=== PATIENT | male | born 1940 | race Caucasian/White ===

== ENCOUNTER → 2017-08-09 09:54 | Outpatient (CLI) | payer MEDICARE, SELFPAY ==
[2017-08-09 10:51] LABS: Anion Gap 5 (5-15); BUN 16 mg/dL (7-18); BUN/Creat Ratio 15.7 RATIO (10-20); Chloride 109 mmol/L (98-107); Creatinine, Serum 1.02 mg/dL (0.70-1.30); EST Glomerular Filtration Rate 75 mL/min (>60); Est Glom Filt Rate - Afr Amer 91 mL/min (>60); Glucose 95 mg/dL (74-106); Potassium 4.5 mmol/L (3.5-5.1); Sodium Level 139 mmol/L (136-145)
[2017-08-09 10:59] LABS: Hemoglobin A1c 6.7 % (4.2-6.3)
== END ==
PROVIDERS: Family Provider Physician Assistant; PCP Physician Assistant; Visit Provider Physician Assistant
DX: E11.42 Type 2 diabetes mellitus with diabetic polyneuropathy (principal); I10 Essential (primary) hypertension; Z12.11 Encounter for screening for malignant neoplasm of colon
CPT/HCPCS: 36415; 80048; 83036

== ENCOUNTER → 2017-08-21 10:53 | Outpatient (CLI) | payer MEDICARE, SELFPAY | PROVIDERS: Family Provider Physician Assistant; PCP Physician Assistant; Visit Provider Physician Assistant | DX: R42 Dizziness and giddiness (principal) | CPT/HCPCS: 93225; 93226 ==

== ENCOUNTER → 2017-09-17 12:37 | Outpatient (CLI) | payer MEDICARE, SELFPAY ==
--- NOTE | 2017-09-17 12:40 | ECHOD_ITS ---
Reason For Study: CABG Procedure This was a 2D Doppler, Color Flow transthoracic echocardiogram. Exam performed in department. Left Ventricle Normal LV size. Left ventricular systolic function is normal. The estimated ejection fraction is 55 %. Transmitral diastolic flow velocities suggest mild (stage 1) diastolic dysfunction (reversed pattern). No regional wall motion abnormalities noted. Right Ventricle Normal RV size. Normal systolic function. Atria Normal left atrium. Normal right atrium. Mitral Valve Normal mitral valve. Mild (1+) eccentric mitral valve insufficiency. Tricuspid Valve Normal tricuspid valve. Mild (1+) tricuspid valve insufficiency. Pulmonary artery systolic pressure is 32 mmHg. Aortic Valve Trisinus/trileaflet aortic valve. Mild focal aortic valve calcification. Pulmonic Valve Normal pulmonic valve. Great Vessels Normal aortic root. The pulmonary artery is normal size. Normal inferior vena cava. Pericardium/Pleural No pericardial effusion. MMode/2D Measurements & Calculations LVIDd: 3.6 cm IVSd: 0.98 cm Ao root diam: 3.9 cm LVIDs: 2.7 cm LVPWd: 0.93 cm LA dimension: 4.9 cm RVDd: 3.6 cm FS: 26.5 % LAV(MOD-bp): 52.0 ml EDV(MOD-sp4): 104.7 ml EDV(MOD-sp2): 80.3 ml LAV(MOD-bp) Indexed: 24.6 ml/m2 ESV(MOD-sp4): 34.8 ml EF(MOD-sp2): 58.4 % LAV(MOD-sp2): 55.1 ml EF(MOD-sp4): 66.8 % LAV(MOD-sp4): 48.8 ml SV(MOD-sp4): 69.9 ml SV(MOD-sp2): 46.9 ml LA A4 area: 18.0 cm2 RA A4 area: 16.8 cm2 Doppler Measurements & Calculations MV E max reji: 54.6 cm/sec Lat Peak E' Reji: 5.9 cm/sec Med Peak E' Reji: 4.9 cm/sec MV A max reji: 88.0 cm/sec E/E' lat: 9.2 E/E' med: 11.1 MV E/A: 0.62 Ao V2 max: 118.7 cm/sec LV V1 max: 101.4 cm/sec PA V2 max: 86.7 cm/sec Ao max P.6 mmHg LV V1 max P.1 mmHg TR max reji: 267.5 cm/sec TR max P.7 mmHg Interpretation Summary Normal LV size. Left ventricular systolic function is normal. The estimated ejection fraction is 55 %. Transmitral diastolic flow velocities suggest mild (stage 1) diastolic dysfunction (reversed pattern). GLS approx 19 Ordering Physician: Pietro Noble Referring Physician: Collins Ojeda Performed By: Laila Jiménez RDCS
== END ==
PROVIDERS: Family Provider Physician Assistant; PCP Physician Assistant; Visit Provider Internal Medicine Cardiovascular Disease
DX: I36.1 Nonrheumatic tricuspid (valve) insufficiency (principal)
CPT/HCPCS: 93306

== ENCOUNTER → 2018-05-04 15:43 | Outpatient (CLI) | payer MEDICARE, SELFPAY ==
[2017-09-10 15:45] VITALS: BMI 28.3
[2018-05-04 16:32] LABS: Absolute Lymphocyte Count 1.71 X10^3/ul (0.83-4.51); Absolute Neutrophil Count 2.4 X10^3/uL (2.0-7.7); Basophil# 0.02 X10^3/uL; Basophil% 0.4 % (0-1); Eosinophils% 4.1 % (0-5); Hematocrit 40.1 % (40-54); Lymphocyte # 1.71 X10^3/ul (4.0); Mean Corp Hgb Conc 32.4 g/gl (32-36); Mean Corpuscular Hgb 27.4 pg (27.0-32.0); Mean Corpuscular Volume 84.6 fL (80-94); Mean Platelet Vol. 8.6 fl (6.2-12.0); Monocyte# 0.52 X10^3/uL; Monocyte% 10.7 % (0-10); Neutrophil # 2.42 X10^3/uL (2.7-7.7); Neutrophil % 49.6 % (47-70); Platelet Count 306 K/mm3 (150-450); RBC Distribution Width SD 46.6 fl (35.1-43.9); Red Blood Count 4.74 M/mm3 (4.6-6.2); White Blood Count 4.9 K/mm3 (4.4-11.0)
[2018-05-04 16:33] LABS: POSITIVE COUNT NO; POSITIVE DIFFERENTIAL NO; POSITIVE MORPHOLOGY NO
[2018-05-04 16:45] LABS: ALB/GLOB Ratio 0.9 RATIO (0.9-2.4); AST(SGOT) 23 U/L (15-37); Alanine Aminotransfer ALT/SGPT 25 U/L (16-61); Albumin, Serum 3.3 g/dL (3.2-5.0); Alkaline Phosphatase 108 U/L (45-117); Anion Gap 9 (5-15); BUN 18 mg/dL (7-18); BUN/Creat Ratio 15.3 RATIO (10-20); Calcium,Total 8.4 mg/dL (8.5-10.1); Chloride 106 mmol/L (98-107); Creatinine, Serum 1.18 mg/dL (0.70-1.30); EST Glomerular Filtration Rate 63 mL/min (>60); Est Glom Filt Rate - Afr Amer 77 mL/min (>60); Globulin 3.8 g/dL (2.2-4.2); Glucose 114 mg/dL (74-106); Iron 43 ug/dL (65-175); Iron Binding Capacity,Total 296 ug/dL (250-450); PERCENT IRON SATURATION 14.5 % (15.0-55.0); Potassium 4.4 mmol/L (3.5-5.1); Protein, Total 7.1 g/dL (6.4-8.2); Sodium Level 139 mmol/L (136-145)
[2018-05-04 16:53] LABS: Hemoglobin A1c 7.2 % (4.2-6.3)
[2018-05-04 19:24] LABS: Amphetamine Urine VISTA NEGATIVE (<1000 ng/mL); Barbiturate Urine VISTA NEGATIVE (< 200 ng/mL); Benzodiazepine Urine VISTA NEGATIVE (< 200 ng/mL); Cocaine Urine VISTA NEGATIVE (< 300 ng/mL); Ecstacy Urine VISTA NEGATIVE (< 500 ng/mL); Methadone Urine VISTA NEGATIVE (< 300 ng/mL); PCP Urine VISTA NEGATIVE (< 25 ng/mL); THC Urine VISTA NEGATIVE (< 50 ng/mL); Vista UDS pH Range 6
== END ==
PROVIDERS: Family Provider Physician Assistant; PCP Physician Assistant; Referring Provider Physician Assistant; Visit Provider Physician Assistant
DX: D50.9 Iron deficiency anemia, unspecified (principal); E11.42 Type 2 diabetes mellitus with diabetic polyneuropathy; I10 Essential (primary) hypertension; Z79.899 Other long term (current) drug therapy
CPT/HCPCS: 80053; 80307; 83036; 83540; 83550; 85025

== ENCOUNTER → 2018-06-25 15:37 | Outpatient (CLI) | payer MEDICARE, SELFPAY ==
[2018-06-25 16:05] LABS: Cytology, Body Fluid / CSF SEE PATHOLOGY REPORT
== END ==
PROVIDERS: Family Provider Physician Assistant; PCP Physician Assistant
DX: R31.0 Gross hematuria (principal)
CPT/HCPCS: 87077; 87086; 87088; 88108; 88313

== ENCOUNTER 2018-07-22 11:24 | Day surgery (SDC) | payer MEDICARE, SELFPAY ==
--- NOTE | 2018-07-22 | GASB_PTH ---
PATIENT: CHEYENNE MENDIETA LOC: EN U#:[id number] AGE/SX: 78/M ROOM: RE07/22/[address]: Dr. Monty Sebastian MD : 1940 BED: DIS: 07/22/2018 SPEC #: [id number] RECD: 07/22/18 14:57 STATUS: SANDRA REGerber #: [id number] KAYLA: 07/22/18 00:[address]: Monty Sebastian DEPT: SURGICAL PATHOLOGY RECD BY: Duglas Huerta ENTERED: 07/23/18 08:22 SP TYPE: Gastric Bx OT DR: HERB Cintron Tissues: A - Gastric mucous membrane B - Gastric mucous membrane Procedures: Special Stain Group II Surgery Specimen Level IV Alcian Blue/PAS (control) HEADER OPERATION[place] [place] DIAGNOSIS: Iron deficiency anemia TISSUE SUBMITTED: A - Antral biopsy for histo and H. pylori, B - GE junction biopsy MICROSCOPIC DIAGNOSIS A. Gastric antrum, biopsy: Mild chronic gastritis. See comment. B. Gastroesophageal junction, biopsy: Chronic inflammation. No evidence of dysplasia. See comment. AM:lisa 07/24/18 COMMENT A. The results of immunohistochemistry for Helicobacter pylori will be reported separately ([id number]). B. Alcian blue/PAS stain with matched control supports the above diagnosis. MICROSCOPIC DESCRIPTION Slides are reviewed. GROSS DESCRIPTION A - Received in fixative is one container labeled with the patient's name and designated antral biopsy. The specimen consists of one irregular fragment of light lee soft tissue that measures 0.3 x 0.3 x 0.1 cm. The specimen is totally submitted in one cassette. B - Received in fixative is one container labeled with the patient's name and designated GE junction biopsy. The specimen consists of one irregular fragment of light lee soft tissue that measures 0.3 x 0.3 x 0.1 cm. The specimen is totally submitted in one cassette. / SJ:lisa 07/23/18 TC:3 CPT: 32438 x2, 44329
[2018-07-22 11:46] VITALS: BP 190/83; PULSE 81; RESP 16; TEMP 36.4; O2SAT 100; BMI 28.2
[2018-07-22 12:16] LABS: Bedside Glucose 147 mg/dL (70-110)
--- NOTE | 2018-07-22 13:00 | IMM_PTH ---
PATIENT: CHEYENNE MENDIETA LOC: EN U#:[id number] AGE/SX: 78/M ROOM: RE07/22/[address]: Dr. Monty Sebastian MD : 1940 BED: DIS: 07/22/2018 SPEC #: [id number] RECD: 07/23/18 08:39 STATUS: SANDRA REQ #: [id number] KAYLA: 07/22/18 13:[address]: Monty Sebastian DEPT: IMMUNOHISTOCHEMISTRY RECD BY: Roxie Bowen ENTERED: 07/23/18 08:40 SP TYPE: IMMUNO OTHR DR: HERB Cintron Tissues: A - Stomach, NOS Procedures: H Pylori (initial) PHYSICIAN & INSTITUTION [place] [id number] SPECIMEN INFORMATION: Tissue Source: A - Antral biopsy Clinical Info: Iron deficiency anemia Specimen Number: [id number] CPT code: 85835 METHODOLOGY: Deparaffinized sections of prefer/formalin-fixed tissue or PAP/DQ stained slides are incubated with monoclonal/polyclonal antibodies/oligonucleotide probes. Localization is made via biotin free immunoperoxidase method. Appropriate controls are performed and reacted as expected. Results on target cell population are indicated in the following table: RESULTS: ANTIBODY / CLONE RESULT Block A H Pylori (polyclonal) negative These tests were developed and their performance characteristics determined by [facility]. They may not have been cleared or approved by the U.S. Food and Drug Administration. The FDA has determined that such clearance or approval is not necessary. INTERPRETATION: A. Antral biopsy: Negative for Helicobacter pylori organisms. AM:lisa 07/24/18
--- NOTE | 2018-07-22 13:51 | HP.PCM_ITS ---
History and Physical Date of Admission: 07/22/18 REASON FOR VISIT Farrukh Kim is a 78 year old male who is scheduled at the request of HERB Chavez, for anemia. My final recommendations will be communicated back to the requesting provider?by the way of the shared medical record. ? Blood work reviewed from [facility] dated 05/04/18: H&H: 15.0/46.6 Iron: 43 TIBC: 296 Iron sat: 14.5 ? HgbA1C: 7.2 Lytes: normal BUN/CR: 19/06.18 ? ? The patient was instructed to start ferrous sulfate 325 mg daily, on 05/07/18. ? The patient sees Dr Gu. ?His next visit is in July. ?He had bypass 18 years ago. ? Cardiac Echo 09/17/17: Interpretation Summary: Normal LV size. Left ventricular systolic function is normal. The estimated ejection fraction is 55 %. Transmitral diastolic flow velocities suggest mild (stage 1) diastolic dysfunction (reversed pattern). GLS approx 19 ? ? ? HISTORY OF PRESENT ILLNESS Farrukh Kim ?is a 78 year old male who presents today for an evaluation of anemia. ?He tells me that his appetite is adequate. He doesn't really get hungry. ?His reports that he seems to be eating less than usual. ?he tells me that he feels full quickly. ? The patient denies change in bowel habits, rectal bleeding or abdominal pain. Having a bowel movement once a day. ?He notes occasional urgency. ? PAST?MEDICAL?HISTORY PAST MEDICAL HISTORY Diagnosis Date ? CABG 2001 ? Renal calculi ? ? Type II or unspecified type diabetes mellitus without mention of complication, not stated as uncontrolled ? ? Unspecified essential hypertension ? ? PAST?SURGICAL?HISTORY PAST SURGICAL HISTORY Procedure Laterality Date ? APPENDECTOMY ? ? ? CABG (4) VEIN GRAFTS & ARTERIAL GRAFT(S) ? ? ? COLONOSCOPY ? 10/16/2006 ? Dr. Stone. Diverticulosis. ?Poor prep - repeat 2 yrs. ? HERNIA REPAIR W/MESH ? ? ? twice ? CURRENT?MEDICATIONS ? Current Outpatient Prescriptions: iv contrast (will be provided with radiology test) CT Urogram WO/W Inject, intravenously, once for 1 dose.No IV access, insert saline lock prior to the beginning of sedation, infusion, injection of imaging exam. Discontinue saline lock post exam. If Pt. has a central line or IVAD, may access for administration according to line specific nursing protocol. Once exam is complete flush line and de-access according to line specific nursing protocol in the CT contrast administration guidelines link. Disp: 1 Each Rfl: 0 ferrous sulfate 325 mg (65 mg iron) tablet Take 1 tablet by mouth daily with breakfast. Disp: 30 tablet Rfl: 2 acetaminophen/diphenhydramine (TYLENOL PM ORAL) Take 2 tablets by mouth at bedtime as needed. Disp: Rfl: lisinopril (ZESTRIL, PRINIVIL) 20 mg tablet Take 1 tablet by mouth once daily. Disp: 90 tablet Rfl: 1 tamsulosin ER (FLOMAX) 0.4 mg cap Take 1 capsule by mouth daily at bedtime. Disp: 90 capsule Rfl: 1 traZODone (DESYREL) 50 mg tablet Take 1 tablet by mouth daily at bedtime. Disp: 90 tablet Rfl: 1 metFORMIN ER (GLUCOPHAGE XR) 500 mg 24 hr tablet Take 2 tablets by mouth daily with breakfast. Disp: 180 tablet Rfl: 1 gabapentin (NEURONTIN) 300 mg capsule TAKE ONE CAPSULE BY MOUTH IN THE MORNING, THEN ONE CAPSULE AT NOON AND TWO CAPSULES AT BEDTIME Disp: 360 capsule Rfl: 1 traMADol (ULTRAM) 50 mg tablet Take 1 tablet by mouth twice daily as needed for Pain for up to 180 days. Disp: 180 tablet Rfl: 1 atenolol (TENORMIN) 25 mg tablet Take 1 tablet by mouth once daily. Disp: 90 tablet Rfl: 1 flash glucose scanning reader (FREESTYLE CONNER READER) [facility] [place] Check blood sugar 3 times daily. Disp: 1 Device Rfl: 0 flash glucose sensor (FREESTYLE CONNER SENSOR) kit Check blood sugar 3 times daily. Disp: 3 Each Rfl: 5 aspirin, enteric coated (ASPIRIN, ENTERIC COATED) 81 mg EC tablet Take 81 mg by mouth once daily. Disp: Rfl: atorvastatin (LIPITOR) 10 mg tablet Take 10 mg by mouth once daily. Disp: Rfl: fluticasone (FLONASE) 50 mcg/actuation nasal spray Use 2 Sprays in each nostril once daily. FOR ALLERGIC NASAL SX. Disp: 1 Bottle Rfl: 11 Ibuprofen-diphenhydrAMINE HCl (IBUPROFEN PM) 200-25 mg cap Take 1 tablet by mouth once daily. Disp: Rfl: Cholecalciferol, Vitamin D3, (VITAMIN D-3) 2,000 unit cap Take 2 capsules by mouth once daily. Disp: Rfl: ascorbic acid(VITAMIN C 1,000 MG TAB) Take three (3) tablets every day Disp: Rfl: 0 omega-3 fatty acids(FISH OIL 500 MG CAP) Take four (4) tablets every day Disp: Rfl: 0 ? No current facility-administered medications for this visit. ? ? ALLERGIES ALLERGIES Allergen Reactions ? Glimepiride ? Intolerance ? Mirtazapine ? Intolerance ? ? Extreme drowsiness ? Seasonal Allergies ? Other: See Comments ? ? nasal congestion ? SOCIAL?HISTORY Social History ??Marital status: ?Spouse name: ?Years of education: ?Number of children: 5 ? Social History Main Topics ??Smoking status: Former Smoker ?Packs/day: 0.00 ?Years: 0.00 ?Quit date: 06/02/1983 ??Smokeless tobacco: Never Used ?Alcohol use: No ?Drug use: No ?Sexual activity: Yes ?Partners with: Female ? Social History Narrative ??He and his have a basement apartment in his son's house. 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 ? FAMILY?HISTORY FAMILY HISTORY Problem Relation Age of Onset ? Breast Cancer Mother ? ? Heart Father ? ? Diabetes Son ? ? GI SPECIFIC REVIEW OF SYMPTOMS Difficulty swallowing / foods sticking in throat: no Heartburn: ?no Hoarseness: no Chronic cough: no Regurgitation: yes Chest pain: no Filling up quickly at meals:yes Loss of appetite: yes Nausea: no Vomiting: no Abdominal pain: no Recent change in bowel movements: no - having a bowel movement once a day. Bloody or black, bowel movements: no Constipation: no Diarrhea: no Loss of ?control of bowel movements: no Fever: no Chills: no Fluid in abdomen (ascites): no Vomiting blood: no Recent change in weight: No ? ? REVIEW OF SYSTEMS Eyes: No change in vision. Ears, Mouth, nose, throat: Uses flonase nasal spray on one side. Cardiovascular: Sees Dr. Gu. ?Denies chest pain. ? Respiratory: No new or worsening cough, wheezing and shortness of breath. Gastrointestinal : As noted above Genitourinary: Notes change in stream. Saw Asael Earl. Musuloskeletal: Chronic back pain. Takes Ultram. Integumentary: no rashes, lesions, or jaundice. Neurological: Peripheral neuropathy and intention tremor. Endocrine: Diabetes, on oral agent. ?Negative for cold or heat intolerance, polyuria, polydipsia and goiter. Psychiatric: Cooperative and agreeable. Allergic/ Immunologic: Seasonal allergies. All others negative ? ? PAST?MEDICAL?HISTORY PAST MEDICAL HISTORY Diagnosis Date ? CABG 2001 ? Renal calculi ? ? Type II or unspecified type diabetes mellitus without mention of complication, not stated as uncontrolled ? ? Unspecified essential hypertension ? PHYSICAL EXAMINATION Blood pressure 126/56, pulse 68, height 180.3 cm (5' 11), weight 93 kg (205 lb). General Appearance: Well appearing, alert, in no acute distress, well-hydrated, well nourished. Eyes: PERRLA, conjunctiva and sclera normal Oropharynx: Lips, tongue, and oral mucosa normal. Lungs:breath sounds clear to auscultation bilaterally, no crackles, rhonchi, or wheezes Heart: regular rate and rhythm, no murmurs or gallops. Abdomen: not distended, normal bowel sounds, soft and depressible, no guarding or rebound, no palpable mass, no organomegaly Rectal exam: Deferred. Extremities: no cyanosis or edema Skin: no jaundice, no spider angiomas, no palmar erythema Neuro:alert, oriented x 3, pleasant and in no acute distress ? ? ? Assessment ? IMPRESSION Mr. Kim is a 78 year old year old male who presents with iron deficiency anemia, early satiety and decreased appetite. Also in need of colorectal cancer screening ? ? PLAN The patient will be scheduled for an upper endoscopy and colonoscopy. ?This would be at 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). ??Preparation for the procedures, using GoLytely as the laxative, have been explained in detail. ?The risks, benefits, anticipated outcomes and possible complications were mentioned. I explained the procedure in understandable terms and the patient was given printed material concerning the planned procedure. The patient had the opportunity to ask questions concerning the planned procedure. The patient freely consents to the planned procedure. ? ? The patient is encouraged to call with any questions or concerns, or should there be any change ?in health status between now and the scheduled procedure. ? I have personally interviewed and examined this patient. ?I have read the information that the MA documented in this encounter. I spent 30 minutes in the visit, with more than 50% of the total [id number] time of the visit in counseling / coordination of care. ? Dixie ?Isidro Ko RN BOW MAKER MACHINE TENDER.ORDER CALLER
[2018-07-22 14:48] VITALS: BP 135/83; BP 190/83; PULSE 88; RESP 18; TEMP 36.6; O2SAT 97
--- NOTE | 2018-07-22 14:48 | OP.ENDO_ITS ---
07/22/2018 Jerrod Ojeda Re : Upper GI endoscopy procedure for Farrukh Kim Dear Rusty This procedure was performed on Sunday, July 22, 2018. My impressions and recommendations are as follows: Impressions : - Normal examined jejunum. - Normal. - Gastritis. Biopsied. - Small hiatal hernia. - Normal lower third of esophagus. Biopsied. Recommendations : - Return to nurse practitioner in 1 week. - Continue present medications. My findings are described in the full procedure note, which is enclosed. If I can be of further assistance, please feel free to contact me at Doctor phone number(s): , Work: . Sincerely, Monty Sebastian MD 07/22/2018 2:47:31 PM This report has been signed electronically.
--- NOTE | 2018-07-22 14:49 | OP.ENDO_ITS ---
07/22/2018 Jerrod Ojeda Re : Colonoscopy procedure for Farrukh Kim Dear Rusty This procedure was performed on Sunday, July 22, 2018. My impressions and recommendations are as follows: Impressions : - Diverticulosis in the sigmoid colon. - The entire examined colon is normal on direct and retroflexion views. - No specimens collected. Recommendations : - Discharge patient to home. - Resume previous diet. - Continue present medications. - Repeat colonoscopy in 10 years for screening purposes. My findings are described in the full procedure note, which is enclosed. If I can be of further assistance, please feel free to contact me at Doctor phone number(s): , Work: . Sincerely, Monty Sebastian MD 07/22/2018 2:49:05 PM This report has been signed electronically.
[2018-07-22 14:52] VITALS: BP 128/86; BP 190/83; PULSE 87; RESP 18; O2SAT 98
[2018-07-22 14:55] VITALS: BP 153/92; BP 190/83; PULSE 80; RESP 18; O2SAT 100
[2018-07-22 14:59] VITALS: BP 140/92; BP 190/83; PULSE 81; RESP 18; TEMP 36.9; O2SAT 99
== END 2018-07-22 15:25 | disposition home or self-care (01) ==
LOC: EN 11:25 → AC 11:27
PROVIDERS: Family Provider Physician Assistant; PCP Physician Assistant; Referring Provider Surgery; Visit Provider Surgery
PROC: 0DJD8ZZ Inspection of Lower Intestinal Tract, Via Natural or Artificial Opening Endoscopic (ICD-10-PCS; CPT 45378; principal; 2018-07-22 12:55)
DX: K57.30 Diverticulosis of large intestine without perforation or abscess without bleeding (principal); D50.9 Iron deficiency anemia, unspecified; K29.70 Gastritis, unspecified, without bleeding; K44.9 Diaphragmatic hernia without obstruction or gangrene; E11.9 Type 2 diabetes mellitus without complications; I10 Essential (primary) hypertension; E78.00 Pure hypercholesterolemia, unspecified; Z79.84 Long term (current) use of oral hypoglycemic drugs; Z79.82 Long term (current) use of aspirin; Z79.899 Other long term (current) drug therapy; Z87.891 Personal history of nicotine dependence; Z95.1 Presence of aortocoronary bypass graft
CPT/HCPCS: 43239; 45378; 82962; 88305; 88313; 88342; J7120

== ENCOUNTER → 2018-11-02 16:34 | Outpatient (CLI) | payer MEDICARE, SELFPAY ==
[2018-11-02 16:54] LABS: Cholesterol 143 mg/dL (200); High Density Lipoprotein 39 mg/dL; Triglycerides 73 mg/dL; Very Low Density Lipoprotein 15 mg/dL (5-40)
[2018-11-02 18:44] LABS: Hemoglobin A1c 7.4 % (4.2-6.3)
== END ==
PROVIDERS: Family Provider Physician Assistant; PCP Physician Assistant; Referring Provider Physician Assistant; Visit Provider Physician Assistant
DX: I25.10 Atherosclerotic heart disease of native coronary artery without angina pectoris (principal); E11.40 Type 2 diabetes mellitus with diabetic neuropathy, unspecified
CPT/HCPCS: 80061; 83036

== ENCOUNTER → 2019-03-25 15:48 | Outpatient (CLI) | payer MEDICARE, SELFPAY ==
[2019-03-25 16:31] LABS: ALB/GLOB Ratio 0.9 RATIO (0.9-2.4); AST(SGOT) 23 U/L (15-37); Alanine Aminotransfer ALT/SGPT 28 U/L (16-61); Albumin, Serum 3.4 g/dL (3.2-5.0); Alkaline Phosphatase 86 U/L (45-117); Anion Gap 7 (5-15); BUN 28 mg/dL (7-18); BUN/Creat Ratio 24.6 RATIO (10-20); Calcium,Total 8.8 mg/dL (8.5-10.1); Chloride 103 mmol/L (98-107); Creatinine, Serum 1.14 mg/dL (0.70-1.30); EST Glomerular Filtration Rate 66 mL/min (>60); Est Glom Filt Rate - Afr Amer 80 mL/min (>60); Globulin 3.7 g/dL (2.2-4.2); Glucose 107 mg/dL (74-106); Potassium 4.3 mmol/L (3.5-5.1); Protein, Total 7.1 g/dL (6.4-8.2); Sodium Level 139 mmol/L (136-145)
[2019-03-25 16:44] LABS: Hemoglobin A1c 6.6 % (4.2-6.3)
== END ==
PROVIDERS: Family Provider Physician Assistant; PCP Physician Assistant; Referring Provider Physician Assistant; Visit Provider Physician Assistant
DX: E11.42 Type 2 diabetes mellitus with diabetic polyneuropathy (principal); I10 Essential (primary) hypertension
CPT/HCPCS: 80053; 83036

== ENCOUNTER → 2019-10-30 | Outpatient (CLI) | payer MEDICARE, SELFPAY ==
[2019-10-30 11:49] LABS: Hematocrit 43.3 % (40-54); Hemoglobin 14.2 g/dL (13.0-16.5); Mean Corp Hgb Conc 32.8 g/dL (32-36); Mean Corpuscular Hgb 30.9 pg (27.0-32.0); Mean Corpuscular Volume 94.1 fL (80-94); Mean Platelet Vol. 8.6 fl (6.2-12.0); Platelet Count 297 K/mm3 (150-450); RBC Distribution Width CV 14.1 % (11.6-14.6); RBC Distribution Width SD 48.6 fl (35.1-43.9); White Blood Count 5.5 K/mm3 (4.4-11.0)
[2019-10-30 12:05] LABS: ALB/GLOB Ratio 0.7 RATIO (0.9-2.4); AST(SGOT) 41 U/L (15-37); Alanine Aminotransfer ALT/SGPT 49 U/L (16-61); Albumin, Serum 2.8 g/dL (3.2-5.0); Alkaline Phosphatase 113 U/L (45-117); Anion Gap 5 (5-15); BUN 16 mg/dL (7-18); BUN/Creat Ratio 15.8 RATIO (10-20); Calcium,Total 8.5 mg/dL (8.5-10.1); Chloride 105 mmol/L (98-107); Cholesterol 145 mg/dL (200); Creatinine, Serum 1.01 mg/dL (0.70-1.30); EST Glomerular Filtration Rate 75 mL/min (>60); Est Glom Filt Rate - Afr Amer 91 mL/min (>60); Globulin 3.9 g/dL (2.2-4.2); Glucose 98 mg/dL (74-106); High Density Lipoprotein 32 mg/dL; Potassium 4.9 mmol/L (3.5-5.1); Protein, Total 6.7 g/dL (6.4-8.2); Sodium Level 138 mmol/L (136-145); Triglycerides 77 mg/dL; Very Low Density Lipoprotein 15 mg/dL (5-40)
[2019-10-30 12:09] LABS: Hemoglobin A1c 6.2 % (3.8-5.6)
[2019-10-30 12:43] LABS: BNP,B-Type NATRIURETIC PEPTIDE 208.1 pg/mL (0-100)
== END | disposition home or self-care (01) ==
LOC: LABSPEC 11:25
PROVIDERS: PCP Physician Assistant; Visit Provider Physician Assistant
DX: R35.0 Frequency of micturition (principal); R39.15 Urgency of urination; I10 Essential (primary) hypertension; E11.40 Type 2 diabetes mellitus with diabetic neuropathy, unspecified; R22.43 Localized swelling, mass and lump, lower limb, bilateral
CPT/HCPCS: 80053; 80061; 83036; 83880; 85027; 87086; 87088

== ENCOUNTER → 2020-03-24 | Outpatient (CLI) | payer MEDICARE, SELFPAY ==
[2020-03-24 12:37] LABS: Absolute Lymphocyte Count 1.79 X10^3/uL (0.83-4.51); Absolute Neutrophil Count 3.2 X10^3/uL (2.0-7.7); Basophil# 0.02 X10^3/uL; Basophil% 0.3 % (0-1); Eosinophil# 0.11 X10^3/uL; Eosinophils% 1.9 % (0-5); Hematocrit 43.2 % (40-54); Hemoglobin 14.2 g/dL (13.0-16.5); Lymphocyte # 1.79 X10^3/ul (4.0); Lymphocyte % 31.2 % (19-41); Mean Corp Hgb Conc 32.9 g/dL (32-36); Mean Corpuscular Hgb 31.3 pg (27.0-32.0); Mean Corpuscular Volume 95.2 fL (80-94); Mean Platelet Vol. 8.8 fl (6.2-12.0); Monocyte# 0.59 X10^3/uL; Monocyte% 10.3 % (0-10); NRBC Flagged by Analyzer 0 % (0-5); Platelet Count 310 K/mm3 (150-450); RBC Distribution Width CV 13.9 % (11.6-14.6); RBC Distribution Width SD 48.9 fl (35.1-43.9); Red Blood Count 4.54 M/mm3 (4.6-6.2); White Blood Count 5.7 K/mm3 (4.4-11.0)
[2020-03-24 13:08] LABS: ALB/GLOB Ratio 0.8 RATIO (0.9-2.4); AST(SGOT) 37 U/L (15-37); Alanine Aminotransfer ALT/SGPT 35 U/L (16-61); Alkaline Phosphatase 125 U/L (45-117); Anion Gap 5 (5-15); BUN 19 mg/dL (7-18); Calcium,Total 8.9 mg/dL (8.5-10.1); Chloride 104 mmol/L (98-107); Cholesterol 145 mg/dL (200); Creatinine, Serum 1.19 mg/dL (0.70-1.30); EST Glomerular Filtration Rate 62 mL/min (>60); Est Glom Filt Rate - Afr Amer 75 mL/min (>60); Glucose 91 mg/dL (74-106); High Density Lipoprotein 37 mg/dL; Potassium 4.4 mmol/L (3.5-5.1); Sodium Level 137 mmol/L (136-145); Triglycerides 89 mg/dL; Very Low Density Lipoprotein 18 mg/dL (5-40)
[2020-03-24 13:09] LABS: Hemoglobin A1c 5.9 % (3.8-5.6)
== END | disposition home or self-care (01) ==
LOC: LABSPEC 12:27
PROVIDERS: PCP Physician Assistant; Referring Provider Physician Assistant; Visit Provider Physician Assistant
DX: E11.40 Type 2 diabetes mellitus with diabetic neuropathy, unspecified (principal)
CPT/HCPCS: 80053; 80061; 83036; 85025

== ENCOUNTER → 2020-08-10 15:18 | Outpatient (CLI) | payer MEDICARE, SELFPAY ==
[2020-08-10 18:00] LABS: Amphetamine Urine VISTA NEGATIVE (<1000 ng/mL); Barbiturate Urine VISTA NEGATIVE (< 200 ng/mL); Benzodiazepine Urine VISTA NEGATIVE (< 200 ng/mL); Cocaine Urine VISTA NEGATIVE (< 300 ng/mL); Ecstacy Urine VISTA NEGATIVE (< 500 ng/mL); Methadone Urine VISTA NEGATIVE (< 300 ng/mL); PCP Urine VISTA NEGATIVE (< 25 ng/mL); THC Urine VISTA NEGATIVE (< 50 ng/mL); Vista UDS pH Range 5
== END ==
PROVIDERS: PCP Physician Assistant; Visit Provider Family Medicine
DX: E11.42 Type 2 diabetes mellitus with diabetic polyneuropathy (principal); M54.5 Low back pain
CPT/HCPCS: 80307

== ENCOUNTER 2021-01-19 07:41 | Day surgery (SDC) | payer MEDICARE, SELFPAY ==
--- NOTE | 2021-01-18 12:18 | EKG12_ITS ---
Test Reason : PREOP Blood Pressure : / mmHG Vent. Rate : 068 BPM Atrial Rate : 068 BPM P-R Int : 176 ms QRS Dur : 080 ms QT Int : 414 ms P-R-T Axes : -23 -07 062 degrees QTc Int : 440 ms Normal sinus rhythm Normal ECG Confirmed by ELLY SILVA, WHITNEY ([id number]), video effects editor MESERET BEST ([id number]) on 01/22/2021 8:18:26 AM Referred By: Dmitry Chua Confirmed By:WHITNEY SANABRIA MD
[2021-01-18 14:39] LABS: Anion Gap 4 (5-15); BUN 20 mg/dL (7-18); BUN/Creat Ratio 14.9 RATIO (10-20); Calcium,Total 9.1 mg/dL (8.5-10.1); Chloride 104 mmol/L (98-107); Creatinine, Serum 1.34 mg/dL (0.70-1.30); EST Glomerular Filtration Rate 54 mL/min (>60); Est Glom Filt Rate - Afr Amer 66 mL/min (>60); Glucose 140 mg/dL (74-106); Potassium 4.2 mmol/L (3.5-5.1); Sodium Level 138 mmol/L (136-145)
[2021-01-19] VITALS (7 sets, daily range): BP systolic 129–149; BP diastolic 62–75; PULSE 59–77; RESP 16–18; TEMP 36.1–36.6; O2SAT 95–100; BMI 27.7
--- NOTE | 2021-01-19 | ETH_PTH ---
PATIENT: CHEYENNE MENDIETA LOC: [facility] [place] U#:[id number] AGE/SX: 80/M ROOM: RE01/19/[address]: Dr. Dmitry Chua MD : 1940 BED: DIS: 01/19/2021 SPEC #: [id number] RECD: 01/19/21 08:07 STATUS: SANDRA JOSEPH #: [id number] KAYLA: 01/19/21 00:[address]: Dmitry Chua DEPT: SURGICAL PATHOLOGY RECD BY: Duglas Huerta ENTERED: 01/22/21 08:08 SP TYPE: ETH TISS OTHR DR: HERB Cintron Tissues: Ethmoid sinus, NOS Procedures: Surgery Specimen Level IV HEADER OPERATION: Endoscopic nasal sinus with maxillary antrostomy tissue removal PRE-OP DIAGNOSIS: Chronic maxillary sinusitis, chronic ethmoidal sinusitis, chronic frontal sinusitis TISSUE SUBMITTED: Left sinus contents MICROSCOPIC DIAGNOSIS Left sinus contents: Fragments of respiratory mucosa with moderate to marked acute and chronic inflammation and bone. MIRTHA:lisa 01/23/2021 MICROSCOPIC DESCRIPTION Slides are reviewed. GROSS DESCRIPTION Received in fixative is one container labeled with the patient's name and designated left sinus contents. The specimen consists of multiple irregular fragments of brownish soft tissue that in aggregate measure 7 x 7 x 2 cm. Transportation Worker tissue is submitted in three cassettes. / MIRTHA:lisa 01/22/21 TC:2 CPT: 87850
--- NOTE | 2021-01-19 08:05 | CT_ITS ---
STUDY: CT MAXILLOFACIAL SINUSES REASON FOR EXAM: Male, 80 years old. SINUSITIS ETHMOID RADIATION DOSAGE (If Supplied By Facility): CTDIvol = ( 33.06 ) mGy, DLP = ( 780.13 ) mGycm TECHNIQUE: The patient was scanned in a multi detector CT scanner. High resolution axial imaging was performed without the administration of intravenous contrast material. Sagittal and coronal images were reconstructed. Individualized dose optimization techniques were used for this CT. COMPARISON: None. FINDINGS: FRONTAL SINUSES: Normal aeration, without mucosal inflammatory disease. ETHMOIDAL SINUSES: Normal aeration, without mucosal inflammatory disease. MAXILLARY SINUSES: There is opacification of the left maxillary sinus. There is expansion of the medial wall of the left maxillary sinus with extension of the soft tissue into the left nasal fossa. There is opacification of the left ethmoid sinus with a bony septation thinning. This also evidence of a left frontal sinusitis. SPHENOIDAL SINUSES: Normal aeration, without mucosal inflammatory disease. There is occlusion of the maxillary infundibulum on the left side due to the soft tissue hypertrophy. The visualized osseous structures are normal. The visualized bilateral orbital contents are normal. CT/Sinus/Facial Bone IMPRESSION: Left frontal, left ethmoid and left maxillary sinusitis with soft tissue prominence in the left nasal fossa suggestive of polyposis. There is thinning and expansion of the medial wall of the left maxillary sinus with the thinning of the bony septations of the left ethmoid sinus. Electronically Signed: Vito Loco MD at 8:32 EDT , Service support ,
[2021-01-19] MEDS: Lactated Ringers 1,000 ML 100 ML IV ×2 (08:50→11:55)
[2021-01-19] MEDS: Lidocaine 1% /Epi 1:100 (20ml) 20 ML Vial (11:05)
[2021-01-19] MEDS: Lidocaine 4% 50 ML Bottle (11:05)
[2021-01-19] MEDS: Oxymetazoline 0.05% 1 SPRAY SPRAY.BTL 15 SPRAY (11:05)
--- NOTE | 2021-01-19 11:31 | PCM.OPRPT ---
Problems Associated Problem List Diagnoses (1) Chronic left maxillary sinusitis: (2) Chronic ethmoiditis: (3) Chronic frontal sinusitis: Report of Operation Date of Procedure: 01/19/21 Pre-Operative Diagnosis: Left chronic maxillary, ethmoid, frontal sinusitis Post-Operative Diagnosis: Same Surgery/Procedure Performed:: Left maxillary antrostomy, total ethmoidectomy, frontal sinus exploration Description of Surgical Findings:: Farrukh is an 80-year-old male who presents for evaluation of incidental complete opacification of the left maxillary ethmoid and frontal sinuses. Examination showed obstruction of the ostiomeatal complex and purulent discharge on that side and he does recount a history of many years of postnasal drip and nasal obstruction. Given the extensiveness of his disease surgical treatment was advised and he is agreeable to proceed. The risks, alternatives, potential complications, and benefits were discussed at length and any questions answered to the patient and/or caregiver's satisfaction. Witnessed informed consent was obtained in the office, and the patient and/or caregiver was agreeable to proceed. Procedure went as follows: The patient was identified in the preoperative holding and brought to the operating room, was placed under general anesthesia and intubated. When appropriate anesthesia was obtained, the navigational head gear was placed and confirmed to be operational in accordance with the vp director of creative strategy's directions. Pledgets soaked in a 50-50 mixture of oxymetazoline and 4% topical lidocaine were placed to decongest the nasal mucosa. These were then removed and beginning on the left side using a 0? endoscope the nasal cavity examined. There is thick brawny edematous swelling of the middle turbinate and uncinate process with obstruction of the ostiomeatal recess and purulent discharge. The insertion of the middle turbinate and uncinate process was then injected with 1% lidocaine with 100,000 epinephrine for a total of 2 mL. Upon returning to the left side, the middle turbinate was medialized with a Abdoul elevator. This allowed examination of the maxillary sinus ostia which was then probed with a double ball seeker. Copious purulent material was encountered and this was suctioned clear. The uncinate process was then outfractured with a J curette and transected with a backbiting forceps. This was then removed with the microdebrider creating a wide maxillary antrostomy. The ethmoid bulla was then entered and a total ethmoidectomy was then carried out working posteriorly to anterior. Any polyps, scar, and mucous secretions were removed. The frontal sinus ostia was then explored and any obstructing bone, polyps, or debris removed. Pledgets soaked in oxymetazoline were then placed for hemostasis. Floseal hemostatic agent was then applied. An NG tube was then placed to decompress the stomach and the patient returned to anesthesia, revived and extubated having tolerated the procedure well. Surgeon: Dmitry Chua Type of Anesthesia: General Anesthesiologist: Fernando Wilks Specimen's removed: left sinus contents Drains: none Estimated Blood Loss (mL): 50 mL Fluids Replaced: 1000 mL Grafts/Implants Used: none Complications none Admit VTE Documentation VTE Present on Admission: No VTE Mechan Device Prophylaxis: SCD's VTE Pharm Prophylaxis ordered?: No
--- NOTE | 2021-01-19 11:42 | PCM.DC ---
Discharge Instructions Diet Discharge Diet: No restrictions Activity Discharge Activity: Return to Normal Activity Dressing / Incision Call your doctor if your incision/area has: Sudden Increased Bleeding and Increased Pain/ Swelling Call your doctor if you observe: Fever of 101 or Higher and Uncontrolled pain Follow Up Care Please Follow Up With: Dmitry Chua MD When: 2 weeks Test Results: Test results from this visit will be discussed in further detail at your follow-up appointment, if applicable. Discharge Plan Admission Primary Reason for Your Visit: Chronic sinusitis Attending Provider: Dmitry Chua Primary Care Provider: Jerrod Ojeda Discharge Orders/Prescriptions Prescriptions: Continued lisinopril 10 mg tablet 20 mg PO QDAY RF: 0 tamsulosin 0.4 mg capsule,extended release 24hr 0.4 mg PO QDAY RF: 0 fluticasone propionate 50 mcg/actuation spray,suspension 2 spray INTRANASAL QDAY RF: 0 gabapentin 300 mg capsule 600 mg PO BID RF: 0 cholecalciferol (vitamin D3) 2,000 unit capsule 5,000 unit PO QDAY RF: 0 ascorbic acid (vitamin C) 1,000 mg tablet 1 g PO QDAY RF: 0 atenolol 25 mg tablet 25 mg PO DAILY RF: 0 tramadol 50 mg tablet 50 mg PO BID RF: 0 zinc 50 mg Tablet 50 mg PO DAILY RF: 0 metformin 500 mg Tablet,Er Liat.Retention 24 Hr 1,000 mg PO BID RF: 0 Ibuprofen PM 200-25 mg Capsule 2 cap PO QHS PRN (Reason: Sleep) RF: 0 Referrals / Follow Up: Jerrod Ojeda PA [Primary Care Provider] - Disposition Disposition (needs filled in before D/C Order can be placed): Home, Self Care
[2021-01-19 11:51] LABS: Bedside Glucose 95 mg/dL (70-110)
--- NOTE | 2021-01-19 13:08 | SUR.PHASEII ---
PT. WAS DRESSING, HIS NOSE BEGAN TO BLEED. IT IS SMALL AMT. BRIGHT RED. RN REVIEWED INSTRUCTIONS ABOUT BLEEDING WITH PT. AND FAMILY.
== END 2021-01-19 13:09 | disposition home or self-care (01) ==
LOC: SDC 07:42 → AC 07:42
PROVIDERS: PCP Physician Assistant; Referring Provider Otolaryngology; Visit Provider Otolaryngology
PROC: (CPT 31253; principal; 2021-01-19 09:50)
DX: J32.0 Chronic maxillary sinusitis (principal); J32.1 Chronic frontal sinusitis; J32.2 Chronic ethmoidal sinusitis; Z20.822 Contact with and (suspected) exposure to COVID-19; I25.10 Atherosclerotic heart disease of native coronary artery without angina pectoris; I36.1 Nonrheumatic tricuspid (valve) insufficiency; E11.40 Type 2 diabetes mellitus with diabetic neuropathy, unspecified; I10 Essential (primary) hypertension; N40.0 Benign prostatic hyperplasia without lower urinary tract symptoms; G47.33 Obstructive sleep apnea (adult) (pediatric); Z79.84 Long term (current) use of oral hypoglycemic drugs; Z79.899 Other long term (current) drug therapy; I25.2 Old myocardial infarction
CPT/HCPCS: 00160; 31253; 31267; 36415; 70486; 80048; 82962; 87426; 88305; 93005; C9803; J7120; J2405

== ENCOUNTER 2022-05-10 11:29 | Observation (INO) | payer MEDICARE, SELFPAY ==
--- NOTE | 2022-05-07 12:14 | EKG12_ITS ---
Test Reason : PREOP Blood Pressure : / mmHG Vent. Rate : 069 BPM Atrial Rate : 069 BPM P-R Int : 154 ms QRS Dur : 072 ms QT Int : 420 ms P-R-T Axes : 000 -03 063 degrees QTc Int : 450 ms Normal sinus rhythm Normal ECG Confirmed by CAROL SILVA, KIRAN ([id number]), telegraph editor MESERET BEST ([id number]) on 05/08/2022 8:54:34 AM Referred By: ASHLEE Confirmed By:KIRAN MEDINA MD
[2022-05-07 13:11] LABS: Hemoglobin 14.2 g/dL (13.0-16.5); Mean Corpuscular Hgb 31.6 pg (27.0-32.0); Mean Corpuscular Volume 95.6 fL (80-94); Platelet Count 289 K/mm3 (150-450); RBC Distribution Width CV 14.4 % (11.6-14.6); RBC Distribution Width SD 50.7 fl (35.1-43.9); White Blood Count 7.2 K/mm3 (4.4-11.0)
[2022-05-07 13:29] LABS: Hemoglobin A1c 6.2 % (3.8-5.6)
[2022-05-07 14:05] LABS: Anion Gap 8 (5-15); BUN 22 mg/dL (7-18); BUN/Creat Ratio 16.4 RATIO (10-20); Calcium,Total 8.8 mg/dL (8.5-10.1); Chloride 108 mmol/L (98-107); Creatinine, Serum 1.34 mg/dL (0.70-1.30); EST Glomerular Filtration Rate 54 mL/min (>60); Est Glom Filt Rate - Afr Amer 65 mL/min (>60); Glucose 118 mg/dL (74-106); Potassium 4.5 mmol/L (3.5-5.1); Sodium Level 141 mmol/L (136-145)
[2022-05-10] VITALS (10 sets, daily range): BP systolic 101–150; BP diastolic 46–85; PULSE 65–83; RESP 16–18; TEMP 36.3–36.8; O2SAT 92–99; BMI 26.4
[2022-05-10] MEDS: Lactated Ringers 1,000 ML 15 ML IV (08:45)
[2022-05-10 09:45] LABS: Bedside Glucose 103 mg/dL (74-106)
--- NOTE | 2022-05-10 09:45 | PROS_PTH ---
PATIENT: CHEYENNE MENDIETA LOC: [facility] U#:[id number] AGE/SX: 82/M ROOM: [facility] RE05/10/[address]: Dr. Pedro Thomas MD : [id number] BED: 1 DIS: 05/11/2022 SPEC #: [id number] RECD: 05/10/22 11:52 STATUS: SANDRA RUIZ #: [id number] KAYLA: 05/10/22 09:[address]: Pedro Thomas DEPT: SURGICAL PATHOLOGY RECD BY: Helen Manzanares ENTERED: 05/10/22 12:17 SP TYPE: TURP OTHR DR: HERB Cintron Tissues: Prostate, NOS Procedures: Surgery Specimen Level I Surgery Specimen Level IV HEADER OPERATION: Cystoscopy, transurethral resection of prostate PRE-OP DIAGNOSIS: BPH with lower urinary tract symptoms, calculus in bladder TISSUE SUBMITTED: Bladder stone and prostate tissue MICROSCOPIC DIAGNOSIS Bladder stone and prostate tissue, transurethral resection: Benign prostatic hyperplasia, glandular and stromal type. Focal mild chronic inflammation. Fragments of stone, clinically bladder stone (gross only). MIRTHA:lisa 05/13/2022 MICROSCOPIC DESCRIPTION Slides are reviewed. GROSS DESCRIPTION Received in fixative is one container labeled with the patient's name and designated bladder stone and prostate tissue. The specimen consists of multiple irregular fragments of lee, indurated tissue mixed with multiple brown stones that in aggregate weigh 17.4 gm and measure in aggregate 6 x 6 x 2 cm. The stones measure in aggregate 5 x 5 x 1.5 cm. The entire indurated tissue is submitted in six cassettes. The stones are for gross identification only. / MIRTHA:lisa 05/10/2022 TC:5 CPT: 77755, 12992
[2022-05-10] MEDS: Cefazolin 2 GM in 0.9% Normal Saline 100 ML IV (09:56)
--- NOTE | 2022-05-10 11:31 | DCINST_ITS ---
Discharge Instructions Diet Discharge Diet: No restrictions, Light diet - advance as tolerated and Soft diet Activity Discharge Activity: Return to Normal Activity Follow Up Care Please Follow Up With: Pedro Thomas MD Test Results: Test results from this visit will be discussed in further detail at your follow- up appointment, if applicable. Discharge Plan Admission Primary Reason for Your Visit: turp Attending Provider: Pedro Thomas Primary Care Provider: Jerrod Ojeda Discharge Orders/Prescriptions Prescriptions: New ciprofloxacin HCl [Cipro] 500 mg tablet 500 mg PO BID Qty: 10 0RF Continued lisinopril 10 mg tablet 20 mg PO QDAY gabapentin 300 mg capsule 600 mg PO BID cholecalciferol (vitamin D3) 2,000 unit capsule 5,000 unit PO QDAY ascorbic acid (vitamin C) 1,000 mg tablet 1 g PO QDAY atenolol 25 mg tablet 25 mg PO DAILY Label Comments: TAKE 1 TABLET BY MOUTH ONCE DAILY tramadol 50 mg tablet 50 mg PO BID zinc 50 mg Tablet 50 mg PO DAILY metformin 500 mg Tablet,Er Liat.Retention 24 Hr 1,000 mg PO BID Ibuprofen PM 200-25 mg Capsule 2 cap PO QHS PRN (Reason: Sleep) Discontinued tamsulosin 0.4 mg capsule,extended release 24hr 0.4 mg PO QDAY Other Ambulatory Orders: 12 Lead EKG (Routine) Timeframe: [id number] Location: None Selected Ordered By: Dr. Mario Lopez Referrals / Follow Up: Pedro Thomas MD [Med Staff - Active Staff] - Jerrod Ojeda PA [Primary Care Provider] - Disposition Disposition (needs filled in before D/C Order can be placed): Home, Self Care
--- NOTE | 2022-05-10 11:32 | PCM.OPRPT ---
Report of Operation Date of Procedure: 05/10/22 Pre-Operative Diagnosis: Large bladder stones about 5 cm in size, BPH with obstruction Post-Operative Diagnosis: Same Surgery/Procedure Performed:: Cystolitholapaxy and laser of large bladder stones, transurethral section of the prostate Description of Surgical Findings:: In the preoperative setting I discussed with the patient how the surgery would be done with expect afterwards. We discussed how a prostate resection is done and we discussed the risk of the surgery including, bleeding, infection, retrograde ejaculation, changes with ejaculation or intercourse,. We discussed the possibility that the resection of the prostate may not alleviate his urinary symptoms. We discussed the small risk of developing scar tissue along the urethral channel and strictures. We also discussed the chance of the prostate could grow back and he may need further surgery or treatment in the future for prostate problems. Patient was taken back to the operating room, timeout procedure was performed, he was identified and marked and placed on the operating room table. He underwent general anesthesia. The urethra and genitals were prepped and draped in usual sterile fashion. Went into the bladder using a 24 [place]orran cystoscope. We used the laser bridge through the scope for continuous irrigation. Then using the laser bridge we introduced a laser fiber into the bladder and the stone in the bladder was trapped against the back wall. The stone was very large. The stone was then lasered using laser lithotripsy the small little pieces all the pieces were evacuated on the bladder. After all the stones were removed then the scope was removed there was minimal bleeding. Then went into the bladder using the visual obturator with a resectoscope. Once inside the bladder identified the right and left ureteral orifice. I then identified the prostate and the anatomy of the prostate. I marked out the area of the sphincter and the verumontanum was identified. I then proceeded with the prostate resection first resected the median lobe. And then resected the right lobe of the prostate. Then to resect the left lobe of the prostate. I then resected the apical tissue of the prostate. This was a complete resection of all obstructive tissue to improve voiding and relieve obstruction. I then made sure that there was no injury to the sphincter or the verumontanum was still intact. At the end of the resection all the chips were Ellik out of the bladder. I then identified the left and right ureteral orifice and these were confirmed to be in good position and effluxing and not injured. The resectoscope was removed, a 22 [place]orran catheter was placed into the bladder on continuous irrigation. And the urine was fairly light pink color and draining normally. He was taken back to the PACU in good condition. Surgeon: Pedro Thomas Type of Anesthesia: General Drains: 3 way rahman Admit VTE Documentation VTE Present on Admission: No VTE Mechan Device Prophylaxis: SCD's
[2022-05-10] MEDS: Ketorolac 15 MG/ML Vial IV (12:08)
[2022-05-10 12:16] LABS: Bedside Glucose 109 mg/dL (74-106)
[2022-05-10] MEDS: HYDROcodone Bitartrate/Apap 5/325 Tablet PO (16:51)
[2022-05-10] MEDS: metFORMIN (XR) 500 MG Tablet 1000 MG PO (16:52)
[2022-05-10] MEDS: 0.9% Normal Saline 1,000 ML 75 ML IV (16:54)
[2022-05-10] MEDS: Ciprofloxacin 400 MG/200 ML BAG 200 MG IV (17:05)
[2022-05-10] MEDS: Docusate Sodium 100 MG Capsule 200 MG PO (21:30)
[2022-05-10] MEDS: Gabapentin 600 MG Tablet PO (21:30)
[2022-05-10] MEDS: Ibuprofen 400 MG Tablet PO (21:30)
[2022-05-10] MEDS: DiphenhydrAMINE 25 MG Capsule 50 MG PO (21:31)
[2022-05-11 01:00] VITALS: BP 137/71; PULSE 65; RESP 14; TEMP 36.5; O2SAT 98
[2022-05-11 05:00] VITALS: BP 134/74; PULSE 69; RESP 16; TEMP 36.8; O2SAT 98
[2022-05-11] MEDS: 0.9% Normal Saline 1,000 ML 75 ML IV (06:29)
[2022-05-11] MEDS: metFORMIN (XR) 500 MG Tablet 1000 MG PO (08:12)
[2022-05-11] MEDS: Ascorbic Acid 500 MG Tablet 1000 MG PO (08:12)
--- NOTE | 2022-05-11 08:52 | PCM.PN.BLA ---
Progress Note urine clear dc rahman home after voids
[2022-05-11 09:06] VITALS: BP 162/85; PULSE 64; RESP 18; TEMP 36.6; O2SAT 96
[2022-05-11] MEDS: Ciprofloxacin 400 MG/200 ML BAG 200 MG IV (09:56)
[2022-05-11] MEDS: Gabapentin 600 MG Tablet PO (09:56)
[2022-05-11] MEDS: Docusate Sodium 100 MG Capsule 200 MG PO (09:56)
[2022-05-11] MEDS: Atenolol 25 MG Tablet PO (09:56)
[2022-05-11] MEDS: Lisinopril 10 MG Tablet 20 MG PO (09:57)
[2022-05-11] MEDS: Cholecalciferol (Vit D3) 125 MCG CAPSULE (5,000 UNITS) PO (09:57)
[2022-05-11 12:45] VITALS: BP 160/85; PULSE 76; RESP 18; TEMP 36.6; O2SAT 96
--- NOTE | 2022-05-15 15:46 | HP.PCM_ITS ---
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 Balance problem BPH (benign prostatic hyperplasia) Cardiology follow-up encounter CPAP (continuous positive airway pressure) dependence Dementia Diabetes Dizziness Former smoker History of diverticulitis History of echocardiogram History of edema History of stress test Hx of fracture of hip Hypertension Injury of head and neck Insomnia Kidney stones Leg edema Loss of hearing Neuropathy Nonrheumatic tricuspid valve regurgitation Obstructive sleep apnea Prostate disease Restless legs Shortness of breath Sleep apnea Type 2 diabetes mellitus without complications Walker as ambulation aid Wears glasses Home Medications ascorbic acid (vitamin C) 1,000 mg tablet 1 g PO QDAY 09/09/17 [History Last Taken Unknown] cholecalciferol (vitamin D3) 50 mcg (2,000 unit) capsule 5,000 unit PO QDAY 09/09/17 [History Last Taken Unknown] gabapentin 300 mg capsule 600 mg PO BID 09/09/17 [History Last Taken 01/19/21 06:00] lisinopril 10 mg tablet 20 mg PO QDAY 09/09/17 [History Last Taken 01/19/21 06:00] atenolol 25 mg tablet 25 mg PO DAILY 01/17/21 [History Last Taken 01/19/21 06:00] ibuprofen 200 mg-diphenhydramine HCl 25 mg capsule (Ibuprofen PM) 2 cap PO QHS PRN Sleep 01/17/21 [History Last Taken Unknown] metformin 500 mg 24 hr tablet,extended release 1,000 mg PO BID 01/17/21 [History Last Taken Unknown] tramadol 50 mg tablet 50 mg PO BID 01/17/21 [History Last Taken Unknown] zinc 50 mg tablet 50 mg PO DAILY 01/17/21 [History Last Taken Unknown] ciprofloxacin HCl 500 mg tablet (Cipro) 500 mg PO BID #10 tabs 05/10/22 [Rx Last Taken Unknown] Allergy/AdvReac Type Severity Reaction Status Date / Time mirtazapine AdvReac Unknown Unknown Verified 05/06/22 12:32 glimepiride AdvReac NEEDS Verified 05/06/22 12:32 FOLLOW-UP Family History Mother Breast cancer Father CAD (coronary artery disease) Son Diabetes Surgical History H/O coronary artery bypass surgery History of appendectomy History of esophagogastroduodenoscopy (EGD) History of hernia repair History of quadruple bypass Social History (Updated 09/10/17 @ 16:[address] Pietro Noble MD) Smoking Status: Former smoker quit date: 06/02/83 Vital Signs Vital Signs Vital Signs: Weight Weight: 83.461 kg Body Mass Index (BMI) 26.4 Results Lab / Micro Data Result Diagrams: 05/07/22 12:35 05/07/22 12:35
== END 2022-05-11 14:14 | disposition home or self-care (01) ==
LOC: SDC 11:52 → MS3 11:52
PROVIDERS: Anesthesiology; Admitting Provider Urology; PCP Physician Assistant; Referring Provider Physician Assistant; Visit Provider Urology
PROC: (CPT 52318; principal; 2022-05-10 09:35)
DX: N21.0 Calculus in bladder (principal); F03.90 Unspecified dementia, unspecified severity, without behavioral disturbance, psychotic disturbance, mood disturbance, and anxiety; E11.9 Type 2 diabetes mellitus without complications; Z87.891 Personal history of nicotine dependence; I25.10 Atherosclerotic heart disease of native coronary artery without angina pectoris; N40.1 Benign prostatic hyperplasia with lower urinary tract symptoms; N13.8 Other obstructive and reflux uropathy; G47.33 Obstructive sleep apnea (adult) (pediatric); M19.90 Unspecified osteoarthritis, unspecified site
CPT/HCPCS: 52318; 52601; 00910; 36415; 80048; 82962; 83036; 85027; 88300; 88305; 93005; 96361; 96365; 96366; 99218; J7030; J7120; G0378; J0744; J2405

== ENCOUNTER 2023-06-30 18:13 | Emergency (ER) | payer MEDICARE, SELFPAY ==
[2023-06-30 18:15] VITALS: BP 164/74; PULSE 87; RESP 18; TEMP 36.4; O2SAT 99; BMI 26.1
[2023-06-30 18:28] LABS: Absolute Lymphocyte Count 1.58 X10^3/uL (0.83-4.51); Absolute Neutrophil Count 2.6 X10^3/uL (2.0-7.7); Basophil# 0.02 X10^3/uL; Basophil% 0.4 % (0-1); Eosinophil# 0.11 X10^3/uL; Eosinophils% 2.2 % (0-5); Hemoglobin 12.9 g/dL (13.0-16.5); Lymphocyte # 1.58 X10^3/ul (0.83-4.51); Lymphocyte % 32.2 % (19-41); Mean Corp Hgb Conc 32.3 g/dL (32-36); Mean Corpuscular Hgb 28.6 pg (27.0-32.0); Mean Corpuscular Volume 88.7 fL (80-94); Mean Platelet Vol. 8.8 fl (6.2-12.0); Monocyte# 0.61 X10^3/uL; Monocyte% 12.4 % (0-10); NRBC Flagged by Analyzer 0 % (0-5); Neutrophil # 2.58 X10^3/uL (2.7-7.7); Neutrophil % 52.6 % (47-70); Platelet Count 283 K/mm3 (150-450); RBC Distribution Width CV 14.5 % (11.6-14.6); RBC Distribution Width SD 46.4 fl (35.1-43.9); Red Blood Count 4.51 M/mm3 (4.6-6.2); White Blood Count 4.9 K/mm3 (4.4-11.0)
[2023-06-30 18:35] LABS: Prothrombin Time (Protime)PT. 13.3 SECONDS (11.7-14.9)
[2023-06-30 18:36] LABS: Partial Thromboplast Time 28.2 Seconds (24.1-36.2)
[2023-06-30 18:44] LABS: Anion Gap 2 (5-15); BUN 21 mg/dL (7-18); BUN/Creat Ratio 18.1 RATIO (10-20); Chloride 107 mmol/L (98-107); Creatinine, Serum 1.16 mg/dL (0.70-1.30); EST Glomerular Filtration Rate 64 mL/min (>60); Est Glom Filt Rate - Afr Amer 77 mL/min (>60); Estimated Creatinine Clearance 48.95 ml/min; Glucose 162 mg/dL (74-106); Potassium 4.3 mmol/L (3.5-5.1); Sodium Level 139 mmol/L (136-145)
[2023-06-30 19:00] VITALS: BMI 26.1
--- NOTE | 2023-06-30 19:01 | RAD_ITS ---
INDICATION: Stroke EXAMINATION/TECHNIQUE: X-RAY - XR Chest 1 View COMPARISON: No previous relevant examinations available for comparison.. FINDINGS: LIFE-SUPPORT AND LINES: 1. Median sternotomy wires and vascular clips are present. 2. No pneumothorax noted. HEART AND VESSELS: The cardiac silhouette, pulmonary vasculature have normal appearance. No evidence of congestive failure. LUNGS AND PLEURAL SPACES: There is atelectasis greater on LEFT than RIGHT without consolidation, no effusions. No pulmonary mass is noted. MEDIASTINUM AND HILAR REGIONS: No masses adenopathy noted. No areas of calcification. Visualized upper airway is normal in position. BONY ELEMENTS: No acute bony changes noted. RAD/Chest 1 View (Portable) IMPRESSION: 1. Postop change of prior CABG. No evidence congestive failure. 2. Bibasilar atelectasis greater on the LEFT than RIGHT without consolidation or effusion. Electronically Signed: Monty Burrell MD at 19:40 EST ,
--- NOTE | 2023-06-30 19:57 | CT_ITS ---
INDICATION: altered mental status EXAMINATION: CT BRAIN - CT Head or Brain W/O Contrast Injection TECHNIQUE: Multiple axial images were obtained of the head without intravenous contrast. A radiation dose optimization technique was used for this scan. IV Contrast dosage and agent: None. RADIATION DOSAGE (If Supplied By Facility): CTDIvol = ( 44.99 ) mGy, DLP = ( 897.35 ) mGycm COMPARISON: No relevant prior examinations for comparison FINDINGS: HEMISPHERES: 1. The cerebral parenchyma, ventricular system, subarachnoid spaces have normal configuration and density. There is a normal gyral pattern. There is normal hurt/white differentiation. No midline shift.. 2. Diffuse involutional changes and a moderate chronic microvascular deep white matter disease. 3. No intraparenchymal mass, hemorrhage, or acute territorial infarct. CEREBELLUM - BRAINSTEM: The cerebellum, brainstem, basilar and suprasellar cisterns have normal configuration. There is a subtle LEFT paramedian lacunar infarct within the midbrain (series 2: Image 21). No Chiari malformation. PITUITARY: Infundibulum and pituitary have normal configuration. Midline structures appear normal. CSF SPACES: Appropriate for age. No hydrocephalus. Basal cisterns are patent. VESSELS: 1. Extensive carotid calcifications are present. 2. No hyperdense vascular signs noted.. ORBITS AND PARANASAL SINUSES: 1. Normal appearance of the bony orbits. Normal appearance of the globes and retrobulbar soft tissues.. 2. Mucosal thickening in the LEFT maxillary antrum and ethmoid air cells. There are findings consistent with remote the LEFT internal ethmoidectomy as well as a LEFT uncinectomy infundibulotomy and LEFT maxillary nasal antral window. BONY ELEMENTS: Bony elements of the cranial vault, facial skeleton and skull base have normal appearance. SCALP AND SOFT TISSUES: Normal appearance of the soft tissues of the scalp and the visualized face OTHER: None ASPECTS Score for Acute Strokes: 10 CT/Brain/Head without Contrast IMPRESSION: 1. Diffuse involutional change and chronic microvascular deep white matter disease. 2. 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 3. No intracranial mass, hemorrhage or acute territorial infarct. 4. Extensive postoperative changes involving the LEFT ethmoid and maxillary sinuses. Chronic mucosal thickening is noted however. Electronically Signed: Monty Burrell MD at 20:41 EST ,
--- NOTE | 2023-06-30 20:06 | EDS_ITS ---
HPI <KATIA Covington - Last Filed: 06/30/23 21:12> History of Present Illness Chief Complaint: Neuro S/Sx Narrative Narrative: Patient is a 83-year-old male with history of type 2 diabetes, CAD, history of CABG who has dementia presents to the emergency department family members for worsening confusion, lethargy. Patient is here with his , 2 children, they states that the patient has been dealing with significant dementia and has been significantly confused for the last 1.5 months. However over the last several weeks, it has gotten worse. Patient is more lethargic, sleeping multiple hours a day, close to 15 hours/day. Patient has little interest in any daily activities, and they are concerned he is getting worse. They spoke with Dr. Aldridge who is his neurologist and was told to go to the ER. Patient has no weakness, denies any fever or chills, denies any specific pain. Patient has no upper or lower extremity weakness. [facility] <KATIA Covington - Last Filed: 06/30/23 21:12> [facility] Medical History (Updated 06/30/23 @ 21:[address] Shaun Rodriguez MD) Ambulates with cane Anxiety Arthritis Atherosclerosis of coronary artery of [place] heart without angina pectoris Balance problem BPH (benign prostatic hyperplasia) Cardiology follow-up encounter CPAP (continuous positive airway pressure) dependence Dementia Diabetes Dizziness Former smoker History of diverticulitis History of echocardiogram History of edema History of stress test Hx of fracture of hip Hypertension Injury of head and neck Insomnia Kidney stones Leg edema Loss of hearing Neuropathy Nonrheumatic tricuspid valve regurgitation Obstructive sleep apnea Prostate disease Restless legs Shortness of breath Sleep apnea Type 2 diabetes mellitus without complications Walker as ambulation aid Wears glasses Home Medications ascorbic acid (vitamin C) 1,000 mg tablet 1 g PO QDAY 09/09/17 [History Last Taken Unknown] cholecalciferol (vitamin D3) 50 mcg (2,000 unit) capsule 5,000 unit PO QDAY 09/09/17 [History Last Taken Unknown] gabapentin 300 mg capsule 600 mg PO BID 09/09/17 [History Last Taken 01/19/21 06:00] lisinopril 10 mg tablet 20 mg PO QDAY 09/09/17 [History Last Taken 01/19/21 06:00] atenolol 25 mg tablet 25 mg PO DAILY 01/17/21 [History Last Taken 01/19/21 06:00] ibuprofen 200 mg-diphenhydramine HCl 25 mg capsule (Ibuprofen PM) 2 cap PO QHS PRN Sleep 01/17/21 [History Last Taken Unknown] metformin 500 mg 24 hr tablet,extended release (gastric retention) 1,000 mg PO BID 01/17/21 [History Last Taken Unknown] tramadol 50 mg tablet 50 mg PO BID 01/17/21 [History Last Taken Unknown] zinc 50 mg tablet 50 mg PO DAILY 01/17/21 [History Last Taken Unknown] ciprofloxacin HCl 500 mg tablet (Cipro) 500 mg PO BID #10 tabs 05/10/22 [Rx Last Taken Unknown] ciprofloxacin HCl 500 mg tablet (Cipro) 500 mg PO BID 10 days #20 tabs 06/30/23 [Rx Last Taken Unknown] Allergy/AdvReac Type Severity Reaction Status Date / Time mirtazapine AdvReac Unknown Unknown Verified 06/30/23 18:15 glimepiride AdvReac NEEDS Verified 06/30/23 18:15 FOLLOW-UP Family History Mother Breast cancer Father CAD (coronary artery disease) Son Diabetes Surgical History H/O coronary artery bypass surgery History of appendectomy History of esophagogastroduodenoscopy (EGD) History of hernia repair History of quadruple bypass Social History (Updated 09/10/17 @ 16:[address] Pietro Noble MD) Smoking Status: Former smoker quit date: 06/02/83 ROS <KATIA Covington - Last Filed: 06/30/23 21:12> ROS ED ROS Narrative Patient has no complaints. Constitutional: Negative for fever, chills, weight loss, weakness Eyes: Negative for vision loss, vision change, double vision ENT: Negative for any sore throat, ear pain, congestion Cardiovascular: Negative for any chest pain, tightness, palpitations Respiratory: Negative for any cough, sputum production, hemoptysis, dyspnea, dyspnea on exertion, orthopnea Gastrointestinal: Negative for any abdominal pain, nausea, vomiting, diarrhea, constipation, blood in stool, blood in vomit : Negative for any urinary frequency, dysuria, retention, blood in urine Muscle skeletal: Negative for any myalgias, arthralgias, neck pain, back pain Neurological: Negative for any headache, syncope, paresthesias, dizziness Skin: Negative for any rashes, lumps, itching, abrasions, lacerations Psychiatric: Negative for any depression, anxiety, stress, suicidal ideation, homicidal ideation Hematologic: Negative for any easy bruising, excessive bruising, easy bleeding Allergies: Negative for any eczema, hives, rash EXAM <KATIA Covington - Last Filed: 06/30/23 21:12> Physical Exam Narrative Exam Narrative: Vital signs reviewed. Patient is alert and orient x 2. Speech is clear. HEET: Head normocephalic atraumatic, TMs clear bilaterally. Posterior pharynx is clear, dry mucous membranes. Nares clear bilaterally. Neck: Supple with no lymphadenopathy or tenderness. No signs of meningismus. Cardiac: Regular rate and rhythm no murmurs gallops or rubs, equal peripheral pulses bilaterally. Respiratory: Lungs clear to auscultation bilaterally. No chest tenderness. Abdomen: Soft, nontender, nondistended. No abdominal bruit or pulsatile masses. No hepatosplenomegaly Extremities: Slight edema to bilateral lower extremities, no signs of gross trauma or deformity. Active full range of motion of all extremities. Neuro: Cranial nerves II through XII intact, no focal neurological deficits. Skin: Clean dry and intact with no rash, purpura, petechiae, vesicles or pustules. Backs/flank: No CVA tenderness, no midline spinal tenderness, no deformity. Psych: Normal mood and affect. No SI, HI or acute psychosis. Const Vital Signs: 06/30/23 18:15 06/30/23 20:28 Temperature 97.5 F L Temperature Source Temporal Pulse Rate 87 54 L Respiratory Rate 18 16 Blood Pressure 164/74 H 186/86 H Blood Pressure Mean 104 119 Pulse Ox 99 100 Oxygen Delivery Method Room Air Room Air Positive well nourished and well developed General Appearance ED: well developed <Dr. Shaun Rodriguez MD - Last Filed: 06/30/23 21:12> Physical Exam Const Vital Signs: 06/30/23 18:15 06/30/23 20:28 Temperature 97.5 F L Temperature Source Temporal Pulse Rate 87 54 L Respiratory Rate 18 16 Blood Pressure 164/74 H 186/86 H Blood Pressure Mean 104 119 Pulse Ox 99 100 Oxygen Delivery Method Room Air Room Air [facility] <Stanley ManaKATIA lomeli - Last Filed: 06/30/23 21:12> [facility] Lab Data Labs: Laboratory Results - last 24 hr 06/30/23 06/30/23 18:15 20:10 WBC 4.9 RBC 4.51 L Hgb 12.9 L Hct 40.0 MCV 88.7 MCH 28.6 MCHC 32.3 RDW Std Deviation 46.4 H RDW Coeff of Scotty 14.5 Plt Count 283 MPV 8.8 Immature Gran % (Auto) 0.200 Neut % (Auto) 52.6 Lymph % (Auto) 32.2 [place] % (Auto) 12.4 H Eos % (Auto) 2.2 Baso % (Auto) 0.4 Absolute Neuts (auto) 2.6 Absolute Lymphs (auto) 1.58 Nucleated RBC % 0 PT 13.3 INR 1.0 APTT 28.2 Sodium 139 Potassium 4.3 Chloride 107 Carbon Dioxide 30.0 Anion Gap 2 L BUN 21 H Creatinine 1.16 Estim Creat Clear Calc 48.95 Est GFR (MDRD) Af Amer 77 Est GFR (MDRD) Non-Af 64 BUN/Creatinine Ratio 18.1 Glucose 162 H Calcium 9.0 Urine Color Yellow Urine Clarity Sl. Cloudy Urine pH 5.0 Ur Specific [place] 1.025 Urine Protein 100 H Urine Glucose (UA) Normal Urine Ketones Negative Urine Occult Blood 150 H Urine Nitrite Negative Urine Bilirubin Negative Urine Urobilinogen Normal Ur Leukocyte Esterase 500 H Urine RBC 10-25 SEEN Urine WBC 10-25 SEEN Ur Squamous Epith Cells 0 SEEN Calcium Oxalate Crystal 1+ Urine Bacteria RARE Urine Mucus RARE Radiography Diagnostic Testing: Clinical Impression(s) from Imaging Studies Chest X-Ray 06/30/23 19:01 IMPRESSION: 1. Postop change of prior CABG. No evidence congestive failure. 2. Bibasilar atelectasis greater on the LEFT than RIGHT without consolidation or effusion. Electronically Signed: Monty Burrell MD at 19:40 EST , Brain CT 06/30/23 19:57 IMPRESSION: 1. Diffuse involutional change and chronic microvascular deep white matter disease. 2. 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 3. No intracranial mass, hemorrhage or acute territorial infarct. 4. Extensive postoperative changes involving the LEFT ethmoid and maxillary sinuses. Chronic mucosal thickening is noted however. Electronically Signed: Monty Burrell MD at 20:41 EST , Treatment and Re-Evaluation :: Patient appears to be in no obvious respiratory distress, vital signs are stable. Presenting to the emergency department with the family for worsening dementia, with more weakness. Differential diagnosis includes CVA, worsening dementia sequelae, UTI, electrolyte abnormality. Patient will receive 1 L of normal saline, CBC, CMP, urinalysis, chest x-ray as well as a CT scan of the brain. All radiologic examinations were read, reviewed by the emergency department attending. From these reads, a plan of care will be put in place. Patient's laboratory values showed a normal CBC, patient's chemistries show glucose of 162, BUN of 21, creatinine 1.16 within normal limits. Patient did receive 1 L normal saline. Chest x-ray showed bibasilar atelectasis greater on the left than the right without consolidation. Patient's CT scan of the brain shows diffuse involutional change and chronic microvascular deep white matter disease. 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 No intracranial mass, hemorrhage or acute territorial infarct. Extensive postoperative changes involving the left ethmoid and maxillary sinuses. Patient's urinalysis showed rare bacteria, 10-25 red blood cells, 10-25 white blood cells with 500 leukocytes. Second to this finding, patient will be treated for UTI. Urine culture will be sent. Patient be given Cipro 500 mg here, will be placed on Cipro twice a day for 10 days. I spoke with the patient's family at length, I did offer admission however they states at this time they would like to take the patient home. They understand if it becomes too hard, if they cannot take care of the patient they will return here. At this time, I do leave this is reasonable. Patient and family instructed return for any worsening symptoms. Patient stable for discharge. <Dr. Shaun Rodriguez MD - Last Filed: 06/30/23 21:12> MDM MDM Narrative Medical decision making narrative: I have personally performed a face to face assessment of the patient and have reviewed the CILF Note. I performed a substantive portion of the visit including all aspects of the following. My cesar findings include: History is 83-year-old male with dementia and lives at home is cared for by his . Basically getting worse and having urinary incontinence over the last 1 to 2 weeks. She is able to take care of him but said it is becoming more problematic. She is on a walker herself. and daughter are here with him along with the son-in-law. No vomiting, diarrhea or fever. Exam is [83-year-old male no acute distress vital signs stable afebrile. Pulse ox 9 9% on room air no hypoxia. H EENT exam unremarkable atraumatic. Moist extremities. Pupils round react to light. No facial droop. No trauma. Lungs clear to auscultation bilaterally. Heart regular rhythm rate about 60 no murmur. Abdomen soft nontender. Normal bowel sounds no peritoneal signs. Chest and ribs nontender. Back nontender. Moving all 4 extremities. Nontender. No edema no cords. Neurologically is awake. He answers questions. He is confused. This is his baseline per the family. No focal motor deficits.] Medical Decision Making [83-year-old with dementia with his taking care of him. I specifically discussed with the and daughter want to take him home at this time. Will be treated for UTI. Urine culture. Cipro 500 twice daily for 10 days. They already have outpatient follow-up scheduled with their primary care physician assistant to the president at the [facility], Oneil Ojeda. They know to return if worse or if it gets too much for them to handle at home.] Other additions or changes: [None] Lab Data Labs: Laboratory Results - last 24 hr 06/30/23 06/30/23 18:15 20:10 WBC 4.9 RBC 4.51 L Hgb 12.9 L Hct 40.0 MCV 88.7 MCH 28.6 MCHC 32.3 RDW Std Deviation 46.4 H RDW Coeff of Scotty 14.5 Plt Count 283 MPV 8.8 Immature Gran % (Auto) 0.200 Neut % (Auto) 52.6 Lymph % (Auto) 32.2 [place] % (Auto) 12.4 H Eos % (Auto) 2.2 Baso % (Auto) 0.4 Absolute Neuts (auto) 2.6 Absolute Lymphs (auto) 1.58 Nucleated RBC % 0 PT 13.3 INR 1.0 APTT 28.2 Sodium 139 Potassium 4.3 Chloride 107 Carbon Dioxide 30.0 Anion Gap 2 L BUN 21 H Creatinine 1.16 Estim Creat Clear Calc 48.95 Est GFR (MDRD) Af Amer 77 Est GFR (MDRD) Non-Af 64 BUN/Creatinine Ratio 18.1 Glucose 162 H Calcium 9.0 Urine Color Yellow Urine Clarity Sl. Cloudy Urine pH 5.0 Ur Specific [place] 1.025 Urine Protein 100 H Urine Glucose (UA) Normal Urine Ketones Negative Urine Occult Blood 150 H Urine Nitrite Negative Urine Bilirubin Negative Urine Urobilinogen Normal Ur Leukocyte Esterase 500 H Urine RBC 10-25 SEEN Urine WBC 10-25 SEEN Ur Squamous Epith Cells 0 SEEN Calcium Oxalate Crystal 1+ Urine Bacteria RARE Urine Mucus RARE Radiography Diagnostic Testing: Clinical Impression(s) from Imaging Studies Chest X-Ray 06/30/23 19:01 IMPRESSION: 1. Postop change of prior CABG. No evidence congestive failure. 2. Bibasilar atelectasis greater on the LEFT than RIGHT without consolidation or effusion. Electronically Signed: Monty Burrell MD at 19:40 EST , Brain CT 06/30/23 19:57 IMPRESSION: 1. Diffuse involutional change and chronic microvascular deep white matter disease. 2. 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 3. No intracranial mass, hemorrhage or acute territorial infarct. 4. Extensive postoperative changes involving the LEFT ethmoid and maxillary sinuses. Chronic mucosal thickening is noted however. Electronically Signed: Monty Burrell MD at 20:41 EST , Discharge Plan Triage Chief Complaint: Neuro S/Sx ED Midlevel Provider: [place] ED Provider: Shaun Rodriguez Dx/Rx/DC Orders Clinical Impression: UTI (urinary tract infection), Dementia Instructions: Urinary Tract Infections in Men, Delirium and Dementia Prescriptions: New ciprofloxacin HCl [Cipro] 500 mg tablet 500 mg PO BID 10 Days Qty: 20 0RF No Action lisinopril 10 mg tablet 20 mg PO QDAY gabapentin 300 mg capsule 600 mg PO BID cholecalciferol (vitamin D3) 2,000 unit capsule 5,000 unit PO QDAY ascorbic acid (vitamin C) 1,000 mg tablet 1 g PO QDAY atenolol 25 mg tablet 25 mg PO DAILY Patient Comments: TAKE 1 TABLET BY MOUTH ONCE DAILY tramadol 50 mg tablet 50 mg PO BID zinc 50 mg Tablet 50 mg PO DAILY metformin 500 mg Tablet,Er Liat.Retention 24 Hr 1,000 mg PO BID Ibuprofen PM 200-25 mg Capsule 2 cap PO QHS PRN (Reason: Sleep) ciprofloxacin HCl [Cipro] 500 mg tablet 500 mg PO BID Qty: 10 0RF Primary Care Provider: Jerrod Ojeda Referrals: Jerrod Ojeda PA [Primary Care Provider] - Activity Restrictions/Additional Instructions: Antibiotics twice a day for 10 days. Follow-up outpatient. Please return here for any worsening concerns. Disposition Disposition: Home, Self Care
[2023-06-30 20:16] LABS: Squamous Epithelial Cells - UA 0 SEEN /hpf (0-5)
[2023-06-30 20:18] LABS: Color, Urine Yellow (Yellow); Glucose, Dipstick Normal (Normal); Ketone-Dipstick Negative (Negative); Leukocyte Esterase-Dipstick 500 /ul (Negative); Nitrite-Dipstick Negative (Negative); Occult Blood-Urine 150 /ul (Negative); Protein-Dipstick 100 mg/dl (Negative); Specific Gravity, Urine 1.025 (1.002-1.030); Urine Bilirubin Dipstick Negative (Negative); Urine Clarity Sl. Cloudy (Clear); Urine Urobilinogen Normal (Normal)
[2023-06-30 20:25] LABS: Red Blood Cells-Urine 10-25 SEEN /hpf (0-5); White Blood Cells 10-25 SEEN /hpf (0-5)
[2023-06-30 20:26] LABS: Bacteria RARE /hpf (None Seen); Calcium Oxalate Crystals Ur 1+ /hpf (<or=2+); Mucous, Urine RARE /hpf (<or=2+)
[2023-06-30 20:28] VITALS: BP 186/86; PULSE 54; RESP 16; O2SAT 100
--- OUTSIDE RECORDS SUMMARY | 2023-06-30 21:00 | XMS RPT_ITS | CCD ---
Author Name Unknown Address [address] [place] [address] Organization [facility] Care Team Providers Care [address] Magistrate Name Role Phone MIKHAIL DURHAM Attending Unavailable [facility] Primary Care Unavailable [facility] Referring Unavailable Jerrod Ojeda PA-C Primary Care Provider [phone] Jerrod Ojeda PA-C Primary Care Provider [phone] Jerrod Ojeda PA-C Primary Care Provider [phone] Jerrod Ojeda PA-C Primary Care Provider [phone] [place] Referring Unavailable Jerrod OJEDA Primary Care Unavailable [place] Attending Unavailable Jerrod OJEDA Primary Care Unavailable Jerrod OJEDA Referring Unavailable Jerrod OJEDA Primary Care Unavailable LAZARO ALDRIDGE JR Attending Unavailable Jerrod OJEDA Primary Care Unavailable LAZARO ALDRIDGE JR Attending Unavailable Jerrod OJEDA Primary Care Unavailable LAZARO ALDRIDGE JR Referring Unavailable LAZARO ALDRIDGE JR Attending Unavailable Jerrod OJEDA Primary Care Unavailable Jerrod OJEDA Referring Unavailable Jerrod OJEDA Attending Unavailable Jerrod OJEDA Primary Care Unavailable Allergies Allergy Classification Reported Allergen(s) Allergy Type Date of Onset Reaction(s) Facility (20 sources) glimepiride; Translations: [GLIMEPIRIDE] Drug Allergy 1 Intolerance [facility] Repository (20 sources) Mirtazapine; Translations: [MIRTAZAPINE] Drug Allergy 5 Intolerance [facility] Repository (20 sources) Seasonal allergy; Translations: [SEASONAL ALLERGIES] Propensity to adverse reactions (disorder) 7 Other: See Comments [facility] Repository Medications Current Medications Medication Drug Class(es) Dates Sig (Normalized) Sig (Original) donepezil hydrochloride 5 mg oral tablet (1 source) Start: 02-07-2023 End: 08-06-2023 take 1 tablet by mouth once daily donepezil (ARICEPT) 5 mg tablet Indications: Moderate dementia with other behavioral disturbance, unspecified dementia type (HCC) Take 1 tablet by mouth once daily. 90 tablet 1 02/07/2023 08/06/2023 Active Completed/Discontinued Medications Medication Drug Class(es) Dates Sig (Normalized) Sig (Original) Acetaminophen / diphenhydrAMINE (20 sources) Histamine-1 Receptor Antagonist End: 01-06-2023 take 2 tablets by mouth at bedtime as needed acetaminophen/diph enhydramine (TYLENOL PM ORAL) Take 2 tablets by mouth at bedtime as needed. 0 01/06/2023 Discontinued (Other) Problems Active Problems Problem Classification Problem Date Documented Date Episodic/Chronic Acquired foot deformities (20 sources) Acquired hallux valgus; Translations: [Hallux valgus (acquired), unspecified foot] Onset: 11-06-2011 11-06-2011 Chronic Administrative/social admission (1 source) General problem AND/OR complaint; Translations: [Persons encountering health services in other specified circumstances] Episodic Chronic kidney disease (6 sources) Chronic kidney disease stage 3A ; Translations: [Stage 3a chronic kidney disease (HCC)] Onset: 01-06-2023 01-06-2023 Chronic Chronic kidney disease (1 source) Chronic kidney disease; Translations: [Stage 3a chronic kidney disease (HCC)] Onset: 01-06-2023 Coronary atherosclerosis and other heart disease (20 sources) Coronary arteriosclerosis; Translations: [Atherosclerotic heart disease of robinson coronary artery without angina pectoris] Onset: 06-15-2009 05-12-2021 Chronic Delirium, dementia, and amnestic and other cognitive disorders (20 sources) Mild dementia; Translations: [Unspecified dementia without behavioral disturbance] Onset: 12-14-2021 Chronic Diabetes mellitus with complications (20 sources) Polyneuropathy due to type 2 diabetes mellitus; Translations: [Type 2 diabetes mellitus with diabetic polyneuropathy] Onset: 06-15-2009 Chronic Disorders of lipid metabolism (20 sources) Mixed hyperlipidemia; Translations: [Mixed hyperlipidemia] Onset: 08-01-2020 08-01-2020 Chronic Essential hypertension (20 sources) Hypertensive disorder; Translations: [Essential (primary) hypertension] Onset: 06-15-2009 06-15-2009 Chronic Gastritis and duodenitis (3 sources) Chronic superficial gastritis; Translations: [Chronic superficial gastritis without bleeding] Onset: 11-02-2018 Chronic Hyperplasia of prostate (20 sources) Benign prostatic hyperplasia; Translations: [Benign prostatic hyperplasia without lower urinary tract symptoms] Onset: 06-15-2009 04-16-2017 Chronic Malaise and fatigue (2 sources) Asthenia; Translations: [Weakness] Episodic Mood disorders (7 sources) Recurrent depression; Translations: [Major depressive disorder, recurrent, unspecified] Onset: 01-06-2023 01-06-2023 Chronic Nutritional deficiencies (2 sources) Decreased vitamin B12 level; Translations: [Deficiency of other specified B group vitamins] Episodic Other circulatory disease (2 sources) History of cerebrovascular accident; Translations: [Personal history of transient ischemic attack (TIA), and cerebral infarction without residual deficits] Episodic Other connective tissue disease (2 sources) Bilateral calf pain; Translations: [Pain in right lower leg] Episodic Other connective tissue disease (4 sources) Recurrent falls ; Translations: [Repeated falls] Episodic Other diseases of veins and lymphatics (1 source) Peripheral venous insufficiency; Translations: [Venous insufficiency (chronic) (peripheral)] Episodic Other hereditary and degenerative nervous system conditions (20 sources) Cerebral atrophy; Translations: [Degenerative disease of nervous system, unspecified] Onset: 12-14-2021 Chronic Other hereditary and degenerative nervous system conditions (2 sources) Essential tremor; Translations: [Essential tremor] Chronic Other hereditary and degenerative nervous system conditions (1 source) Degenerative disease of nervous system, unspecified; Translations: [Brain atrophy (HCC)] Onset: 12-14-2021 Chronic Other injuries and conditions due to external causes (1 source) H/O: hip fracture; Translations: [Personal history of (healed) traumatic fracture] 02-07-2023 Episodic Other lower respiratory disease (1 source) Dyspnea; Translations: [Shortness of breath] Episodic Other nervous system disorders (1 source) Other chronic pain; Translations: [Chronic midline low back pain without sciatica] Onset: 02-28-2022 Chronic Other nervous system disorders (1 source) Ataxia; Translations: [Ataxia, unspecified] Episodic Other screening for suspected conditions (not mental disorders or infectious disease) (4 sources) Patient encounter status; Translations: [Encounter for screening for malignant neoplasm of colon] Episodic Other upper respiratory infections (20 sources) Chronic sinusitis; Translations: [Other chronic sinusitis] Onset: 01-13-2021 01-13-2021 Chronic Parkinson`s disease (3 sources) Parkinsonism; Translations: [Parkinson's disease] Chronic Residual codes; unclassified (3 sources) Bilateral lower limb edema; Translations: [Localized edema] Episodic Unclassified (1 source) 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); Translations: [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)] Onset: 12-14-2021 Unclassified (1 source) Chronic midline low back pain without sciatica; Translations: [Chronic midline low back pain without sciatica] Onset: 02-28-2022 Viral infection (1 source) COVID-19; Translations: [Acute upper respiratory infections of unspecified site] Episodic Past or Other Problems Problem Classification Problem Date Documented Da te Episodic/Chronic Abdominal hernia (20 sources) Hiatal hernia; Translations: [Diaphragmatic hernia without obstruction or gangrene] Onset: 07-22-2018 07-23-2018 Episodic Calculus of urinary tract (8 sources) Urinary bladder stone; Translations: [Calculus in bladder] Onset: 01-06-2023 Episodic Coronary atherosclerosis and other heart disease (1 source) Presence of aortocoronary bypass graft; Translations: [S/P CABG x 2] Onset: 01-06-2023 Episodic Deficiency and other anemia (20 sources) Anemia; Translations: [Anemia, unspecified] Onset: 05-19-2017 05-19-2017 Episodic Gastritis and duodenitis (20 sources) Gastritis; Translations: [Gastritis, unspecified, without bleeding] Onset: 07-03-2018 11-02-2018 Episodic Genitourinary symptoms and ill-defined conditions (20 sources) Microalbuminuria; Translations: [Proteinuria, unspecified] Onset: 11-06-2018 11-06-2018 Episodic Other acquired deformities (20 sources) Retrolisthesis; Translations: [Spondylolisthesis, site unspecified] Onset: 02-28-2022 02-28-2022 Episodic Other acquired deformities (20 sources) Lumbar spondylolisthesis; Translations: [Spondylolisthesis, lumbar region] Onset: 02-28-2022 02-28-2022 Episodic Other acquired deformities (1 source) Spondylolisthesis, site unspecified; Translations: [Retrolisthesis] Onset: 02-28-2022 Episodic Other acquired deformities (1 source) Spondylolisthesis, lumbar region; Translations: [Spondylolisthesis of lumbar region] Onset: 02-28-2022 Episodic Other and unspecified benign neoplasm (20 sources) History of polyp of colon; Translations: [Personal history of colonic polyps] Onset: 05-19-2017 05-19-2017 Episodic Other disorders of stomach and duodenum (20 sources) Nonulcer dyspepsia; Translations: [Functional dyspepsia] Onset: 05-19-2017 05-19-2017 Episodic Other non-traumatic joint disorders (20 sources) Chronic pain of right upper limb; Translations: [Pain in right shoulder] Onset: 09-16-2016 09-16-2016 Episodic Residual codes; unclassified (20 sources) Insomnia; Translations: [Insomnia, unspecified] Onset: 03-13-2011 03-13-2011 Episodic Spondylosis; intervertebral disc disorders; other back problems (20 sources) Low back pain; Translations: [Recurrent low back pain] Onset: 11-02-2018 Episodic Results Test Name Value Interpretation Reference Range Facil ity Vital Signs Date Time Vital Sign Value Performing Clinician Sofia bingham 02-07-2023 11:33-0400 Body weight 79.74 kg Lazaro Aldridge Jr., MD Work Phone: [facility] 02-07-2023 11:33-0400 Diastolic blood pressure 76 mm[Hg] Lazaro Aldridge Jr., MD Work Phone: [facility] 02-07-2023 11:33-0400 Heart rate 62 /min Lazaro Aldridge Jr., MD Work Phone: [facility] 02-07-2023 11:33-0400 Respiratory rate 16 /min Lazaro Aldridge Jr., MD Work Phone: [facility] 02-07-2023 11:33-0400 SaO2% (BldA) [Mass fraction] 97 % Lazaro Aldridge Jr., MD Work Phone: [facility] 02-07-2023 11:33-0400 Systolic blood pressure 132 mm[Hg] Lazaro Aldridge Jr., MD Work Phone: [facility] 01-06-2023 13:14-0400 Body weight 83.46 kg NA Ojeda PA-C Work Phone: [facility] 01-06-2023 13:14-0400 Diastolic blood pressure 80 mm[Hg] NA Ojeda PA-C Work Phone: [facility] 01-06-2023 13:14-0400 Heart rate 74 /min NA Ojeda PA-C Work Phone: [facility] 01-06-2023 13:14-0400 Respiratory rate 16 /min NA Ojeda PA-C Work Phone: [facility] 01-06-2023 13:14-0400 Systolic blood pressure 160 mm[Hg] NA Ojeda PA-C Work Phone: [facility] 07-31-2022 12:21-0500 Body weight 78.93 kg Lazaro Aldridge Jr., MD Work Phone: [facility] 07-31-2022 12:21-0500 Diastolic blood pressure 69 mm[Hg] Lazaro Aldridge Jr., MD Work Phone: [facility] 07-31-2022 12:21-0500 Heart rate 61 /min Lazaro Aldridge Jr., MD Work Phone: [facility] 07-31-2022 12:21-0500 SaO2% (BldA) [Mass fraction] 96 % Lazaro Aldridge Jr., MD Work Phone: [facility] 07-31-2022 12:21-0500 Systolic blood pressure 137 mm[Hg] Lazaro Aldridge Jr., MD Work Phone: [facility] 02-28-2022 15:07-0400 Body weight 85.37 kg NA Ojeda PA-C Work Phone: [facility] 02-28-2022 15:07-0400 Diastolic blood pressure 68 mm[Hg] NA Ojeda PA-C Work Phone: [facility] 02-28-2022 15:07-0400 Heart rate 68 /min NA Ojeda PA-C Work Phone: [facility] 02-28-2022 15:07-0400 Respiratory rate 20 /min NA Ojeda PA-C Work Phone: [facility] 02-28-2022 15:07-0400 SaO2% (BldA) [Mass fraction] 98 % NA Ojeda PA-C Work Phone: [facility] 02-28-2022 15:07-0400 Systolic blood pressure 120 mm[Hg] NA Ojeda PA-C Work Phone: [facility] 02-12-2022 11:51-0400 Body weight 86.18 kg NA Ojeda PA-C Work Phone: [facility] 02-12-2022 11:51-0400 Diastolic blood pressure 70 mm[Hg] NA Ojeda PA-C Work Phone: [facility] 02-12-2022 11:51-0400 Heart rate 52 /min NA Ojeda PA-C Work Phone: [facility] 02-12-2022 11:51-0400 Respiratory rate 20 /min NA Ojeda PA-C Work Phone: [facility] 02-12-2022 11:51-0400 SaO2% (BldA) [Mass fraction] 98 % NA Ojeda PA-C Work Phone: [facility] 02-12-2022 11:51-0400 Systolic blood pressure 142 mm[Hg] NA Ojeda PA-C Work Phone: [facility] 11-12-2021 13:38-0400 Body temperature 99.1 [degF] NA Ojeda PA-C Work Phone: [facility] 11-12-2021 13:38-0400 Body weight 84.37 kg NA Ojeda PA-C Work Phone: [facility] 11-12-2021 13:38-0400 Diastolic blood pressure 66 mm[Hg] NA Ojeda PA-C Work Phone: [facility] 11-12-2021 13:38-0400 Heart rate 68 /min NA Ojeda PA-C Work Phone: [facility] 11-12-2021 13:38-0400 Respiratory rate 18 /min NA Ojeda PA-C Work Phone: [facility] 11-12-2021 13:38-0400 SaO2% (BldA) [Mass fraction] 99 % NA Ojeda PA-C Work Phone: [facility] 11-12-2021 13:38-0400 Systolic blood pressure 112 mm[Hg] NA Ojeda PA-C Work Phone: [facility] Encounters Encounter Date Encounter Type Care Provider Facility Start: 06-09-2023 End: 06-09-2023 ambulatory Jerrod OJEDA Facility:[facility] Start: 02-07-2023 End: 02-07-2023 ambulatory [facility] MERIDIANCOLLINSMO OJEDA Facility:[facility] Start: 02-07-2023 End: 02-07-2023 Patient encounter procedure Lazaro Aldridge MD Work Phone: Neurology Procedures Date Procedure Procedure Detail Performing Clinician History of coronary artery bypass grafting S/P CABG x 2 M Collins Ojeda PA-C Work Phone: Plan of Treatment Date Care Activity Detail Author Start: 01-02-2031 Urine microalbumin profile DTAP,TDAP,TD (2 - Td or Tdap) [facility] Start: 02-06-2024 Hepatitis B surface antibody level LDL CHOLESTEROL [facility] Start: 01-07-2024 3 comp foot exam completed DIABETIC FOOT EXAM [facility] Start: 08-06-2023 Hemoglobin A1c/Hemoglobin.total in Blood HBA1C [facility] Start: 03-28-2023 End: 05-28-2023 Hemoglobin A1c in Blood HGB A1C Lab Routine Microalbuminuria Expected: 03/28/2023, Expires: 05/28/2023 [facility] Work Phone: Immunizations Immunization Date Immunization Notes Care Provider Jostin timmons 01-15-2022 zoster vaccine recombinant NA Ojeda PA-C Work Phone: [facility] 08-10-2021 influenza, high-dose , quadrivalent vaccine (FLUZONE HIGH DOSE QUADRIVALENT) NA Ojeda PA-C Work Phone: [facility] 01-02-2021 tetanus toxoid, redu talha diphtheria toxoid, and acellular pertussis vaccine, adsorbed NA Ojeda PA-C Work Phone: [facility] 08-01-2020 influenza, high-dose , quadrivalent vaccine (FLUZONE HIGH DOSE QUADRIVALENT) NA Ojeda PA-C Work Phone: [facility] 03-25-2019 influenza, high dose seasonal, preservative-free NA Ojeda PA-C Work Phone: [facility] 03-04-2018 influenza, high dose seasonal, preservative-free NA Ojeda PA-C Work Phone: [facility] 04-14-2017 influenza, high dose seasonal, preservative-free NA Ojeda PA-C Work Phone: [facility] Work Phone: 12-30-2016 pneumococcal conjuga te vaccine, 13 valent NA Ojeda PA-C Work Phone: [facility] Work Phone: 12-17-2016 zoster vaccine, live NA Taj on PA-C Work Phone: [facility] Work Phone: 07-01-2016 influenza, high dose seasonal, preservative-free NA Ojeda PA-C Work Phone: [facility] Work Phone: 03-15-2015 influenza, high dose seasonal, preservative-free NA Ojeda PA-C Work Phone: [facility] Work Phone: 04-08-2014 influenza, high dose seasonal, preservative-free NA Ojeda PA-C Work Phone: [facility] 06-25-2013 influenza virus vacc ine, whole virus NA Ojeda PA-C Work Phone: [facility] 04-02-2008 influenza virus vacc ine, unspecified formulation NA Ojeda PA-C Work Phone: [facility] Work Phone: 04-02-2007 influenza virus vacc ine, unspecified formulation NA Ojeda PA-C Work Phone: [facility] Work Phone: 04-02-2005 influenza virus vacc ine, unspecified formulation NA Ojeda PA-C Work Phone: [facility] Work Phone: 04-02-2005 pneumococcal polysaccharide vaccine, 23 valent NA Ojeda PA-C Work Phone: [facility] Work Phone: Payers Date Payer Category Payer Medicare [id number] 2013 Medicare [employer] [place] [id number] 2013-Present [phone] [address] [place] [address] [facility] [id number] 2013 Medicare [employer] [place] [place] [id number] 2013-Present [phone] [address] [place] [address] [facility] [place] [id number] 1940 Unknown [id number] Social History Date Type Detail Facility Start: 05-19-2017 End: 02-12-2022 Tobacco smoking status NHIS Ex-smoker [facility] End: 06-02-1983 History of tobacco use Current smoker [facility] Start: 08-10-2021 End: 02-07-2023 Alcohol intake Current non-drinker of alcohol (finding) [facility] Start: 07-26-2020 End: 06-11-2022 History SDOH Alcohol Frequency 2 [facility] Start: 07-26-2020 End: 06-11-2022 History SDOH Alcohol Std Drinks 1 [facility] Start: 07-26-2020 History SDOH Social Connections Phone 5 [facility] Start: 07-26-2020 End: 06-11-2022 History SDOH Social Connections Get Together 3 [facility] Start: 07-26-2020 End: 06-11-2022 History SDOH Physical Activity DPW 0 [facility] Start: 07-26-2020 End: 06-11-2022 History SDOH Financial 4 [facility] Start: 07-25-2020 Education 12 [facility] Start: 1940 Sex Assigned At Male [facility] Start: 11-02-2021 End: 02-12-2022 Exposure to SARS-CoV-2 (event) Not sure [facility] Start: 12-04-2021 End: 12-14-2021 Exposure to SARS-CoV-2 (event) Yes [facility] End: 06-02-1983 History of tobacco use Cigarette Smoker [facility] Work Phone: Start: 05-19-2017 End: 02-12-2022 Tobacco use and exposure Smokeless tobacco non-user [facility] Work Phone: Start: 06-11-2022 End: 11-05-2022 History of Social function [facility] Start: 06-11-2022 End: 11-05-2022 Social connection and isolation panel [facility] Do you belong to any clubs or organizations such as mandaeism groups, unions, fraternal or athletic groups, or school groups? No [facility] Are you now , , , , never or living with a partner? [facility] How often to you hav e a drink containing alcohol? 2-3 time sa week [facility] How many standard dr inks containing alcohol do you have on a typical day? 1 or 2 [facility] How often do you hav e 6 or more drinks on 1 occasion? Never [facility] How hard is it for y ou to pay for the very basics like food, housing, medical care, and heating Not very hard [facility] Adult Depression Screening Assessment 4 [facility] Do you feel stress - tense, restless, nervous, or anxious, or unable to sleep at night because your mind is troubled all the time - these days [OSQ] Rather much [facility] (I/We) worried wheblaine er (my/our) food would run out before (I/we) got money to buy more. Never true [facility] Start: 02-29-2020 Gender identity Identifies as male gender (finding) [facility] Start: 02-29-2020 Sexual orientation Heterosexual (finding) [facility] Clinical Notes 06-15-2009 to 06-09-2023 Lazaro Aldridge Jr., MD - 02/07/2023 11:47 AM EDTTelephone Encounter - Tiara Ortiz LPN - 01/21/2023 10:33 AM EDTTelephone Encounter - Jerrod Ojeda PA-C - 01/14/2023 3:05 PM EDT Note Date & Type Note Facility 06-09-2023 Note HNO ID: [id number] Author: LAZARO ALDRIDGE JR, MD Service: ? Author Type: Physician Type: Progress Notes Filed: 06/09/2023 21:25 Note Text: 06/09/2023 [facility] Physical Health Summary Physical health: Fair Everyday physical activity, ability: A little Fatigue: Severe Pain level: 2 General health: Fair Social activities/roles, ability: Poor Physical Health T-Score 34.9 (Poor) Physical Health Percentile 7 [facility] Mental Health Summary Quality of life: Fair Mental health (mood,thinking): Poor Social satisfaction: Fair Emotional problems (anxious,depressed): Often Mental Health T-Score 31.3 (Fair) Mental Health Percentile 3 PHQ-9 Score: 18(Moderately Severe Depression) PHQ-9 Self-Harm: Several days MELISSA-7 Score: 15(Severe Anxiety) NEURO-QOL Cognitive Function T-Score 24(Severe Dysfunction) Neuro-Qol Cognitive Function Percentile 0 PROMIS Physical Function T-Score 24(Severe Dysfunction) PROMIS Physical Function Percentile 0 Percentiles provide an indication of how a patient's score ranks in relation to the [place] general population. > 31st percentile is within normal limits or better *< 31st percentile is at least ? SD worse than population, which may be clinically relevant < 16th percentile is at least 1 SD worse than population and warrants attention ESTABLISHED PATIENT VISIT CHIEF COMPLAINT: Follow Up HISTORY OF PRESENT ILLNESS: Cheyenne Mendieta is a 83 year old male, with a PMH significant for and per last office visit of 02/07/23: 1. Moderate dementia with other behavioral disturbance, unspecified dementia type (HCC) - ICD9: 294.21, ICD10: F03.B18 (primary diagnosis) 2. History of stroke - ICD9: V12.54, ICD10: Z86.73 3. Low vitamin B12 level - ICD9: 266.2, ICD10: E53.8 MOCA stable as is clinical history. Still suspect multifactorial cause, but again on review of MRI brain, significant diffuse atrophy including temp lobe to suggest neurodegenerative process. D/w pt and family. We did again discuss NPH, but exam less suggestive of such dx today. D/w pt and family dementia and its subtypes. They would not want invasive therapy (I.e. surgery). Will continue Namenda 10mg BID but will start Aricept 5mg daily. SE and ADRs d/w pt and family. Advised pt not to drive (family present). D/w pt need to exercise brain. D/w family need to safe guard house. 4. Spinal stenosis of cervical region - ICD9: 723.0, ICD10: M48.02 5. Frequent falls - ICD9: V15.88, ICD10: R29.6 6. History of hip fracture - ICD9: V15.51, ICD10: Z87.81 Known moderate C spine stenosis but suspect current gait difficulties multifactorial with greatest impairment on exam today correlating with known L hip injury. No s/s of PD on exam (explained exams can vary and does not rule out later development of PD). At this time recommend pt continue with lessons from PT. If gait worsens, will again enroll in PT. Patient never started Aricpet as concerned about side effects. No longer on Tramadol. Sleeping a lot more. Some falls. Patient believes he has what Hema Deng had. Reports 2 different wives and sometimes thinks his is his mother. No longer doing exercises. Often confuses night and day. Will get up at 10 PM and think it is 10 AM. Sleeping about 18-20 hours per day. Goes to bed about 5-6PM and will sleep through until 9AM. During the day takes 2 naps. Patient is getting daylight exposure during the day. Pt states no energy. No snoring. Evaluated for sleep apnea - years ago and did and still does refuse PAP therapy. Pt taking B12 supplement. Reports mood not good. No si or hi. On Sertraline. Family states weeks where he is doing really good and other weeks when not so much. Now having bladder control issues - more so a leak or urge to go rather than an absolute loss of control. REVIEW OF SYSTEMS GENERAL:No weight loss, malaise or fevers. HEENT:Negative for frequent or significant headaches, No changes in hearing or vision, no nose bleeds or other nasal problems NECK:Negative for lumps, goiter, pain and significant neck swelling RESPIRATORY: Negative for cough, wheezing or shortness of breath. CARDIOVASCULAR: Negative for chest pain, leg swelling or palpitations. GASTROINTESTINAL: Negative for abdominal discomfort, blood in stools or black stools or change in bowel habits GENITOURINARY: See HPI. MUSCULOSKELETAL: Negative for joint pain or swelling, back pain or muscle pain. NEUROLOGIC:Negative for focal numbness or weakness, headaches and dizziness or syncope, vision changes, speech/languag changes - EXCEPT that as per HPI above. SKIN:Negative for lesions, rash, and itching. PSYCHIATRIC: See HPI. LAB/IMAGING: Those performed since patient's last visit have been reviewed. WBC (k/uL) Date Value 02/05/2023 4.31 RBC (m/uL) Date Value 02/05/2023 4.63 Hemoglobin (g/dL) Date Value 02/05/2023 13.2 Hematocrit (%) Date Value 02/05/2023 4 (more content not included)... [facility] 02-07-2023 Note HNO ID: [id number] Author: Lazaro Aldridge Jr., MD Service: ? Author Type: Physician Type: Progress Notes Filed: 02/07/2023 12:52 PM Note Text: ESTABLISHED PATIENT VISIT CHIEF COMPLAINT: Follow Up HISTORY OF PRESENT ILLNESS: Cheyenne Mendieta is a 82 year old male, BMI 24.52 kg/m2 with a PMH significant for and per last office visit note with me of 07/31/22: 1. Moderate dementia with other behavioral disturbance, unspecified dementia type (HCC) - ICD9: 294.21, ICD10: F03.B18 (primary diagnosis) 2. History of stroke - ICD9: V12.54, ICD10: Z86.73 3. Low vitamin B12 level - ICD9: 266.2, ICD10: E53.8 Patient with cognitive decline as described above - progressive and over multiple years. Etiology uncertain but suspect multifactorial including: low B12 level; possible vascular component given on MRI brain and prior subcortical infarcts noted on MRI brain as well; possible NPH; possible neurodegenerative dementia such as Alzheimer's (no family history). Ddx d/w family and pt in detail NPH is concerning due to increase in ventricle size over the years although this may be due to general cerebral atrophy over that time as well, with noted significant increase in cortical atrophy including in the temp lobes. Pt also with ataxia, dementia, and urinary incontinence, but symptoms present now for almost 5 years and thus, uncertain surgery would even be of benefit if NPH. Pt and family do not want further evaluation by neurosurgery at this time. As for other causes, will ask Nnamdi Ojeda PA-C to initiate B12 supplementation. Also I have recommended the patient take ASA daily, BP goal <140/90 and glucose goal <140. Pt no wanting full stroke workup and note strokes are chronic on MRI and likely due to other known risk factors. That said, will proceed with carotid dopplers as baseline for large vessel disesae. As for a progressive neurodegenerative process, they are not wanting additional workup (I.e. CSF) as it would not change therapy. For now will place on trial of Namenda 5mg daily and titrate up by 5mg weekly to goal of 10mg BID. SE and ADRs d/w pt. I have also recommended brain exercises with pt primarily spending his days watching tv. Pt will follow up in 3 months at our [place] offices. Pt and his family agree with plan. MRI C spine ordered by Jerrod ESTEVEZ during interim showed per rad report: Multilevel degenerative changes of the cervical spine. Spinal canal stenosis is worst at C4-5. Foraminal stenosis is worst at C3-4. C2-C3: Canal and foramina are patent. C3-C4: Mild spinal canal stenosis due to central disc protrusion. Severe bilateral foraminal stenosis due to uncovertebral and facet arthropathy. C4-C5: Moderate spinal canal stenosis due to disc osteophyte complex. Mild bilateral foraminal stenosis due to uncovertebral and facet arthropathy. C5-C6: Mild spinal canal stenosis due to disc osteophyte complex. Mild right and moderate left foraminal stenosis due to uncovertebral and facet arthropathy. C6-C7: No significant spinal canal stenosis despite disc osteophyte complex. Moderate right and mild left foraminal stenosis due to uncovertebral and facet arthropathy. C7-T1: Spinal canal right foramen are patent. Mild left foraminal stenosis due to facet arthropathy. Pt with no falls in 7 weeks. They feel due to home therapy. However now falling back into old routines like not using walker. Pt accompanied by and daughter who provide history. Had both cognitive and physical therapy. Patient is denying bladder incontinence today (no absolute loss of control) but rather an urgency. States has to go down a long hallway to get to the bathroom. On B12 oral rather than injection. No follow up lab. PCP providing B12. Still having short term memory problems - gets up to take pills and then forgets to do so. No side effects on Namenda. At one time thought he had 2 wifes because he thought when his got out of bed early and left that was one and that the one he saw later was his second. Also has times when he thinks he is going back to work or school. Rare visual hallucinations of people. Modified MOCA: Immediate recall: 5/5 Number repeat: (unable to repeat backwards) 1/2 Sentence repeat: 1/2 Serial 7s: 1/3 Similar objects: 2/2 Orientation: Friday, 2001, January, [facility] [place]: 09/05 Delayed recall: 06/06 REVIEW OF SYSTEMS GENERAL:No weight loss, malaise or fevers. HEENT:Negative for frequent or significant headaches, No changes in hearing or vision, no nose bleeds or other nasal problems NECK:Negative for lumps, goiter, pain and significant neck swelling RESPIRATORY: Negative for cough, wheezing or shortness of breath. CARDIOVASCULAR: Negative for chest pain, leg swelling or palpitations. GASTROINTESTINAL: Negative for abdominal discomfort, blood in stools or black stools or change in bowel habits GENITOURINARY: See HPI. MUSCULOSKELETAL: See HPI - h (more content not included)... [facility] 02-07-2023 History of Present illness Narrative ESTABLISHED PATIENT VISIT CHIEF COMPLAINT: Follow Up HISTORY OF PRESENT ILLNESS: Cheyenne Mendieta is a 82 year old male, BMI 24.52 kg/m2 with a PMH significant for and per last office visit note with me of 07/31/22: 1. Moderate dementia with other behavioral disturbance, unspecified dementia type (HCC) - ICD9: 294.21, ICD10: F03.B18 (primary diagnosis) 2. History of stroke - ICD9: V12.54, ICD10: Z86.73 3. Low vitamin B12 level - ICD9: 266.2, ICD10: E53.8 Patient with cognitive decline as described above - progressive and over multiple years. Etiology uncertain but suspect multifactorial including: low B12 level; possible vascular component given on MRI brain and prior subcortical infarcts noted on MRI brain as well; possible NPH; possible neurodegenerative dementia such as Alzheimer's (no family history). Ddx d/w family and pt in detail NPH is concerning due to increase in ventricle size over the years although this may be due to general cerebral atrophy over that time as well, with noted significant increase in cortical atrophy including in the temp lobes. Pt also with ataxia, dementia, and urinary incontinence, but symptoms present now for almost 5 years and thus, uncertain surgery would even be of benefit if NPH. Pt and family do not want further evaluation by neurosurgery at this time. As for other causes, will ask Nnamdi Ojeda PA-C to initiate B12 supplementation. Also I have recommended the patient take ASA daily, BP goal <140/90 and glucose goal <140. Pt no wanting full stroke workup and note strokes are chronic on MRI and likely due to other known risk factors. That said, will proceed with carotid dopplers as baseline for large vessel disesae. As for a progressive neurodegenerative process, they are not wanting additional workup (I.e. CSF) as it would not change therapy. For now will place on trial of Namenda 5mg daily and titrate up by 5mg weekly to goal of 10mg BID. SE and ADRs d/w pt. I have also recommended brain exercises with pt primarily spending his days watching tv. Pt will follow up in 3 months at our [place] offices. Pt and his family agree with plan. MRI C spine ordered by M Queener PA during interim showed per rad report: Multilevel degenerative changes of the cervical spine. Spinal canal stenosis is worst at C4-5. Foraminal stenosis is worst at C3-4. C2-C3: Canal and foramina are patent. C3-C4: Mild spinal canal stenosis due to central disc protrusion. Severe bilateral foraminal stenosis due to uncovertebral and facet arthropathy. C4-C5: Moderate spinal canal stenosis due to disc osteophyte complex. Mild bilateral foraminal stenosis due to uncovertebral and facet arthropathy. C5-C6: Mild spinal canal stenosis due to disc osteophyte complex. Mild right and moderate left foraminal stenosis due to uncovertebral and facet arthropathy. C6-C7: No significant spinal canal stenosis despite disc osteophyte complex. Moderate right and mild left foraminal stenosis due to uncovertebral and facet arthropathy. C7-T1: Spinal canal right foramen are patent. Mild left foraminal stenosis due to facet arthropathy. Pt with no falls in 7 weeks. They feel due to home therapy. However now falling back into old routines like not using walker. Pt accompanied by and daughter who provide history. Had both cognitive and physical therapy. Patient is denying bladder incontinence today (no absolute loss of control) but rather an urgency. States has to go down a long hallway to get to the bathroom. On B12 oral rather than injection. No follow up lab. PCP providing B12. Still having short term memory problems - gets up to take pills and then forgets to do so. No side effects on Namenda. At one time thought he had 2 wifes because he thought when his got out of bed early and left that was one and that the one he saw later was his second. Also has times when he thinks he is going back to work or school. Rare visual hallucinations of people. Modified MOCA: Immediate recall: 10/04 Number repeat: (unable to repeat backwards) 1/2 Sentence repeat: 06/03 Serial 7s: 1/3 Similar objects: 2/2 Orientation: 2001, January, [place], [place]: 09/05 Delayed recall: 06/06 REVIEW OF SYSTEMS GENERAL:No weight loss, malaise or fevers. HEENT:Negative for frequent or significant headaches, No changes in hearing or vision, no nose bleeds or other nasal problems NECK:Negative for lumps, goiter, pain and significant neck swelling RESPIRATORY: Negative for cough, wheezing or shortness of breath. CARDIOVASCULAR: Negative for chest pain, leg swelling or palpitations. GASTROINTESTINAL: Negative for abdominal discomfort, blood in stools or black stools or change in bowel habits GENITOURINARY: See HPI. MUSCULOSKELETAL: See HPI - history of L hip fracture. NEUROLOGIC:Negative for focal numbness or weakness, headaches and dizziness or syncope, vision changes, speech/languag changes - EXCEPT that as per HPI above. SKIN:Negative for lesions, rash, and itching. HEMATOLOGIC/LYMPHATIC/IMMUNOLOGIC :Negative for prolonged bleeding, bruising easily or swollen nodes. ENDOCRINE: Negative for cold or heat intolerance, polyuria, polydipsia and goiter. The remainder of the ROS was reviewed and is negative. LAB/IMAGING: Those performed since patient's last visit have been reviewed. WBC (k/uL) Date Value 02/05/2023 4.31 RBC (m/uL) Date Value 02/05/2023 4.63 Hemoglobin (g/dL) Date Value 02/05/2023 13.2 Hematocrit (%) Date Value 02/05/2023 40.3 MCV (fL) Date Value 02/05/2023 87.0 MCH (pg) Date Value 02/05/2023 28.5 MCHC (g/dL) Date Value 02/05/2023 32.8 RDW-CV (%) Date Value 02/05/2023 14.5 Platelet Count (k/uL) Date Value 02/05/2023 242 MPV (fL) Date Value 02/05/2023 8.5 (L) Glucose (mg/dL) Date Value 02/05/2023 101 (H) BUN (mg/dL) Date Value 02/05/2023 16 Creatinine (mg/dL) Date Value 02/05/2023 1.26 (H) Sodium (mmol/L) Date Value 02/05/2023 138 Potassium (mmol/L) Date Value 02/05/2023 4.9 Chloride (mmol/L) Date Value 02/05/2023 104 CO2 (mmol/L) Date Value 02/05/2023 24 Protein, Total (g/dL) Date Value 02/05/2023 6.8 Albumin (g/dL) Date Value 02/05/2023 4.0 Calcium, Total (mg/dL) Date Value 02/05/2023 9.4 Alkaline Phosphatase (U/L) Date Value 02/05/2023 83 Bilirubin, Total (mg/dL) Date Value 02/05/2023 0.4 AST (U/L) Date Value 02/05/2023 24 ALT (U/L) Date Value 02/05/2023 15 MEDICATIONS: memantine (NAMENDA) 10 mg tablet take 1 tablet by mouth twice a day traMADol (ULTRAM) 50 mg tablet Take 1 tablet by mouth twice daily as needed for pain for up to 90 days. metFORMIN ER (GLUCOPHAGE XR) 500 mg 24 hr tablet Take 2 tablets by mouth twice daily with meals. lisinopril (ZESTRIL) 20 mg tablet Take 1 tablet by mouth once daily. sertraline (ZOLOFT) 25 mg tablet Take 1 tablet by mouth once daily. atenolol (TENORMIN) 25 mg tablet Take 1 tablet by mouth once daily. Cyanocobalamin 1,000 mcg subl Dissolve 1 tablet under the tongue once daily. ZINC ORAL Take 1 tablet by mouth once daily. aspirin, enteric coated (ASPIRIN, ENTERIC COATED) 81 mg EC tablet Take 2 tablets by mouth once daily. Ibuprofen-diphenhydrAMINE HCl 200-25 mg cap Take 1 tablet by mouth once daily. Cholecalciferol, Vitamin D3, 50 mcg (2,000 unit) cap Take 2 capsules by mouth once daily. ascorbic acid(VITAMIN C 1,000 MG TAB) Take three (3) tablets every day omega-3 fatty acids(FISH OIL 500 MG CAP) Take four (4) tablets every day gabapentin (NEURONTIN) 600 mg tablet Take 1 tablet by mouth twice daily for 180 days. 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 Cystolitholapaxy and laser of large bladder stones, transurethral CABG 2001 Gastritis 07/2018 per EGD Hiatal hernia 07/22/2018 per EGD Renal calculi Type II or unspecified type diabetes mellitus without mention of complication, not stated as uncontrolled Unspecified essential hypertension FAMILY HISTORY Problem Relation Age of Onset Breast Cancer Mother Heart Father Diabetes Son SOCIAL HISTORY Social History Tobacco Use Smoking status: Former Types: Cigarettes Quit date: 06/02/1983 Years since quittin.7 Smokeless tobacco: Never Substance Use Topics Alcohol use: No Drug use: No PHYSICAL EXAMINATION BP 132/76 Pulse 62 Resp 16 Wt 79.7 kg (175 lb 12.8 oz) SpO2 97% BMI 24.52 kg/m GENERAL EXAM: General appearance: NAD, pleasant. HEENT: NC/AT, nasal congestion absent, no oral lesions, membranes moist. Lungs: CTA bilaterally. CV: RRR nl S1, S2 Extr: No cyanosis, clubbing or edema. Skin: Cool to touch. NEUROLOGICAL EXAM: General: Awake, alert, oriented x2 (person,place,time), speech fluent, no dysarthria CN: PERRL, EOMI and without nystagmus, VFF to confrontation, facial sensation and strength are normal and symmetric, hearing impaired to finger rub bilaterally, palate and tongue movements are intact and symmetric. SCM and trapezius strength normal. Motor: Normal tone, bulk and strength (5/5) bilaterally (throughout extremities x4). Coordination: FNF, MINI, HTS intact. No tremors. Sensation: Light touch, vibration intact throughout. No evidence of neglect. Gait: No difficulties rising from chair without upper ext assist. Stride nml except for decrease in L hip that appears due to chronic injury. Romberg normal. Assessment and Plan: ASSESSMENT/PLAN: 1. Moderate dementia with other behavioral disturbance, unspecified dementia type (HCC) - ICD9: 294.21, ICD10: F03.B18 (primary diagnosis) 2. History of stroke - ICD9: V12.54, ICD10: Z86.73 3. Low vitamin B12 level - ICD9: 266.2, ICD10: E53.8 MOCA stable as is clinical history. Still suspect multifactorial cause, but again on review of MRI brain, significant diffuse atrophy including temp lobe to suggest neurodegenerative process. D/w pt and family. We did again discuss NPH, but exam less suggestive of such dx today. D/w pt and family dementia and its subtypes. They would not want invasive therapy (I.e. surgery). Will continue Namenda 10mg BID but will start Aricept 5mg daily. SE and ADRs d/w pt and family. Advised pt not to drive (family present). D/w pt need to exercise brain. D/w family need to safe guard house. 4. Spinal stenosis of cervical region - ICD9: 723.0, ICD10: M48.02 5. Frequent falls - ICD9: V15.88, ICD10: R29.6 6. History of hip fracture - ICD9: V15.51, ICD10: Z87.81 Known moderate C spine stenosis but suspect current gait difficulties multifactorial with greatest impairment on exam today correlating with known L hip injury. No s/s of PD on exam (explained exams can vary and does not rule out later development of PD). At this time recommend pt continue with lessons from PT. If gait worsens, will again enroll in PT. Follow up 3 months. Lazaro Aldridge MD I spent a total of 45 minutes on the date of the service which included preparing to see the patient, [id number] patient care, completing clinical documentation, obtaining and/or reviewing separately obtained history, performing a medically appropriate examination, counseling and educating the patient/family/caregiver, ordering medications, tests, or procedures, independently interpreting results (not separately reported), and communicating results to the patient/family/caregiver. documented in this encounter [facility] 01-21-2023 Miscellaneous Notes JENARO 11/05/22 with MQ NOV 02/07/23 with WJN Refill 07/31/22 with qty: 180 and 1 refills Tiara Ortiz LPN JENARO Assessment/Plan ASSESSMENT/PLAN: 1. Spinal stenosis of cervical region - ICD9: 723.0, ICD10: M48.02 (primary diagnosis) 2. Weakness - ICD9: 780.79, ICD10: R53.1 3. Parkinsonism, unspecified Parkinsonism type (HCC) - ICD9: 332.0, ICD10: G20 4. Frequent falls - ICD9: V15.88, ICD10: R29.6 5. Moderate dementia with other behavioral disturbance, unspecified dementia type (HCC) - ICD9: 294.21, ICD10: F03.B18 Patient with subjective improvement in his memory issues as well as behavior. Unable to repeat MoCA today, patient grew frustrated when testing tremor and handwriting, deferred MoCA testing at this time. Patient with increased rigidity in the upper extremity, multiple falls primarily backwards, short shuffling gait. Concern for parkinsonism contributing to patient's dementia picture and falls. Discussed L-dopa and its side effects, patient and family concerned of the side effects and would not like to try therapy at this time. Patient does note that he gets stuck in certain positions, has issues with his gait, fenestration. Patient noted multiple falls even within the last week, unable to count him a fall since last appointment. One fall did have head injury, was seen by a doctor for this, not anticoagulated, no sustained symptoms from this. Concern for multiple falls, patient with hip fracture in 2019. Patient lives with his at home, needs to call their sons frequently to help him get back up as he is too weak to stand up after falling. Due to this concern, will consult social work to assess home to evaluate for any safety concerns. Patient also referred to physical therapy for overall strengthening, and patient would like this to be done at home if possible, will address with social work. Also discussed other conservative measures including slow transitions, increasing water intake (patient states that he does not drink much water and typically only drinks tea). Discussed my concerns at length with family and patient regarding falls and safety, they agree and understand. Regarding Manuel, patient with some improvement with this, improvement in both memory and behavior. No side effects, would like to maintain this therapy as prescribed. No changes made. Patient with multiple falls, multifactorial likely. Patient with increased tone in the lower extremities, hyperreflexia in the right upper extremity, concerning for cervical stenosis contributing to patient's symptoms. Patient also notes some issues with urinary incontinence. We will obtain MRI of the cervical spine to rule out any cervical stenosis contributing to patient's multiple symptoms as noted above. Patient also with low B12 at last appointment, encouraged to continue supplementation until redraw 6 months from starting. Patient agrees and understands. Patient and family agreeable to treatment plan of care at this time, all questions were answered. Patient to follow-up in 3 months sooner if any symptoms change or worsen. Santa Gordon PA-C documented in this encounter [facility] 01-14-2023 Miscellaneous Notes The following approved medication requests have been transmitted electronically. Requested Prescriptions Signed Prescriptions Disp Refills traMADol (ULTRAM) 50 mg tablet 60 tablet 2 Sig: Take 1 tablet by mouth twice daily as needed for pain for up to 90 days. Authorizing Provider: Jerrod OJEDA PA-C Patient has been identified by name and date of : Yes Patient phones for refill(s): Requested Prescriptions Pending Prescriptions Disp Refills traMADol (ULTRAM) 50 mg tablet 60 tablet 0 Sig: Take 1 tablet by mouth twice daily as needed for pain for up to 30 days. Date of last office visit in primary care: JENARO 01/06/23 NOV not scheduled Last 2 Encounter Wt Readings: Date: Wt: 01/06/2023 83.5 kg (184 lb) 07/31/2022 78.9 kg (174 lb) Please advise. Thank you. RINKU Alarcon documented in this encounter [facility] 01-06-2023 Note HNO ID: [id number] Author: Jerrod Ojeda PA-C Service: ? 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 Noble. Recommends continue medical treatment and optimized risk factors 08/26/[address] Noble: 625 VEBs, 393 SVEBs, longest 13 beat run max HR 143 with diary correlation at times. 07/23/17 nuclear stress: small fixed defect apical inferior consistent with attenuation; LVEF 55%, LV global function NL. Transient ischemic dilation of left ventricle during stress 06/10/17 referral [facility] Dr. Emory Arias 02/02/15 echocardiogram: moderate concentric LVH, LVSF: NL. EF = 60 ? 5%, LVDF: stage 1 abnormal relaxation; RV size NL. RVSF: NL. RVSP underestimated due to a weak or incomplete tricuspid regurgitation signal and is, at least, 30 mmHg consistent with normal pulmonary artery pressures. Estimated right atrial pressure is 5 mmHg. No significant change from 09/21/09 01/27/15 referral law enforcement director Kelvin Ellis [facility] 09/21/09 echocardiogram: LV size NL, LVSF: 60% ejection fraction, LVDF:stage I diastolic dysfunction. RV size NL, RVSF NL, mild left atrial enlargement, mildly dilated ascending aorta (upper limits of normal), mild left ventricular hypertrophy, mild pulm htn 37mmHg, mild without AI. 2001 ASCVD with CABG in 2001 (LEVIN, Radial a. And SVG) Current meds: ASA 81 mg 2 tabs daily Lisinopril 20mg daily Use of NTG: No Chest pain, arm, jaw pain, neck, or upper back pain suggestive of angina: states gets pain. SOB: No Dyspnea with exertion: No orthopnea: No Cough : No racing or irregular heartbeats: No palpitations: No syncopal sx: No Headache: No Unexplainable fatigue always tired Leg swelling: Yes, stasis Nausea: No diaphoresis: No Heartburn: No Claudication: No Smoking: No Following Low cholesterol, high fiber diet? Yes If on statin: muscle aches? No If on statin: GI sx or diarrhea? No Additional history none. Lab review: no new data since 08/10/2021, outstanding lab not completed. 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 Yes Medication side effects: Medical Issues / Complications: hypertension, hyperlipidemia, cardiovascular disease, cerebrovascular disease, and TIA/CVA Checking blood sugars at home? Yes. Watching diet? Yes Physical Activity: Regular, walks around house with walker. Hypoglycemic spells? No Any visual disturbance? No Chest pain? No New numbness, tingling or loss of sensation? No Any recent foot problems, sores or rashes? No Any recent or sudden weight loss? No Change in urination? Yes. If yes: incontinence as below Any recent illness? No Last eye exam: up to date. Last foot exam: due. HBA1C: uncompleted outstanding lab Hemoglobin A1C (%) Date Value 02/28/2022 6.3 08/10/2021 6.7 03/24/2020 Test sent to [facility]. 10/30/2019 Test sent to [facility]. ) CMP: Glucose 128 03/15/2022 BUN 22 03/15/2022 Creatinine 1.25 03/15/2022 NA 136 03/15/2022 K 4.5 03/15/2022 Chloride 104 03/15/2022 CO2 23 03/15/2022 Protein, Total 7.0 08/10/2021 Albumin 4.0 08/10/2021 Calcium 8.7 03/15/2022 Alk Phos Total 82 08/10/2021 Bilirubin, Total 0.5 08/10/2021 AST (SGOT) 24 08/10/2021 ALT (SGPT) 13 08/10/2021 Last 2 Encounter Wt Readings: Date: Wt: 07/31/2022 78.9 kg (174 lb) 02/28/2022 85.4 kg (188 lb 3.2 oz) Hiatal hernia Chronic superficial gastritis without bleeding Current medication: none. Current symptoms: none. Last Mg level if on PPI chronically: n/a. Heartburn is controlled: No. Dysphagia: No. Bloody or black stools: No. Bowel changes: only eats chilies or Rotel. Last EGD and/or colonoscopy: 07/22/[address] Sebastian. Benign prostatic hyperplasia, unspecified whether lower urinary tract symptoms present Large bladder stones about 5 cm in size, BPH with obstruction 05/10/2022 Cystolitholapaxy and laser of large bladder stones, transurethral Since bladder stone removed, TURP has been urinating frequently frequently. Nocturia x 2-3 Dr. Thomas stopped tamsulosin Incontinent recurrently Retrolisthesis Spo (more content not included)... [facility] 01-06-2023 Instructions Jerrod Ojeda PA-C - 01/06/2023 2:08 PM EDT Please bring in advanced directives. 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 Noble. Recommends continue medical treatment and optimized risk factors 08/26/[address] Noble: 625 VEBs, 393 SVEBs, longest 13 beat run max HR 143 with diary correlation at times. 07/23/17 nuclear stress: small fixed defect apical inferior consistent with attenuation; LVEF 55%, LV global function NL. Transient ischemic dilation of left ventricle during stress 06/10/17 referral [facility] Dr. Emory Arias 02/02/15 echocardiogram: moderate concentric LVH, LVSF: NL. EF = 60 5%, LVDF: stage 1 abnormal relaxation; RV size NL. RVSF: NL. RVSP underestimated due to a weak or incomplete tricuspid regurgitation signal and is, at least, 30 mmHg consistent with normal pulmonary artery pressures. Estimated right atrial pressure is 5 mmHg. No significant change from 09/21/09 01/27/15 referral law enforcement director Kelvin Ellis [facility] 09/21/09 echocardiogram: LV size NL, LVSF: 60% ejection fraction, LVDF:stage I diastolic dysfunction. RV size NL, RVSF NL, mild left atrial enlargement, mildly dilated ascending aorta (upper limits of normal), mild left ventricular hypertrophy, mild pulm htn 37mmHg, mild without AI. 2001 ASCVD with CABG in 2001 (LEVIN, Radial a. And SVG) Current meds: ASA 81 mg 2 tabs daily Lisinopril 20mg daily Use of NTG: No Chest pain, arm, jaw pain, neck, or upper back pain suggestive of angina: states gets pain. SOB: No Dyspnea with exertion: No orthopnea: No Cough : No racing or irregular heartbeats: No palpitations: No syncopal sx: No Headache: No Unexplainable fatigue always tired Leg swelling: Yes, stasis Nausea: No diaphoresis: No Heartburn: No Claudication: No Smoking: No Following Low cholesterol, high fiber diet? Yes If on statin: muscle aches? No If on statin: GI sx or diarrhea? No Additional history none. Lab review: no new data since 08/10/2021, outstanding lab not completed. 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 Yes Medication side effects: Medical Issues / Complications: hypertension, hyperlipidemia, cardiovascular disease, cerebrovascular disease, and TIA/CVA Checking blood sugars at home? Yes. Watching diet? Yes Physical Activity: Regular, walks around house with walker. Hypoglycemic spells? No Any visual disturbance? No Chest pain? No New numbness, tingling or loss of sensation? No Any recent foot problems, sores or rashes? No Any recent or sudden weight loss? No Change in urination? Yes. If yes: incontinence as below Any recent illness? No Last eye exam: up to date. Last foot exam: due. HBA1C: uncompleted outstanding lab Hemoglobin A1C (%) Date Value 02/28/2022 6.3 08/10/2021 6.7 03/24/2020 Test sent to [facility]. 10/30/2019 Test sent to [facility]. ) CMP: Glucose 128 03/15/2022 BUN 22 03/15/2022 Creatinine 1.25 03/15/2022 NA 136 03/15/2022 K 4.5 03/15/2022 Chloride 104 03/15/2022 CO2 23 03/15/2022 Protein, Total 7.0 08/10/2021 Albumin 4.0 08/10/2021 Calcium 8.7 03/15/2022 Alk Phos Total 82 08/10/2021 Bilirubin, Total 0.5 08/10/2021 AST (SGOT) 24 08/10/2021 ALT (SGPT) 13 08/10/2021 Last 2 Encounter Wt Readings: Date: Wt: 07/31/2022 78.9 kg (174 lb) 02/28/2022 85.4 kg (188 lb 3.2 oz) Hiatal hernia Chronic superficial gastritis without bleeding Current medication: none. Current symptoms: none. Last Mg level if on PPI chronically: n/a. Heartburn is controlled: No. Dysphagia: No. Bloody or black stools: No. Bowel changes: only eats chilies or Rotel. Last EGD and/or colonoscopy: 07/22/[address] Sebastian. Benign prostatic hyperplasia, unspecified whether lower urinary tract symptoms present Large bladder stones about 5 cm in size, BPH with obstruction 05/10/2022 Cystolitholapaxy and laser of large bladder stones, transurethral Since bladder stone removed, TURP has been urinating frequently frequently. Nocturia x 2-3 Dr. Thomas stopped tamsulosin Incontinent recurrently Retrolisthesis Spondylolisthesis of lumbar region Chronic midline low back pain without sciatica Current medications: Gabapentin 600mg twice a day Tramadol 50mg twice a day as needed Legs give out if walks too much In home PT, once a week Vitamin D deficiency 2000u daily HISTORIES FAMILY HISTORY Problem Relation Age of Onset Breast Cancer Mother Heart Father Diabetes Son PAST MEDICAL HISTORY Diagnosis Date CABG 2001 Gastritis 07/2018 per EGD Hiatal hernia 07/22/2018 per EGD Renal calculi Type II or unspecified type diabetes mellitus without mention of complication, not stated as uncontrolled Unspecified essential hypertension PAST SURGICAL HISTORY Procedure Laterality Date APPENDECTOMY CABG (4) VEIN GRAFTS & ARTERIAL GRAFT(S) COLONOSCOPY 10/16/2006 Dr. Stone. Diverticulosis. Poor prep - repeat 2 yrs. EGD 07/22/2018 Dr. Sebastian: gastritis, small hiatal hernia, bx : mild chronic gastritis HERNIA REPAIR W/MESH twice PAST SURGICAL HISTORY OF 05/10/2022 Cystolitholapaxy and laser of larger bladder stones, transurethral section of prostate Social History Tobacco Use Smoking status: Former Types: Cigarettes Quit date: 06/02/1983 Years since quittin.6 Smokeless tobacco: Never Substance Use Topics Alcohol use: No Drug use: No ACTIVE PROBLEM LIST Dm (Diabetes Mellitus) Type II Controlled, Neurological Manifestation (Hcc) Cad (Coronary Artery Disease) Benign Prostatic Hyperplasia Htn (Hypertension) Insomnia Diabetes Mellitus With Microalbuminuric Diabetic Nephropathy (Hcc) Hallux Valgus (Acquired) Chronic Right Shoulder Pain Functional Dyspepsia History of Colonic Polyps Absolute Anemia Gastritis Hiatal Hernia Chronic Midline Low Back Pain Without Sciatica Microalbuminuria Hyperlipidemia, Mixed Other Chronic Sinusitis Brain Atrophy (Hcc) Mild Dementia (Hcc) Retrolisthesis Spondylolisthesis of Lumbar Region Current Outpatient Medications Medication Sig Dispense Refill metFORMIN ER (GLUCOPHAGE XR) 500 mg 24 hr tablet Take 2 tablets by mouth twice daily with meals. 360 tablet 3 lisinopril (ZESTRIL) 20 mg tablet Take 1 tablet by mouth once daily. 90 tablet 1 sertraline (ZOLOFT) 25 mg tablet Take 1 tablet by mouth once daily. 30 tablet 5 traMADol (ULTRAM) 50 mg tablet Take 1 tablet by mouth twice daily as needed for pain for up to 30 days. 60 tablet 0 atenolol (TENORMIN) 25 mg tablet Take 1 tablet by mouth once daily. 90 tablet 1 Cyanocobalamin 1,000 mcg subl Dissolve 1 tablet under the tongue once daily. 90 tablet 3 memantine (NAMENDA) 5 mg tablet Take 1 tablet daily for 1 week, then 1 tablet twice daily for 1 week, then 1 tablet in the AM and 2 tablets in the PM for 1 week. At such time, then transition to 10mg tablets twice daily. 42 tablet 0 memantine (NAMENDA) 10 mg tablet Take 1 tablet by mouth twice daily. Start after completion of 5mg tablet titration. 180 tablet 1 gabapentin (NEURONTIN) 600 mg tablet Take 1 tablet by mouth twice daily for 180 days. 180 tablet 1 ZINC ORAL Take 1 tablet by mouth once daily. aspirin, enteric coated (ASPIRIN, ENTERIC COATED) 81 mg EC tablet Take 2 tablets by mouth once daily. acetaminophen/diphenhydramine (TYLENOL PM ORAL) Take 2 tablets by mouth at bedtime as needed. Ibuprofen-diphenhydrAMINE HCl 200-25 mg cap Take 1 tablet by mouth once daily. Cholecalciferol, Vitamin D3, 50 mcg (2,000 unit) cap Take 2 capsules by mouth once daily. ascorbic acid(VITAMIN C 1,000 MG TAB) Take three (3) tablets every day 0 omega-3 fatty acids(FISH OIL 500 MG CAP) Take four (4) tablets every day 0 No current facility-administered medications for this visit. COVID-19 VACCINE(1) Never done DILATED RETINAL EXAM due on 06/05/2019 SHINGRIX VACCINE(3 of 3) due on 03/12/2022 DIABETIC FOOT EXAM due on 05/11/2022 ADVANCE DIRECTIVE DISCUSSION Never done LDL CHOLESTEROL due on 08/10/2022 HBA1C due on 08/28/2022 EXAM: BP 160/80 Pulse 74 Resp 16 Wt 83.5 kg (184 lb) BMI 25.66 kg/m Recheck 142/78 Last 14 BP Last 14 Encounter BP Readings: Date: BP: 01/06/2023 160/80 07/31/2022 137/69 02/28/2022 120/68 02/12/2022 142/70 11/12/2021 112/66 08/10/2021 126/78 05/11/2021 114/78 01/15/2021 134/72 09/29/2020 134/82 08/01/2020 118/66 11/02/2019 132/60 03/25/2019 124/60 01/15/2019 118/70 11/02/2018 134/74 Pleasant older man in no acute distress. Alert and oriented all spheres. Normal affect and cognition. Speech normal. No deficits to learning or comprehension. Skin warm, dry, pink to lips and nailbeds. Normal turgor. Respirations regular and unlabored. HEENT: NCAT. No scleral icterus or conjunctival injection. Bilateral cerumen impactions. Removed with irrigationTM's clear. Nose and oropharynx free from injection or lesion. Oral membranes moist and pink. No cervical lymph nodes. Thyroid non-tender, no masses, or enlargement. Carotids pulses 2+/4+ without bruits. No JVD with HOB at 30 degrees. Chest is normal shape. Lungs are clear to all khan with good air exchange through out. HRRR without murmur or gallop. No lifts, heaves, or rubs. Abdomen: active bowel sounds throughout, soft, nontender, no masses or organomegaly. No CVAT. Extrem: no clubbing or cyanosis. Edema: 1-2/4+ pitting. Extremities are warm and pink with prompt capillary refill. Feet: Shoes and socks removed, No deformities, ulcers, calluses, normal distal pulses, calluses bilaterally, and thick nails. ASSESSMENT/PLAN: 1. Brain atrophy (HCC) - ICD9: 331.9, ICD10: G31.9 (primary diagnosis) 2. 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) - ICD9: 331.0, 294.11, ICD10: G30.1, F02.A18 Following with neuro No major behavioral issues but gets argumentative at times. Acknowledges this Continues on ACI- memantine started in early July. hasn't been aggressive in past, wonder if this could be affecting 3. 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 - ICD9: 414.01, ICD10: I25.10 4. S/P CABG x 2 - ICD9: V45.81, ICD10: Z95.1 No current anginal or ischemic sx. 5. Primary hypertension - ICD9: 401.9, ICD10: I10 - Controlled with unusually high reading today but got stirred up coming in - Recommend home blood pressure monitoring, to bring results to next visit - Encouraged sodium restriction, DASH or Mediterranean diet - Recommend regular aerobic exercise 6. Hyperlipidemia, mixed - ICD9: 272.2, ICD10: E78.2 - Controlled - Counseled on healthy diet and regular exercise 7. Controlled type 2 diabetes mellitus with diabetic neuropathy, without long-term current use of insulin (HCC) - ICD9: 250.60, 357.2, ICD10: E11.40 - Controlled - Continue current medications - Discussed need for and benefit of weight loss. BMI 25.66 kg/(m^2) 8. 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) - ICD9: 250.40, 583.81, ICD10: E11.21 - Controlled/ stable - Continue current medications 9. Hiatal hernia - ICD9: 553.3, ICD10: K44.9 10. Chronic superficial gastritis without bleeding - ICD9: 535.10, ICD10: K29.30 No issues on PPI: continue 11. Benign prostatic hyperplasia, unspecified whether lower urinary tract symptoms present - ICD9: 600.00, ICD10: N40.0 Frequent urge incontinence persistent since removal bladder stones Recommend review with Margoth Perez will set up appointment 12. Retrolisthesis - ICD9: 738.4, ICD10: M43.10 13. Spondylolisthesis of lumbar region - ICD9: 738.4, ICD10: M43.16 14. 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 Doing well. Has persistent pain with improvement on stable tramadol dosing. 15. Bladder stones - ICD9: 594.1, ICD10: N21.0 resolved F/u 3 months Some of this note may have been copied and pasted for the purpose of history context and comparison. Jerrod Ojeda PA-C documented in this encounter [facility] 12-26-2022 Miscellaneous Notes Needs OV for follow up- please schedule, fasting labs prior. I know he is receiving home care but it's been nearly a year. Refill on 12/26/22 CBC COMP METABOLIC PANEL LIPID PANEL BASIC HGB A1C ALBUMIN/CREAT RATIO RND UR The following approved medication requests have been transmitted electronically. Requested Prescriptions Signed Prescriptions Disp Refills metFORMIN ER (GLUCOPHAGE XR) 500 mg 24 hr tablet 360 tablet 3 Sig: Take 2 tablets by mouth twice daily with meals. Authorizing Provider: Jerrod OJEDA PA-C Patient has been identified by name and date of : Yes Requested Prescriptions Pending Prescriptions Disp Refills metFORMIN ER (GLUCOPHAGE XR) 500 mg 24 hr tablet 360 tablet 3 Sig: Take 2 tablets by mouth twice daily with meals. NOV 01/06/23 JENARO 06/11/22 RX INSTRUCTIONS: Patient aware RX will be sent to pharmacy. No need to notify patient. Mary Kate Nolasco Ma documented in this encounter [facility] 12-20-2022 Miscellaneous Notes Apurva Ojeda PA-C Home Care certification received from [facility] requesting provider review and signature. Forwarded to [facility]'s desk for signature. Once signed, please fax to [facility] at [phone]. Gale Paniagua MA documented in this encounter [facility] 12-19-2022 Miscellaneous Notes Patient has been identified by name and date of : Yes Patient phones for refill(s): Requested Prescriptions Pending Prescriptions Disp Refills lisinopril (ZESTRIL) 20 mg tablet 90 tablet 1 Sig: Take 1 tablet by mouth once daily. Date of last office visit in primary care: 06/11/2022 Please advise. Thank you. Paula Jauregui LPN documented in this encounter [facility] 12-10-2022 Note HNO ID: [id number] Author: RT Margo(Ej) Service: ? Author Type: Technologist Type: Progress Notes Filed: 12/10/2022 1:47 PM Note Text: Radiology Service Progress Note PATIENT NAME: Cheyenne Mendieta DATE OF SERVICE: December 10, 2022 TIME: 1:47 PM PATIENT IDENTITY VERIFICATION COMPLETED USING TWO (2) IDENTIFIERS: Name and Date of confirmed by patient verbally. FALL SCREENING: Has the patient had 2 falls in the last year or 1 fall with injury or currently using an Ambulatory Assistive Device (Walker, Cane, Wheelchair, Crutches, etc.)? Yes, Patient High Risk for Falls What interventions were put in place to prevent falls during this visit? Instructed Patient to Call for Help if Needed, Offered Assistance with Transfers/Clothing, Instructed Patient to Remain Seated (Not on Exam Table) Until Exam, and Increased Observations by Caregivers PATIENT GENDER DATA: Male PATIENT RELEVANT IMPLANT DATA REVIEWED: Yes RADIOLOGY DEPARTMENT: MR; Exam(s) Completed: Spine: Cervical spine PERIPHERAL IV DATA: Not applicable SIGNED BY: RT Margo(Ej) December 10, 2022 1:47 PM [facility] 12-10-2022 Miscellaneous Notes Left a message for pt to call the office and ask to speak to a nurse. Santa MORAN Needs appointment to renew as last OV > 6 months per [place] rules. The following approved medication requests have been transmitted electronically. Requested Prescriptions Signed Prescriptions Disp Refills traMADol (ULTRAM) 50 mg tablet 60 tablet 0 Sig: Take 1 tablet by mouth twice daily as needed for pain for up to 30 days. Authorizing Provider: Jerrod OJEDA PA-C Patient phones requesting refills as follows: Requested Prescriptions Pending Prescriptions Disp Refills traMADol (ULTRAM) 50 mg tablet 60 tablet 5 Sig: Take 1 tablet by mouth twice daily as needed for pain for up to 30 days. JENARO 06/11/22 (virtual) NOV no upcoming appt Please review and advise. Alexys Negron LPN documented in this encounter [facility] 12-09-2022 Miscellaneous Notes Patient has been identified by name and date of : Yes Requested Prescriptions Pending Prescriptions Disp Refills sertraline (ZOLOFT) 25 mg tablet 30 tablet 5 Sig: Take 1 tablet by mouth once daily. RX INSTRUCTIONS: Patient aware RX will be sent to pharmacy. No need to notify patient. Patient last office visit: 06/11/22 Patient next office visit: none scheduled Gale Paniagua MA documented in this encounter [facility] 12-05-2022 Miscellaneous Notes Teressa, a speech therapist with [facility] is calling to update PCP that during her visit with patient yesterday, pt's family reports that pt has had three recent falls. One on 11/29, one on 12/02 and one on 12/03. No injuries. Reports pt's legs are weak and give out. Pt will be receiving Physical Therapy. No call back needed. Thank you. documented in this encounter [facility] 11-26-2022 Miscellaneous Notes Spoke to patients and she is agreeable with going to [facility]. Orders and pt information sent to fax number [phone]. Tiara Ortiz LPN Thank you for the referral of your patient to [facility]. At this time, we are at capacity and are unable to accept your patient. In order to help your patient receive quality home care, we have included reputable agencies that service this area: [facility], Phone number [phone] or [facility], phone number [phone]. Please contact this agency and they will work with your patient to arrange timely services. Thank you, Alexsandra Busch LPN 11/22/2022 2:29 PM documented in this encounter [facility] 11-22-2022 Miscellaneous Notes Please assist with home health scheduling. Tiara Ortiz LPN Order was placed. Please see TE dated 11/08/22 for cancellation of referral. Thank you. RINKU Alarcon Patient's calls and states that she did not get patient's home health scheduled in time and order was cancelled. asking for referral to be placed again. Please call 's cell phone to schedule home health. Please review and advise, Britany Guillory RN documented in this encounter [facility] 11-13-2022 Miscellaneous Notes Sw notes that [facility] is reaching out to patient. Sw will see what home health agency options spouse notes when she calls Sw back. Will then see about making referral to home health. Home health order placed. Thank you for your help. Sw spoke with patient spouse in regards to Physical Therapy question. Discussed Home Health and PT. Discussed home bound status for home health referral. Spouse notes that patient goes to doctor appts when family is able to take him to appts. Spouse notes that patient does not leave the house for much anymore other then going to doctor appts. Sw noted it would be helpful for spouse to reach out to patient insurance regarding HH agency options that are under patient insurance. Spouse notes that she would reach out to [employer] and obtain home health agency name options. Spouse states that she will let Sw know these options. Sw notes that she would forward note to HER[facility] Pratt to see if she would be able to write home health order for PT or if patient would need new appt with [facility] Riggs. Spouse and Sw also discussed that our [facility] still has PT if for whatever reason HH does not work. documented in this encounter [facility] 11-05-2022 Note HNO ID: [id number] Author: Santa Gordon PA-C Service: ? Author Type: Physician Choker Hooker Type: Progress Notes Filed: 11/05/2022 12:51 PM Note Text: ESTABLISHED PATIENT VISIT Last visit: 07/31/[address] Aldridge ASSESSMENT/PLAN: 1. Moderate dementia with other behavioral disturbance, unspecified dementia type (HCC) - ICD9: 294.21, ICD10: F03.B18 (primary diagnosis) 2. History of stroke - ICD9: V12.54, ICD10: Z86.73 3. Low vitamin B12 level - ICD9: 266.2, ICD10: E53.8 Patient with cognitive decline as described above - progressive and over multiple years. Etiology uncertain but suspect multifactorial including: low B12 level; possible vascular component given on MRI brain and prior subcortical infarcts noted on MRI brain as well; possible NPH; possible neurodegenerative dementia such as Alzheimer's (no family history). Ddx d/w family and pt in detail NPH is concerning due to increase in ventricle size over the years although this may be due to general cerebral atrophy over that time as well, with noted significant increase in cortical atrophy including in the temp lobes. Pt also with ataxia, dementia, and urinary incontinence, but symptoms present now for almost 5 years and thus, uncertain surgery would even be of benefit if NPH. Pt and family do not want further evaluation by neurosurgery at this time. As for other causes, will ask Nnamdi Ojeda PA-C to initiate B12 supplementation. Also I have recommended the patient take ASA daily, BP goal <140/90 and glucose goal <140. Pt no wanting full stroke workup and note strokes are chronic on MRI and likely due to other known risk factors. That said, will proceed with carotid dopplers as baseline for large vessel disesae. As for a progressive neurodegenerative process, they are not wanting additional workup (I.e. CSF) as it would not change therapy. For now will place on trial of Namenda 5mg daily and titrate up by 5mg weekly to goal of 10mg BID. SE and ADRs d/w pt. I have also recommended brain exercises with pt primarily spending his days watching tv. Pt will follow up in 3 months at our [place] offices. Pt and his family agree with plan. Lazaro Aldridge MD CHIEF COMPLAINT: follow up HISTORY OF PRESENT ILLNESS: Cheyenne Mendieta is a 82 year old male, There were no vitals taken for this visit. with a PMH significant for DM type 2, insomnia, neuropathy, CAD, HTN, hyperlipidemia, moderate dementia. Patient presents for follow-up for her moderate dementia. Patient is MoCA 15/27 at last appointment, also noted to have B12 that was low at 249, has since started supplementation. Of note, there was concern for possible NPH due to enlarged ventricle size, versus natural size due to dementia, patient and family deferred further work-up at that time. Patient started on Namenda titrated up to 10 mg twice daily specimen. Patient notes improvement in both cognition and behavioral since last appointment, no side effects with the medication. Family agrees, notes that he has better good days than he did before the medication, notes improvement in his mood and agitation. However, family does note that he has had multiple falls. Notes that he has had multiple in the last week, unsure how many has had total since last visit. State patient states that he falls secondary to imbalance, primarily falls backwards. Has had 1 injury of his head, was seen by his primary care provider for this, not anticoagulated. Other than a few bruises, no other injuries. Notes that he also falls secondary weakness in his occulta getting back up. Does not use ice, walks around with cane and other assistive devices. Patient also notes some dizziness/lightheadedness with prolonged periods of standing. Patient does have some issues with urinary incontinence as well. Patient also endorses loss of taste and smell for many years. Patient and family state that he has had a tremor to the left upper extremity for many years as well. Patient has history of falling out of bed when sleeping, multiple times but not consistently night. Patient notes hearing has changed over the last few years, states that this is secondary to her tremor and is unsure if this is gotten smaller or not. No family history of Parkinson's to their knowledge. REVIEW OF SYSTEMS GENERAL:No weight loss, malaise or fevers. HEENT:Negative for frequent or significant headaches, No changes in hearing or vision, no nose bleeds or other nasal problems NECK:Negative for lumps, goiter, pain and significant neck swelling RESPIRATORY: Negative for cough, wheezing or shortness of breath. CARDIOVASCULAR: Negative for chest pain, leg swelling or palpitations. GASTROINTESTINAL: Negative for abdominal discomfort, blood in stools or black stools or change in bowel habits GENITOURINARY: No history of dysuria, frequency or incontinence MUSCULOSKELETAL: Negative for joint pain or swelling, back pain or muscle (more content not included)... [facility] 11-05-2022 Instructions Santa Gordon PA-C - 11/05/2022 12:18 PM EDT Increase water intake Social work consult for falls and physical therapy Physical therapy for strength MRI of the cervical spine Continue B12 supplementation, continue namenda 10mg bid Follow up in three months documented in this encounter [facility] 11-05-2022 History of Present illness Narrative ESTABLISHED PATIENT VISIT Last visit: 07/31/[address] Aldridge ASSESSMENT/PLAN: 1. Moderate dementia with other behavioral disturbance, unspecified dementia type (HCC) - ICD9: 294.21, ICD10: F03.B18 (primary diagnosis) 2. History of stroke - ICD9: V12.54, ICD10: Z86.73 3. Low vitamin B12 level - ICD9: 266.2, ICD10: E53.8 Patient with cognitive decline as described above - progressive and over multiple years. Etiology uncertain but suspect multifactorial including: low B12 level; possible vascular component given on MRI brain and prior subcortical infarcts noted on MRI brain as well; possible NPH; possible neurodegenerative dementia such as Alzheimer's (no family history). Ddx d/w family and pt in detail NPH is concerning due to increase in ventricle size over the years although this may be due to general cerebral atrophy over that time as well, with noted significant increase in cortical atrophy including in the temp lobes. Pt also with ataxia, dementia, and urinary incontinence, but symptoms present now for almost 5 years and thus, uncertain surgery would even be of benefit if NPH. Pt and family do not want further evaluation by neurosurgery at this time. As for other causes, will ask Nnamdi Ojeda PA-C to initiate B12 supplementation. Also I have recommended the patient take ASA daily, BP goal <140/90 and glucose goal <140. Pt no wanting full stroke workup and note strokes are chronic on MRI and likely due to other known risk factors. That said, will proceed with carotid dopplers as baseline for large vessel disesae. As for a progressive neurodegenerative process, they are not wanting additional workup (I.e. CSF) as it would not change therapy. For now will place on trial of Namenda 5mg daily and titrate up by 5mg weekly to goal of 10mg BID. SE and ADRs d/w pt. I have also recommended brain exercises with pt primarily spending his days watching tv. Pt will follow up in 3 months at our [place] offices. Pt and his family agree with plan. Lazaro Aldridge MD CHIEF COMPLAINT: follow up HISTORY OF PRESENT ILLNESS: Cheyenne Mendieta is a 82 year old male, There were no vitals taken for this visit. with a PMH significant for DM type 2, insomnia, neuropathy, CAD, HTN, hyperlipidemia, moderate dementia. Patient presents for follow-up for her moderate dementia. Patient is MoCA 15/27 at last appointment, also noted to have B12 that was low at 249, has since started supplementation. Of note, there was concern for possible NPH due to enlarged ventricle size, versus natural size due to dementia, patient and family deferred further work-up at that time. Patient started on Namenda titrated up to 10 mg twice daily specimen. Patient notes improvement in both cognition and behavioral since last appointment, no side effects with the medication. Family agrees, notes that he has better good days than he did before the medication, notes improvement in his mood and agitation. However, family does note that he has had multiple falls. Notes that he has had multiple in the last week, unsure how many has had total since last visit. State patient states that he falls secondary to imbalance, primarily falls backwards. Has had 1 injury of his head, was seen by his primary care provider for this, not anticoagulated. Other than a few bruises, no other injuries. Notes that he also falls secondary weakness in his occulta getting back up. Does not use ice, walks around with cane and other assistive devices. Patient also notes some dizziness/lightheadedness with prolonged periods of standing. Patient does have some issues with urinary incontinence as well. Patient also endorses loss of taste and smell for many years. Patient and family state that he has had a tremor to the left upper extremity for many years as well. Patient has history of falling out of bed when sleeping, multiple times but not consistently night. Patient notes hearing has changed over the last few years, states that this is secondary to her tremor and is unsure if this is gotten smaller or not. No family history of Parkinson's to their knowledge. REVIEW OF SYSTEMS GENERAL:No weight loss, malaise or fevers. HEENT:Negative for frequent or significant headaches, No changes in hearing or vision, no nose bleeds or other nasal problems NECK:Negative for lumps, goiter, pain and significant neck swelling RESPIRATORY: Negative for cough, wheezing or shortness of breath. CARDIOVASCULAR: Negative for chest pain, leg swelling or palpitations. GASTROINTESTINAL: Negative for abdominal discomfort, blood in stools or black stools or change in bowel habits GENITOURINARY: No history of dysuria, frequency or incontinence MUSCULOSKELETAL: Negative for joint pain or swelling, back pain or muscle pain. NEUROLOGIC:Negative for focal numbness or weakness, headaches and dizziness or syncope, vision changes, speech/languag changes - EXCEPT that as per HPI above. SKIN:Negative for lesions, rash, and itching. PSYCHIATRIC: Negative for sleep disturbance, mood disorder and recent psychosocial stressors. HEMATOLOGIC/LYMPHATIC/IMMUNOLOGIC :Negative for prolonged bleeding, bruising easily or swollen nodes. ENDOCRINE: Negative for cold or heat intolerance, polyuria, polydipsia and goiter. The remainder of the ROS was reviewed and is negative. LAB/IMAGING: Those performed since patient's last visit have been reviewed. None since last appointment MEDICATIONS: atenolol (TENORMIN) 25 mg tablet Take 1 tablet by mouth once daily. Cyanocobalamin 1,000 mcg subl Dissolve 1 tablet under the tongue once daily. memantine (NAMENDA) 10 mg tablet Take 1 tablet by mouth twice daily. Start after completion of 5mg tablet titration. gabapentin (NEURONTIN) 600 mg tablet Take 1 tablet by mouth twice daily for 180 days. sertraline (ZOLOFT) 25 mg tablet Take 1 tablet by mouth once daily. lisinopril (ZESTRIL, PRINIVIL) 20 mg tablet Take 1 tablet by mouth once daily. metFORMIN ER (GLUCOPHAGE XR) 500 mg 24 hr tablet Take 2 tablets by mouth twice daily with meals. ZINC ORAL Take 1 tablet by mouth once daily. aspirin, enteric coated (ASPIRIN, ENTERIC COATED) 81 mg EC tablet Take 2 tablets by mouth once daily. Ibuprofen-diphenhydrAMINE HCl 200-25 mg cap Take 1 tablet by mouth once daily. Cholecalciferol, Vitamin D3, 50 mcg (2,000 unit) cap Take 2 capsules by mouth once daily. ascorbic acid(VITAMIN C 1,000 MG TAB) Take three (3) tablets every day omega-3 fatty acids(FISH OIL 500 MG CAP) Take four (4) tablets every day memantine (NAMENDA) 5 mg tablet Take 1 tablet daily for 1 week, then 1 tablet twice daily for 1 week, then 1 tablet in the AM and 2 tablets in the PM for 1 week. At such time, then transition to 10mg tablets twice daily. traMADol (ULTRAM) 50 mg tablet Take 1 tablet by mouth twice daily as needed for pain for up to 30 days. acetaminophen/diphenhydramine (TYLENOL PM ORAL) Take 2 tablets by mouth at bedtime as needed. HISTORIES PAST MEDICAL HISTORY Diagnosis Date CABG 2001 Gastritis 07/2018 per EGD Hiatal hernia 07/22/2018 per EGD Renal calculi Type II or unspecified type diabetes mellitus without mention of complication, not stated as uncontrolled Unspecified essential hypertension FAMILY HISTORY Problem Relation Age of Onset Breast Cancer Mother Heart Father Diabetes Son SOCIAL HISTORY Social History Tobacco Use Smoking status: Former Types: Cigarettes Quit date: 06/02/1983 Years since quittin.4 Smokeless tobacco: Never Substance Use Topics Alcohol use: No Drug use: No PHYSICAL EXAMINATION Pulse (P) 64 Temp (P) 36.4 C (97.6 F) Resp (P) 18 Wt (P) 78.9 kg (174 lb) SpO2 (P) 99% BMI (P) 24.27 kg/m GENERAL EXAM: General appearance: NAD, pleasant. HEENT: NC/AT, nasal congestion absent, no oral lesions, membranes moist. NECK: No masses, supple. Lungs: Breathing comfortably Extr: Moves all extremities without difficulty Skin: Cool to touch. No rash. NEUROLOGICAL EXAM: General: Awake, alert, oriented x3 (person,place,time), speech fluent, no dysarthria; comprehension, naming, repetition intact. Poor short term memory. CN: PERRL, EOMI and without nystagmus, VFF to confrontation, facial sensation and strength are normal and symmetric, hearing is intact to finger rub bilaterally, palate and tongue movements are intact and symmetric. SCM and trapezius strength normal. Motor: Normal tone, bulk and strength except with hip flexion which was at 4+/5 bilaterally Reflexes: 3/4 right brachioradialis. 2/4 elsewhere. Negative castro bilaterally but increased tone in LE bilaterally. Mild cogwheel rigidity in LUE. Coordination: FNF intact. No tremors. Sensation: LT, PP, vibration, temperature intact throughout. No evidence of neglect. Gait: Narrow based and stable with normal stride and arm swing. Normal tandem. Romberg normal. Assessment and Plan: ASSESSMENT/PLAN: 1. Spinal stenosis of cervical region - ICD9: 723.0, ICD10: M48.02 (primary diagnosis) 2. Weakness - ICD9: 780.79, ICD10: R53.1 3. Parkinsonism, unspecified Parkinsonism type (HCC) - ICD9: 332.0, ICD10: G20 4. Frequent falls - ICD9: V15.88, ICD10: R29.6 5. Moderate dementia with other behavioral disturbance, unspecified dementia type (HCC) - ICD9: 294.21, ICD10: F03.B18 Patient with subjective improvement in his memory issues as well as behavior. Unable to repeat MoCA today, patient grew frustrated when testing tremor and handwriting, deferred MoCA testing at this time. Patient with increased rigidity in the upper extremity, multiple falls primarily backwards, short shuffling gait. Concern for parkinsonism contributing to patient's dementia picture and falls. Discussed L-dopa and its side effects, patient and family concerned of the side effects and would not like to try therapy at this time. Patient does note that he gets stuck in certain positions, has issues with his gait, fenestration. Patient noted multiple falls even within the last week, unable to count him a fall since last appointment. One fall did have head injury, was seen by a doctor for this, not anticoagulated, no sustained symptoms from this. Concern for multiple falls, patient with hip fracture in 2019. Patient lives with his at home, needs to call their sons frequently to help him get back up as he is too weak to stand up after falling. Due to this concern, will consult social work to assess home to evaluate for any safety concerns. Patient also referred to physical therapy for overall strengthening, and patient would like this to be done at home if possible, will address with social work. Also discussed other conservative measures including slow transitions, increasing water intake (patient states that he does not drink much water and typically only drinks tea). Discussed my concerns at length with family and patient regarding falls and safety, they agree and understand. Regarding Manuel, patient with some improvement with this, improvement in both memory and behavior. No side effects, would like to maintain this therapy as prescribed. No changes made. Patient with multiple falls, multifactorial likely. Patient with increased tone in the lower extremities, hyperreflexia in the right upper extremity, concerning for cervical stenosis contributing to patient's symptoms. Patient also notes some issues with urinary incontinence. We will obtain MRI of the cervical spine to rule out any cervical stenosis contributing to patient's multiple symptoms as noted above. Patient also with low B12 at last appointment, encouraged to continue supplementation until redraw 6 months from starting. Patient agrees and understands. Patient and family agreeable to treatment plan of care at this time, all questions were answered. Patient to follow-up in 3 months sooner if any symptoms change or worsen. Santa Gordon PA-C I spent a total of 45 minutes on the date of the service which included preparing to see the patient, [id number] patient care, completing clinical documentation, obtaining and/or reviewing separately obtained history, performing a medically appropriate examination, counseling and educating the patient/family/caregiver, and ordering medications, tests, or procedures. This document has been created with the use of voice recognition technology. It may contain inaccuracies: (e.g. misspellings, inaccurate syntax or word sense) that have escaped review. documented in this encounter [facility] 10-07-2022 Miscellaneous Notes Left the patient a voice message about the appointment date and time change. Sent the patient a [employer] message and mailed the reminder. The patient is scheduled for a 3-month follow-up on 11/05 with HERB Owen. The patient is scheduled for a 6-month follow-up on 02/[address] Aldridge. documented in this encounter [facility] 09-09-2022 Miscellaneous Notes Patient phones requesting refills as follows: Requested Prescriptions Pending Prescriptions Disp Refills atenolol (TENORMIN) 25 mg tablet 90 tablet 1 Sig: Take 1 tablet by mouth once daily. JENARO 06/11/22 NOV no upcoming appt Please review and advise. Alexys Negron LPN documented in this encounter [facility] 08-02-2022 Miscellaneous Notes Patient telephoend. answered. Made aware of update. Voices understanding, will picker and sorter load and unload medication tomorrow. Sissy Huerta LPN Please advise Yoselin Aldridge recommended supplementing vit B12- this is a sublingual The following approved medication requests have been transmitted electronically. Requested Prescriptions Signed Prescriptions Disp Refills Cyanocobalamin 1,000 mcg subl 90 tablet 3 Sig: Dissolve 1 tablet under the tongue once daily. Authorizing Provider: Jerrod OJEDA PA-C documented in this encounter [facility] 07-31-2022 Note HNO ID: [id number] Author: Lazaro Aldridge Jr., MD Service: ? Author Type: Physician Type: Progress Notes Filed: 07/31/2022 2:27 PM Note Text: NEW PATIENT (CONSULT) HISTORY AND PHYSICAL EXAM PRIMARY CARE PHYSICIAN: Jerrod Ojeda PA-C REASON FOR CONSULT: Dementia REFERRING PHYSICIAN: Jerrod Ojeda PA-C CHIEF COMPLAINT: Cognitive decline Consultation requested by Jerrod Ojeda PA-C for an opinion regarding chief complaint of Patient presents with: Memory Loss Dementia: New patient and my final recommendations will be communicated back to the requesting physician by way of shared medical record or letter via [place] mail. HISTORY OF PRESENT ILLNESS: Cheyenne Mendieta is a 82 year old male, BMI 24.27 kg/m2 with a PMH significant for that noted below. Symptoms of balance difficulties started about 10-12 years ago. Since that time he has had about 3-4 brain images since that time. MRI brain completed on 11/28/21 and per rad report: Heavy burden of chronic microvascular ischemic disease and progressive severe generalized brain volume loss, including disproportionate anterior-medial temporal lobe and insular region volume loss. No acute brain abnormalities. Ventricular caliber is concordant with the degree of brain parenchymal volume loss. No clear evidence for hyperdynamic CSF motion on the CSF flow study. Since that scan in October 2022 it has been a significant decline. 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 Also difficulties knowing what day it is. One thought instead of having only 1 dog (which is true per family) that they had 2 dogs. One day did not recognize the dog. On bad days sits in his chair and stares at the TV. When gets up to do something he forgets what he gets up to do. Sometimes forgets to take medications. He gets angry quickly. At night, he thinks he needs to go to bed by 6PM but yet really does not go to bed until about 10PM. Has had bladder incontinence. Pt not driving. Has had hallucinations such sa thinking someone is there in front of him but no one is there. MRIs reviewed and ventricles are enlarging since 2019 vs 202 imaging. Mode as well as subcortical infarcts. B12 also low. Vitamin B12 Date Value Ref Range Status 06/12/2022 249 232 - 1,245 pg/mL Final TSH Date Value Ref Range Status 06/12/2022 0.781 0.270 - 4.200 mIU/L Final Modified MOCA: Immediate recall: 2; 2 Number repeat: 06/03 (bkwrds: [id number]) Sentence repeat: 07/04 Serial 7s: 100-93-x 06/04 Orientation: X/X/2002, Wed, Ynaes, Biden 08/05 Delayed recall: 07/07 Similar object: 1 Cube drawin/1 Clock drawing: (numbers outside [employer] [place], writes # for 10 p 11) 06/04 Namin/ Taking Tramadol not necessarily for pain but moodiness at times. No significant ETOH use. REVIEW OF SYSTEMS GENERAL:No weight loss, malaise or fevers. HEENT:Negative for frequent or significant headaches, No changes in hearing or vision, no nose bleeds or other nasal problems NECK:Negative for lumps, goiter, pain and significant neck swelling RESPIRATORY: Negative for cough, wheezing or shortness of breath. CARDIOVASCULAR: Negative for chest pain, leg swelling or palpitations. GASTROINTESTINAL: Negative for abdominal discomfort, blood in stools or black stools or change in bowel habits GENITOURINARY: No history of dysuria, frequency or incontinence MUSCULOSKELETAL: Chronic hip pain. NEUROLOGIC:See HPI. No clinical history of stroke. SKIN:Negative for lesions, rash, and itching. HEMATOLOGIC/LYMPHATIC/IMMUNOLOGIC :Negative for prolonged bleeding, bruising easily or swollen nodes. ENDOCRINE: Negative for cold or heat intolerance, polyuria, polydipsia and goiter. The remainder of the ROS was reviewed and is negative. LAB/IMAGING: Reviewed and include: WBC (k/uL) Date Value 08/10/2021 5.03 RBC (m/uL) Date Value 08/10/2021 4.74 Hemoglobin (g/dL) Date Value 08/10/2021 14.1 Hematocrit (%) Date Value 08/10/2021 43.8 MCV (fL) Date Value 08/10/2021 92.4 MCH (pg) Date Value 08/10/2021 29.7 MCHC (g/dL) Date Value 08/10/2021 32.2 RDW-CV (%) Date Value 08/10/2021 14.6 Platelet Count (k/uL) Date Value 08/10/2021 294 MPV (fL) Date Value 08/10/2021 8.7 (L) Glucose (mg/dL) Date Value 03/15/2022 128 (H) BUN (mg/dL) Date Value 03/15/2022 22 Creatinine (mg/dL) Date Value 03/15/2022 1.25 (H) Sodium (mmol/L) Date Value 03/15/2022 136 Potassium (mmol/L) Date Value 03/15/2022 4.5 Chloride (mmol/L) Date Value 03/15/2022 104 CO2 (mmol/L) Date Value 03/15/2022 23 Protein, Total (g/dL) Date Value 08/10/2021 7.0 Albumin (g/dL) Date Value 08/10/2021 4.0 Calcium, Total (mg/dL) Date Value 03/15/2022 8.7 Alkaline Phosphatase (U/L) Date Value 08/10/2021 82 Bilirubin, Total (mg/dL) Date Value (more content not included)... [facility] 07-31-2022 History of Present illness Narrative NEW PATIENT (CONSULT) HISTORY AND PHYSICAL EXAM PRIMARY CARE PHYSICIAN: Jerrod Ojeda PA-C REASON FOR CONSULT: Dementia REFERRING PHYSICIAN: Jerrod Ojeda PA-C CHIEF COMPLAINT: Cognitive decline Consultation requested by Jerrod Ojeda PA-C for an opinion regarding chief complaint of Patient presents with: Memory Loss Dementia: New patient and my final recommendations will be communicated back to the requesting physician by way of shared medical record or letter via [place] mail. HISTORY OF PRESENT ILLNESS: Cheyenne Mendieta is a 82 year old male, BMI 24.27 kg/m2 with a PMH significant for that noted below. Symptoms of balance difficulties started about 10-12 years ago. Since that time he has had about 3-4 brain images since that time. MRI brain completed on 11/28/21 and per rad report: Heavy burden of chronic microvascular ischemic disease and progressive severe generalized brain volume loss, including disproportionate anterior-medial temporal lobe and insular region volume loss. No acute brain abnormalities. Ventricular caliber is concordant with the degree of brain parenchymal volume loss. No clear evidence for hyperdynamic CSF motion on the CSF flow study. Since that scan in October 2022 it has been a significant decline. 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 Also difficulties knowing what day it is. One thought instead of having only 1 dog (which is true per family) that they had 2 dogs. One day did not recognize the dog. On bad days sits in his chair and stares at the TV. When gets up to do something he forgets what he gets up to do. Sometimes forgets to take medications. He gets angry quickly. At night, he thinks he needs to go to bed by 6PM but yet really does not go to bed until about 10PM. Has had bladder incontinence. Pt not driving. Has had hallucinations such sa thinking someone is there in front of him but no one is there. MRIs reviewed and ventricles are enlarging since 2019 vs 2021 imaging. Mode as well as subcortical infarcts. B12 also low. Vitamin B12 Date Value Ref Range Status 06/12/2022 249 232 - 1,245 pg/mL Final TSH Date Value Ref Range Status 06/12/2022 0.781 0.270 - 4.200 mIU/L Final Modified MOCA: Immediate recall: 07/07; 07/07 Number repeat: 06/03 (bkwrds: [id number]) Sentence repeat: 07/04 Serial 7s: 100-93-x 06/04 Orientation: X/X/2002, Wed, Yanes, Biden 08/05 Delayed recall: 07/07 Similar object: 06/03 Cube drawin Clock drawing: (numbers outside [facility] [place], writes # for 10 p 11) 06/04 Namin/3 Taking Tramadol not necessarily for pain but moodiness at times. No significant ETOH use. REVIEW OF SYSTEMS GENERAL:No weight loss, malaise or fevers. HEENT:Negative for frequent or significant headaches, No changes in hearing or vision, no nose bleeds or other nasal problems NECK:Negative for lumps, goiter, pain and significant neck swelling RESPIRATORY: Negative for cough, wheezing or shortness of breath. CARDIOVASCULAR: Negative for chest pain, leg swelling or palpitations. GASTROINTESTINAL: Negative for abdominal discomfort, blood in stools or black stools or change in bowel habits GENITOURINARY: No history of dysuria, frequency or incontinence MUSCULOSKELETAL: Chronic hip pain. NEUROLOGIC:See HPI. No clinical history of stroke. SKIN:Negative for lesions, rash, and itching. HEMATOLOGIC/LYMPHATIC/IMMUNOLOGIC :Negative for prolonged bleeding, bruising easily or swollen nodes. ENDOCRINE: Negative for cold or heat intolerance, polyuria, polydipsia and goiter. The remainder of the ROS was reviewed and is negative. LAB/IMAGING: Reviewed and include: WBC (k/uL) Date Value 08/10/2021 5.03 RBC (m/uL) Date Value 08/10/2021 4.74 Hemoglobin (g/dL) Date Value 08/10/2021 14.1 Hematocrit (%) Date Value 08/10/2021 43.8 MCV (fL) Date Value 08/10/2021 92.4 MCH (pg) Date Value 08/10/2021 29.7 MCHC (g/dL) Date Value 08/10/2021 32.2 RDW-CV (%) Date Value 08/10/2021 14.6 Platelet Count (k/uL) Date Value 08/10/2021 294 MPV (fL) Date Value 08/10/2021 8.7 (L) Glucose (mg/dL) Date Value 03/15/2022 128 (H) BUN (mg/dL) Date Value 03/15/2022 22 Creatinine (mg/dL) Date Value 03/15/2022 1.25 (H) Sodium (mmol/L) Date Value 03/15/2022 136 Potassium (mmol/L) Date Value 03/15/2022 4.5 Chloride (mmol/L) Date Value 03/15/2022 104 CO2 (mmol/L) Date Value 03/15/2022 23 Protein, Total (g/dL) Date Value 08/10/2021 7.0 Albumin (g/dL) Date Value 08/10/2021 4.0 Calcium, Total (mg/dL) Date Value 03/15/2022 8.7 Alkaline Phosphatase (U/L) Date Value 08/10/2021 82 Bilirubin, Total (mg/dL) Date Value 08/10/2021 0.5 AST (U/L) Date Value 08/10/2021 24 ALT (U/L) Date Value 08/10/2021 13 Cholesterol, Total Date Value Ref Range Status 08/10/2021 153 <200 mg/dL Final Comment: <200 mg/dL, Desirable 200-239 mg/dL, Borderline high >239 mg/dL, High HDL Cholesterol Date Value Ref Range Status 08/10/2021 42 >39 mg/dL Final Comment: 40-59 mg/dL, Acceptable >59 mg/dL, High: Negative risk factor for coronary heart disease <40 mg/dL, Low: Positive risk factor for coronary heart disease LDL Cholesterol Date Value Ref Range Status 08/10/2021 96 <100 mg/dL Final Comment: <100 mg/dL, Optimal 100-129 mg/dL, Near optimal/above optimal 130-159 mg/dL, Borderline high 160-189 mg/dL, High >189 mg/dL, Very high Secondary prevention optimal LDL Cholesterol levels are recommended to be < 70 mg/dL Triglyceride Date Value Ref Range Status 08/10/2021 75 <150 mg/dL Final Comment: <150 mg/dL, Normal 150-199 mg/dL, Borderline high 200-499 mg/dL, High >499 mg/dL, Very high MEDICATIONS: gabapentin (NEURONTIN) 600 mg tablet Take 1 tablet by mouth twice daily for 180 days. sertraline (ZOLOFT) 25 mg tablet Take 1 tablet by mouth once daily. lisinopril (ZESTRIL, PRINIVIL) 20 mg tablet Take 1 tablet by mouth once daily. traMADol (ULTRAM) 50 mg tablet Take 1 tablet by mouth twice daily as needed for pain for up to 30 days. atenolol (TENORMIN) 25 mg tablet Take 1 tablet by mouth once daily. furosemide (LASIX) 40 mg tablet Take 0.5 tablets by mouth once daily. metFORMIN ER (GLUCOPHAGE XR) 500 mg 24 hr tablet Take 2 tablets by mouth twice daily with meals. fluticasone (FLONASE) 50 mcg/actuation nasal spray Use 2 Sprays in each nostril once daily. Rinse mouth after use. ZINC ORAL Take 1 tablet by mouth once daily. aspirin, enteric coated (ASPIRIN, ENTERIC COATED) 81 mg EC tablet Take 2 tablets by mouth once daily. acetaminophen/diphenhydramine (TYLENOL PM ORAL) Take 2 tablets by mouth at bedtime as needed. Ibuprofen-diphenhydrAMINE HCl 200-25 mg cap Take 1 tablet by mouth once daily. Cholecalciferol, Vitamin D3, 50 mcg (2,000 unit) cap Take 2 capsules by mouth once daily. ascorbic acid(VITAMIN C 1,000 MG TAB) Take three (3) tablets every day omega-3 fatty acids(FISH OIL 500 MG CAP) Take four (4) tablets every day HISTORIES PAST MEDICAL HISTORY Diagnosis Date CABG 2001 Gastritis 07/2018 per EGD Hiatal hernia 07/22/2018 per EGD Renal calculi Type II or unspecified type diabetes mellitus without mention of complication, not stated as uncontrolled Unspecified essential hypertension FAMILY HISTORY Problem Relation Age of Onset Breast Cancer Mother Heart Father Diabetes Son SOCIAL HISTORY Social History Tobacco Use Smoking status: Former Types: Cigarettes Quit date: 06/02/1983 Years since quittin.1 Smokeless tobacco: Never Substance Use Topics Alcohol use: No Drug use: No PHYSICAL EXAMINATION BP 137/69 Pulse 61 Wt 78.9 kg (174 lb) SpO2 96% BMI 24.27 kg/m GENERAL EXAM: General appearance: NAD, pleasant. HEENT: NC/AT, nasal congestion absent, no oral lesions, membranes moist. NECK: ROM nml. Lungs: CTA bilaterally. CV: RRR nl S1, S2. Abd: Soft, nontender, nondistended. Bowel sounds present. Extr: No cyanosis, clubbing or edema. No evidence of fasciculations. Extremity pulses palpable and normal. Skin: Cool to touch. NEUROLOGICAL EXAM: General: Awake, alert, oriented x3 (person,place,time), speech fluent, no dysarthria; comprehension, naming, repetition intact. See MOCA above.. CN: PERRL, fundi with no evidence of papilledema, EOMI and without nystagmus, VFF to confrontation, facial sensation and strength are normal and symmetric, hearing is intact to finger rub bilaterally, palate and tongue movements are intact and symmetric. SCM and trapezius strength normal. Motor: Normal tone, bulk and strength (5/5) bilaterally (throughout extremities x4). Reflexes: 2/4 and symmetric, plantar stimulation is flexor. Coordination: FNF, MINI, HTS intact. No tremors. Sensation: Light touch intact throughout. No evidence of neglect. Gait: Slow, not shuffling but almost magnetic. Romberg normal. Assessment and Plan: ASSESSMENT/PLAN: 1. Moderate dementia with other behavioral disturbance, unspecified dementia type (HCC) - ICD9: 294.21, ICD10: F03.B18 (primary diagnosis) 2. History of stroke - ICD9: V12.54, ICD10: Z86.73 3. Low vitamin B12 level - ICD9: 266.2, ICD10: E53.8 Patient with cognitive decline as described above - progressive and over multiple years. Etiology uncertain but suspect multifactorial including: low B12 level; possible vascular component given on MRI brain and prior subcortical infarcts noted on MRI brain as well; possible NPH; possible neurodegenerative dementia such as Alzheimer's (no family history). Ddx d/w family and pt in detail NPH is concerning due to increase in ventricle size over the years although this may be due to general cerebral atrophy over that time as well, with noted significant increase in cortical atrophy including in the temp lobes. Pt also with ataxia, dementia, and urinary incontinence, but symptoms present now for almost 5 years and thus, uncertain surgery would even be of benefit if NPH. Pt and family do not want further evaluation by neurosurgery at this time. As for other causes, will ask Nnamdi Ojeda PA-C to initiate B12 supplementation. Also I have recommended the patient take ASA daily, BP goal <140/90 and glucose goal <140. Pt no wanting full stroke workup and note strokes are chronic on MRI and likely due to other known risk factors. That said, will proceed with carotid dopplers as baseline for large vessel disesae. As for a progressive neurodegenerative process, they are not wanting additional workup (I.e. CSF) as it would not change therapy. For now will place on trial of Namenda 5mg daily and titrate up by 5mg weekly to goal of 10mg BID. SE and ADRs d/w pt. I have also recommended brain exercises with pt primarily spending his days watching tv. Pt will follow up in 3 months at our [place] offices. Pt and his family agree with plan. Lazaro Aldridge MD I spent a total of 60+ minutes on the date of the service which included preparing to see the patient, [id number] patient care, completing clinical documentation, obtaining and/or reviewing separately obtained history, performing a medically appropriate examination, counseling and educating the patient/family/caregiver, ordering medications, tests, or procedures, independently interpreting results (not separately reported), and communicating results to the patient/family/caregiver. documented in this encounter [facility] 07-22-2022 Miscellaneous Notes Patient phones requesting refills as follows: Requested Prescriptions Pending Prescriptions Disp Refills gabapentin (NEURONTIN) 600 mg tablet 180 tablet 1 Sig: Take 1 tablet by mouth twice daily for 180 days. JENARO 06/11/22 (virtual) 02/28/22 (in office) NOV no upcoming appt Please review and advise. Alexys Negron LPN documented in this encounter [facility] 06-14-2022 Miscellaneous Notes Patient's calls back and notified of results and provider instructions. voices understanding. Britany Guillory RN Detailed message left for pt I was out yesterday. Please advise UC growth too low to indicate urinary tract infection. Yes should follow up with Dr. Thomas. Thanks, Oneil Ojeda PA-C Patient's calls asking for Oneil to look at patient's lab results. Patient has an appointment with Dr. Thomas today and she wasn't sure if she should cancel appointment or not. Please review and advise, Britany Guillory RN documented in this encounter [facility] 06-13-2022 Miscellaneous Notes Component Latest Ref Rng & Units 06/11/2022 Color Yellow Yellow Clarity Clear Cloudy (A) Glucose, Urine Trace, Negative Negative Bilirubin, Urine Negative Negative Ketones, Urine Trace, Negative Negative Specific [place], Ur 1.005 - 1.030 1.025 Hemoglobin/Blood,Ur Negative, Trace 2+ (A) pH, Urine 5.0 - 8.0 5.5 Protein, Urine Trace, Negative 1+ (A) Urobilinogen Negative Negative Nitrites Negative Negative Leukest Negative, 25 Charity/mL 500 Charity/mL (A) WBC, Urine 0-5 /HPF >25 /HPF (A) RBC, Urine 0-3 /HPF >25 /HPF (A) Epithelial Cells /HPF Few Calcium Oxalate Crystals None Seen /HPF Many (A) Culture pending documented in this encounter [facility] 06-11-2022 Miscellaneous Notes Received fax from [email or web address]. Requesting order for test strips. Call to patient and they did not request this company nor do they want to use this company. Fax shredded. Mary Kate Nolasco Ma documented in this encounter [facility] 06-11-2022 History of Present illness Narrative Audio only was used for evaluation of this patient. Location of patient: [place] Patient was offered a virtual/telemedicine appointment in lieu of an office visit due to recommendations to reduce patient exposure to COVID-19. Patient is aware of limitations of performing the visit without a face to face visit in the office setting and agrees. 12:53 PM Signed into ZOOM but not registering on meeting open. Transferred to phone call. 82 year old male with c/o Since bladder stone removed, TURP has been urinating frequently frequently. Nocturia x 2-3 Dr. Thomas stopped tamsulosin Has lost about 5 lbs: eating frequently small amounts, snacks every few hours. One substantial Concerned about dementia. Trouble making coffee, can't always remember what news station he listens to. Some hallucinations thought he saw her leaving room, ceiling cracks crumbling on bed, bursts of anger over minor things. Progressed quickly over last 3 months. OCD is magnified. Kids are worried for her because he seems impulsive and emotionally quick to react. She says she has not been afraid personally. HISTORIES FAMILY HISTORY Problem Relation Age of Onset Breast Cancer Mother Heart Father Diabetes Son PAST MEDICAL HISTORY Diagnosis Date CABG 2002 Gastritis 07/2018 per EGD Hiatal hernia 07/22/2018 per EGD Renal calculi Type II or unspecified type diabetes mellitus without mention of complication, not stated as uncontrolled Unspecified essential hypertension PAST SURGICAL HISTORY Procedure Laterality Date APPENDECTOMY CABG (4) VEIN GRAFTS & ARTERIAL GRAFT(S) COLONOSCOPY 10/16/2006 Dr. Stone. Diverticulosis. Poor prep - repeat 2 yrs. EGD 07/22/2018 Dr. Sebastian: gastritis, small hiatal hernia, bx : mild chronic gastritis HERNIA REPAIR W/MESH twice PAST SURGICAL HISTORY OF 05/10/2022 Cystolitholapaxy and laser of larger bladder stones, transurethral section of prostate Social History Tobacco Use Smoking status: Former Types: Cigarettes Quit date: 06/02/1983 Years since quittin.0 Smokeless tobacco: Never Substance Use Topics Alcohol use: No Drug use: No ACTIVE PROBLEM LIST Dm (Diabetes Mellitus) Type II Controlled, Neurological Manifestation (Hcc) Cad (Coronary Artery Disease) Benign Prostatic Hyperplasia Htn (Hypertension) Insomnia Diabetic Neuropathy (Hcc) Hallux Valgus (Acquired) Chronic Right Shoulder Pain Functional Dyspepsia History of Colonic Polyps Absolute Anemia Gastritis Hiatal Hernia Chronic Midline Low Back Pain Without Sciatica Microalbuminuria Hyperlipidemia, Mixed Other Chronic Sinusitis Brain Atrophy (Hcc) Mild Dementia Retrolisthesis Spondylolisthesis of Lumbar Region Current Outpatient Medications Medication Sig Dispense Refill lisinopril (ZESTRIL, PRINIVIL) 20 mg tablet Take 1 tablet by mouth once daily. 90 tablet 1 traMADol (ULTRAM) 50 mg tablet Take 1 tablet by mouth twice daily as needed for pain for up to 30 days. 60 tablet 5 atenolol (TENORMIN) 25 mg tablet Take 1 tablet by mouth once daily. 90 tablet 1 furosemide (LASIX) 40 mg tablet Take 0.5 tablets by mouth once daily. 90 tablet 1 tamsulosin (FLOMAX) 0.4 mg Take 2 capsules by mouth daily at bedtime. 90 capsule 1 metFORMIN ER (GLUCOPHAGE XR) 500 mg 24 hr tablet Take 2 tablets by mouth twice daily with meals. 360 tablet 3 gabapentin (NEURONTIN) 600 mg tablet Take 1 tablet by mouth twice daily for 180 days. 180 tablet 1 fluticasone (FLONASE) 50 mcg/actuation nasal spray Use 2 Sprays in each nostril once daily. Rinse mouth after use. 1 Bottle 11 ZINC ORAL Take 1 tablet by mouth once daily. aspirin, enteric coated (ASPIRIN, ENTERIC COATED) 81 mg EC tablet Take 2 tablets by mouth once daily. acetaminophen/diphenhydramine (TYLENOL PM ORAL) Take 2 tablets by mouth at bedtime as needed. Ibuprofen-diphenhydrAMINE HCl 200-25 mg cap Take 1 tablet by mouth once daily. Cholecalciferol, Vitamin D3, 50 mcg (2,000 unit) cap Take 2 capsules by mouth once daily. ascorbic acid(VITAMIN C 1,000 MG TAB) Take three (3) tablets every day 0 omega-3 fatty acids(FISH OIL 500 MG CAP) Take four (4) tablets every day 0 No current facility-administered medications for this visit. FECAL OCCULT BLOOD due on 02/03/2016 DILATED RETINAL EXAM due on 06/05/2019 INFLUENZA(1) due on 01/31/2022 SHINGRIX VACCINE(3 of 3) due on 03/12/2022 DIABETIC FOOT EXAM due on 05/11/2022 ADVANCE DIRECTIVE DISCUSSION Never done EXAM: Spoke primarily with . ASSESSMENT/PLAN: 1. Brain atrophy (HCC) - ICD9: 331.9, ICD10: G31.9 (primary diagnosis) Complete lab - TSH BLD - VITAMIN B12 BLOOD - FOLATE SERUM - LYME AB LATE >30 DAYS SYMPTOMS - SYPHILIS TOTAL W/REFLEX - HEAVY METALS SCRN BL - URINALYSIS, WITH MICROSCOPIC - URINE CULTURE 2. Dementia with behavioral disturbance - ICD9: 294.21, ICD10: F03.918 Has outstanding consult for neuro: needs to be scheduled - TSH BLD - VITAMIN B12 BLOOD - FOLATE SERUM - LYME AB LATE >30 DAYS SYMPTOMS - SYPHILIS TOTAL W/REFLEX - HEAVY METALS SCRN BL - URINALYSIS, WITH MICROSCOPIC - URINE CULTURE 3. Sleep concern - ICD9: V69.4, ICD10: Z76.89 Prior complications with Trazedone and mirtazapine. Trial sertraline 25mg daily Educated on new medication administration, warnings and cautions, common side effects, anticipated duration or therapy, and instructions on cessation management to avoid risks if stops medication. Patient choice was discussed in shared decision making. Discussed sleep hygiene - URINALYSIS, WITH MICROSCOPIC - URINE CULTURE 4. Urinary frequency - ICD9: 788.41, ICD10: R35.0 Being followed by urology. Because of mental status changes recommend testing for infection today., Push fluids. Report if fever, worse - URINALYSIS, WITH MICROSCOPIC - URINE CULTURE Plan: 32 minute call See orders and/or patient instructions. Patient ( or Guardian) expressed understanding of instructions on review. Jerrod Ojeda PA-C documented in this encounter [facility] 06-10-2022 Miscellaneous Notes Last office visit: 02/28/22 F/u scheduled: 06/11/22 Lisa Han Ma documented in this encounter [facility] 06-07-2022 Miscellaneous Notes Will scheduled when here for visit on 06/11/22. Since bladder stone removed has been urinating frequently frequently. Concerned about dementia. Trouble making coffee, can't always remember what news station he listens to. Some hallucinations thought he saw her leaving room, ceiling cracks crumbling on bed, bursts of anger over minor things. Progressed quickly over last 3 months. OCD is magnified. Kids are worried for her because he seems impulsive and emotionally quick to react. She says she has not been afraid personally. Please schedule: Telephone on 06/07/22 CONSULT TO NEUROLOGY Thanks, Oneil Ojeda PA-C Pt's [place] calling and states pt has Video Visit scheduled with Oneil Ojeda on 06/11/22. [place] requesting Oneil to call her cell today to talk for about 5 minutes . She would like to talk to Oneil before pt's 06/11 appt about something private and needs some answers and direction . . Thank you. documented in this encounter [facility] 05-10-2022 Miscellaneous Notes Patient phones requesting refills as follows: Requested Prescriptions Pending Prescriptions Disp Refills traMADol (ULTRAM) 50 mg tablet 60 tablet 5 Sig: Take 1 tablet by mouth twice daily as needed for pain for up to 30 days. JENARO-02/28/22 Labs-03/18/22 NOV-05/14/22 med filled 10/17/21 Please review and advise. Albina Porter LPN documented in this encounter [facility] 03-20-2022 Miscellaneous Notes TC to pt, spoke /c pt [place], notified of results/provider response. [place] states d/t transportation issues they would prefer to stay in [place]. Referral faxed to Dr. Thomas's office. Alexys Negron LPN Please advise ultrasound demonstrates a large bladder stone 3.1 cm, this is likely causing obstruction and complications with urination. Recommend consult to urology, I prefer Dr. Yo Durham on if possible in [place]. If patient wants to stay in [place] he could see Dr. Thomas Telephone on 03/20/22 CONSULT TO UROLOGY Thanks, Oneil Ojeda PA-C documented in this encounter [facility] 03-18-2022 Miscellaneous Notes Telephone on 03/18/22 CBC + DIFF COMP METABOLIC PANEL Oneil Ojeda PA-C File orders documented in this encounter [facility] 03-18-2022 History of Present illness Narrative Radiology Service Progress Note PATIENT NAME: Cheyenne Mendieta DATE OF SERVICE: March 18, 2022 TIME: 2:51 PM PATIENT IDENTITY VERIFICATION COMPLETED USING TWO (2) IDENTIFIERS: Name and Date of confirmed by patient verbally. FALL SCREENING: Has the patient had 2 falls in the last year or 1 fall with injury or currently using an Ambulatory Assistive Device (Walker, Cane, Wheelchair, Crutches, etc.)? Yes, Patient High Risk for Falls What interventions were put in place to prevent falls during this visit? Instructed Patient to Call for Help if Needed, Offered Assistance with Transfers/Clothing, Instructed Patient to Remain Seated (Not on Exam Table) Until Exam, Increased Observations by Caregivers, and Escorted to/from Restroom PATIENT GENDER DATA: Male PATIENT RELEVANT IMPLANT DATA REVIEWED: Not Applicable RADIOLOGY DEPARTMENT: Ultrasound PERIPHERAL IV DATA: Not applicable SIGNED BY: Tiara Can RDMS RVT March 18, 2022 2:51 PM documented in this encounter [facility] 03-16-2022 Miscellaneous Notes Please schedule: Telephone on 03/05/22 CONSULT TO VASCULAR SURGERY Venous incompetence (primary encounter diagnosis) Bilateral leg edema ThanksOneil PA-C documented in this encounter [facility] 03-06-2022 Miscellaneous Notes Last office visit: 02/28/22 Next appointment scheduled: 05/14/22 Last labs: 02/28/22 Patient phones requesting refills as follows: Requested Prescriptions Pending Prescriptions Disp Refills atenolol (TENORMIN) 25 mg tablet 90 tablet 1 Sig: Take 1 tablet by mouth once daily. Please review and advise. Marjorie Bar LPN documented in this encounter [facility] 03-06-2022 Miscellaneous Notes Called PT LVM to call back and schedule. Lyssa BOLDEN Patient's notified, wrote down info since patient is hard of hearing. Verbalized understanding. Will forward message on to be scheduled by clerical Please advise creatinine rising. Cut lasix in half to 20mg. Recheck BMP in 2 weeks with urine micro Please schedule US kidney. Telephone on 03/06/22 US KIDNEY/BLADDER URINALYSIS, WITH MICROSCOPIC BASIC METABOLIC PNL The following approved medication requests have been transmitted electronically. Requested Prescriptions Signed Prescriptions Disp Refills furosemide (LASIX) 40 mg tablet 90 tablet 1 Sig: Take 0.5 tablets by mouth once daily. Authorizing Provider: Jerrod OJEDA PA-C Thanks, Oneil Ojeda PA-C documented in this encounter [facility] 02-28-2022 History of Present illness Narrative 81 year old male with c/o here for follow up Bilateral leg edema (primary encounter diagnosis) Sob (shortness of breath) Bilateral calf pain 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 Hypertension, essential Hyperlipidemia, mixed Cardiovascular interval hx: no new events or testing 09/10/[address] Noble. Recommends continue medical treatment and optimized risk factors 08/26/[address] Noble: 625 VEBs, 393 SVEBs, longest 13 beat run max HR 143 with diary correlation at times. 07/23/17 nuclear stress: small fixed defect apical inferior consistent with attenuation; LVEF 55%, LV global function NL. Transient ischemic dilation of left ventricle during stress 06/10/17 referral [facility] Dr. Emory Arias 02/02/15 echocardiogram: moderate concentric LVH, LVSF: NL. EF = 60 5%, LVDF: stage 1 abnormal relaxation; RV size NL. RVSF: NL. RVSP underestimated due to a weak or incomplete tricuspid regurgitation signal and is, at least, 30 mmHg consistent with normal pulmonary artery pressures. Estimated right atrial pressure is 5 mmHg. No significant change from 09/21/09 01/27/15 referral law enforcement director Kelvin Ellis [facility] 09/21/09 echocardiogram: LV size NL, LVSF: 60% ejection fraction, LVDF:stage I diastolic dysfunction. RV size NL, RVSF NL, mild left atrial enlargement, mildly dilated ascending aorta (upper limits of normal), mild left ventricular hypertrophy, mild pulm htn 37mmHg, mild without AI. 2001 ASCVD with CABG in 2001 (LEVIN, Radial a. And SVG) Current meds: Lasix 40mg daily stopped Atenolol 25 mg daily Lisinopril 20 mg daily ASA EC 81 mg 2 tablets twice a day Use of NTG: No Chest pain, arm, jaw pain, neck, or upper back pain suggestive of angina: No. SOB: No Dyspnea with exertion: No orthopnea: No racing or irregular heartbeats: No palpitations: No syncopal sx: No Unexplainable fatigue No Leg swelling: Yes, bilaterally. No significant response to furosemide. Weight no change. Nausea: No diaphoresis: No Heartburn: No Claudication: No Smoking: No Following Low cholesterol, high fiber diet? Yes- somewhat If on statin: muscle aches? No If on statin: GI sx or diarrhea? No HISTORIES FAMILY HISTORY Problem Relation Age of Onset Breast Cancer Mother Heart Father Diabetes Son PAST MEDICAL HISTORY Diagnosis Date CABG 2001 Gastritis 07/2018 per EGD Hiatal hernia 07/22/2018 per EGD Renal calculi Type II or unspecified type diabetes mellitus without mention of complication, not stated as uncontrolled Unspecified essential hypertension PAST SURGICAL HISTORY Procedure Laterality Date APPENDECTOMY CABG (4) VEIN GRAFTS & ARTERIAL GRAFT(S) COLONOSCOPY 10/16/2006 Dr. Stone. Diverticulosis. Poor prep - repeat 2 yrs. EGD 07/22/2018 Dr. Sebastian: gastritis, small hiatal hernia, bx : mild chronic gastritis HERNIA REPAIR W/MESH twice Social History Tobacco Use Smoking status: Former Types: Cigarettes Quit date: 06/02/1983 Years since quittin.7 Smokeless tobacco: Never Substance Use Topics Alcohol use: No Drug use: No ACTIVE PROBLEM LIST Dm (Diabetes Mellitus) Type II Controlled, Neurological Manifestation (Hcc) Cad (Coronary Artery Disease) Benign Prostatic Hyperplasia Htn (Hypertension) Insomnia Diabetic Neuropathy (Hcc) Hallux Valgus (Acquired) Chronic Right Shoulder Pain Functional Dyspepsia History of Colonic Polyps Absolute Anemia Gastritis Hiatal Hernia Right Low Back Pain Microalbuminuria Hyperlipidemia, Mixed Other Chronic Sinusitis Brain Atrophy (Hcc) Mild Dementia (Hcc) Current Outpatient Medications Medication Sig Dispense Refill furosemide (LASIX) 40 mg tablet Take 1 tablet by mouth once daily. 90 tablet 1 tamsulosin (FLOMAX) 0.4 mg Take 2 capsules by mouth daily at bedtime. 90 capsule 1 metFORMIN ER (GLUCOPHAGE XR) 500 mg 24 hr tablet Take 2 tablets by mouth twice daily with meals. 360 tablet 3 gabapentin (NEURONTIN) 600 mg tablet Take 1 tablet by mouth twice daily for 180 days. 180 tablet 1 traMADol (ULTRAM) 50 mg tablet Take 1 tablet by mouth twice daily as needed for pain for up to 30 days. 60 tablet 5 atenolol (TENORMIN) 25 mg tablet Take 1 tablet by mouth once daily. 90 tablet 1 lisinopril (ZESTRIL, PRINIVIL) 20 mg tablet Take 1 tablet by mouth once daily. 90 tablet 1 cyclobenzaprine (FLEXERIL) 5 mg tablet Take 1 tablet by mouth three times daily. 30 tablet 1 fluticasone (FLONASE) 50 mcg/actuation nasal spray Use 2 Sprays in each nostril once daily. Rinse mouth after use. 1 Bottle 11 ZINC ORAL Take 1 tablet by mouth once daily. aspirin, enteric coated (ASPIRIN, ENTERIC COATED) 81 mg EC tablet Take 2 tablets by mouth once daily. acetaminophen/diphenhydramine (TYLENOL PM ORAL) Take 2 tablets by mouth at bedtime as needed. Ibuprofen-diphenhydrAMINE HCl 200-25 mg cap Take 1 tablet by mouth once daily. Cholecalciferol, Vitamin D3, 50 mcg (2,000 unit) cap Take 2 capsules by mouth once daily. ascorbic acid(VITAMIN C 1,000 MG TAB) Take three (3) tablets every day 0 omega-3 fatty acids(FISH OIL 500 MG CAP) Take four (4) tablets every day 0 No current facility-administered medications for this visit. FECAL OCCULT BLOOD due on 02/03/2016 DILATED RETINAL EXAM due on 06/05/2019 ADVANCE DIRECTIVE DISCUSSION Never done HBA1C due on 02/10/2022 INFLUENZA(1) due on 01/31/2022 SHINGRIX VACCINE(3 of 3) due on 03/12/2022 EXAM: BP 120/68 Pulse 68 Resp 20 Wt 85.4 kg (188 lb 3.2 oz) SpO2 98% BMI 26.25 kg/m Pleasant adult man in usual state, in no acute distress. Alert and oriented all spheres. Normal affect and cognition. Speech normal. No deficits to learning or comprehension. Skin warm, dry, pink to lips and nailbeds. Normal turgor. Respirations regular and unlabored. Chest is normal shape. Lungs are clear to all khan with good air exchange through out. HRRR without murmur or gallop. No lifts, heaves, or rubs. Extrem: no clubbing or cyanosis. Edema: bilateral edema R.L 2/4+. Extremities are warm and pink with prompt capillary refill. ASSESSMENT/PLAN: 1. Bilateral leg edema - ICD9: 782.3, ICD10: R60.0 (primary diagnosis) Will US for venous incometence. Recommend compression stockings: will pick out what he can wear - US VENOUS INCOMPETENCY [facility] 2. SOB (shortness of breath) - ICD9: 786.05, ICD10: R06.02 resolved 3. Bilateral calf pain - ICD9: 729.5, ICD10: M79.661, M79.662 4. Screening for colon cancer - ICD9: V76.51, ICD10: Z12.11 - FECAL OCCULT BLOOD TEST 5. Controlled type 2 diabetes mellitus with diabetic neuropathy, without long-term current use of insulin (HCC) - ICD9: 250.60, 357.2, ICD10: E11.40 Controlled. - Continue current medications - HGB A1C Jerrod Ojeda PA-C documented in this encounter [facility] 02-12-2022 History of Present illness Narrative 81 year old male with c/o increased swelling in both last three days. No different activity, has been up and walking. No SOB, chest pain, orthopnea. Sits sometimes for long periods but no changed. Using compression stockings without improvement. Legs ache from swelling and are tender Had Lasix- took one tab yesterday without much change or significant urine flow. HISTORIES FAMILY HISTORY Problem Relation Age of Onset Breast Cancer Mother Heart Father Diabetes Son PAST MEDICAL HISTORY Diagnosis Date CABG 2002 Gastritis 07/2018 per EGD Hiatal hernia 07/22/2018 per EGD Renal calculi Type II or unspecified type diabetes mellitus without mention of complication, not stated as uncontrolled Unspecified essential hypertension PAST SURGICAL HISTORY Procedure Laterality Date APPENDECTOMY CABG (4) VEIN GRAFTS & ARTERIAL GRAFT(S) COLONOSCOPY 10/16/2006 Dr. Stone. Diverticulosis. Poor prep - repeat 2 yrs. EGD 07/22/2018 Dr. Sebastian: gastritis, small hiatal hernia, bx : mild chronic gastritis HERNIA REPAIR W/MESH twice Social History Tobacco Use Smoking status: Former Types: Cigarettes Quit date: 06/02/1983 Years since quittin.7 Smokeless tobacco: Never Substance Use Topics Alcohol use: No Drug use: No ACTIVE PROBLEM LIST Dm (Diabetes Mellitus) Type II Controlled, Neurological Manifestation (Hcc) Cad (Coronary Artery Disease) Benign Prostatic Hyperplasia Htn (Hypertension) Insomnia Diabetic Neuropathy (Hcc) Hallux Valgus (Acquired) Chronic Right Shoulder Pain Functional Dyspepsia History of Colonic Polyps Absolute Anemia Gastritis Hiatal Hernia Right Low Back Pain Microalbuminuria Hyperlipidemia, Mixed Other Chronic Sinusitis Brain Atrophy (Hcc) Mild Dementia (Hcc) Current Outpatient Medications Medication Sig Dispense Refill tamsulosin (FLOMAX) 0.4 mg Take 2 capsules by mouth daily at bedtime. 90 capsule 1 metFORMIN ER (GLUCOPHAGE XR) 500 mg 24 hr tablet Take 2 tablets by mouth twice daily with meals. 360 tablet 3 gabapentin (NEURONTIN) 600 mg tablet Take 1 tablet by mouth twice daily for 180 days. 180 tablet 1 traMADol (ULTRAM) 50 mg tablet Take 1 tablet by mouth twice daily as needed for pain for up to 30 days. 60 tablet 5 atenolol (TENORMIN) 25 mg tablet Take 1 tablet by mouth once daily. 90 tablet 1 lisinopril (ZESTRIL, PRINIVIL) 20 mg tablet Take 1 tablet by mouth once daily. 90 tablet 1 cyclobenzaprine (FLEXERIL) 5 mg tablet Take 1 tablet by mouth three times daily. 30 tablet 1 fluticasone (FLONASE) 50 mcg/actuation nasal spray Use 2 Sprays in each nostril once daily. Rinse mouth after use. 1 Bottle 11 ZINC ORAL Take 1 tablet by mouth once daily. aspirin, enteric coated (ASPIRIN, ENTERIC COATED) 81 mg EC tablet Take 2 tablets by mouth once daily. acetaminophen/diphenhydramine (TYLENOL PM ORAL) Take 2 tablets by mouth at bedtime as needed. Ibuprofen-diphenhydrAMINE HCl 200-25 mg cap Take 1 tablet by mouth once daily. Cholecalciferol, Vitamin D3, 50 mcg (2,000 unit) cap Take 2 capsules by mouth once daily. ascorbic acid(VITAMIN C 1,000 MG TAB) Take three (3) tablets every day 0 omega-3 fatty acids(FISH OIL 500 MG CAP) Take four (4) tablets every day 0 No current facility-administered medications for this visit. FECAL OCCULT BLOOD due on 02/03/2016 DILATED RETINAL EXAM due on 06/05/2019 ADVANCE DIRECTIVE DISCUSSION Never done HBA1C due on 02/10/2022 INFLUENZA(1) due on 01/31/2022 SHINGRIX VACCINE(3 of 3) due on 03/12/2022 EXAM: BP 142/70 Pulse (!) 52 Resp 20 Wt 86.2 kg (190 lb) SpO2 98% BMI 26.50 kg/m Pleasant older man in usual demeanor, cheerful joking, in no acute distress. Alert and oriented all spheres. Normal affect and cognition. Speech normal. No deficits to learning or comprehension. Skin warm, dry, pink to lips and nailbeds. Normal turgor. Respirations regular and unlabored. HEENT: NCAT. No scleral icterus or conjunctival injection. TM's clear. Nose and oropharynx free from injection or lesion. Oral membranes moist and pink. No cervical lymph nodes. Thyroid non-tender, no masses, or enlargement. Carotids pulses 2+/4+ without bruits. No JVD with HOB at 30 degrees. Chest is normal shape. Lungs are clear to all khan with good air exchange through out. HRRR without murmur or gallop. No lifts, heaves, or rubs. Extrem: no clubbing or cyanosis. Edema: tight edema in both lower calves. No palpable cords. Tenderness anterior and posterior calves over muscular areas.. Extremities are warm and pink with prompt capillary refill. ASSESSMENT/PLAN: 1. Bilateral leg edema - ICD9: 782.3, ICD10: R60.0 (primary diagnosis) No prolonged confinement or hx DVT Possible venous stasis but sudden change is concerning Mild 4lb weight gain - US LEG VEIN DVT [facility] - NT PRO BNP - BASIC METABOLIC PNL - US DVT LOWER BILAT 2. Bilateral calf pain - ICD9: 729.5, ICD10: M79.661, M79.662 - US LEG VEIN DVT [facility] - NT PRO BNP - BASIC METABOLIC PNL - US DVT LOWER BILAT Jerrod Ojeda PA-C documented in this encounter [facility] 01-28-2022 Miscellaneous Notes Patient has been identified by name and date of : Yes Patient phones for refill(s): Requested Prescriptions Pending Prescriptions Disp Refills tamsulosin (FLOMAX) 0.4 mg 90 capsule 1 Sig: Take 2 capsules by mouth daily at bedtime. Date of last office visit in primary care: 12/14/21 next apt 02/12/22 Last 2 Encounter Wt Readings: Date: Wt: 11/12/2021 84.4 kg (186 lb) 08/10/2021 85.3 kg (188 lb) Previous labs/tests for medication: Not applicable Thank you. Santa Connor LPN documented in this encounter [facility] 12-17-2021 Miscellaneous Notes Last office visit 12/14/2021. documented in this encounter [facility] 12-14-2021 History of Present illness Narrative Alternative video platform was used for evaluation of this patient. Location of patient: [place] Patient was offered a virtual/telemedicine appointment in lieu of an office visit due to recommendations to reduce patient exposure to COVID-19. Patient is aware of limitations of performing the visit without a face to face visit in the office setting and agrees. 11:53 AM unable to sign into ZOOM platform. Used Doximity with several calls and repeated instructions 81 year old male with c/o Telemedicine Evaluation for COVID-19 Infection Alternative video platform was used for evaluation of this patient. Location of patient: [place] FERNANDO Mendieta is a 81 year old male who presents with 3 days of symptoms that are worsening. Symptoms include: Fever (?100.4F): Yes 99.5-101F or Chills: Yes Cough: Yes, usually at night , hacking, no production. No chest pain. Shortness of breath: No or Difficulty breathing: No Fatigue: Yes Muscle aches: Yes Headache: Yes, a little New loss of smell or taste: No Sore throat: Yes, very light Nasal congestion: No or Rhinorrhea: Yes, slight, stuffy when laying down Nausea: No or Vomiting: No Diarrhea: No Seems more lethargic today, not sleeping, restless. Balance is worse. Had a couple light falls. OTC meds/remedies that patient has tried: acetaminophen. High risk category assessment Age > 60 years old Diabetes Hypertension Coronary artery disease Exposures: Sick contacts? Yes Family or close contacts with confirmed/probable COVID-19 in last 14 days? Yes He reports that he quit smoking about 38 years ago. He has never used smokeless tobacco. Additionally, had many questions from last visit and MRI brain results. 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 Lipitor was stopped- she can't remember why: notes indicate muscle aches which improved off medication. Identifies previously discussed issues with irritability and argumentativeness which dissipate after 5-10 minutes. No physically threatening. Margoth feels her patience gets really tested. Reviewed vascular dementia vs [place]'s and characteristics. Discussed new monoclonal therapy briefly- not interested due to side effect risk. Discussed use of antidepressant/ antianxiety medications again as at last visit: she is hesitant about adding medication but will let me know. OBJECTIVE VIDEO EXAM (if available) as above. GENERAL: well appearing, alert, in no acute distress HEENT: no conjunctival injection, pupils equal, moist mucous membranes, oropharynx clear without erythema, sinuses non-tender to self-palpation and no cervical adenopathy by self-palpation PULMONARY: breathing comfortably on room air , no coughing noted and no wheezing noted ASSESSMENT/PLAN No diagnosis found. - Discussed symptom monitoring and supportive care - Red flag symptoms requiring follow up discussed Nirmatrelvir/Ritonavir (Paxlovid) Eligibility and Patient Discussion [facility] Formulary Restriction Criteria: Adult outpatients 18 years and older with ALL of the following: [x] Patient has positive SARS-COV-2 viral test (PCR or antigen test) during current illness [x] Patient has symptoms for 5 days or less [x] Not requiring hospitalization at any time for management of COVID-19 [] Not requiring supplemental oxygen or a change in baseline supplemental oxygen[x] Not utilized for pre-exposure or post-exposure prophylaxis for prevention of COVID-19 [x] Patient does not have severe renal impairment (eGFR < 30 mL/min) or severe hepatic impairment (Child-Yates Class C) [x] Meeting at least one of the criteria for high risk of progression to severe COVID-19: [x] Age over 65 years [] Cancer [] Chronic kidney disease [] Chronic liver disease [] Chronic lung diseases, including cystic fibrosis [x] Dementia or other neurological conditions [x] Diabetes (type 1 or type 2) [] Disabilities, including Down syndrome and neurodevelopmental disorders [x] Heart conditions [] HIV infection [] Immunocompromised state [] Mental health conditions [] Medical related technological dependence (tracheostomy, gastrostomy, or positive pressure ventilation (not related to COVID) [] Overweight and obesity (BMI greater or equal to 25 for adults) [x] Physical inactivity [] [] Sickle cell disease or thalassemia [] Smoking, current or former [] Solid organ or blood stem cell transplant [] Stroke or cerebrovascular disease [] Substance use disorders [] Tuberculosis [] People from racial and ethnic minority groups Criteria above are met: Yes Date of Positive Test: 12/11/2021 Date of Symptom Onset: 12/11/2021 Patient received COVID vaccine: Yes previously Drug-Drug interactions reviewed: Yes. Drug interactions were identified and the following actions were taken Not currently on Flonase, holding tamsulosin during treatment and additional 3 days. I have discussed the use of the investigational therapeutic, nirmatrelvir/ritonavir, for the treatment of mild to moderate COVID-19 and its use under Emergency Use Authorization with the patient. The patient was informed that nirmatrelvir/ritonavir is not an FDA approved drug and that it is authorized for use under this Emergency Use Authorization. The patient was also informed of the significant known benefits and potential risks of nirmatrelvir/ritonavir, and the extent to which such potential risks and benefits are unknown. The patient was informed that there is mandatory reporting of all medication errors and serious adverse events potentially related to nirmatrelvir/ritonavir treatment within 7 calendar days from the onset of the event and that events up to 28 days after completion of therapy need to be reported. The discussion included alternatives to receiving nirmatrelvir/ritonavir, including clinical trials, and potential the risks and benefits of those alternatives. The patient was provided electronically with the Fact Sheet for Patients, Parents and Caregivers . The patient was also instructed that in addition to the treatment with nirmatrelvir/ritonavir, he/she should continue to self-isolate and use infection control measures (e.g., wear mask, isolate, social distance, avoid sharing personal items, clean and disinfect high touch surfaces, and frequent handwashing) according to CDC guidelines. The patient stated understanding and gave verbal consent to proceeding with nirmatrelvir/ritonavir treatment. Jerrod Ojeda PA-C December 14, 2021 12:31 PM is current on Paxlovid and has fact sheet information. 39 minute call This patient encounter involved the screening or treatment of novel coronavirus infection (COVID-19). documented in this encounter [facility] 11-12-2021 History of Present illness Narrative 81 year old male with c/o follow up Current concerns: frequent falls. Last fall 2 weeks ago. Feels off balance, more significant falls 5-6 since last visit, loss of balance with oopsey-daisies a couple times a day, much more frequent. New urinary incontinence: last few months wets trying to get to [place]. Has also had fecal incontinence a few times. No recent head injuries. Patient tells me that he has decided that he is not going to pursue trying to drive due to recent episodes with falls-this is significant. states he seems more lethargic than usual. Feels weak after taking a shower. intermittently needs mild reorientation or repeitition in details No chest pain, sob. BP controlled. DM2 controlled, last a1c 6.7% Chronic superficial gastritis without bleeding: no problems until eats too much watermelon. Benign prostatic hyperplasia, unspecified whether lower urinary tract symptoms present (primary encounter diagnosis) Only taking Flomax once a day: when took it. HISTORIES FAMILY HISTORY Problem Relation Age of Onset Breast Cancer Mother Heart Father Diabetes Son PAST MEDICAL HISTORY Diagnosis Date CABG 2001 Gastritis 07/2018 per EGD Hiatal hernia 07/22/2018 per EGD Renal calculi Type II or unspecified type diabetes mellitus without mention of complication, not stated as uncontrolled Unspecified essential hypertension PAST SURGICAL HISTORY Procedure Laterality Date APPENDECTOMY CABG (4) VEIN GRAFTS & ARTERIAL GRAFT(S) COLONOSCOPY 10/16/2006 Dr. Stone. Diverticulosis. Poor prep - repeat 2 yrs. EGD 07/22/2018 Dr. Sebastian: gastritis, small hiatal hernia, bx : mild chronic gastritis HERNIA REPAIR W/MESH twice Social History Tobacco Use Smoking status: Former Smoker Quit date: 06/02/1983 Years since quittin.4 Smokeless tobacco: Never Used Substance Use Topics Alcohol use: No Drug use: No ACTIVE PROBLEM LIST Dm (Diabetes Mellitus) Type II Controlled, Neurological Manifestation (Hcc) Cad (Coronary Artery Disease) Benign Prostatic Hyperplasia Htn (Hypertension) Insomnia Diabetic Neuropathy (Hcc) Hallux Valgus (Acquired) Chronic Right Shoulder Pain Functional Dyspepsia History of Colonic Polyps Absolute Anemia Gastritis Hiatal Hernia Right Low Back Pain Microalbuminuria Hyperlipidemia, Mixed Other Chronic Sinusitis Current Outpatient Medications Medication Sig Dispense Refill gabapentin (NEURONTIN) 600 mg tablet Take 1 tablet by mouth twice daily for 180 days. 180 tablet 1 traMADol (ULTRAM) 50 mg tablet Take 1 tablet by mouth twice daily as needed for pain for up to 30 days. 60 tablet 5 atenolol (TENORMIN) 25 mg tablet Take 1 tablet by mouth once daily. 90 tablet 1 lisinopril (ZESTRIL, PRINIVIL) 20 mg tablet Take 1 tablet by mouth once daily. 90 tablet 1 tamsulosin (FLOMAX) 0.4 mg Take 2 capsules by mouth daily at bedtime. 90 capsule 1 metFORMIN ER (GLUCOPHAGE XR) 500 mg 24 hr tablet Take 2 tablets by mouth twice daily with meals. 360 tablet 1 cyclobenzaprine (FLEXERIL) 5 mg tablet Take 1 tablet by mouth three times daily. 30 tablet 1 fluticasone (FLONASE) 50 mcg/actuation nasal spray Use 2 Sprays in each nostril once daily. Rinse mouth after use. 1 Bottle 11 ZINC ORAL Take 1 tablet by mouth once daily. atorvastatin (LIPITOR) 10 mg tablet Take 1 tablet by mouth once daily. 90 tablet 1 aspirin, enteric coated (ASPIRIN, ENTERIC COATED) 81 mg EC tablet Take 2 tablets by mouth once daily. ferrous sulfate 325 mg (65 mg iron) tablet Take 1 tablet by mouth daily with breakfast. 30 tablet 2 acetaminophen/diphenhydramine (TYLENOL PM ORAL) Take 2 tablets by mouth at bedtime as needed. Ibuprofen-diphenhydrAMINE HCl (IBUPROFEN PM) 200-25 mg cap Take 1 tablet by mouth once daily. Cholecalciferol, Vitamin D3, (VITAMIN D-3) 2,000 unit cap Take 2 capsules by mouth once daily. ascorbic acid(VITAMIN C 1,000 MG TAB) Take three (3) tablets every day 0 omega-3 fatty acids(FISH OIL 500 MG CAP) Take four (4) tablets every day 0 No current facility-administered medications for this visit. FECAL OCCULT BLOOD due on 02/03/2016 DILATED RETINAL EXAM due on 06/05/2019 ADVANCE DIRECTIVE DISCUSSION Never done EXAM: BP 112/66 Pulse 68 Temp 37.3 C (99.1 F) (Right Tympanic) Resp 18 Wt 84.4 kg (186 lb) SpO2 99% BMI 25.94 kg/m Pleasant older man in usual demeanor, in no acute distress. Alert and oriented all spheres. Normal affect and cognition. Speech normal. No deficits to learning or comprehension. Skin warm, dry, pink to lips and nailbeds. Normal turgor. Respirations regular and unlabored. HEENT: PERRLA. NCAT. No scleral icterus or conjunctival injection. TM's clear. Nose and oropharynx free from injection or lesion. Oral membranes moist and pink. No cervical lymph nodes. Thyroid non-tender, no masses, or enlargement. Carotids pulses 2+/4+ without bruits. HEENT: NCAT. No scleral icterus or conjunctival injection. TM's clear. Nose and oropharynx free from injection or lesion. Oral membranes moist and pink. No cervical lymph nodes. Thyroid non-tender, no masses, or enlargement. Carotids pulses 2+/4+ without bruits. No JVD with HOB at 30 degrees. Extrem: no clubbing or cyanosis. Edema: none. Extremities are warm and pink with prompt capillary refill. Patient is able to stand, walk to the door and back with slight imbalance on turning without assistance. Does have a slightly wide-based gait is insecure balance, intermittently reaching out. Unable to complete lumbar leans backwards. ASSESSMENT/PLAN: 1. Benign prostatic hyperplasia, unspecified whether lower urinary tract symptoms present - ICD9: 600.00, ICD10: N40.0 (primary diagnosis) Managing with one Flomax. May be causing some of balance issues 2. Hypertension, essential - ICD9: 401.9, ICD10: I10 - good control - Continue current medication(s) - Recommended regular aerobic exercise. - Recommend home blood pressure monitoring, to bring results in on next visit - Goal of BP <130/80 3. 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 - ICD9: 414.01, ICD10: I25.10 Stable, asymptomatic 4. Hyperlipidemia, mixed - ICD9: 272.2, ICD10: E78.2 - good control - Continue current medication. - Encouraged following a low fat, low cholesterol diet. 5. Controlled type 2 diabetes mellitus with diabetic polyneuropathy, without long-term current use of insulin (HCC) - ICD9: 250.60, 357.2, ICD10: E11.42 Controlled. - Continue current medications 6. Diabetic polyneuropathy associated with type 2 diabetes mellitus (HCC) - ICD9: 250.60, 357.2, ICD10: E11.42 Controlled. - Continue current medications 7. Hiatal hernia - ICD9: 553.3, ICD10: K44.9 Asymptomatic on medication 8. Chronic superficial gastritis without bleeding - ICD9: 535.10, ICD10: K29.30 As above 9. Ataxia - ICD9: 781.3, ICD10: R27.0 Concern for normal pressure hydrocephalus versus effects of tamsulosin which I think less likely. Patient has mild increase in disorientation, increase in ataxia, increase in urinary incontinence and also occasional stool incontinence. New MRI is justified in this basis. - MRI BRAIN WO IVCON Up after imaging is completed. Jerrod Ojeda PA-C documented in this encounter [facility] 10-17-2021 Miscellaneous Notes Patient phones requesting refills as follows: Pending Prescriptions Disp Refills GABAPENTIN 600 MG TABLET 180 tablet 1 Sig: Take 1 tablet by mouth twice daily for 180 days. MILLI: No TRAMADOL 50 MG TABLET 60 tablet 5 Sig: Take 1 tablet by mouth twice daily as needed for pain for up to 30 days. MASON Class: C-IV MILLI: No JENARO-08/10/21 Labs-08/10/21 NOV-11/12/21 Please review and advise. Albina Porter LPN documented in this encounter [facility] 09-28-2021 Miscellaneous Notes Letter faxed Letter sent through [email or web address] for review And printed Please fax Thanks, Oneil Ojeda PA-C See message and place referral for pt. Fax to requested location. Flora Ortega Ma documented in this encounter [facility] 09-17-2021 Miscellaneous Notes Pending Prescriptions Disp Refills TRAMADOL 50 MG TABLET 60 tablet 2 Sig: Take 1 tablet by mouth twice daily as needed for pain for up to 30 days. MASON Class: C-IV MILLI: No JENARO 08/10/21 NOV 11/12/21 Last refilled 06/21/21 #60 2 refills documented in this encounter [facility] documented as of this encounter (statuses as of 09/18/2021) [facility] History of Past illness Narrative* Problem Noted Date Resolved Date JONATHON (obstructive sleep apnea) 06/15/2009 documented as of this encounter (statuses as of 09/28/2021) [facility] History of Past illness Narrative* Problem Noted Date Resolved Date JONATHON (obstructive sleep apnea) 06/15/2009 documented as of this encounter (statuses as of 10/17/2021) [facility] History of Past illness Narrative* Problem Noted Date Resolved Date JONATHON (obstructive sleep apnea) 06/15/2009 documented as of this encounter (statuses as of 11/12/2021) [facility] History of Past illness Narrative* Problem Noted Date Resolved Date JONATHON (obstructive sleep apnea) 06/15/2009 documented as of this encounter (statuses as of 12/12/2021) [address] History of Past illness Narrative* Problem Noted Date Resolved Date JONATHON (obstructive sleep apnea) 06/15/2009 documented as of this encounter (statuses as of 12/14/2021) [address]2010 History of Past illness Narrative* Problem Noted Date Resolved Date JONATHON (obstructive sleep apnea) 06/15/2009 documented as of this encounter (statuses as of 12/17/2021) [address]2010 History of Past illness Narrative* Problem Noted Date Resolved Date JONATHON (obstructive sleep apnea) 06/15/2009 documented as of this encounter (statuses as of 01/28/2022) [address]2010 History of Past illness Narrative* Problem Noted Date Resolved Date JONATHON (obstructive sleep apnea) 06/15/2009 documented as of this encounter (statuses as of 02/12/2022) [address] History of Past illness Narrative* Problem Noted Date Resolved Date JONATHON (obstructive sleep apnea) 06/15/2009 documented as of this encounter (statuses as of 03/01/2022) [facility] History of Past illness Narrative* Problem Noted Date Resolved Date JONATHON (obstructive sleep apnea) 06/15/2009 documented as of this encounter (statuses as of 03/06/2022) [place] [address]14-2010 History of Past illness Narrative* Problem Noted Date Resolved Date JONATHON (obstructive sleep apnea) 06/15/2009 documented as of this encounter (statuses as of 03/08/2022) [address] History of Past illness Narrative* Problem Noted Date Resolved Date JONATHON (obstructive sleep apnea) 06/15/2009 documented as of this encounter (statuses as of 03/16/2022) [place] [address]-2010 History of Past illness Narrative* Problem Noted Date Resolved Date JONATHON (obstructive sleep apnea) 06/15/2009 documented as of this encounter (statuses as of 03/18/2022) [address] History of Past illness Narrative* Problem Noted Date Resolved Date JONATHON (obstructive sleep apnea) 06/15/2009 documented as of this encounter (statuses as of 03/19/2022) [address] History of Past illness Narrative* Problem Noted Date Resolved Date JONATHON (obstructive sleep apnea) 06/15/2009 documented as of this encounter (statuses as of 03/20/2022) [facility] History of Past illness Narrative* Problem Noted Date Resolved Date JONATHON (obstructive sleep apnea) 06/15/2009 documented as of this encounter (statuses as of 05/10/2022) [facility] History of Past illness Narrative* Problem Noted Date Resolved Date JONATHON (obstructive sleep apnea) 06/15/2009 documented as of this encounter (statuses as of 06/08/2022) [address] History of Past illness Narrative* Problem Noted Date Resolved Date JONATHON (obstructive sleep apnea) 06/15/2009 documented as of this encounter (statuses as of 06/11/2022) [address] History of Past illness Narrative* Problem Noted Date Resolved Date JONATHON (obstructive sleep apnea) 06/15/2009 documented as of this encounter (statuses as of 06/11/2022) [facility] History of Past illness Narrative* Problem Noted Date Resolved Date JONATHON (obstructive sleep apnea) 06/15/2009 documented as of this encounter (statuses as of 06/12/2022) [address] History of Past illness Narrative* Problem Noted Date Resolved Date JONATHON (obstructive sleep apnea) 06/15/2009 documented as of this encounter (statuses as of 06/14/2022) [facility] History of Past illness Narrative* Problem Noted Date Resolved Date JONATHON (obstructive sleep apnea) 06/15/2009 documented as of this encounter (statuses as of 06/14/2022) [address] History of Past illness Narrative* Problem Noted Date Resolved Date JONATHON (obstructive sleep apnea) 06/15/2009 documented as of this encounter (statuses as of 07/23/2022) [place] [address]2010 History of Past illness Narrative* Problem Noted Date Resolved Date JONATHON (obstructive sleep apnea) 06/15/2009 documented as of this encounter (statuses as of 07/31/2022) [place] [address]2010 History of Past illness Narrative* Problem Noted Date Resolved Date JONATHON (obstructive sleep apnea) 06/15/2009 documented as of this encounter (statuses as of 09/10/2022) [address] History of Past illness Narrative* Problem Noted Date Resolved Date JONATHON (obstructive sleep apnea) 06/15/2009 documented as of this encounter (statuses as of 09/20/2022) [address]2010 History of Past illness Narrative* Problem Noted Date Resolved Date JONATHON (obstructive sleep apnea) 06/15/2009 documented as of this encounter (statuses as of 10/08/2022) [facility] History of Past illness Narrative* Problem Noted Date Resolved Date JONATHON (obstructive sleep apnea) 06/15/2009 documented as of this encounter (statuses as of 11/05/2022) [address] History of Past illness Narrative* Problem Noted Date Resolved Date JONATHON (obstructive sleep apnea) 06/15/2009 documented as of this encounter (statuses as of 11/19/2022) [place] [address] History of Past illness Narrative* Problem Noted Date Resolved Date JONATHON (obstructive sleep apnea) 06/15/2009 documented as of this encounter (statuses as of 11/26/2022) [address] History of Past illness Narrative* Problem Noted Date Resolved Date JONATHON (obstructive sleep apnea) 06/15/2009 documented as of this encounter (statuses as of 11/26/2022) [address] History of Past illness Narrative* Problem Noted Date Diagnosed Date Resolved Date JONATHON (obstructive sleep apnea) 06/15/2009 11/02/2018 documented as of this encounter (statuses as of 12/10/2022) [address] History of Past illness Narrative* Problem Noted Date Diagnosed Date Resolved Date JONATHON (obstructive sleep apnea) 06/15/2009 11/02/2018 documented as of this encounter (statuses as of 12/12/2022) [address] History of Past illness Narrative* Problem Noted Date Diagnosed Date Resolved Date JONATHON (obstructive sleep apnea) 06/15/2009 11/02/2018 documented as of this encounter (statuses as of 12/20/2022) [address] History of Past illness Narrative* Problem Noted Date Diagnosed Date Resolved Date JONATHON (obstructive sleep apnea) 06/15/2009 11/02/2018 documented as of this encounter (statuses as of 12/27/2022) [facility] History of Past illness Narrative* Problem Noted Date Diagnosed Date Resolved Date JONATHON (obstructive sleep apnea) 06/15/2009 11/02/2018 documented as of this encounter (statuses as of 01/01/2023) [place] [address] History of Past illness Narrative* Problem Noted Date Diagnosed Date Resolved Date JONATHON (obstructive sleep apnea) 06/15/2009 11/02/2018 documented as of this encounter (statuses as of 01/07/2023) [place] [address] History of Past illness Narrative* Problem Noted Date Diagnosed Date Resolved Date JONATHON (obstructive sleep apnea) 06/15/2009 11/02/2018 documented as of this encounter (statuses as of 01/15/2023) [place] [address] History of Past illness Narrative* Problem Noted Date Diagnosed Date Resolved Date JONATHON (obstructive sleep apnea) 06/15/2009 11/02/2018 documented as of this encounter (statuses as of 01/21/2023) [place] [address] History of Past illness Narrative* Problem Noted Date Diagnosed Date Resolved Date JONATHON (obstructive sleep apnea) 06/15/2009 11/02/2018 documented as of this encounter (statuses as of 02/05/2023) [address] History of Past illness Narrative* Problem Noted Date Diagnosed Date Resolved Date JONATHON (obstructive sleep apnea) 06/15/2009 11/02/2018 documented as of this encounter (statuses as of 02/07/2023) [facility] Diagnosis Diabetic polyneuropathy associated with type 2 diabetes mellitus (HCC) Recurrent low back pain Lumbago [facility] Diagnosis Diabetic polyneuropathy associated with type 2 diabetes mellitus (HCC) Recurrent low back pain Lumbago [facility] Diagnosis Benign prostatic hyperplasia, unspecified whether lower urinary tract symptoms present- Primary Hypertension, essential Unspecified essential hypertension 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 Hyperlipidemia, mixed 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, without long- term current use of insulin (HCC) Diabetic polyneuropathy associated with type 2 diabetes mellitus (HCC) Hiatal hernia Diaphragmatic hernia without mention of obstruction or gangrene 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 Ataxia Lack of coordination [facility] Diagnosis Upper respiratory tract infection due to COVID-19 virus- Primary Brain atrophy (HCC) Cerebral degeneration, unspecified Mild dementia (HCC) Dementia, unspecified, without behavioral disturbance [facility] Diagnosis Benign prostatic hyperplasia without lower urinary tract symptoms [facility] Diagnosis Bilateral leg edema- Primary Edema Bilateral calf pain Pain in limb [facility] Diagnosis Bilateral leg edema- Primary Edema SOB (shortness of breath) Shortness of breath Bilateral calf pain Pain in limb Screening for colon cancer Special screening for malignant neoplasms, colon Controlled type 2 diabetes mellitus with diabetic neuropathy, without long-term current use of insulin ([facility]) [facility] Diagnosis Elevated serum creatinine- Primary Other nonspecific findings on examination of blood [facility] Diagnosis Hypertension, essential Unspecified essential hypertension Essential tremor Essential and other specified forms of tremor [facility] Diagnosis Venous incompetence- Primary Unspecified venous (peripheral) insufficiency Bilateral leg edema Edema [facility] Diagnosis 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- Primary Medication management Encounter for long-term (current) use of other medications Controlled type 2 diabetes mellitus with diabetic neuropathy, without long-term current use of insulin (HCC) Hypertension, essential Unspecified essential hypertension Hyperlipidemia, mixed Mixed hyperlipidemia [facility] Diagnosis Elevated serum creatinine Other nonspecific findings on examination of blood [facility] Diagnosis Benign prostatic hyperplasia with urinary obstruction- Primary Bladder stone Other calculus in bladder [facility] Diagnosis Diabetic polyneuropathy associated with type 2 diabetes mellitus (HCC) Recurrent low back pain Lumbago [facility] Diagnosis Dementia with behavioral disturbance- Primary Dementia, unspecified, with behavioral disturbance [facility] Diagnosis Controlled type 2 diabetes mellitus with diabetic polyneuropathy, without long- term current use of insulin ([facility]) [facility] Diagnosis Brain atrophy (HCC)- Primary Cerebral degeneration, unspecified Dementia with behavioral disturbance Dementia, unspecified, with behavioral disturbance Sleep concern Problems related to lack of adequate sleep Urinary frequency [facility] Diagnosis Moderate dementia with other behavioral disturbance, unspecified dementia type (HCC)- Primary History of stroke Transient ischemic attack (TIA), and cerebral infarction without residual deficits Low vitamin B12 level Other B-complex deficiencies [facility] Diagnosis Hypertension, essential Unspecified essential hypertension Essential tremor Essential and other specified forms of tremor [facility] Diagnosis Spinal stenosis of cervical region- Primary Spinal stenosis in cervical region Weakness Other malaise and fatigue Parkinsonism, unspecified Parkinsonism type (HCC) Frequent falls Personal history of fall Moderate dementia with other behavioral disturbance, unspecified dementia type (HCC) [facility] Diagnosis Moderate dementia with other behavioral disturbance, unspecified dementia type (HCC)- Primary Frequent falls Personal history of fall Parkinsonism, unspecified Parkinsonism type (HCC) [facility] Diagnosis Spinal stenosis of cervical region- Primary Spinal stenosis in cervical region Weakness Other malaise and fatigue Parkinsonism, unspecified Parkinsonism type (HCC) Frequent falls Personal history of fall Moderate dementia with other behavioral disturbance, unspecified dementia type (HCC) [facility] Diagnosis Diabetic polyneuropathy associated with type 2 diabetes mellitus (HCC) Recurrent low back pain Lumbago [facility] Diagnosis Controlled type 2 diabetes mellitus with diabetic polyneuropathy, without long- term current use of insulin (HCC) [facility] Diagnosis Controlled type 2 diabetes mellitus with diabetic neuropathy, without long-term current use of insulin (HCC)- Primary Primary hypertension Unspecified essential hypertension Hyperlipidemia, mixed Mixed hyperlipidemia Microalbuminuria Proteinuria [facility] Diagnosis Brain atrophy (HCC)- Primary Cerebral degeneration, unspecified 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 Postsurgical aortocoronary bypass status Primary hypertension Unspecified essential hypertension Hyperlipidemia, mixed Mixed hyperlipidemia Controlled type 2 diabetes mellitus with diabetic neuropathy, without long-term current use of insulin (HCC) 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) Hiatal hernia Diaphragmatic hernia without mention of obstruction or gangrene 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 Benign prostatic hyperplasia, unspecified whether lower urinary tract symptoms present Retrolisthesis Disorder of bone and cartilage, unspecified Spondylolisthesis of lumbar region Acquired spondylolisthesis Chronic midline low back pain without sciatica Bladder stones Other calculus in bladder Depression, recurrent (HCC) Major depressive disorder, recurrent episode, unspecified Stage 3a chronic kidney disease (HCC) documented in this encounter [facility] note* Diagnosis Diabetic polyneuropathy associated with type 2 diabetes mellitus (HCC) Recurrent low back pain Lumbago [facility] Diagnosis Moderate dementia with other behavioral disturbance, unspecified dementia type (HCC)- Primary History of stroke Transient ischemic attack (TIA), and cerebral infarction without residual deficits Low vitamin B12 level Other B-complex deficiencies Spinal stenosis of cervical region Spinal stenosis in cervical region Frequent falls Personal history of fall History of hip fracture Personal history of traumatic fracture documented in this encounter [facility] for referral (narrative)* Diagnostic Procedure Only (Urgent) - Closed Specialty Diagnoses / Procedures Referred By Contac t Referred To Contact US IMAGING Diagnoses Bilateral leg edema Bilateral calf pain Procedures US DVT LOWER BILAT DUP-SCAN XTR VEINS COMPLETE BILATERAL STUDY Jerrod Ojeda PA-C [address] [place] [address] Us Imaging Referral ID Status Reason Start Date Expiration Date V isits Requested Visits Authorized [id number] Closed Auto-Generate d Referral 02/12/2022 03/14/2023 1 1 * Outpatient Procedure (Urgent) - Pending Review Specialty Diagnoses / Procedures Referred By Contac t Referred To Contact [facility] [place] Diagnoses Bilateral leg edema Bilateral calf pain Procedures US LEG VEIN DVT ESME VAS LAB DUP-SCAN XTR VEINS COMPLETE BILATERAL STUDY Jerrod Ojeda PA-C [address] [place] [address] [facility] [address] [address] Referral ID Status Reason Start Date Expiration Date Visits Requested Visits Authorized [id number] Pending Review Auto-Generat ed Referral 02/12/2022 02/12/2023 1 1 [facility] for referral (narrative)* Outpatient Procedure (Routine) - Authorized Specialty Diagnoses / Procedures Referred By Contac t Referred To Contact [facility] [place] Diagnoses Bilateral leg edema Procedures US VENOUS INCOMPETENCY ESME VAS LAB DUP-SCAN XTR VEINS COMPLETE BILATERAL STUDY Jerrod Ojeda PA-C [address] [place] [address] [address] Referral ID Status Reason Start Date Expiration Date Visits Requested Visits Authorized [id number] Authorized Auto-Generat ed Referral 02/28/2022 02/28/2023 1 1 [facility] for referral (narrative)* Diagnostic Procedure Only (Routine) - Pending Review Specialty Diagnoses / Procedures Referred By Contac t Referred To Contact US IMAGING Diagnoses Elevated serum creatinine Procedures US KIDNEY/BLADDER US RETROPERITONEAL REAL TIME W/IMAGE COMPLETE Jerrod Ojeda PA-C [address] [place] [address] Us Imaging Referral ID Status Reason Start Date Expiration Date Visits Requested Visits Authorized [id number] Pending Review Auto-Generat ed Referral 03/06/2022 04/05/2023 1 1 [facility] for referral (narrative)* Diagnostic Procedure Only (Routine) - Closed Specialty Diagnoses / Procedures Referred By Contac t Referred To Contact US IMAGING Diagnoses Elevated serum creatinine Procedures US KIDNEY/BLADDER US RETROPERITONEAL REAL TIME W/IMAGE COMPLETE Jerrod Ojdea PA-C [address] [place] [address] Us Imaging Referral ID Status Reason Start Date Expiration Date V isits Requested Visits Authorized [id number] Closed Auto-Generate d Referral 03/06/2022 04/05/2023 1 1 [facility] for referral (narrative)* Diagnostic Procedure Only (Routine) - Pending Review Specialty Diagnoses / Procedures Referred By Contac t Referred To Contact US IMAGING Diagnoses Moderate dementia with other behavioral disturbance, unspecified dementia type (HCC) History of stroke Procedures [place] [address] [place] [id number] Us Imaging Referral ID Status Reason Start Date Expiration Date Visits Requested Visits Authorized [id number] Pending Review Auto-Generat ed Referral 07/31/2022 08/30/2023 1 1 [facility] Summary Purpose Family History No Family History Records FoundNo Family History Records FoundNo Family History Records FoundNo Family History Records Found Advance Directives No Advanced Directives Records FoundDocuments on File Type Date Recorded 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 Advance Directive(s) Documents on File Type Date Recorded 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 Advance Directive(s) Reason for Referral Specialty Diagnoses / Procedures Referred By Contac t Referred To Contact MR IMAGING Diagnoses Ataxia Procedures MRI BRAIN WO IVCON MRI BRAIN BRAIN STEM W/O CONTRAST MATERIAL Jerrod Ojeda PA-C [address] [place] [address] Mr Imaging Referral ID Status Reason Start Date Expiration Date Visits Requested Visits Authorized [id number] Pending Review Auto-Generat ed Referral 11/12/2021 12/12/2022 1 1 Specialty Diagnoses / Procedures Referred By Contac t Referred To Contact Vascular Surgery Diagnoses Venous incompetence Bilateral leg edema Procedures CONSULT TO VASCULAR SURGERY OFFICE/OUTPATIENT [facility] 60-74 MINUTES Jerrod Ojeda PA-C [address] [place] [address] Referral ID Status Reason Start Date Expiration Date Visits Requested Visits Authorized [id number] Pending Review PCP Requested Referral 2 03/16/2023 1 1 Specialty Diagnoses / Procedures Referred By Contac t Referred To Contact Urology Diagnoses Benign prostatic hyperplasia with urinary obstruction Bladder stone Procedures CONSULT TO UROLOGY OFFICE/OUTPATIENT [facility] 60-74 MINUTES Jerrod Ojeda PA-C [address] [place] [address] Referral ID Status Reason Start Date Expiration Date Visits Requested Visits Authorized [id number] Pending Review PCP Requested Referral 2 03/20/2023 1 1 Specialty Diagnoses / Procedures Referred By Contac t Referred To Contact Neurology Diagnoses Dementia with behavioral disturbance Procedures CONSULT TO NEUROLOGY OFFICE/OUTPATIENT [facility] 60-74 MINUTES Jerrod Ojeda PA-C [address] [place] [address] Referral ID Status Reason Start Date Expiration Date Visits Requested Visits Authorized [id number] Pending Review PCP Requested Referral 06/07/2022 06/07/2023 1 1 Specialty Diagnoses / Procedures Referred By Contac t Referred To Contact MR IMAGING Diagnoses Spinal stenosis of cervical region Procedures MRI CERVICAL SPINE WO IVC MRI SPINAL CANAL CERVICAL W/O CONTRAST Santa Barry PA-C [address] [place] [address] Mr Imaging Referral ID Status Reason Start Date Expiration Date Visits Requested Visits Authorized [id number] Pending Review Auto-Generat ed Referral 11/05/2022 12/05/2023 1 1 Specialty Diagnoses / Procedures Referred By Contac t Referred To Contact [facility] Diagnoses Weakness Frequent falls Procedures CONSULT TO PHYSICAL THERAPY PHYSICAL THERAPY EVALUATION HIGH COMPLEX 45 MINS Santa Gordon PA-C [address] [place] [address] [facility] [place] [address] [place] [address] Referral ID Status Reason Start Date Expiration Date Visits Requested Visits Authorized [id number] Pending Review Auto-Generat ed Referral 11/05/2022 11/05/2023 1 1 Specialty Diagnoses / Procedures Referred By Parul clark Referred To Contact Diagnoses Moderate dementia with other behavioral disturbance, unspecified dementia type (HCC) Frequent falls Parkinsonism, unspecified Parkinsonism type (HCC) Procedures CONSULT TO [facility] Santa Gordon PA-C [address] [place] [address] [facility] [address] [place] [id number] Referral ID Status Reason Start Date Expiration Date Visits Requested Visits Authorized [id number] Canceled PCP Requested Referral 11/06/2022 02/04/2023 3 3 Specialty Diagnoses / Procedures Referred By Parul clark Referred To Contact Diagnoses Weakness Parkinsonism, unspecified Parkinsonism type (HCC) Frequent falls Moderate dementia with other behavioral disturbance, unspecified dementia type (HCC) Procedures CONSULT TO [facility] Santa Gordon PA-C [address] [place] [address] [address] Referral ID Status Reason Start Date Expiration Date V isits Requested Visits Authorized [id number] Denied PCP Requested Referral 11/21/2022 02/19/2023 3 0 Health Concerns Infection Onset Date Last Indicated Resolved Time COVID-19 Confirmed 12/12/2021 12/12/2021 Additional Source Comments (unrecognized sect ion and content) No Status Records FoundNo Status Records FoundNo Status Records FoundNo Status Records Found INFORMATION SOURCE (unrecogn ized section and content) DATE CREATED AUTHOR AUTHOR'S ORGANIZ ATION 01/01/2019 [facility] DATE CREATED AUTHOR AUTHOR'S ORGANIZ ATION 01/19/2021 [facility] ([place]) DATE CREATED AUTHOR AUTHOR'S FOUZIA ATSARAY 06/28/2023 [facility] Source Comments (unrecognize d section and content) In the event this informatio n is protected by the Federal Confidentiality of Alcohol and Drug Abuse Patient Records regulations: The Federal rules restrict any use of the information to criminally investigate or prosecute any alcohol or drug abuse patient.[facility] the event this information is protected by the Federal Confidentiality of Alcohol and Drug Abuse Patient Records regulations: The Federal rules restrict any use of the information to criminally investigate or prosecute any alcohol or drug abuse patient.[facility] HospitalIn the event this information is protected by the Federal Confidentiality of Alcohol and Drug Abuse Patient Records regulations: The Federal rules restrict any use of the information to criminally investigate or prosecute any alcohol or drug abuse patient.[facility] HospitalIn the event this information is protected by the Federal Confidentiality of Alcohol and Drug Abuse Patient Records regulations: The Federal rules restrict any use of the information to criminally investigate or prosecute any alcohol or drug abuse patient.[facility] HospitalIn the event this information is protected by the Federal Confidentiality of Alcohol and Drug Abuse Patient Records regulations: The Federal rules restrict any use of the information to criminally investigate or prosecute any alcohol or drug abuse patient.[facility] HospitalIn the event this information is protected by the Federal Confidentiality of Alcohol and Drug Abuse Patient Records regulations: The Federal rules restrict any use of the information to criminally investigate or prosecute any alcohol or drug abuse patient.[facility] HospitalIn the event this information is protected by the Federal Confidentiality of Alcohol and Drug Abuse Patient Records regulations: The Federal rules restrict any use of the information to criminally investigate or prosecute any alcohol or drug abuse patient.[facility] HospitalIn the event this information is protected by the Federal Confidentiality of Alcohol and Drug Abuse Patient Records regulations: The Federal rules restrict any use of the information to criminally investigate or prosecute any alcohol or drug abuse patient.[facility] HospitalIn the event this information is protected by the Federal Confidentiality of Alcohol and Drug Abuse Patient Records regulations: The Federal rules restrict any use of the information to criminally investigate or prosecute any alcohol or drug abuse patient.[facility] HospitalIn the event this information is protected by the Federal Confidentiality of Alcohol and Drug Abuse Patient Records regulations: The Federal rules restrict any use of the information to criminally investigate or prosecute any alcohol or drug abuse patient.[facility] HospitalIn the event this information is protected by the Federal Confidentiality of Alcohol and Drug Abuse Patient Records regulations: The Federal rules restrict any use of the information to criminally investigate or prosecute any alcohol or drug abuse patient.[facility] HospitalIn the event this information is protected by the Federal Confidentiality of Alcohol and Drug Abuse Patient Records regulations: The Federal rules restrict any use of the information to criminally investigate or prosecute any alcohol or drug abuse patient.[facility] HospitalIn the event this information is protected by the Federal Confidentiality of Alcohol and Drug Abuse Patient Records regulations: The Federal rules restrict any use of the information to criminally investigate or prosecute any alcohol or drug abuse patient.[facility] HospitalIn the event this information is protected by the Federal Confidentiality of Alcohol and Drug Abuse Patient Records regulations: The Federal rules restrict any use of the information to criminally investigate or prosecute any alcohol or drug abuse patient.[facility] HospitalIn the event this information is protected by the Federal Confidentiality of Alcohol and Drug Abuse Patient Records regulations: The Federal rules restrict any use of the information to criminally investigate or prosecute any alcohol or drug abuse patient.[facility] HospitalIn the event this information is protected by the Federal Confidentiality of Alcohol and Drug Abuse Patient Records regulations: The Federal rules restrict any use of the information to criminally investigate or prosecute any alcohol or drug abuse patient.[facility] HospitalIn the event this information is protected by the Federal Confidentiality of Alcohol and Drug Abuse Patient Records regulations: The Federal rules restrict any use of the information to criminally investigate or prosecute any alcohol or drug abuse patient.[facility] HospitalIn the event this information is protected by the Federal Confidentiality of Alcohol and Drug Abuse Patient Records regulations: The Federal rules restrict any use of the information to criminally investigate or prosecute any alcohol or drug abuse patient.[facility] HospitalIn the event this information is protected by the Federal Confidentiality of Alcohol and Drug Abuse Patient Records regulations: The Federal rules restrict any use of the information to criminally investigate or prosecute any alcohol or drug abuse patient.[facility] HospitalIn the event this information is protected by the Federal Confidentiality of Alcohol and Drug Abuse Patient Records regulations: The Federal rules restrict any use of the information to criminally investigate or prosecute any alcohol or drug abuse patient.[facility] HospitalIn the event this information is protected by the Federal Confidentiality of Alcohol and Drug Abuse Patient Records regulations: The Federal rules restrict any use of the information to criminally investigate or prosecute any alcohol or drug abuse patient.[facility] HospitalIn the event this information is protected by the Federal Confidentiality of Alcohol and Drug Abuse Patient Records regulations: The Federal rules restrict any use of the information to criminally investigate or prosecute any alcohol or drug abuse patient.[facility] HospitalIn the event this information is protected by the Federal Confidentiality of Alcohol and Drug Abuse Patient Records regulations: The Federal rules restrict any use of the information to criminally investigate or prosecute any alcohol or drug abuse patient.[facility] HospitalIn the event this information is protected by the Federal Confidentiality of Alcohol and Drug Abuse Patient Records regulations: The Federal rules restrict any use of the information to criminally investigate or prosecute any alcohol or drug abuse patient.[facility] HospitalIn the event this information is protected by the Federal Confidentiality of Alcohol and Drug Abuse Patient Records regulations: The Federal rules restrict any use of the information to criminally investigate or prosecute any alcohol or drug abuse patient.[facility] HospitalIn the event this information is protected by the Federal Confidentiality of Alcohol and Drug Abuse Patient Records regulations: The Federal rules restrict any use of the information to criminally investigate or prosecute any alcohol or drug abuse patient.[facility] HospitalIn the event this information is protected by the Federal Confidentiality of Alcohol and Drug Abuse Patient Records regulations: The Federal rules restrict any use of the information to criminally investigate or prosecute any alcohol or drug abuse patient.[facility] HospitalIn the event this information is protected by the Federal Confidentiality of Alcohol and Drug Abuse Patient Records regulations: The Federal rules restrict any use of the information to criminally investigate or prosecute any alcohol or drug abuse patient.[facility] HospitalIn the event this information is protected by the Federal Confidentiality of Alcohol and Drug Abuse Patient Records regulations: The Federal rules restrict any use of the information to criminally investigate or prosecute any alcohol or drug abuse patient.[facility] HospitalIn the event this information is protected by the Federal Confidentiality of Alcohol and Drug Abuse Patient Records regulations: The Federal rules restrict any use of the information to criminally investigate or prosecute any alcohol or drug abuse patient.[facility] HospitalIn the event this information is protected by the Federal Confidentiality of Alcohol and Drug Abuse Patient Records regulations: The Federal rules restrict any use of the information to criminally investigate or prosecute any alcohol or drug abuse patient.[facility] HospitalIn the event this information is protected by the Federal Confidentiality of Alcohol and Drug Abuse Patient Records regulations: The Federal rules restrict any use of the information to criminally investigate or prosecute any alcohol or drug abuse patient.[facility] HospitalIn the event this information is protected by the Federal Confidentiality of Alcohol and Drug Abuse Patient Records regulations: The Federal rules restrict any use of the information to criminally investigate or prosecute any alcohol or drug abuse patient.[facility] HospitalIn the event this information is protected by the Federal Confidentiality of Alcohol and Drug Abuse Patient Records regulations: The Federal rules restrict any use of the information to criminally investigate or prosecute any alcohol or drug abuse patient.[facility] HospitalIn the event this information is protected by the Federal Confidentiality of Alcohol and Drug Abuse Patient Records regulations: The Federal rules restrict any use of the information to criminally investigate or prosecute any alcohol or drug abuse patient.[facility] HospitalIn the event this information is protected by the Federal Confidentiality of Alcohol and Drug Abuse Patient Records regulations: The Federal rules restrict any use of the information to criminally investigate or prosecute any alcohol or drug abuse patient.[facility] HospitalIn the event this information is protected by the Federal Confidentiality of Alcohol and Drug Abuse Patient Records regulations: The Federal rules restrict any use of the information to criminally investigate or prosecute any alcohol or drug abuse patient.[facility] HospitalIn the event this information is protected by the Federal Confidentiality of Alcohol and Drug Abuse Patient Records regulations: The Federal rules restrict any use of the information to criminally investigate or prosecute any alcohol or drug abuse patient.[facility] HospitalIn the event this information is protected by the Federal Confidentiality of Alcohol and Drug Abuse Patient Records regulations: The Federal rules restrict any use of the information to criminally investigate or prosecute any alcohol or drug abuse patient.[facility] HospitalIn the event this information is protected by the Federal Confidentiality of Alcohol and Drug Abuse Patient Records regulations: The Federal rules restrict any use of the information to criminally investigate or prosecute any alcohol or drug abuse patient.[facility] HospitalIn the event this information is protected by the Federal Confidentiality of Alcohol and Drug Abuse Patient Records regulations: The Federal rules restrict any use of the information to criminally investigate or prosecute any alcohol or drug abuse patient.[facility] HospitalIn the event this information is protected by the Federal Confidentiality of Alcohol and Drug Abuse Patient Records regulations: The Federal rules restrict any use of the information to criminally investigate or prosecute any alcohol or drug abuse patient.[facility] Reason for Visit (unrecogniz ed section and content) Reason Onset Date Comments Refill Request 10/16/2021 Reason Comments F/U 3 Month Reason Comments Covid19 Concern Reason Onset Date Comments Refill Request 12/17/2021 Reason Onset Date Comments Refill Request 01/28/2022 Reason Comments Edema Bilateral legs x 4 d ays Reason Comments Follow Up Bilateral leg edema Reason Comments Results Reason Onset Date Comments Refill Request 03/06/2022 Reason Comments Results Consult Reason Comments Orders Reason Comments Radiology US Specialty Diagnoses / Procedures Referred By Contac t Referred To Contact US IMAGING Diagnoses Elevated serum creatinine Procedures US KIDNEY/BLADDER US RETROPERITONEAL REAL TIME W/IMAGE COMPLETE Jerrod Ojeda PA-C [address] [place] [address] Us Imaging Referral ID Status Reason Start Date Expiration Date V isits Requested Visits Authorized [id number] Closed Auto-Generate d Referral 03/06/2022 04/05/2023 1 1 Reason Onset Date Comments Refill Request 05/09/2022 Reason Comments Phone Call Request Reason Onset Date Comments Refill Request 06/09/2022 Reason Comments Dementia Reason Comments Forms Reason Comments Results Reason Onset Date Comments Refill Request 07/22/2022 Reason Comments Memory Loss Dementia New patient Specialty Diagnoses / Procedures Referred By Contac t Referred To Contact Neurology Diagnoses Dementia with behavioral disturbance (HCC) Procedures CONSULT TO NEUROLOGY OFFICE/OUTPATIENT NEW HIGH MDM 60-74 MINUTES Jerrod Ojeda PA-C [address] [place] [address] Referral ID Status Reason Start Date Expiration Date Visits Requested Visits Authorized [id number] Pending Review PCP Requested Referral 06/07/2022 06/07/2023 1 1 Reason Onset Date Comments Refill Request 09/09/2022 Reason Comments Patient Update Reason Comments Appointment Rescheduled Reason Comments Follow Up Reason Comments PT/Home Healthcare Reason Comments Home Health Referral Reason Comments Home Care Reason Onset Date Comments Refill Request 12/09/2022 Reason Onset Date Comments Refill Request 12/19/2022 Reason Onset Date Comments Refill Request 12/26/2022 Reason Comments ear cleaning Reason Onset Date Comments Refill Request 01/13/2023 Reason Comments Refill Request Reason Comments Follow Up Pt reported fall x7 wks prior, denied new pain, memory recall reported by family no changes. Care Teams (unrecognized sec tion and content) [facility] Magistrate Relationship Specialty Start Date End Date Jerrod Ojeda PA-C [address] [place] [address] PCP - General Family Practice 07/01/[address] Relationship Specialty Start Date End Date Jerrod Ojeda PA-C [address] [place] [address] PCP - General Family Practice 07/01/[address] Relationship Specialty Start Date End Date Jerrod Ojeda PA-C [address] [place] [address] PCP - General Family Practice 07/01/[address] Relationship Specialty Start Date End Date Jerrod Ojeda PA-C [address] [place] [address] PCP - General Family Practice 07/01/[address] Relationship Specialty Start Date End Date Jerrod Ojeda PA-C [address] [place] [address] PCP - General Family Practice 07/01/[address] Relationship Specialty Start Date End Date Jerrod Ojeda PA-C [address] [place] [address] PCP - General Family Practice 07/01/[address] Relationship Specialty Start Date End Date Jerrod Ojeda PA-C [address] [place] [address] PCP - General Family Practice 07/01/[address] Relationship Specialty Start Date End Date Jerrod Ojeda PA-C [address] [place] [address] PCP - General Family Medicine 07/01/[address] Relationship Specialty Start Date End Date Jerrod Ojeda PA-C [address] [facility] [place] [address] PCP - General Family Medicine 07/01/[address] Relationship Specialty Start Date End Date Jerrod Ojeda PA-C [address] [facility] [place] [address] PCP - General Family Medicine 07/01/[address] Relationship Specialty Start Date End Date Jerrod Ojeda PA-C [address] [facility] [place] [address] PCP - General Family Medicine 07/01/[address] Relationship Specialty Start Date End Date Jerrod Ojeda PA-C [address] [facility] [place] [address] PCP - General Family Medicine 07/01/[address] Relationship Specialty Start Date End Date Jerrod Ojeda PA-C [address] [facility] [place] [address] PCP - General Family Medicine 07/01/[address] Relationship Specialty Start Date End Date Jerrod Ojeda PA-C [address] [facility] [place] [address] PCP - General Family Medicine 07/01/[address] Relationship Specialty Start Date End Date Jerrod Ojeda PA-C [address] [facility] [place] [address] PCP - General Family Medicine 07/01/[address] Relationship Specialty Start Date End Date Jerrod Ojeda PA-C [address] [facility] [place] [address] PCP - General Family Medicine 07/01/[address] Relationship Specialty Start Date End Date Jerrod Ojeda PA-C [address] [place] [address] PCP - General Family Medicine 07/01/[address] Relationship Specialty Start Date End Date Jerrod Ojeda PA-C [address] [place] [address] PCP - General Family Medicine 07/01/[address] Relationship Specialty Start Date End Date Jerrod Ojeda PA-C [address] [place] [address] PCP - General Family Medicine 07/01/[address] Relationship Specialty Start Date End Date Jerrod Ojeda PA-C [address] [place] [address] PCP - General Family Medicine 07/01/[address] Relationship Specialty Start Date End Date Jerrod Ojeda PA-C [address] [place] [address] PCP - General Family Medicine 07/01/[address] Relationship Specialty Start Date End Date Jerrod Ojeda PA-C [address] [place] [address] PCP - General Family Medicine 07/01/[address] Relationship Specialty Start Date End Date Jerrod Ojeda PA-C [address] [place] [address] PCP - General Family Medicine 07/01/[address] Relationship Specialty Start Date End Date Jerrod Ojeda PA-C [address] [place] [address] PCP - General Family Medicine 07/01/[address] Relationship Specialty Start Date End Date Jerrod Ojeda PA-C [address] [place] [address] PCP - General Family Medicine 07/01/[address] Relationship Specialty Start Date End Date Jerrod Ojeda PA-C [address] [place] [address] PCP - General Family Medicine 07/01/[address] Relationship Specialty Start Date End Date Jerrod Ojeda PA-C [address] [place] [address] PCP - General Family Medicine 07/01/[address] Relationship Specialty Start Date End Date Jerrod Ojeda PA-C [address] [place] [address] PCP - General Family Medicine 07/01/[address] Relationship Specialty Start Date End Date Jerrod Ojeda PA-C [address] [place] [address] PCP - General Family Medicine 07/01/[address] Relationship Specialty Start Date End Date Jerrod Ojeda PA-C [address] [place] [address] PCP - General Family Medicine 07/01/[address] Relationship Specialty Start Date End Date Jerrod Ojeda PA-C [address] [place] [address] PCP - General Family Medicine 07/01/[address] Relationship Specialty Start Date End Date Jerrod Ojeda PA-C [address] [place] [address] PCP - General Family Medicine 07/01/16 FOR RECORDS PERTAINING TO PATIENTS WHO ARE OR HAVE BEEN ENROLLED IN A CHEMICAL DEPENDENCY/SUBSTANCEABUSE PROGRAM, SOME INFORMATION MAY BE OMITTED. This clinical summary was aggregated from multiple sources. Caution should be exercised in using it in the provision of clinical care. This summary normalizes information from multiple sources, and as a consequence, information in this document may materially change the coding, format and clinical context of patient data. In addition, data may be omitted in some cases. CLINICAL DECISIONS SHOULD BE BASED ON THE PRIMARY CLINICAL RECORDS. [facility] [employer] [facility]. provides no warranty or guarantee of the accuracy or completeness of information in this document.
[2023-06-30] MEDS: Ciprofloxacin 500 MG Tablet PO (21:21)
[2023-06-30 21:27] VITALS: BP 188/108; PULSE 92; O2SAT 97
== END 2023-06-30 21:41 | disposition home or self-care (01) ==
PROVIDERS: Emergency Provider Emergency Medicine; PCP Physician Assistant; Visit Provider Emergency Medicine
DX: N39.0 Urinary tract infection, site not specified (principal); F03.90 Unspecified dementia, unspecified severity, without behavioral disturbance, psychotic disturbance, mood disturbance, and anxiety; E11.40 Type 2 diabetes mellitus with diabetic neuropathy, unspecified; I25.10 Atherosclerotic heart disease of native coronary artery without angina pectoris; N40.0 Benign prostatic hyperplasia without lower urinary tract symptoms; R32 Unspecified urinary incontinence; I25.2 Old myocardial infarction; Z79.84 Long term (current) use of oral hypoglycemic drugs; Z79.899 Other long term (current) drug therapy; Z87.891 Personal history of nicotine dependence; Z95.1 Presence of aortocoronary bypass graft
CPT/HCPCS: 99285; 70450; 71045; 80048; 81001; 85025; 85610; 85730; 87086; 87088; A4216

== ENCOUNTER 2023-07-03 20:13 | Inpatient (IN) | payer MEDICARE, SELFPAY ==
[2023-07-03] VITALS (7 sets, daily range): BP systolic 156–169; BP diastolic 69–81; PULSE 62–82; RESP 15–22; TEMP 36.3–36.7; O2SAT 92–99; BMI 26.7
--- NOTE | 2023-07-03 20:32 | CT_ITS ---
STUDY: CT ABDOMEN AND PELVIS WITH CONTRAST REASON FOR EXAM: Male, 83 years old. Vomiting RADIATION DOSAGE (If Supplied By Facility): CTDIvol = ( 18.96 ) mGy, DLP = ( 1170.70 ) mGycm TECHNIQUE: IV 100mL Isovue-370 was administered. Transaxial images were obtained from the dome of the diaphragm to the symphysis pubis. Multiplanar coronal and sagittal images were reformatted. Individualized Dose Optimization Techniques Were Used For This CT. COMPARISON: No relevant prior comparison study available FINDINGS: The visualized lung bases are unremarkable. Normal heart size. Coronary calcifications. Previous median sternotomy. Normal liver. Normal gallbladder and extrahepatic biliary system. Normal spleen. Diffuse cystic changes of the pancreas. Normal bilateral adrenal glands. Large staghorn calculus in the right renal pelvis measuring about 2.9 cm additional smaller stones in the lower pole of the right kidney and upper pole. Mild right hydronephrosis. Punctate stone in the midpole of the left kidney. No evidence of ureteral stones. Small hiatal hernia. Normal in caliber small bowel loops. The right colon is absent may be due to previous right hemicolectomy. No surgical sutures over are identified. Fecal retention. No evidence of acute diverticulitis. There is non-visualization of the appendix. There is diffuse atherosclerotic calcification of the abdominal aorta, without a demonstrated aneurysm. No retroperitoneal adenopathy. The bladder is not well distended. Small bilateral inguinal hernias containing fat. Degenerative changes of the spine. CT/Abdomen/Pelvis W IV Cont ONLY IMPRESSION: 1. Large right staghorn calculus with mild right hydronephrosis. 2. Nonobstructing bilateral renal stones. 3. Diffuse cystic changes in the pancreas could reflect pseudocysts formation. 4. Fecal retention. 5. Otherwise no focal acute inflammatory process. Electronically Signed: Catracho Mukherjee MD at 22:20 EST ,
--- NOTE | 2023-07-03 20:35 | EX.ED.DYSGE1 ---
HPI History of Present Illness Chief Complaint: Nausea/Vomiting Informant: patient and EMS Narrative Narrative: Patient arrives by ambulance with vomiting at home. Patient was recently seen and treated for UTI with some generalized weakness it sounds. Of note, patient has severe dementia and is a very bad informant. He denies any vomiting at all but it was very clear that he was essentially covered in vomit at home. He denies pain. He does ask if his is here. When his arrives I will try to talk to her to get more details. [facility] Medical History Ambulates with cane Anxiety Arthritis Atherosclerosis of coronary artery of [place] heart without angina pectoris Balance problem BPH (benign prostatic hyperplasia) Cardiology follow-up encounter CPAP (continuous positive airway pressure) dependence Dementia Diabetes Dizziness Former smoker History of diverticulitis History of echocardiogram History of edema History of stress test Hx of fracture of hip Hypertension Injury of head and neck Insomnia Kidney stones Leg edema Loss of hearing Neuropathy Nonrheumatic tricuspid valve regurgitation Obstructive sleep apnea Prostate disease Restless legs Shortness of breath Sleep apnea Type 2 diabetes mellitus without complications Walker as ambulation aid Wears glasses Home Medications ascorbic acid (vitamin C) 1,000 mg tablet 1 g PO QDAY 09/09/17 [History Last Taken Unknown] cholecalciferol (vitamin D3) 50 mcg (2,000 unit) capsule 5,000 unit PO QDAY 09/09/17 [History Last Taken Unknown] gabapentin 300 mg capsule 600 mg PO BID 09/09/17 [History Last Taken 01/19/21 06:00] lisinopril 10 mg tablet 20 mg PO QDAY 09/09/17 [History Last Taken 01/19/21 06:00] atenolol 25 mg tablet 25 mg PO DAILY 01/17/21 [History Last Taken 01/19/21 06:00] ibuprofen 200 mg-diphenhydramine HCl 25 mg capsule (Ibuprofen PM) 2 cap PO QHS PRN Sleep 01/17/21 [History Last Taken Unknown] metformin 500 mg 24 hr tablet,extended release (gastric retention) 1,000 mg PO BID 01/17/21 [History Last Taken Unknown] zinc 50 mg tablet 50 mg PO DAILY 01/17/21 [History Last Taken Unknown] ciprofloxacin HCl 500 mg tablet (Cipro) 500 mg PO BID #10 tabs 05/10/22 [Rx Last Taken Unknown] ciprofloxacin HCl 500 mg tablet (Cipro) 500 mg PO BID 10 days #20 tabs 06/30/23 [Rx Last Taken Unknown] donepezil 5 mg tablet 5 mg PO DAILY 07/03/23 [History Last Taken Unknown] memantine 10 mg tablet 10 mg PO BID 07/03/23 [History Last Taken Unknown] metformin 500 mg tablet,extended release 24 hr 500 mg PO BID 07/03/23 [History Last Taken Unknown] mirabegron 25 mg tablet,extended release 24 hr (Myrbetriq) 25 mg PO Q24H 07/03/23 [History Last Taken Unknown] sertraline 25 mg tablet 25 mg PO Q24H 07/03/23 [History Last Taken Unknown] Allergy/AdvReac Type Severity Reaction Status Date / Time mirtazapine AdvReac Unknown Unknown Verified 07/03/23 20:20 glimepiride AdvReac NEEDS Verified 07/03/23 20:20 FOLLOW-UP Family History Mother Breast cancer Father CAD (coronary artery disease) Son Diabetes Surgical History H/O coronary artery bypass surgery History of appendectomy History of esophagogastroduodenoscopy (EGD) History of hernia repair History of quadruple bypass Social History Smoking Status: Former smoker quit date: 06/02/83 ROS ROS ED ROS Narrative Although patient can speak, there is no consistent information that he provides and I am not able to get a useful review of systems from him other than knowing that he vomited. Gastrointestinal Gastrointestinal: Reports vomiting EXAM Physical Exam Narrative Exam Narrative: CONSTITUTIONAL: Patient is nontoxic in appearance. The patient looks comfortable. He is now cleaned up. HEENT: No notable trauma. Mucous membranes moist. EYES: No conjunctival injection. No proptosis. Pupils are small but equal to about 2 mm. CARDIOVASCULAR: Regular rate. Regular rhythm. No notable murmur. No JVD. Well-healed median scar. RESPIRATORY: No respiratory distress. Breathing is unlabored. No wheezes. No rhonchi. No rales. No pain with a deep breath. GASTROINTESTINAL: Not distended. Bowel sounds are normal to slightly increased. No tenderness. No guarding. No rebound. No palpable mass. No bruit. GENITOURINARY: No tenderness over the bladder. No CVA tenderness. MUSCULOSKELETAL: Atraumatic. Very mild peripheral edema. No cord. No tenderness. NEUROLOGICAL: Patient is alert and oriented to name. I cannot get him to answer where we are but I also do not know if he is just joking or does not know. He is not oriented to date. SKIN: No noted rashes. No diaphoresis. PSYCHIATRIC: Patient is calm. Mood is appropriate. Const Vital Signs: 07/03/23 20:13 07/03/23 20:27 07/03/23 21:19 Temperature 97.8 F 97.3 F L 97.5 F L Temperature Source Temporal Temporal Temporal Pulse Rate 71 71 72 Respiratory Rate 15 21 H 22 H Blood Pressure 169/81 H 169/81 H 162/69 H Blood Pressure Mean 110 110 100 Pulse Ox 98 92 96 Oxygen Delivery Method Room Air Room Air Room Air 07/03/23 22:00 07/03/23 22:13 07/03/23 22:26 Temperature 97.4 F L 97.9 F 98 F Temperature Source Temporal Temporal Pulse Rate 70 82 68 Respiratory Rate 20 H 22 H 18 Blood Pressure 162/69 H 161/78 H 161/78 H Blood Pressure Mean 100 105 105 Pulse Ox 96 96 98 Oxygen Delivery Method Room Air Room Air MDM MDM MDM Narrative Medical decision making narrative: I was able to talk to the when she came in. She is the sole care provider. She brought him in because he vomited significantly. He seemed to gag on it a little bit but then he got better. She was concerned because she does not know if there is something else wrong. She states he really cannot tell you symptoms. He will say everything is fine when it is obviously not. She has been looking at long-term placement. She is not sure if she is completely ready yet but has started looking at facilities and costs. She realizes it is getting to the point where she may not be able to care for him at home. She is concerned because it seems like in the last few days he has had a general decline. But she admits he has good days and bad days. Yesterday was actually good. Today he seemed weaker. He seemed more unsteady but did not fall. He has been sleeping more. It ends up that the patient's COVID is positive. But it is very hard timing when he may have started getting sick. Patient's CBC is overall normal. Patient's electrolytes show no marked abnormalities. But his glucose is high at 231. He was given IV fluids that should help bring this down. Patient's lactate is 3. Of note, he is also on metformin which is likely to contribute to this. Patient's liver function test are normal. Patient's urinalysis is clear with some ketones and occult blood. Patient has a few red cells but no white cells. I also checked his urine culture from the other day and he grew out E. coli but only a very small amount. This makes me think that UTI is probably not his primary issue. He may have the vomiting due to COVID or possibly even due to antibiotics. My independent interpretation of the patient's CT of the abdomen does not show any clear indication of obstruction. Gallbladder still present but does not look inflamed although it is somewhat prominent. He does appear to have stones in the right kidney. He has 1 small 1 then a large almost staghorn appearing type calculus. This is certainly not an acute finding. But I have no films to compare to. Final reading is pending. Final reading is overall similar. My independent interpretation of his chest x-ray shows no sign of definitive aspiration. This was done because the stated when he vomited he almost was not aware of it and was choking and coughing. But he is not desaturating now. He did hit 92% but now he is better. But it is certainly possible he did aspirate. I do not think he needs antibiotics at this point unless he gets symptomatic. The patient is however nauseated again. With his age, weakness, vomiting, COVID and nausea I do not think he will do well at home. The is not comfortable caring for him because she states today he got weak. It is hard to date the time of onset of COVID but she is now thinking that probably today because today is the day she noted that he just seems a lot weaker than normal. They did have COVID a year or so ago. But have never been immunized. Lab Data Attestation: I reviewed the patient's lab results. Labs: Laboratory Results - last 24 hr 07/03/23 07/03/23 20:40 21:20 WBC 7.2 RBC 4.54 L Hgb 13.2 Hct 39.9 L MCV 87.9 MCH 29.1 MCHC 33.1 RDW Std Deviation 45.7 H RDW Coeff of [place] 14.4 Plt Count 267 MPV 8.8 Immature Gran % (Auto) 0.600 Neut % (Auto) 80.5 H Lymph % (Auto) 7.8 L [place] % (Auto) 10.4 H Eos % (Auto) 0.3 Baso % (Auto) 0.4 Absolute Neuts (auto) 5.8 Absolute Lymphs (auto) 0.56 L Nucleated RBC % 0 Sodium 136 Potassium 4.3 Chloride 104 Carbon Dioxide 26.0 Anion Gap 6 BUN 14 Creatinine 1.23 Estim Creat Clear Calc 46.16 Est GFR (MDRD) Af Amer 72 Est GFR (MDRD) Non-Af 60 BUN/Creatinine Ratio 11.4 Glucose 231 H Lactic Acid 3.0 H* Calcium 9.5 Total Bilirubin 0.70 AST 17 ALT 15 L Alkaline Phosphatase 99 Total Protein 7.3 Albumin 3.5 Globulin 3.8 Albumin/Globulin Ratio 0.9 Urine Color Yellow Urine Clarity Clear Urine pH 6.0 Ur Specific [place] 1.020 Urine Protein 100 H Urine Glucose (UA) Normal Urine Ketones 5 H Urine Occult Blood 150 H Urine Nitrite Negative Urine Bilirubin Negative Urine Urobilinogen Normal Ur Leukocyte Esterase Negative Urine RBC 5-10 SEEN Urine WBC 0 SEEN Ur Squamous Epith Cells 0 SEEN Urine Bacteria 0 SEEN Urine Mucus 0 SEEN Radiography Diagnostic Testing: Clinical Impression(s) from Imaging Studies Abdomen/Pelvis CT 07/03/23 20:32 IMPRESSION: 1. Large right staghorn calculus with mild right hydronephrosis. 2. Nonobstructing bilateral renal stones. 3. Diffuse cystic changes in the pancreas could reflect pseudocysts formation. 4. Fecal retention. 5. Otherwise no focal acute inflammatory process. Electronically Signed: Catracho Mukherjee MD at 22:20 EST , EKG Initial EKG: Comments: My independent interpretation the patient's EKG is a normal sinus rhythm with overall rate of 72. No ectopy. No acute ST elevation or depression. VT interval, QRS duration are normal. QTc is just minimally toward the long end at 475 ms. Management Discussion w/another healthcare provider: Hospitalist Discharge Plan Triage Chief Complaint: Nausea/Vomiting ED Provider: Benjamin Magana Dx/Rx/DC Orders Clinical Impression: COVID, History of dementia, Generalized weakness, Nausea & vomiting Prescriptions: No Action lisinopril 10 mg tablet 20 mg PO QDAY gabapentin 300 mg capsule 600 mg PO BID cholecalciferol (vitamin D3) 2,000 unit capsule 5,000 unit PO QDAY ascorbic acid (vitamin C) 1,000 mg tablet 1 g PO QDAY atenolol 25 mg tablet 25 mg PO DAILY Patient Comments: TAKE 1 TABLET BY MOUTH ONCE DAILY zinc 50 mg Tablet 50 mg PO DAILY metformin 500 mg Tablet,Er Liat.Retention 24 Hr 1,000 mg PO BID Ibuprofen PM 200-25 mg Capsule 2 cap PO QHS PRN (Reason: Sleep) ciprofloxacin HCl [Cipro] 500 mg tablet 500 mg PO BID Qty: 10 0RF ciprofloxacin HCl [Cipro] 500 mg tablet 500 mg PO BID 10 Days Qty: 20 0RF donepezil 5 mg tablet 5 mg PO DAILY Patient Comments: TAKE 1 TABLET BY MOUTH ONCE DAILY memantine 10 mg tablet 10 mg PO BID Patient Comments: TAKE 1 TABLET BY MOUTH TWICE DAILY metformin 500 mg tablet extended release 24 hr 500 mg PO BID Patient Comments: TAKE 2 TABLETS BY MOUTH TWICE DAILY WITH MEALS Myrbetriq 25 mg tablet extended release 24 hr 25 mg PO Q24H Patient Comments: take 1 tablet by mouth once daily sertraline 25 mg tablet 25 mg PO Q24H Patient Comments: take 1 tablet by mouth once daily Primary Care Provider: Jerrod Ojeda Referrals: Jerrod Ojeda PA [Primary Care Provider] - Disposition Disposition: Acute Care Hospital [facility]
--- OUTSIDE RECORDS SUMMARY | 2023-07-03 20:40 | XMS RPT_ITS | CCD ---
Author Name Unknown Address [address] [facility] [address] [place] [address] Organization [facility] Care Team Providers Care Concrete Carpenter Name Role Phone MIKHAIL DURHAM Attending Unavailable [...] glimepiride; Translations: [GLIMEPIRIDE] Drug Allergy 1 Intolerance [facility] Repository (20 sources) Mirtazapine; Translations: [MIRTAZAPINE] Drug Allergy 5 Intolerance [facility] Repository (20 sources) Seasonal allergy; Translations: [SEASONAL ALLERGIES] Propensity to adverse reactions (disorder) 7 Other: See Comments [facility] Rep[facility] Medications Current Medications Medication Drug Class(es) [...] Coronary arteriosclerosis; Translations: [Atherosclerotic heart disease of [place] coronary artery without angina pectoris] Onset: 06-15-2009 [...] kg Lazaro Aldridge Jr., MD Work Phone: [facility] 02-07-2023 11:33-0400 Diastolic blood pressure 76 mm[Hg] Lazaro Aldridge Jr., MD Work Phone: [facility] 02-07-2023 11:33-0400 Heart rate 62 /min Lazaro Aldridge Jr., MD Work Phone: [facility] 02-07-2023 11:33-0400 Respiratory rate 16 /min Lazaro Aldridge Jr., MD Work Phone: [facility] 02-07-2023 11:33-0400 SaO2% (BldA) [Mass fraction] 97 % Lazaro Aldridge Jr., MD Work Phone: [facility] 02-07-2023 11:33-0400 Systolic blood pressure 132 mm[Hg] Lazaro Aldridge Jr., MD Work Phone: [facility] 01-06-2023 13:14-0400 Body weight 83.46 kg NA Ojeda PA-C Work Phone: [facility] 01-06-2023 13:14-0400 Diastolic blood pressure 80 mm[Hg] NA Ojeda PA-C Work Phone: [facility] 01-06-2023 13:14-0400 Heart rate 74 /min NA Ojeda PA-C Work Phone: [facility] 01-06-2023 13:14-0400 Respiratory rate 16 /min NA Ojeda PA-C Work Phone: [facility] 01-06-2023 13:14-0400 Systolic blood pressure 160 mm[Hg] NA Ojeda PA-C Work Phone: [facility] 07-31-2022 12:21-0500 Body weight 78.93 kg Lazaro Aldridge Jr., MD Work Phone: [facility] 07-31-2022 12:21-0500 Diastolic blood pressure 69 mm[Hg] Lazaro Aldridge Jr., MD Work Phone: [facility] 07-31-2022 12:21-0500 Heart rate 61 /min Lazaro Aldridge Jr., MD Work Phone: [facility] 07-31-2022 12:21-0500 SaO2% (BldA) [Mass fraction] 96 % Lazaro Aldridge Jr., MD Work Phone: [facility] 07-31-2022 12:21-0500 Systolic blood pressure 137 mm[Hg] Lazaro Aldridge Jr., MD Work Phone: [facility] 02-28-2022 15:07-0400 Body weight 85.37 kg NA Ojeda PA-C Work Phone: [facility] 02-28-2022 15:07-0400 Diastolic blood pressure 68 mm[Hg] NA Ojeda PA-C Work Phone: [facility] 02-28-2022 15:07-0400 Heart rate 68 /min NA Ojeda PA-C Work Phone: [facility] 02-28-2022 15:07-0400 Respiratory rate 20 /min NA Ojeda PA-C Work Phone: [facility] 02-28-2022 15:07-0400 SaO2% (BldA) [Mass fraction] 98 % NA Ojeda PA-C Work Phone: [facility] 02-28-2022 15:07-0400 Systolic blood pressure 120 mm[Hg] NA Ojeda PA-C Work Phone: [facility] 02-12-2022 11:51-0400 Body weight 86.18 kg NA Ojeda PA-C Work Phone: [facility] 02-12-2022 11:51-0400 Diastolic blood pressure 70 mm[Hg] NA Ojeda PA-C Work Phone: [facility] 02-12-2022 11:51-0400 Heart rate 52 /min NA Ojeda PA-C Work Phone: [facility] 02-12-2022 11:51-0400 Respiratory rate 20 /min NA Ojeda PA-C Work Phone: [facility] 02-12-2022 11:51-0400 SaO2% (BldA) [Mass fraction] 98 % NA Ojeda PA-C Work Phone: [facility] 02-12-2022 11:51-0400 Systolic blood pressure 142 mm[Hg] NA Ojeda PA-C Work Phone: [facility] 11-12-2021 13:38-0400 Body temperature 99.1 [degF] NA Ojeda PA-C Work Phone: [facility] 11-12-2021 13:38-0400 Body weight 84.37 kg NA Ojeda PA-C Work Phone: [facility] 11-12-2021 13:38-0400 Diastolic blood pressure 66 mm[Hg] NA Ojeda PA-C Work Phone: [facility] 11-12-2021 13:38-0400 Heart rate 68 /min NA Ojeda PA-C Work Phone: [facility] 11-12-2021 13:38-0400 Respiratory rate 18 /min NA Ojeda PA-C Work Phone: [facility] 11-12-2021 13:38-0400 SaO2% (BldA) [Mass fraction] 99 % NA Ojeda PA-C Work Phone: [facility] 11-12-2021 13:38-0400 Systolic blood pressure 112 mm[Hg] NA Ojeda PA-C Work Phone: [facility] Encounters Encounter Date Encounter Type Care Provider Facility Start: 06-09-2023 End: 06-09-2023 ambulatory Jerrod OJEDA Facility:[facility] Start: 02-07-2023 End: 02-07[facility] Start: 02-07-2023 End: 02-07-2023 Patient encounter procedure Lazaro Aldridge MD Work Phone: Neurology Procedures Date Procedure Procedure Detail Performing Clinician History of coronary artery bypass grafting S/P CABG x 2 M Collins Ojeda PA-C Work Phone: Plan of Treatment Date Care Activity Detail Author Start: 01-02-2031 Urine microalbumin profile DTAP,TDAP,TD (2 - Td or Tdap) [facility] Start: 02-06-2024 Hepatitis B surface antibody level LDL CHOLESTEROL [facility] Start: 01-07-2024 3 comp foot exam completed DIABETIC FOOT EXAM [facility] Start: 08-06-2023 Hemoglobin A1c/Hemoglobin.total in Blood HBA1C [facility] Start: 03-28-2023 End: 05-28-2023 Hemoglobin A1c in Blood HGB A1C Lab Routine Microalbuminuria Expected: 03/28/2023, Expires: 05/28/2023 [facility] Work Phone: Immunizations Immunization Date Immunization Notes Care Provider Jostin timmons 01-15-2022 zoster vaccine recombinant NA Ojeda PA-C Work Phone: [facility] 08-10-2021 influenza, high-dose , quadrivalent vaccine (FLUZONE HIGH DOSE QUADRIVALENT) NA Ojeda PA-C Work Phone: [facility] 01-02-2021 tetanus toxoid, redu talha diphtheria toxoid, and acellular pertussis vaccine, adsorbed NA Ojeda PA-C Work Phone: [facility] 08-01-2020 influenza, high-dose , quadrivalent vaccine (FLUZONE HIGH DOSE QUADRIVALENT) NA Ojeda PA-C Work Phone: [facility] 03-25-2019 influenza, high dose seasonal, preservative-free NA Ojeda PA-C Work Phone: [facility] 03-04-2018 influenza, high dose seasonal, preservative-free NA Ojeda PA-C Work Phone: [facility] 04-14-2017 influenza, high dose seasonal, preservative-free NA Ojeda PA-C Work Phone: [facility] Work Phone: 12-30-2016 pneumococcal conjuga te vaccine, 13 valent NA Ojeda PA-C Work Phone: [facility] Work Phone: 12-17-2016 zoster vaccine, live NA Taj on PA-C Work Phone: [facility] Work Phone: 07-01-2016 influenza, high dose seasonal, preservative-free NA Ojeda PA-C Work Phone: [facility] Work Phone: 03-15-2015 influenza, high dose seasonal, preservative-free NA Ojeda PA-C Work Phone: [facility] Work Phone: 04-08-2014 influenza, high dose seasonal, preservative-free NA Ojeda PA-C Work Phone: [facility] 06-25-2013 influenza virus vacc ine, whole virus NA Ojeda PA-C Work Phone: [facility] 04-02-2008 influenza virus vacc ine, unspecified formulation NA Ojeda PA-C Work Phone: [facility] Work Phone: 04-02-2007 influenza virus vacc ine, unspecified formulation NA Ojeda PA-C Work Phone: [facility] Work Phone: 04-02-2005 influenza virus vacc ine, unspecified formulation NA Ojeda PA-C Work Phone: [facility] Work Phone: 04-02-2005 pneumococcal polysaccharide vaccine, 23 valent NA Ojeda PA-C Work Phone: [facility] Work Phone: Payers Date Payer Category Payer Medicare [id number] 2013 Medicare [employer] [place] [place] [id number] 2013-Present [phone] [address] [place] [address] [facility] [id number] 2013 Medicare [employer] [place] [id number] 2013-Present [phone] [address] [place] [address] [facility] [id number] 1940 Unknown [id number] Social History Date Type Detail Facility Start: 05-19-2017 End: 02-12-2022 Tobacco smoking status NHIS Ex-smoker [facility] End: 06-02-1983 History of tobacco use Current smoker [facility] Start: 08-10-2021 End: 02-07-2023 Alcohol intake Current non-drinker of alcohol (finding) [facility] Start: 07-26-2020 End: 06-11-2022 History SDOH Alcohol Frequency 2 [facility] Start: 07-26-2020 End: 06-11-2022 History SDOH Alcohol Std Drinks 1 [facility] Start: 07-26-2020 History SDOH Social Connections Phone 5 [facility] Start: 07-26-2020 End: 06-11-2022 History SDOH Social Connections Get Together 3 [facility] Start: 07-26-2020 End: 06-11-2022 History SDOH Physical Activity DPW 0 [facility] Start: 07-26-2020 End: 06-11-2022 History SDOH Financial 4 [facility] Start: 07-25-2020 Education 12 [facility] Start: 1940 Sex Assigned At Male [facility] Start: 11-02-2021 End: 02-12-2022 Exposure to SARS-CoV-2 (event) Not sure [facility] Start: 12-04-2021 End: 12-14-2021 Exposure to SARS-CoV-2 (event) Yes [facility] End: 06-02-1983 History of tobacco use Cigarette Smoker [facility] Work Phone: Start: 05-19-2017 End: 02-12-2022 Tobacco use and exposure Smokeless tobacco non-user [facility] Work Phone: Start: 06-11-2022 End: 11-05-2022 History of Social function [facility] Start: 06-11-2022 End: 11-05-2022 Social connection and isolation panel [facility] Do you belong to any clubs or organizations such as denominational groups, unions, fraternal or athletic groups, or school groups? No [facility] Are you now , , , , never or living with a partner? [facility] How often to you hav e a drink containing alcohol? 2-3 time sa week [facility] How many standard dr inks containing alcohol do you have on a typical day? 1 or 2 [facility] How often do you hav e 6 or more drinks on 1 occasion? Never [facility] How hard is it for y ou to pay for the very basics like food, housing, medical care, and heating Not very hard [facility] Adult Depression Screening Assessment 4 [facility] Do you feel stress - tense, restless, nervous, or anxious, or unable to sleep at night because your mind is troubled all the time - these days [OSQ] Rather much [facility] (I/We) worried wheblaine er (my/our) food would run out before (I/we) got money to buy more. Never true [facility] Start: 02-29-2020 Gender identity Identifies as male gender (finding) [facility] Start: 02-29-2020 Sexual orientation Heterosexual (finding) [facility] Clinical Notes 06-15-2009 to 06-09-2023 Lazaro Aldridge Jr., MD - 02/07/2023 11:47 AM EDTTelephone Encounter - Tiara Ortiz LPN - 01/21/2023 10:33 AM EDTTelephone Encounter - Jerrod Ojeda PA-C - 01/14/2023 3:05 PM EDT Note Date & Type Note Facility 06-09-2023 Note HNO ID: [id number] Author: LAZARO ALDRIDGE JR, MD Service: ? [...] Value 02/05/2023 4 (more content not included)... [facility] 02-07-2023 Note HNO ID: [id number] Author: Lazaor Aldridge Jr., MD Service: ? Author Type: [...] Similar objects: 2/2 Orientation: Friday, 2001, January, [facility] [place]: 09/05 Delayed recall: 06/06 REVIEW OF [...] HPI - h (more content not included)... [facility] 02-07-2023 History of Present illness Narrative ESTABLISHED [...] follow up in 3 months at our [place] offices. Pt and his family agree with [...] which included preparing to see the patient, [id number] patient care, completing clinical documentation, obtaining and/or reviewing separately obtained history, performing a medically appropriate examination, counseling and educating the patient/family/caregiver, ordering medications, tests, or procedures, independently interpreting results (not separately reported), and communicating results to the patient/family/caregiver. documented in this encounter [facility] 01-21-2023 Miscellaneous Notes JENARO 11/05/22 with [...] Santa Gordon PA-C documented in this encounter [facility] 01-14-2023 Miscellaneous Notes The following approved [...] you. RINKU Alarcon documented in this encounter [facility] 01-06-2023 Note HNO ID: [id number] Author: Jerrod Ojeda PA-C Service: ? 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 Coronary artery disease involving [place] coronary artery of [place] heart without angina pectoris S/p CABG x [...] of left ventricle during stress 06/10/17 referral [facility] Dr. Emory Arias 02/02/15 [...] No significant change from 09/21/09 01/27/15 referral collection specialist Kelvin Ellis [facility] 09/21/09 echocardiogram: LV size NL, LVSF: [...] 6.3 08/10/2021 6.7 03/24/2020 Test sent to [facility]. 10/30/2019 Test sent to [facility]. ) CMP: Glucose 128 03/15/2022 BUN [...] recurrently Retrolisthesis Spo (more content not included)... [facility] 01-06-2023 Instructions Jerrod Ojeda PA-C - 01/06/2023 2:08 PM EDT Please bring in advanced directives. 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 Coronary artery disease involving [place] coronary artery of [place] heart without angina pectoris S/p CABG x [...] of left ventricle during stress 06/10/17 referral [facility] Dr. Emory Arias 02/02/15 [...] No significant change from 09/21/09 01/27/15 referral collection specialist Kelvin Ellis [facility] [place] 09/21/09 echocardiogram: LV size NL, LVSF: 60% [...] 6.3 08/10/2021 6.7 03/24/2020 Test sent to [facility]. 10/30/2019 Test sent to [facility]. ) CMP: Glucose 128 03/15/2022 BUN [...] be affecting 3. Coronary artery disease involving [place] coronary artery of [place] heart without angina pectoris - ICD9: 414.01, [...] Jerrod Ojeda PA-C documented in this encounter [facility] 12-26-2022 Miscellaneous Notes Needs OV for [...] Kate Nolasco Ma documented in this encounter [facility] 12-20-2022 Miscellaneous Notes Apurva Ojeda PA-C Home Care certification received from [facility] requesting provider review and signature. Forwarded to [facility]'s desk for signature. Once signed, please fax to [facility] at [phone]. Gale Paniagua MA documented in this encounter [facility] 12-19-2022 Miscellaneous Notes Patient has been identified by name and date of : Yes Patient phones for refill(s): Requested Prescriptions Pending Prescriptions Disp Refills lisinopril (ZESTRIL) 20 mg tablet 90 tablet 1 Sig: Take 1 tablet by mouth once daily. Date of last office visit in primary care: 06/11/2022 Please advise. Thank you. Paula Jauregui LPN documented in this encounter [facility] 12-10-2022 Note HNO ID: [id number] Author: RT Margo(Ej) Service: ? Author Type: [...] RT Margo(Ej) December 10, 2022 1:47 PM [facility] 12-10-2022 Miscellaneous Notes Left a message for pt to call the office and ask to speak to a nurse. Santa MORAN Needs appointment to renew as last OV > 6 months per MAOSN rules. The following approved medication requests have [...] Alexys Negron LPN documented in this encounter [facility] 12-09-2022 Miscellaneous Notes Patient has been [...] Gale Paniagua MA documented in this encounter [facility] 12-05-2022 Miscellaneous Notes Teressa, a speech therapist with [facility] is calling to update PCP that during her visit with patient yesterday, pt's family reports that pt has had three recent falls. One on 11/29, one on 12/02 and one on 12/03. No injuries. Reports pt's legs are weak and give out. Pt will be receiving Physical Therapy. No call back needed. Thank you. documented in this encounter [facility] 11-26-2022 Miscellaneous Notes Spoke to patients and she is agreeable with going to [facility]. Orders and pt information sent to fax number [phone]. Tiara Ortiz LPN Thank you for the referral of your patient to [facility]. At this time, we are at capacity and are unable to accept your patient. In order to help your patient receive quality home care, we have included reputable agencies that service this area: [facility], Phone number [phone] or [facility], phone number [phone]. Please contact this agency and they will work with your patient to arrange timely services. Thank you, Alexsandra Busch LPN 11/22/2022 2:29 PM documented in this encounter [facility] 11-22-2022 Miscellaneous Notes Please assist with [...] Britany Guillory RN documented in this encounter [facility] 11-13-2022 Miscellaneous Notes Sw notes that [facility] is reaching out to patient. [...] Spouse and Sw also discussed that our [facility] still has PT if for whatever reason HH does not work. documented in this encounter [facility] 11-05-2022 Note HNO ID: [id number] Author: Santa Gordon PA-C Service: ? Author Type: Physician Coal Yard Supervisor Type: Progress Notes Filed: 11/05/2022 12:51 PM [...] follow up in 3 months at our [place] offices. Pt and his family agree with [...] pain or muscle (more content not included)... [facility] 11-05-2022 Instructions Santa Gordon PA-C - 11/05/2022 12:18 PM EDT Increase water intake Social work consult for falls and physical therapy Physical therapy for strength MRI of the cervical spine Continue B12 supplementation, continue namenda 10mg bid Follow up in three months documented in this encounter [facility] 11-05-2022 History of Present illness Narrative [...] follow up in 3 months at our [place] offices. Pt and his family agree with [...] which included preparing to see the patient, [id number]-[id number] patient care, completing clinical documentation, obtaining and/or reviewing separately obtained history, performing a medically appropriate examination, counseling and educating the patient/family/caregiver, and ordering medications, tests, or procedures. This document has been created with the use of voice recognition technology. It may contain inaccuracies: (e.g. misspellings, inaccurate syntax or word sense) that have escaped review. documented in this encounter [facility] 10-07-2022 Miscellaneous Notes Left the patient a voice message about the appointment date and time change. Sent the patient a [employer] message and mailed the reminder. The patient is scheduled for a 3-month follow-up on 11/05 with HERB Owen. The patient is scheduled for a 6-month follow-up on 02/[address] Aldridge. documented in this encounter [facility] 09-09-2022 Miscellaneous Notes Patient phones requesting refills as follows: Requested Prescriptions Pending Prescriptions Disp Refills atenolol (TENORMIN) 25 mg tablet 90 tablet 1 Sig: Take 1 tablet by mouth once daily. JENARO 06/11/22 NOV no upcoming appt Please review and advise. Alexys Negron LPN documented in this encounter [facility] 08-02-2022 Miscellaneous Notes Patient telephoend. answered. Made aware of update. Voices understanding, will chicken picker medication tomorrow. Sissy Huerta LPN Please advise Yoselin Aldridge recommended supplementing vit B12- this is a sublingual The following approved medication requests have been transmitted electronically. Requested Prescriptions Signed Prescriptions Disp Refills Cyanocobalamin 1,000 mcg subl 90 tablet 3 Sig: Dissolve 1 tablet under the tongue once daily. Authorizing Provider: Jerrod OJEDA PA-C documented in this encounter [facility] 07-31-2022 Note HNO ID: [id number] Author: Lazaro Aldridge Jr., MD Service: ? [...] recall: 2; 2 Number repeat: 06/03 (bkwrds: [id number]) Sentence repeat: 07/04 Serial 7s: 100-93-x 06/04 Orientation: X/X/2002, Wed, Yanes, Biden 08/05 Delayed recall: 07/07 Similar object: 1 Cube drawin/1 Clock drawing: (numbers outside [place], writes # for 10 p 11) 06/04 [...] (mg/dL) Date Value (more content not included)... [facility] 07-31-2022 History of Present illness Narrative NEW [...] 06/03 Cube drawin Clock drawing: (numbers outside [place], writes # for 10 p 11) 06/04 [...] follow up in 3 months at our [place] offices. Pt and his family agree with plan. Lazaro Aldridge MD I spent a total of 60+ minutes on the date of the service which included preparing to see the patient, [id number] patient care, completing clinical documentation, obtaining and/or reviewing separately obtained history, performing a medically appropriate examination, counseling and educating the patient/family/caregiver, ordering medications, tests, or procedures, independently interpreting results (not separately reported), and communicating results to the patient/family/caregiver. documented in this encounter [facility] 07-22-2022 Miscellaneous Notes Patient phones requesting refills as follows: Requested Prescriptions Pending Prescriptions Disp Refills gabapentin (NEURONTIN) 600 mg tablet 180 tablet 1 Sig: Take 1 tablet by mouth twice daily for 180 days. JENARO 06/11/22 (virtual) 02/28/22 (in office) NOV no upcoming appt Please review and advise. Alexys Negron LPN documented in this encounter [facility] 06-14-2022 Miscellaneous Notes Patient's calls back [...] Britany Guillory RN documented in this encounter [facility] 06-13-2022 Miscellaneous Notes Component Latest Ref Rng & Units 06/11/2022 Color Yellow Yellow Clarity Clear Cloudy (A) Glucose, Urine Trace, Negative Negative Bilirubin, Urine Negative Negative Ketones, Urine Trace, Negative Negative Specific [place], Ur 1.005 - 1.030 1.025 Hemoglobin/Blood,Ur Negative, [...] (A) Culture pending documented in this encounter [facility] 06-11-2022 Miscellaneous Notes Received fax from [employer]. Requesting order for test strips. Call to patient and they did not request this company nor do they want to use this company. Fax shredded. Mary Kate Nolasco Ma documented in this encounter [facility] 06-11-2022 History of Present illness Narrative Audio only was used for evaluation of this patient. Location of patient: [place] Patient was offered a virtual/telemedicine appointment in [...] Jerrod Ojeda PA-C documented in this encounter [facility] 06-10-2022 Miscellaneous Notes Last office visit: 02/28/22 F/u scheduled: 06/11/22 Lisa Han Ma documented in this encounter [facility] 06-07-2022 Miscellaneous Notes Will scheduled when [...] . Thank you. documented in this encounter [facility] 05-10-2022 Miscellaneous Notes Patient phones requesting refills as follows: Requested Prescriptions Pending Prescriptions Disp Refills traMADol (ULTRAM) 50 mg tablet 60 tablet 5 Sig: Take 1 tablet by mouth twice daily as needed for pain for up to 30 days. JENARO-02/28/22 Labs-03/18/22 NOV-05/14/22 med filled 10/17/21 Please review and advise. Albina Porter LPN documented in this encounter [facility] 03-20-2022 Miscellaneous Notes TC to pt, spoke /c pt [place], notified of results/provider response. [place] states d/t transportation issues they would prefer to stay in [place]. Referral faxed to Dr. Thomas's office. Alexys Negron LPN Please advise ultrasound demonstrates a large bladder stone 3.1 cm, this is likely causing obstruction and complications with urination. Recommend consult to urology, I prefer Dr. Yo Durham on if possible in [place]. If patient wants to stay in [place] he could see Dr. Thomas Telephone on 03/20/22 CONSULT TO UROLOGY Thanks, Oneil Ojeda PA-C documented in this encounter [facility] 03-18-2022 Miscellaneous Notes Telephone on 03/18/22 CBC + DIFF COMP METABOLIC PANEL Oneil Ojeda PA-C File orders documented in this encounter [facility] 03-18-2022 History of Present illness Narrative [...] 2022 2:51 PM documented in this encounter [facility] 03-16-2022 Miscellaneous Notes Please schedule: Telephone on 03/05/22 CONSULT TO VASCULAR SURGERY Venous incompetence (primary encounter diagnosis) Bilateral leg edema ThanksOneil PA-C documented in this encounter [facility] 03-06-2022 Miscellaneous Notes Last office visit: 02/28/22 Next appointment scheduled: 05/14/22 Last labs: 02/28/22 Patient phones requesting refills as follows: Requested Prescriptions Pending Prescriptions Disp Refills atenolol (TENORMIN) 25 mg tablet 90 tablet 1 Sig: Take 1 tablet by mouth once daily. Please review and advise. Marjorie Bar LPN documented in this encounter [facility] 03-06-2022 Miscellaneous Notes Called PT LVM [...] Oneil Ojeda PA-C documented in this encounter [facility] 02-28-2022 History of Present illness Narrative 81 year old male with c/o here for follow up Bilateral leg edema (primary encounter diagnosis) Sob (shortness of breath) Bilateral calf pain Coronary artery disease involving [place] coronary artery of [place] heart without angina pectoris Hypertension, essential Hyperlipidemia, [...] of left ventricle during stress 06/10/17 referral [facility] Dr. Emory Arias 02/02/15 [...] No significant change from 09/21/09 01/27/15 referral collection specialist Kelvin Ellis [facility] 09/21/09 echocardiogram: LV [...] Jerrod Ojeda PA-C documented in this encounter [facility] 02-12-2022 History of Present illness Narrative [...] Jerrod Ojeda PA-C documented in this encounter [facility] 01-28-2022 Miscellaneous Notes Patient has been [...] [place] LPN documented in this encounter [facility] 12-17-2021 Miscellaneous Notes Last office visit 12/14/2021. documented in this encounter [facility] 12-14-2021 History of Present illness Narrative Alternative video platform was used for evaluation of this patient. Location of patient: [place] Patient was offered a virtual/telemedicine appointment in [...] evaluation of this patient. Location of patient: [place] FERNANDO Mendieta is a 81 year old [...] gets really tested. Reviewed vascular dementia vs Addison's and characteristics. Discussed new monoclonal therapy briefly- [...] discussed Nirmatrelvir/Ritonavir (Paxlovid) Eligibility and Patient Discussion [facility] Formulary Restriction Criteria: Adult outpatients 18 [...] coronavirus infection (COVID-19). documented in this encounter [facility] 11-12-2021 History of Present illness Narrative [...] BP <130/80 3. Coronary artery disease involving [place] coronary artery of [place] heart without angina pectoris - ICD9: 414.01, [...] Jerrod Ojeda PA-C documented in this encounter [facility] 10-17-2021 Miscellaneous Notes Patient phones requesting [...] Albina Porter LPN documented in this encounter [facility] 09-28-2021 Miscellaneous Notes Letter faxed Letter sent through [email or web address] for review And printed Please fax Thanks, Oneil Ojeda PA-C See message and place referral for pt. Fax to requested location. Flora Ortega Ma documented in this encounter [facility] 09-17-2021 Miscellaneous Notes Pending Prescriptions Disp Refills TRAMADOL 50 MG TABLET 60 tablet 2 Sig: Take 1 tablet by mouth twice daily as needed for pain for up to 30 days. MASON Class: C-IV MILLI: No JENARO 08/10/21 NOV 11/12/21 Last refilled 06/21/21 #60 2 refills documented in this encounter [facility] documented as of this encounter (statuses as of 09/18/2021) [facility] History of Past illness Narrative* Problem Noted Date Resolved Date JONATHON (obstructive sleep apnea) 06/15/2009 documented as of this encounter (statuses as of 09/28/2021) [facility] History of Past illness Narrative* Problem Noted Date Resolved Date JONATHON (obstructive sleep apnea) 06/15/2009 documented as of this encounter (statuses as of 10/17/2021) [facility] History of Past illness Narrative* Problem Noted Date Resolved Date JONATHON (obstructive sleep apnea) 06/15/2009 documented as of this encounter (statuses as of 11/12/2021) [facility] History of Past illness Narrative* Problem Noted Date Resolved Date JONATHON (obstructive sleep apnea) 06/15/2009 documented as of this encounter (statuses as of 12/12/2021) [address] History of Past illness Narrative* Problem Noted Date Resolved Date JONATHON (obstructive sleep apnea) 06/15/2009 documented as of this encounter (statuses as of 12/14/2021) [address] History of Past illness Narrative* Problem Noted Date Resolved Date JONATHON (obstructive sleep apnea) 06/15/2009 documented as of this encounter (statuses as of 12/17/2021) [address] History of Past illness Narrative* Problem Noted Date Resolved Date JONATHON (obstructive sleep apnea) 06/15/2009 documented as of this encounter (statuses as of 01/28/2022) [address] History of Past illness Narrative* Problem Noted Date Resolved Date JONATHON (obstructive sleep apnea) 06/15/2009 documented as of this encounter (statuses as of 02/12/2022) [address] History of Past illness Narrative* Problem Noted Date Resolved Date JONATHON (obstructive sleep apnea) 06/15/2009 documented as of this encounter (statuses as of 03/01/2022) [facility] History of Past illness Narrative* Problem Noted Date Resolved Date JONATHON (obstructive sleep apnea) 06/15/2009 documented as of this encounter (statuses as of 03/06/2022) [place] [address]14-2010 History of Past illness Narrative* Problem Noted Date Resolved Date JONATHON (obstructive sleep apnea) 06/15/2009 documented as of this encounter (statuses as of 03/08/2022) [address] History of Past illness Narrative* Problem Noted Date Resolved Date JONATHON (obstructive sleep apnea) 06/15/2009 documented as of this encounter (statuses as of 03/16/2022) [place] [address] History of Past illness Narrative* Problem Noted Date Resolved Date JONATHON (obstructive sleep apnea) 06/15/2009 documented as of this encounter (statuses as of 03/18/2022) [address] History of Past illness Narrative* Problem Noted Date Resolved Date JONATHON (obstructive sleep apnea) 06/15/2009 documented as of this encounter (statuses as of 03/19/2022) [address] History of Past illness Narrative* Problem Noted Date Resolved Date JONATHON (obstructive sleep apnea) 06/15/2009 documented as of this encounter (statuses as of 03/20/2022) [facility] History of Past illness Narrative* Problem Noted Date Resolved Date JONATHON (obstructive sleep apnea) 06/15/2009 documented as of this encounter (statuses as of 05/10/2022) [facility] History of Past illness Narrative* Problem Noted Date Resolved Date JONATHON (obstructive sleep apnea) 06/15/2009 documented as of this encounter (statuses as of 06/08/2022) [address] History of Past illness Narrative* Problem Noted Date Resolved Date JONATHON (obstructive sleep apnea) 06/15/2009 documented as of this encounter (statuses as of 06/11/2022) [address] History of Past illness Narrative* Problem Noted Date Resolved Date JONATHON (obstructive sleep apnea) 06/15/2009 documented as of this encounter (statuses as of 06/11/2022) [facility] History of Past illness Narrative* Problem Noted Date Resolved Date JONATHON (obstructive sleep apnea) 06/15/2009 documented as of this encounter (statuses as of 06/12/2022) [address] History of Past illness Narrative* Problem Noted Date Resolved Date JONATHON (obstructive sleep apnea) 06/15/2009 documented as of this encounter (statuses as of 06/14/2022) [facility] History of Past illness Narrative* Problem Noted Date Resolved Date JONATHON (obstructive sleep apnea) 06/15/2009 documented as of this encounter (statuses as of 06/14/2022) [address] History of Past illness Narrative* Problem Noted Date Resolved Date JONATHON (obstructive sleep apnea) 06/15/2009 documented as of this encounter (statuses as of 07/23/2022) [place] [address] History of Past illness Narrative* Problem Noted Date Resolved Date JONATHON (obstructive sleep apnea) 06/15/2009 documented as of this encounter (statuses as of 07/31/2022) [place] [address] History of Past illness Narrative* Problem Noted Date Resolved Date JONATHON (obstructive sleep apnea) 06/15/2009 documented as of this encounter (statuses as of 09/10/2022) [address] History of Past illness Narrative* Problem Noted Date Resolved Date JONATHON (obstructive sleep apnea) 06/15/2009 documented as of this encounter (statuses as of 09/20/2022) [address] History of Past illness Narrative* Problem Noted Date Resolved Date JONATHON (obstructive sleep apnea) 06/15/2009 documented as of this encounter (statuses as of 10/08/2022) [facility] History of Past illness Narrative* Problem Noted Date Resolved Date JONATHON (obstructive sleep apnea) 06/15/2009 documented as of this encounter (statuses as of 11/05/2022) [address] History of Past illness Narrative* Problem Noted Date Resolved Date JONATHON (obstructive sleep apnea) 06/15/2009 documented as of this encounter (statuses as of 11/19/2022) [place] [address] History of Past illness Narrative* Problem Noted Date Resolved Date JONATHON (obstructive sleep apnea) 06/15/2009 documented as of this encounter (statuses as of 11/26/2022) [address] History of Past illness Narrative* Problem Noted Date Resolved Date JONATHON (obstructive sleep apnea) 06/15/2009 documented as of this encounter (statuses as of 11/26/2022) [address] History of Past illness Narrative* Problem Noted Date Diagnosed Date Resolved Date JONATHON (obstructive sleep apnea) 06/15/2009 11/02/2018 documented as of this encounter (statuses as of 12/10/2022) [address] History of Past illness Narrative* Problem Noted Date Diagnosed Date Resolved Date JONATHON (obstructive sleep apnea) 06/15/2009 11/02/2018 documented as of this encounter (statuses as of 12/12/2022) [address] History of Past illness Narrative* Problem Noted Date Diagnosed Date Resolved Date JONATHON (obstructive sleep apnea) 06/15/2009 11/02/2018 documented as of this encounter (statuses as of 12/20/2022) [address] History of Past illness Narrative* Problem Noted Date Diagnosed Date Resolved Date JONATHON (obstructive sleep apnea) 06/15/2009 11/02/2018 documented as of this encounter (statuses as of 12/27/2022) [facility] History of Past illness Narrative* Problem Noted Date Diagnosed Date Resolved Date JONATHON (obstructive sleep apnea) 06/15/2009 11/02/2018 documented as of this encounter (statuses as of 01/01/2023) [place] [address] History of Past illness Narrative* Problem Noted Date Diagnosed Date Resolved Date JONATHON (obstructive sleep apnea) 06/15/2009 11/02/2018 documented as of this encounter (statuses as of 01/07/2023) [place] [address] History of Past illness Narrative* Problem Noted Date Diagnosed Date Resolved Date JONATHON (obstructive sleep apnea) 06/15/2009 11/02/2018 documented as of this encounter (statuses as of 01/15/2023) [place] [address] History of Past illness Narrative* Problem Noted Date Diagnosed Date Resolved Date JONATHON (obstructive sleep apnea) 06/15/2009 11/02/2018 documented as of this encounter (statuses as of 01/21/2023) [place] [address] History of Past illness Narrative* Problem Noted Date Diagnosed Date Resolved Date JONATHON (obstructive sleep apnea) 06/15/2009 11/02/2018 documented as of this encounter (statuses as of 02/05/2023) [address] History of Past illness Narrative* Problem Noted Date Diagnosed Date Resolved Date JONATHON (obstructive sleep apnea) 06/15/2009 11/02/2018 documented as of this encounter (statuses as of 02/07/2023) [facility] Diagnosis Diabetic polyneuropathy associated with type 2 diabetes mellitus (HCC) Recurrent low back pain Lumbago [facility] Diagnosis Diabetic polyneuropathy associated with type 2 diabetes mellitus (HCC) Recurrent low back pain Lumbago [facility] Diagnosis Benign prostatic hyperplasia, unspecified whether lower urinary tract symptoms present- Primary Hypertension, essential Unspecified essential hypertension Coronary artery disease involving [place] coronary artery of [place] heart without angina pectoris Hyperlipidemia, mixed 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, without long- term current use of insulin (HCC) Diabetic polyneuropathy associated with type 2 diabetes mellitus (HCC) Hiatal hernia Diaphragmatic hernia without mention of obstruction or gangrene 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 Ataxia Lack of coordination [facility] Diagnosis Upper respiratory tract infection due to COVID-19 virus- Primary Brain atrophy (HCC) Cerebral degeneration, unspecified Mild dementia (HCC) Dementia, unspecified, without behavioral disturbance [facility] Diagnosis Benign prostatic hyperplasia without lower urinary tract symptoms [facility] Diagnosis Bilateral leg edema- Primary Edema Bilateral calf pain Pain in limb [facility] Diagnosis Bilateral leg edema- Primary Edema SOB (shortness of breath) Shortness of breath Bilateral calf pain Pain in limb Screening for colon cancer Special screening for malignant neoplasms, colon Controlled type 2 diabetes mellitus with diabetic neuropathy, without long-term current use of insulin ([facility]) [facility] Diagnosis Elevated serum creatinine- Primary Other nonspecific findings on examination of blood [facility] Diagnosis Hypertension, essential Unspecified essential hypertension Essential tremor Essential and other specified forms of tremor [facility] Diagnosis Venous incompetence- Primary Unspecified venous (peripheral) insufficiency Bilateral leg edema Edema [facility] Diagnosis Coronary artery disease involving [place] coronary artery of [place] heart without angina pectoris- Primary Medication management Encounter for long-term (current) use of other medications Controlled type 2 diabetes mellitus with diabetic neuropathy, without long-term current use of insulin (HCC) Hypertension, essential Unspecified essential hypertension Hyperlipidemia, mixed Mixed hyperlipidemia [facility] Diagnosis Elevated serum creatinine Other nonspecific findings on examination of blood [facility] Diagnosis Benign prostatic hyperplasia with urinary obstruction- Primary Bladder stone Other calculus in bladder [facility] Diagnosis Diabetic polyneuropathy associated with type 2 diabetes mellitus (HCC) Recurrent low back pain Lumbago [facility] Diagnosis Dementia with behavioral disturbance- Primary Dementia, unspecified, with behavioral disturbance [facility] Diagnosis Controlled type 2 diabetes mellitus with diabetic polyneuropathy, without long- term current use of insulin ([facility]) [facility]* Diagnosis Brain atrophy (HCC)- Primary Cerebral degeneration, unspecified Dementia with behavioral disturbance Dementia, unspecified, with behavioral disturbance Sleep concern Problems related to lack of adequate sleep Urinary frequency [facility]* Diagnosis Moderate dementia with other behavioral disturbance, unspecified dementia type (HCC)- Primary History of stroke Transient ischemic attack (TIA), and cerebral infarction without residual deficits Low vitamin B12 level Other B-complex deficiencies [facility]* Diagnosis Hypertension, essential Unspecified essential hypertension Essential tremor Essential and other specified forms of tremor [facility] Diagnosis Spinal stenosis of cervical region- Primary Spinal stenosis in cervical region Weakness Other malaise and fatigue Parkinsonism, unspecified Parkinsonism type (HCC) Frequent falls Personal history of fall Moderate dementia with other behavioral disturbance, unspecified dementia type (HCC) [facility] Diagnosis Moderate dementia with other behavioral disturbance, unspecified dementia type (HCC)- Primary Frequent falls Personal history of fall Parkinsonism, unspecified Parkinsonism type (HCC) [facility] Diagnosis Spinal stenosis of cervical region- Primary Spinal stenosis in cervical region Weakness Other malaise and fatigue Parkinsonism, unspecified Parkinsonism type (HCC) Frequent falls Personal history of fall Moderate dementia with other behavioral disturbance, unspecified dementia type (HCC) [facility] Diagnosis Diabetic polyneuropathy associated with type 2 diabetes mellitus (HCC) Recurrent low back pain Lumbago [facility] Diagnosis Controlled type 2 diabetes mellitus with diabetic polyneuropathy, without long- term current use of insulin (HCC) [facility] Diagnosis Controlled type 2 diabetes mellitus with diabetic neuropathy, without long-term current use of insulin (HCC)- Primary Primary hypertension Unspecified essential hypertension Hyperlipidemia, mixed Mixed hyperlipidemia Microalbuminuria Proteinuria [facility] Diagnosis Brain atrophy (HCC)- Primary Cerebral degeneration, unspecified 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 [...] kidney disease (HCC) documented in this encounter [facility] note* Diagnosis Diabetic polyneuropathy associated with type 2 diabetes mellitus (HCC) Recurrent low back pain Lumbago [facility] Diagnosis Moderate dementia with [...] of traumatic fracture documented in this encounter [facility] for referral (narrative)* Diagnostic Procedure Only (Urgent) - Closed Specialty Diagnoses / Procedures Referred By Contac t Referred To Contact [facility] Diagnoses Bilateral leg edema Bilateral calf pain Procedures US DVT LOWER BILAT DUP-SCAN XTR VEINS COMPLETE BILATERAL STUDY Jerrod Ojeda PA-C [address] [place] [address] [facility] Referral ID Status Reason Start Date Expiration Date V isits Requested Visits Authorized [id number] Closed Auto-Generate d Referral 02/12/2022 03/14/2023 1 1 * Outpatient Procedure (Urgent) - Pending Review Specialty Diagnoses / Procedures Referred By Contac t Referred To Contact [facility] [place] Diagnoses Bilateral leg edema Bilateral calf pain Procedures US LEG VEIN DVT ESME VAS LAB DUP-SCAN XTR VEINS COMPLETE BILATERAL STUDY Jerrod Ojeda PA-C [address] [place] [address] [facility] [address] [address] Referral ID Status Reason Start Date Expiration Date Visits Requested Visits Authorized [id number] Pending Review Auto-Generat ed Referral 02/12/2022 02/12/2023 1 1 [facility] for referral (narrative)* Outpatient Procedure (Routine) - Authorized Specialty Diagnoses / Procedures Referred By Contac t Referred To Contact [facility] [place] Diagnoses Bilateral leg edema Procedures US VENOUS INCOMPETENCY ESME VAS LAB DUP-SCAN XTR VEINS COMPLETE BILATERAL STUDY Jerrod Ojeda PA-C [address] [place] [address] [address] Referral ID Status Reason Start Date Expiration Date Visits Requested Visits Authorized [id number] Authorized Auto-Generat ed Referral 02/28/2022 02/28/2023 1 1 [facility] for referral (narrative)* Diagnostic Procedure Only (Routine) - Pending Review Specialty Diagnoses / Procedures Referred By Contac t Referred To Contact US IMAGING Diagnoses Elevated serum creatinine Procedures US KIDNEY/BLADDER US RETROPERITONEAL REAL TIME W/IMAGE COMPLETE Jerrod Ojeda PA-C [address] [place] [address] Us Imaging Referral ID Status Reason Start Date Expiration Date Visits Requested Visits Authorized [id number] Pending Review Auto-Generat ed Referral 03/06/2022 04/05/2023 1 1 [facility] for referral (narrative)* Diagnostic Procedure Only (Routine) - Closed Specialty Diagnoses / Procedures Referred By Contac t Referred To Contact US IMAGING Diagnoses Elevated serum creatinine Procedures US KIDNEY/BLADDER US RETROPERITONEAL REAL TIME W/IMAGE COMPLETE Jerrod Ojeda PA-C [address] [place] [address] Us Imaging Referral ID Status Reason Start Date Expiration Date V isits Requested Visits Authorized [id number] Closed Auto-Generate d Referral 03/06/2022 04/05/2023 1 1 [facility] for referral (narrative)* Diagnostic Procedure Only (Routine) - Pending Review Specialty Diagnoses / Procedures Referred By Contac t Referred To Contact US IMAGING Diagnoses Moderate dementia with other behavioral disturbance, unspecified dementia type (HCC) History of stroke Procedures [place] [address] [place] [phone] Us Imaging Referral ID Status Reason Start Date Expiration Date Visits Requested Visits Authorized [id number] Pending Review Auto-Generat ed Referral 07/31/2022 08/30/2023 1 1 [facility] Summary Purpose Family History No Family History Records FoundNo Family History Records FoundNo Family History Records FoundNo Family History Records Found Advance Directives No Advanced Directives Records FoundDocuments on File Type Date Recorded 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 Advance Directive(s) Documents on File Type Date Recorded 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 Advance Directive(s) Reason for Referral Specialty Diagnoses / Procedures Referred By Contac t Referred To Contact MR IMAGING Diagnoses Ataxia Procedures MRI BRAIN WO IVCON MRI BRAIN BRAIN STEM W/O CONTRAST MATERIAL Jerrod Ojeda PA-C [address] [place] [address] Mr Imaging Referral ID Status Reason Start Date Expiration Date Visits Requested Visits Authorized [id number] Pending Review Auto-Generat ed Referral 11/12/2021 12/12/2022 1 1 Specialty Diagnoses / Procedures Referred By Contac t Referred To Contact Vascular Surgery Diagnoses Venous incompetence Bilateral leg edema Procedures CONSULT TO VASCULAR SURGERY OFFICE/OUTPATIENT [facility] 60-74 MINUTES Jerrod Ojeda PA-C [address] [place] [address] Referral ID Status Reason Start Date Expiration Date Visits Requested Visits Authorized [id number] Pending Review PCP Requested Referral 2 03/16/2023 1 1 Specialty Diagnoses / Procedures Referred By Contac t Referred To Contact Urology Diagnoses Benign prostatic hyperplasia with urinary obstruction Bladder stone Procedures CONSULT TO UROLOGY OFFICE/OUTPATIENT [facility] 60-74 MINUTES Jerrod Ojeda PA-C [address] [place] [address] Referral ID Status Reason Start Date Expiration Date Visits Requested Visits Authorized [id number] Pending Review PCP Requested Referral 2 03/20/2023 1 1 Specialty Diagnoses / Procedures Referred By Contac t Referred To Contact Neurology Diagnoses Dementia with behavioral disturbance Procedures CONSULT TO NEUROLOGY OFFICE/OUTPATIENT [facility] 60-74 MINUTES Jerrod Ojeda PA-C [address] [place] [address] Referral ID Status Reason Start Date Expiration Date Visits Requested Visits Authorized [id number] Pending Review PCP Requested Referral 06/07/2022 06/07/2023 1 1 Specialty Diagnoses / Procedures Referred By Contac t Referred To Contact MR IMAGING Diagnoses Spinal stenosis of cervical region Procedures MRI CERVICAL SPINE WO IVC MRI SPINAL CANAL CERVICAL W/O CONTRAST Santa Barry PA-C [address] [place] [address] Mr Imaging Referral ID Status Reason Start Date Expiration Date Visits Requested Visits Authorized [id number] Pending Review Auto-Generat ed Referral 11/05/2022 12/05/2023 1 1 Specialty Diagnoses / Procedures Referred By Contac t Referred To Contact [facility] Diagnoses Weakness Frequent falls Procedures CONSULT TO PHYSICAL THERAPY PHYSICAL THERAPY EVALUATION HIGH COMPLEX 45 MINS Santa Gordon PA-C [address] [place] [address] [facility] [place] [address] [place] [address] Referral ID Status Reason Start Date Expiration Date Visits Requested Visits Authorized [id number] Pending Review Auto-Generat ed Referral 11/05/2022 11/05/2023 1 1 Specialty Diagnoses / Procedures Referred By Parul clark Referred To Contact Diagnoses Moderate dementia with other behavioral disturbance, unspecified dementia type (HCC) Frequent falls Parkinsonism, unspecified Parkinsonism type (HCC) Procedures CONSULT TO [facility] Santa Gordon PA-C [address] [place] [address] [address] [place] [id number] Referral ID Status Reason Start Date Expiration Date Visits Requested Visits Authorized [id number] Canceled PCP Requested Referral 11/06/2022 02/04/2023 3 3 Specialty Diagnoses / Procedures Referred By Parul clark Referred To Contact Diagnoses Weakness Parkinsonism, unspecified Parkinsonism type (HCC) Frequent falls Moderate dementia with other behavioral disturbance, unspecified dementia type (HCC) Procedures CONSULT TO [facility] Santa Gordon PA-C [address] [place] [address] [address] Referral ID Status Reason Start Date Expiration Date V isits Requested Visits Authorized [id number] Denied PCP Requested Referral 11/21/2022 02/19/2023 3 0 Health Concerns Infection Onset Date Last Indicated Resolved Time COVID-19 Confirmed 12/12/2021 12/12/2021 Additional Source Comments (unrecognized sect ion and content) No Status Records FoundNo Status Records FoundNo Status Records FoundNo Status Records Found INFORMATION SOURCE (unrecogn ized section and content) DATE CREATED AUTHOR AUTHOR'S ORGANIZ ATION 01/01/2019 [facility] DATE CREATED AUTHOR AUTHOR'S ORGANIZ ATION 01/19/2021 [facility] ([place]) DATE CREATED AUTHOR AUTHOR'S FOUZIA MAURICIO 07/03/2023 [facility] Source Comments (unrecognize d section and content) In the event this informatio n is protected by the Federal Confidentiality of Alcohol and Drug Abuse Patient Records regulations: The Federal rules restrict any use of the information to criminally investigate or prosecute any alcohol or drug abuse patient.[facility] Hospital[facility] the event this information is protected by the Federal Confidentiality of Alcohol and Drug Abuse Patient Records regulations: The Federal rules restrict any use of the information to criminally investigate or prosecute any alcohol or drug abuse patient.[facility] Hospital[facility] the event this information is protected by the Federal Confidentiality of Alcohol and Drug Abuse Patient Records regulations: The Federal rules restrict any use of the information to criminally investigate or prosecute any alcohol or drug abuse patient.[facility] Hospital[facility] the event this information is protected by the Federal Confidentiality of Alcohol and Drug Abuse Patient Records regulations: The Federal rules restrict any use of the information to criminally investigate or prosecute any alcohol or drug abuse patient.[facility] HospitalIn the event this information is protected by the Federal Confidentiality of Alcohol and Drug Abuse Patient Records regulations: The Federal rules restrict any use of the information to criminally investigate or prosecute any alcohol or drug abuse patient.[facility] HospitalIn the event this information is protected by the Federal Confidentiality of Alcohol and Drug Abuse Patient Records regulations: The Federal rules restrict any use of the information to criminally investigate or prosecute any alcohol or drug abuse patient.[facility] HospitalIn the event this information is protected by the Federal Confidentiality of Alcohol and Drug Abuse Patient Records regulations: The Federal rules restrict any use of the information to criminally investigate or prosecute any alcohol or drug abuse patient.[facility] HospitalIn the event this information is protected by the Federal Confidentiality of Alcohol and Drug Abuse Patient Records regulations: The Federal rules restrict any use of the information to criminally investigate or prosecute any alcohol or drug abuse patient.[facility] HospitalIn the event this information is protected by the Federal Confidentiality of Alcohol and Drug Abuse Patient Records regulations: The Federal rules restrict any use of the information to criminally investigate or prosecute any alcohol or drug abuse patient.[facility] HospitalIn the event this information is protected by the Federal Confidentiality of Alcohol and Drug Abuse Patient Records regulations: The Federal rules restrict any use of the information to criminally investigate or prosecute any alcohol or drug abuse patient.[facility] HospitalIn the event this information is protected by the Federal Confidentiality of Alcohol and Drug Abuse Patient Records regulations: The Federal rules restrict any use of the information to criminally investigate or prosecute any alcohol or drug abuse patient.[facility] HospitalIn the event this information is protected by the Federal Confidentiality of Alcohol and Drug Abuse Patient Records regulations: The Federal rules restrict any use of the information to criminally investigate or prosecute any alcohol or drug abuse patient.[facility] HospitalIn the event this information is protected by the Federal Confidentiality of Alcohol and Drug Abuse Patient Records regulations: The Federal rules restrict any use of the information to criminally investigate or prosecute any alcohol or drug abuse patient.[facility] HospitalIn the event this information is protected by the Federal Confidentiality of Alcohol and Drug Abuse Patient Records regulations: The Federal rules restrict any use of the information to criminally investigate or prosecute any alcohol or drug abuse patient.[facility] HospitalIn the event this information is protected by the Federal Confidentiality of Alcohol and Drug Abuse Patient Records regulations: The Federal rules restrict any use of the information to criminally investigate or prosecute any alcohol or drug abuse patient.[facility] HospitalIn the event this information is protected by the Federal Confidentiality of Alcohol and Drug Abuse Patient Records regulations: The Federal rules restrict any use of the information to criminally investigate or prosecute any alcohol or drug abuse patient.[facility] HospitalIn the event this information is protected by the Federal Confidentiality of Alcohol and Drug Abuse Patient Records regulations: The Federal rules restrict any use of the information to criminally investigate or prosecute any alcohol or drug abuse patient.[facility] HospitalIn the event this information is protected by the Federal Confidentiality of Alcohol and Drug Abuse Patient Records regulations: The Federal rules restrict any use of the information to criminally investigate or prosecute any alcohol or drug abuse patient.[facility] HospitalIn the event this information is protected by the Federal Confidentiality of Alcohol and Drug Abuse Patient Records regulations: The Federal rules restrict any use of the information to criminally investigate or prosecute any alcohol or drug abuse patient.[facility] HospitalIn the event this information is protected by the Federal Confidentiality of Alcohol and Drug Abuse Patient Records regulations: The Federal rules restrict any use of the information to criminally investigate or prosecute any alcohol or drug abuse patient.[facility] HospitalIn the event this information is protected by the Federal Confidentiality of Alcohol and Drug Abuse Patient Records regulations: The Federal rules restrict any use of the information to criminally investigate or prosecute any alcohol or drug abuse patient.[facility] HospitalIn the event this information is protected by the Federal Confidentiality of Alcohol and Drug Abuse Patient Records regulations: The Federal rules restrict any use of the information to criminally investigate or prosecute any alcohol or drug abuse patient.[facility] HospitalIn the event this information is protected by the Federal Confidentiality of Alcohol and Drug Abuse Patient Records regulations: The Federal rules restrict any use of the information to criminally investigate or prosecute any alcohol or drug abuse patient.[facility] HospitalIn the event this information is protected by the Federal Confidentiality of Alcohol and Drug Abuse Patient Records regulations: The Federal rules restrict any use of the information to criminally investigate or prosecute any alcohol or drug abuse patient.[facility] HospitalIn the event this information is protected by the Federal Confidentiality of Alcohol and Drug Abuse Patient Records regulations: The Federal rules restrict any use of the information to criminally investigate or prosecute any alcohol or drug abuse patient.[facility] HospitalIn the event this information is protected by the Federal Confidentiality of Alcohol and Drug Abuse Patient Records regulations: The Federal rules restrict any use of the information to criminally investigate or prosecute any alcohol or drug abuse patient.[facility] HospitalIn the event this information is protected by the Federal Confidentiality of Alcohol and Drug Abuse Patient Records regulations: The Federal rules restrict any use of the information to criminally investigate or prosecute any alcohol or drug abuse patient.[facility] HospitalIn the event this information is protected by the Federal Confidentiality of Alcohol and Drug Abuse Patient Records regulations: The Federal rules restrict any use of the information to criminally investigate or prosecute any alcohol or drug abuse patient.[facility] HospitalIn the event this information is protected by the Federal Confidentiality of Alcohol and Drug Abuse Patient Records regulations: The Federal rules restrict any use of the information to criminally investigate or prosecute any alcohol or drug abuse patient.[facility] HospitalIn the event this information is protected by the Federal Confidentiality of Alcohol and Drug Abuse Patient Records regulations: The Federal rules restrict any use of the information to criminally investigate or prosecute any alcohol or drug abuse patient.[facility] HospitalIn the event this information is protected by the Federal Confidentiality of Alcohol and Drug Abuse Patient Records regulations: The Federal rules restrict any use of the information to criminally investigate or prosecute any alcohol or drug abuse patient.[facility] HospitalIn the event this information is protected by the Federal Confidentiality of Alcohol and Drug Abuse Patient Records regulations: The Federal rules restrict any use of the information to criminally investigate or prosecute any alcohol or drug abuse patient.[facility] HospitalIn the event this information is protected by the Federal Confidentiality of Alcohol and Drug Abuse Patient Records regulations: The Federal rules restrict any use of the information to criminally investigate or prosecute any alcohol or drug abuse patient.[facility] HospitalIn the event this information is protected by the Federal Confidentiality of Alcohol and Drug Abuse Patient Records regulations: The Federal rules restrict any use of the information to criminally investigate or prosecute any alcohol or drug abuse patient.[facility] HospitalIn the event this information is protected by the Federal Confidentiality of Alcohol and Drug Abuse Patient Records regulations: The Federal rules restrict any use of the information to criminally investigate or prosecute any alcohol or drug abuse patient.[facility] HospitalIn the event this information is protected by the Federal Confidentiality of Alcohol and Drug Abuse Patient Records regulations: The Federal rules restrict any use of the information to criminally investigate or prosecute any alcohol or drug abuse patient.[facility] HospitalIn the event this information is protected by the Federal Confidentiality of Alcohol and Drug Abuse Patient Records regulations: The Federal rules restrict any use of the information to criminally investigate or prosecute any alcohol or drug abuse patient.[facility] HospitalIn the event this information is protected by the Federal Confidentiality of Alcohol and Drug Abuse Patient Records regulations: The Federal rules restrict any use of the information to criminally investigate or prosecute any alcohol or drug abuse patient.[facility] HospitalIn the event this information is protected by the Federal Confidentiality of Alcohol and Drug Abuse Patient Records regulations: The Federal rules restrict any use of the information to criminally investigate or prosecute any alcohol or drug abuse patient.[facility] HospitalIn the event this information is protected by the Federal Confidentiality of Alcohol and Drug Abuse Patient Records regulations: The Federal rules restrict any use of the information to criminally investigate or prosecute any alcohol or drug abuse patient.[facility] HospitalIn the event this information is protected by the Federal Confidentiality of Alcohol and Drug Abuse Patient Records regulations: The Federal rules restrict any use of the information to criminally investigate or prosecute any alcohol or drug abuse patient.[facility] HospitalIn the event this information is protected by the Federal Confidentiality of Alcohol and Drug Abuse Patient Records regulations: The Federal rules restrict any use of the information to criminally investigate or prosecute any alcohol or drug abuse patient.[facility] Reason for Visit (unrecogniz ed section [...] REAL TIME W/IMAGE COMPLETE Jerrod Ojeda PA-C [address] [place] [address] Us Imaging Referral ID Status Reason Start Date Expiration Date V isits Requested Visits Authorized [id number] Closed Auto-Generate d Referral 03/06/2022 04/05/2023 1 [...] HIGH MDM 60-74 MINUTES Jerrod Ojeda PA-C [address] [place] [address] Referral ID Status Reason Start Date Expiration Date Visits Requested Visits Authorized [id number] Pending Review PCP Requested Referral 06/07/2022 06/07/2023 [...] Care Teams (unrecognized sec tion and content) Concrete Carpenter Relationship Specialty Start Date End Date Jerrod Ojeda PA-C [address] [place] [address] PCP - General Family Practice 07/01/16 Concrete Carpenter Relationship Specialty Start Date End Date Jerrod Ojeda PA-C [address] [place] [address] PCP - General Family Practice 07/01/16 Concrete Carpenter Relationship Specialty Start Date End Date Jerrod Ojeda PA-C [address] [place] [address] PCP - General Family Practice 07/01/16 Concrete Carpenter Relationship Specialty Start Date End Date Jerrod Ojeda PA-C [address] [place] [address] PCP - General Family Practice 07/01/16 Concrete Carpenter Relationship Specialty Start Date End Date Jerrod Ojeda PA-C [address] [place] [address] PCP - General Family Practice 07/01/16 Concrete Carpenter Relationship Specialty Start Date End Date Jerrod Ojeda PA-C [address] [place] [address] PCP - General Family Practice 07/01/16 Concrete Carpenter Relationship Specialty Start Date End Date Jerrod Ojeda PA-C [address] [place] [address] PCP - General Family Practice 07/01/16 Concrete Carpenter Relationship Specialty Start Date End Date Jerrod Ojeda PA-C [address] [place] [address] PCP - General Family Medicine 07/01/16 Concrete Carpenter Relationship Specialty Start Date End Date Jerrod Ojeda PA-C [address] [place] [address] PCP - General Family Medicine 07/01/16 Concrete Carpenter Relationship Specialty Start Date End Date Jerrod Ojeda PA-C [address] [place] [address] PCP - General Family Medicine 07/01/16 Concrete Carpenter Relationship Specialty Start Date End Date Jerrod Ojeda PA-C [address] [place] [address] PCP - General Family Medicine 07/01/16 Concrete Carpenter Relationship Specialty Start Date End Date Jerrod Ojeda PA-C [address] [place] [address] PCP - General Family Medicine 07/01/16 Concrete Carpenter Relationship Specialty Start Date End Date Jerrod Ojeda PA-C [address] [place] [address] PCP - General Family Medicine 07/01/16 Concrete Carpenter Relationship Specialty Start Date End Date Jerrod Ojeda PA-C [address] [place] [address] PCP - General Family Medicine 07/01/16 Concrete Carpenter Relationship Specialty Start Date End Date Jerrod Ojeda PA-C [address] [place] [address] PCP - General Family Medicine 07/01/16 Concrete Carpenter Relationship Specialty Start Date End Date Jerrod Ojeda PA-C [address] [place] [address] PCP - General Family Medicine 07/01/16 Concrete Carpenter Relationship Specialty Start Date End Date Jerrod Ojeda PA-C [address] [place] [address] PCP - General Family Medicine 07/01/16 Concrete Carpenter Relationship Specialty Start Date End Date Jerrod Ojeda PA-C [address] [place] [address] PCP - General Family Medicine 07/01/16 Concrete Carpenter Relationship Specialty Start Date End Date Jerrod Ojeda PA-C [address] [place] [address] PCP - General Family Medicine 07/01/16 Concrete Carpenter Relationship Specialty Start Date End Date Jerrod Ojeda PA-C [address] [place] [address] PCP - General Family Medicine 07/01/16 Concrete Carpenter Relationship Specialty Start Date End Date Jerrod Ojeda PA-C [address] [place] [address] PCP - General Family Medicine 07/01/16 Concrete Carpenter Relationship Specialty Start Date End Date Jerrod Ojeda PA-C [address] [place] [address] PCP - General Family Medicine 07/01/16 Concrete Carpenter Relationship Specialty Start Date End Date Jerrod Ojeda PA-C [address] [place] [address] PCP - General Family Medicine 07/01/16 Concrete Carpenter Relationship Specialty Start Date End Date Jerrod Ojeda PA-C [address] [place] [address] PCP - General Family Medicine 07/01/16 Concrete Carpenter Relationship Specialty Start Date End Date Jerrod Ojeda PA-C [address] [place] [address] PCP - General Family Medicine 07/01/16 Concrete Carpenter Relationship Specialty Start Date End Date Jerrod Ojeda PA-C [address] [place] [address] PCP - General Family Medicine 07/01/16 Concrete Carpenter Relationship Specialty Start Date End Date Jerrod Ojeda PA-C [address] [place] [address] PCP - General Family Medicine 07/01/16 Concrete Carpenter Relationship Specialty Start Date End Date Jerrod Ojeda PA-C [address] [place] [address] PCP - General Family Medicine 07/01/16 Concrete Carpenter Relationship Specialty Start Date End Date Jerrod Ojeda PA-C [address] [place] [address] PCP - General Family Medicine 07/01/16 Concrete Carpenter Relationship Specialty Start Date End Date Jerrod Ojeda PA-C [address] [place] [address] PCP - General Family Medicine 07/01/16 Concrete Carpenter Relationship Specialty Start Date End Date Jerrod Ojeda PA-C [address] [place] [address] PCP - General Family Medicine 07/01/16 Concrete Carpenter Relationship Specialty Start Date End Date Jerrod Ojeda PA-C [address] [place] [address] PCP - General Family Medicine 07/01/16 FOR [...] BE BASED ON THE PRIMARY CLINICAL RECORDS. [facility] [employer] [facility]. provides no warranty or guarantee of the accuracy or completeness of information in this document.
[2023-07-03 20:52] LABS: Absolute Lymphocyte Count 0.56 X10^3/uL (0.83-4.51); Absolute Neutrophil Count 5.8 X10^3/uL (2.0-7.7); Basophil# 0.03 X10^3/uL; Basophil% 0.4 % (0-1); Eosinophil# 0.02 X10^3/uL; Eosinophils% 0.3 % (0-5); Hematocrit 39.9 % (40-54); Hemoglobin 13.2 g/dL (13.0-16.5); Lymphocyte # 0.56 X10^3/ul (0.83-4.51); Lymphocyte % 7.8 % (19-41); Mean Corp Hgb Conc 33.1 g/dL (32-36); Mean Corpuscular Hgb 29.1 pg (27.0-32.0); Mean Corpuscular Volume 87.9 fL (80-94); Mean Platelet Vol. 8.8 fl (6.2-12.0); Monocyte# 0.75 X10^3/uL; Monocyte% 10.4 % (0-10); NRBC Flagged by Analyzer 0 % (0-5); Neutrophil # 5.79 X10^3/uL (2.7-7.7); Neutrophil % 80.5 % (47-70); POSITIVE DIFFERENTIAL YES; Platelet Count 267 K/mm3 (150-450); RBC Distribution Width CV 14.4 % (11.6-14.6); RBC Distribution Width SD 45.7 fl (35.1-43.9); Red Blood Count 4.54 M/mm3 (4.6-6.2); White Blood Count 7.2 K/mm3 (4.4-11.0)
[2023-07-03] MEDS: 0.9% Normal Saline (500mL Bag) 500 ML 1000 ML IV (21:03)
[2023-07-03 21:13] LABS: ALB/GLOB Ratio 0.9 RATIO (0.9-2.4); AST(SGOT) 17 U/L (15-37); Alanine Aminotransfer ALT/SGPT 15 U/L (16-61); Albumin, Serum 3.5 g/dL (3.2-5.0); Alkaline Phosphatase 99 U/L (45-117); Anion Gap 6 (5-15); BUN 14 mg/dL (7-18); BUN/Creat Ratio 11.4 RATIO (10-20); Calcium,Total 9.5 mg/dL (8.5-10.1); Chloride 104 mmol/L (98-107); Creatinine, Serum 1.23 mg/dL (0.70-1.30); EST Glomerular Filtration Rate 60 mL/min (>60); Est Glom Filt Rate - Afr Amer 72 mL/min (>60); Estimated Creatinine Clearance 46.16 ml/min; Globulin 3.8 g/dL (2.2-4.2); Glucose 231 mg/dL (74-106); Potassium 4.3 mmol/L (3.5-5.1); Protein, Total 7.3 g/dL (6.4-8.2); Sodium Level 136 mmol/L (136-145)
[2023-07-03 21:24] LABS: Bacteria 0 SEEN /hpf (None Seen); Mucous, Urine 0 SEEN /hpf (<or=2+); Squamous Epithelial Cells - UA 0 SEEN /hpf (0-5); White Blood Cells 0 SEEN /hpf (0-5)
[2023-07-03 21:30] LABS: Color, Urine Yellow (Yellow); Glucose, Dipstick Normal (Normal); Ketone-Dipstick 5 mg/dl (Negative); Leukocyte Esterase-Dipstick Negative /ul (Negative); Nitrite-Dipstick Negative (Negative); Occult Blood-Urine 150 /ul (Negative); Protein-Dipstick 100 mg/dl (Negative); Urine Bilirubin Dipstick Negative (Negative); Urine Clarity Clear (Clear); Urine Urobilinogen Normal (Normal)
[2023-07-03 21:39] LABS: Red Blood Cells-Urine 5-10 SEEN /hpf (0-5)
--- NOTE | 2023-07-03 22:00 | RAD_ITS ---
INDICATION: cough, question possible aspiration EXAMINATION/TECHNIQUE: X-RAY - XR Chest 1 View COMPARISON: Prior study dated: 06/30/2023 FINDINGS: LINES/DEVICES: None. LUNGS: No consolidation, edema or effusion. No pneumothorax. MEDIASTINUM AND CARDIOVASCULAR STRUCTURES: Normal cardiac silhouette. Status post median sternotomy. BONES AND SOFT TISSUES: Unchanged osseous structures. RAD/Chest 1 View (Portable) IMPRESSION: No radiographic evidence of acute cardiopulmonary disease. Electronically Signed: Catracho Mukherjee MD at 22:32 EST ,
--- OUTSIDE RECORDS SUMMARY | 2023-07-03 22:50 | XMS RPT_ITS | CCD ---
Author Name Unknown Address [address] [place] [address] Organization [facility] Care Team Providers Care Retail Clerk Name Role Phone MIKHAIL DURHAM Attending Unavailable [...] glimepiride; Translations: [GLIMEPIRIDE] Drug Allergy 1 Intolerance [facility] Repository (20 sources) Mirtazapine; Translations: [MIRTAZAPINE] Drug Allergy 5 Intolerance [facility] Repository (20 sources) Seasonal allergy; Translations: [SEASONAL ALLERGIES] Propensity to adverse reactions (disorder) 7 Other: See Comments [facility] Repository Medications Current Medications Medication Drug [...] Coronary arteriosclerosis; Translations: [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] Onset: 06-15-2009 [...] kg Lazaro Aldridge Jr., MD Work Phone: [facility] 02-07-2023 11:33-0400 Diastolic blood pressure 76 mm[Hg] Lazaro Aldridge Jr., MD Work Phone: [facility] 02-07-2023 11:33-0400 Heart rate 62 /min Lazaro Aldridge Jr., MD Work Phone: [facility] 02-07-2023 11:33-0400 Respiratory rate 16 /min Lazaro Aldridge Jr., MD Work Phone: [facility] 02-07-2023 11:33-0400 SaO2% (BldA) [Mass fraction] 97 % Lazaro Aldridge Jr., MD Work Phone: [facility] 02-07-2023 11:33-0400 Systolic blood pressure 132 mm[Hg] Lazaro Aldridge Jr., MD Work Phone: [facility] 01-06-2023 13:14-0400 Body weight 83.46 kg NA Ojeda PA-C Work Phone: [facility] 01-06-2023 13:14-0400 Diastolic blood pressure 80 mm[Hg] NA Ojeda PA-C Work Phone: [facility] 01-06-2023 13:14-0400 Heart rate 74 /min NA Ojeda PA-C Work Phone: [facility] 01-06-2023 13:14-0400 Respiratory rate 16 /min NA Ojeda PA-C Work Phone: [facility] 01-06-2023 13:14-0400 Systolic blood pressure 160 mm[Hg] NA Ojeda PA-C Work Phone: [facility] 07-31-2022 12:21-0500 Body weight 78.93 kg Lazaro Aldridge Jr., MD Work Phone: [facility] 07-31-2022 12:21-0500 Diastolic blood pressure 69 mm[Hg] Lazaro Aldridge Jr., MD Work Phone: [facility] 07-31-2022 12:21-0500 Heart rate 61 /min Lazaro Aldridge Jr., MD Work Phone: [facility] 07-31-2022 12:21-0500 SaO2% (BldA) [Mass fraction] 96 % Lazaro Aldridge Jr., MD Work Phone: [facility] 07-31-2022 12:21-0500 Systolic blood pressure 137 mm[Hg] Lazaro Aldridge Jr., MD Work Phone: [facility] 02-28-2022 15:07-0400 Body weight 85.37 kg NA Ojeda PA-C Work Phone: [facility] 02-28-2022 15:07-0400 Diastolic blood pressure 68 mm[Hg] NA Ojeda PA-C Work Phone: [facility] 02-28-2022 15:07-0400 Heart rate 68 /min NA Ojeda PA-C Work Phone: [facility] 02-28-2022 15:07-0400 Respiratory rate 20 /min NA Ojeda PA-C Work Phone: [facility] 02-28-2022 15:07-0400 SaO2% (BldA) [Mass fraction] 98 % NA Ojeda PA-C Work Phone: [facility] 02-28-2022 15:07-0400 Systolic blood pressure 120 mm[Hg] NA Ojeda PA-C Work Phone: [facility] 02-12-2022 11:51-0400 Body weight 86.18 kg NA Ojeda PA-C Work Phone: [facility] 02-12-2022 11:51-0400 Diastolic blood pressure 70 mm[Hg] NA Ojeda PA-C Work Phone: [facility] 02-12-2022 11:51-0400 Heart rate 52 /min NA Ojeda PA-C Work Phone: [facility] 02-12-2022 11:51-0400 Respiratory rate 20 /min NA Ojeda PA-C Work Phone: [facility] 02-12-2022 11:51-0400 SaO2% (BldA) [Mass fraction] 98 % NA Ojeda PA-C Work Phone: [facility] 02-12-2022 11:51-0400 Systolic blood pressure 142 mm[Hg] NA Ojeda PA-C Work Phone: [facility] 11-12-2021 13:38-0400 Body temperature 99.1 [degF] NA Ojeda PA-C Work Phone: [facility] 11-12-2021 13:38-0400 Body weight 84.37 kg NA Ojeda PA-C Work Phone: [facility] 11-12-2021 13:38-0400 Diastolic blood pressure 66 mm[Hg] NA Ojeda PA-C Work Phone: [facility] 11-12-2021 13:38-0400 Heart rate 68 /min NA Ojeda PA-C Work Phone: [facility] 11-12-2021 13:38-0400 Respiratory rate 18 /min NA Ojeda PA-C Work Phone: [facility] 11-12-2021 13:38-0400 SaO2% (BldA) [Mass fraction] 99 % NA Ojeda PA-C Work Phone: [facility] 11-12-2021 13:38-0400 Systolic blood pressure 112 mm[Hg] NA Ojeda PA-C Work Phone: [facility] Encounters Encounter Date Encounter Type Care Provider Facility Start: 06-09-2023 End: 06-09-2023 ambulatory Jerrod OJEDA Facility:[facility] Start: 02-07-2023 End: 02-07-20[facility] Start: 02-07-2023 End: 02-07-2023 Patient encounter procedure Lazaro Aldridge MD Work Phone: Neurology Procedures Date Procedure Procedure Detail Performing Clinician History of coronary artery bypass grafting S/P CABG x 2 M Collins Ojeda PA-C Work Phone: Plan of Treatment Date Care Activity Detail Author Start: 01-02-2031 Urine microalbumin profile DTAP,TDAP,TD (2 - Td or Tdap) [facility] Start: 02-06-2024 Hepatitis B surface antibody level LDL CHOLESTEROL [facility] Start: 01-07-2024 3 comp foot exam completed DIABETIC FOOT EXAM [facility] Start: 08-06-2023 Hemoglobin A1c/Hemoglobin.total in Blood HBA1C [facility] Start: 03-28-2023 End: 05-28-2023 Hemoglobin A1c in Blood HGB A1C Lab Routine Microalbuminuria Expected: 03/28/2023, Expires: 05/28/2023 [facility] Work Phone: Immunizations Immunization Date Immunization Notes Care Provider Jostin timmons 01-15-2022 zoster vaccine recombinant NA Ojeda PA-C Work Phone: [facility] 08-10-2021 influenza, high-dose , quadrivalent vaccine (FLUZONE HIGH DOSE QUADRIVALENT) NA Ojeda PA-C Work Phone: [facility] 01-02-2021 tetanus toxoid, redu talha diphtheria toxoid, and acellular pertussis vaccine, adsorbed NA Ojeda PA-C Work Phone: [facility] 08-01-2020 influenza, high-dose , quadrivalent vaccine (FLUZONE HIGH DOSE QUADRIVALENT) NA Ojeda PA-C Work Phone: [facility] 03-25-2019 influenza, high dose seasonal, preservative-free NA Ojeda PA-C Work Phone: [facility] 03-04-2018 influenza, high dose seasonal, preservative-free NA Ojeda PA-C Work Phone: [facility] 04-14-2017 influenza, high dose seasonal, preservative-free NA Ojeda PA-C Work Phone: [facility] Work Phone: 12-30-2016 pneumococcal conjuga te vaccine, 13 valent NA Ojeda PA-C Work Phone: [facility] Work Phone: 12-17-2016 zoster vaccine, live NA Taj on PA-C Work Phone: [facility] Work Phone: 07-01-2016 influenza, high dose seasonal, preservative-free NA Ojeda PA-C Work Phone: [facility] Work Phone: 03-15-2015 influenza, high dose seasonal, preservative-free NA Ojeda PA-C Work Phone: [facility] Work Phone: 04-08-2014 influenza, high dose seasonal, preservative-free NA Ojeda PA-C Work Phone: [facility] 06-25-2013 influenza virus vacc ine, whole virus NA Ojeda PA-C Work Phone: [facility] 04-02-2008 influenza virus vacc ine, unspecified formulation NA Ojeda PA-C Work Phone: [facility] Work Phone: 04-02-2007 influenza virus vacc ine, unspecified formulation NA Ojeda PA-C Work Phone: [facility] Work Phone: 04-02-2005 influenza virus vacc ine, unspecified formulation NA Ojeda PA-C Work Phone: [facility] Work Phone: 04-02-2005 pneumococcal polysaccharide vaccine, 23 valent NA Ojeda PA-C Work Phone: [facility] Work Phone: Payers Date Payer Category Payer Medicare [id number] 2013 Medicare [employer] [place] [place] [id number] 2013-Present [phone] [address] [place] [address] [facility] [id number] 2013 Medicare [employer] [place] [id number] 2013-Present [phone] [address] [place] [address] [facility] [id number] 1940 Unknown [id number] Social History Date Type Detail Facility Start: 05-19-2017 End: 02-12-2022 Tobacco smoking status NHIS Ex-smoker [facility] End: 06-02-1983 History of tobacco use Current smoker [facility] Start: 08-10-2021 End: 02-07-2023 Alcohol intake Current non-drinker of alcohol (finding) [facility] Start: 07-26-2020 End: 06-11-2022 History SDOH Alcohol Frequency 2 [facility] Start: 07-26-2020 End: 06-11-2022 History SDOH Alcohol Std Drinks 1 [facility] Start: 07-26-2020 History SDOH Social Connections Phone 5 [facility] Start: 07-26-2020 End: 06-11-2022 History SDOH Social Connections Get Together 3 [facility] Start: 07-26-2020 End: 06-11-2022 History SDOH Physical Activity DPW 0 [facility] Start: 07-26-2020 End: 06-11-2022 History SDOH Financial 4 [facility] Start: 07-25-2020 Education 12 [facility] Start: 1940 Sex Assigned At Male [facility] Start: 11-02-2021 End: 02-12-2022 Exposure to SARS-CoV-2 (event) Not sure [facility] Start: 12-04-2021 End: 12-14-2021 Exposure to SARS-CoV-2 (event) Yes [facility] End: 06-02-1983 History of tobacco use Cigarette Smoker [facility] Work Phone: Start: 05-19-2017 End: 02-12-2022 Tobacco use and exposure Smokeless tobacco non-user [facility] Work Phone: Start: 06-11-2022 End: 11-05-2022 History of Social function [facility] Start: 06-11-2022 End: 11-05-2022 Social connection and isolation panel [facility] Do you belong to any clubs or organizations such as jehovah's witness groups, unions, fraternal or athletic groups, or school groups? No [facility] Are you now , , , , never or living with a partner? [facility] How often to you hav e a drink containing alcohol? 2-3 time sa week [facility] How many standard dr inks containing alcohol do you have on a typical day? 1 or 2 [facility] How often do you hav e 6 or more drinks on 1 occasion? Never [facility] How hard is it for y ou to pay for the very basics like food, housing, medical care, and heating Not very hard [facility] Adult Depression Screening Assessment 4 [facility] Do you feel stress - tense, restless, nervous, or anxious, or unable to sleep at night because your mind is troubled all the time - these days [OSQ] Rather much [facility] (I/We) worried wheblaine er (my/our) food would run out before (I/we) got money to buy more. Never true [facility] Start: 02-29-2020 Gender identity Identifies as male gender (finding) [facility] Start: 02-29-2020 Sexual orientation Heterosexual (finding) [facility] Clinical Notes 06-15-2009 to 06-09-2023 Lazaro Aldridge Jr., MD - 02/07/2023 11:47 AM EDTTelephone Encounter - Tiara Ortiz LPN - 01/21/2023 10:33 AM EDTTelephone Encounter - Jerrod Ojeda PA-C - 01/14/2023 3:05 PM EDT Note Date & Type Note Facility 06-09-2023 Note HNO ID: [id number] Author: LAZARO ALDRIDGE JR, MD Service: ? [...] Value 02/05/2023 4 (more content not included)... [facility] 02-07-2023 Note HNO ID: [id number] Author: Lazaro Aldridge Jr., MD Service: ? [...] Similar objects: 2/2 Orientation: Friday, 2001, January, [facility] [place]: 09/05 Delayed recall: 06/06 REVIEW [...] HPI - h (more content not included)... [facility] 02-07-2023 History of Present illness [...] follow up in 3 months at our [place] offices. Pt and his family agree with [...] which included preparing to see the patient, [id number] patient care, completing clinical documentation, obtaining and/or reviewing separately obtained history, performing a medically appropriate examination, counseling and educating the patient/family/caregiver, ordering medications, tests, or procedures, independently interpreting results (not separately reported), and communicating results to the patient/family/caregiver. documented in this encounter [facility] 01-21-2023 Miscellaneous Notes JENARO 11/05/22 with [...] Santa Gordon PA-C documented in this encounter [facility] 01-14-2023 Miscellaneous Notes The following approved [...] you. RINKU Alarcon documented in this encounter [facility] 01-06-2023 Note HNO ID: [id number] Author: Jerrod Ojeda PA-C Service: ? 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 Dr. Emory Arias 02/02/15 [...] No significant change from 09/21/09 01/27/15 referral airplane refueler Kelvin Ellis [facility] 09/21/09 echocardiogram: LV size NL, LVSF: 60% [...] 6.3 08/10/2021 6.7 03/24/2020 Test sent to [facility]. 10/30/2019 Test sent to [facility]. ) CMP: Glucose 128 03/15/2022 BUN [...] recurrently Retrolisthesis Spo (more content not included)... [facility] 01-06-2023 Instructions Jerrod Ojeda PA-C - 01/06/2023 2:08 PM EDT Please bring in advanced directives. 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 Dr. Emory Arias 02/02/15 [...] No significant change from 09/21/09 01/27/15 referral airplane refueler Kelvin Ellis [facility] [place] 09/21/09 echocardiogram: LV size NL, LVSF: 60% [...] 6.3 08/10/2021 6.7 03/24/2020 Test sent to [facility]. 10/30/2019 Test sent to [facility]. ) CMP: Glucose 128 03/15/2022 BUN [...] be affecting 3. 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 requesting provider review and signature. Forwarded to [facility]'s desk for signature. Once signed, please fax to [facility] at [phone]. Gale Paniagua MA documented in this encounter [facility] 12-19-2022 Miscellaneous Notes Patient has been identified by name and date of : Yes Patient phones for refill(s): Requested Prescriptions Pending Prescriptions Disp Refills lisinopril (ZESTRIL) 20 mg tablet 90 tablet 1 Sig: Take 1 tablet by mouth once daily. Date of last office visit in primary care: 06/11/2022 Please advise. Thank you. Paula Jauregui LPN documented in this encounter [facility] 12-10-2022 Note HNO ID: [id number] Author: RT Margo(Ej) Service: ? Author Type: [...] RT Margo(Ej) December 10, 2022 1:47 PM [facility] 12-10-2022 Miscellaneous Notes Left a [...] Alexys Negron LPN documented in this encounter [facility] 12-09-2022 Miscellaneous Notes Patient has been [...] Gale Paniagua MA documented in this encounter [facility] 12-05-2022 Miscellaneous Notes Teressa, a speech therapist with [facility] is calling to update PCP that during her visit with patient yesterday, pt's family reports that pt has had three recent falls. One on 11/29, one on 12/02 and one on 12/03. No injuries. Reports pt's legs are weak and give out. Pt will be receiving Physical Therapy. No call back needed. Thank you. documented in this encounter [facility] 11-26-2022 Miscellaneous Notes Spoke to patients and she is agreeable with going to [facility]. Orders and pt information sent to fax number [phone]. Tiara Ortiz LPN Thank you for the referral of your patient to [facility]. At this time, we are at capacity and are unable to accept your patient. In order to help your patient receive quality home care, we have included reputable agencies that service this area: [facility], Phone number [phone] or [facility], phone number [phone]. Please contact this agency and they will work with your patient to arrange timely services. Thank you, Alexsandra Busch LPN 11/22/2022 2:29 PM documented in this encounter [facility] 11-22-2022 Miscellaneous Notes Please assist with [...] Britany Guillory RN documented in this encounter [facility] 11-13-2022 Miscellaneous Notes Sw notes that [facility] is reaching out to [...] Spouse and Sw also discussed that our [facility] still has PT if for whatever reason HH does not work. documented in this encounter [facility] 11-05-2022 Note HNO ID: [id number] Author: Santa Gordon PA-C Service: ? Author Type: Physician Shampoo Assistant Type: Progress Notes Filed: 11/05/2022 12:51 PM [...] follow up in 3 months at our [place] offices. Pt and his family agree with [...] pain or muscle (more content not included)... [facility] 11-05-2022 Instructions Santa Gordon PA-C - 11/05/2022 12:18 PM EDT Increase water intake Social work consult for falls and physical therapy Physical therapy for strength MRI of the cervical spine Continue B12 supplementation, continue namenda 10mg bid Follow up in three months documented in this encounter [facility] 11-05-2022 History of Present illness Narrative [...] follow up in 3 months at our [place] offices. Pt and his family agree with [...] which included preparing to see the patient, [id number] patient care, completing clinical documentation, obtaining and/or reviewing separately obtained history, performing a medically appropriate examination, counseling and educating the patient/family/caregiver, and ordering medications, tests, or procedures. This document has been created with the use of voice recognition technology. It may contain inaccuracies: (e.g. misspellings, inaccurate syntax or word sense) that have escaped review. documented in this encounter [facility] 10-07-2022 Miscellaneous Notes Left the patient a voice message about the appointment date and time change. Sent the patient a [employer] message and mailed the reminder. The patient is scheduled for a 3-month follow-up on 11/05 with HERB Owen. The patient is scheduled for a 6-month follow-up on 02/[address] Alrdidge. documented in this encounter [facility] 09-09-2022 Miscellaneous Notes Patient phones requesting refills as follows: Requested Prescriptions Pending Prescriptions Disp Refills atenolol (TENORMIN) 25 mg tablet 90 tablet 1 Sig: Take 1 tablet by mouth once daily. JENARO 06/11/22 NOV no upcoming appt Please review and advise. Alexys Negron LPN documented in this encounter [facility] 08-02-2022 Miscellaneous Notes Patient telephoend. answered. Made aware of update. Voices understanding, will peanut picker medication tomorrow. Sissy Huerta LPN Please advise Yoselin Aldridge recommended supplementing vit B12- this is a sublingual The following approved medication requests have been transmitted electronically. Requested Prescriptions Signed Prescriptions Disp Refills Cyanocobalamin 1,000 mcg subl 90 tablet 3 Sig: Dissolve 1 tablet under the tongue once daily. Authorizing Provider: Jerrod OJEDA PA-C documented in this encounter [facility] 07-31-2022 Note HNO ID: [id number] Author: Lazaro Aldridge Jr., MD Service: ? [...] recall: 2; 2 Number repeat: 06/03 (bkwrds: [id number]) Sentence repeat: 07/04 Serial 7s: 100-93-x 06/04 Orientation: X/X/2002, Wed, Yanes, Biden 08/05 Delayed recall: 07/07 Similar object: 1 Cube drawin/1 Clock drawing: (numbers outside match-e-be-nash-she-wish band, writes # for 10 p 11) 06/04 [...] (mg/dL) Date Value (more content not included)... [facility] 07-31-2022 History of Present illness [...] 06/03 Cube drawin Clock drawing: (numbers outside match-e-be-nash-she-wish band, writes # for 10 p 11) 06/04 [...] As for other causes, will ask Nnamdi Ojdea PA-C to initiate B12 supplementation. Also I [...] follow up in 3 months at our [place] offices. Pt and his family agree with plan. Lazaro Aldridge MD I spent a total of 60+ minutes on the date of the service which included preparing to see the patient, [id number] patient care, completing clinical documentation, obtaining and/or reviewing separately obtained history, performing a medically appropriate examination, counseling and educating the patient/family/caregiver, ordering medications, tests, or procedures, independently interpreting results (not separately reported), and communicating results to the patient/family/caregiver. documented in this encounter [facility] 07-22-2022 Miscellaneous Notes Patient phones requesting refills as follows: Requested Prescriptions Pending Prescriptions Disp Refills gabapentin (NEURONTIN) 600 mg tablet 180 tablet 1 Sig: Take 1 tablet by mouth twice daily for 180 days. JENARO 06/11/22 (virtual) 02/28/22 (in office) NOV no upcoming appt Please review and advise. Alexys Negron LPN documented in this encounter [facility] 06-14-2022 Miscellaneous Notes Patient's calls back [...] Britany Guillory RN documented in this encounter [facility] 06-13-2022 Miscellaneous Notes Component Latest Ref Rng & Units 06/11/2022 Color Yellow Yellow Clarity Clear Cloudy (A) Glucose, Urine Trace, Negative Negative Bilirubin, Urine Negative Negative Ketones, Urine Trace, Negative Negative Specific [place], Ur 1.005 - 1.030 1.025 Hemoglobin/Blood,Ur Negative, [...] (A) Culture pending documented in this encounter [facility] 06-11-2022 Miscellaneous Notes Received fax from [employer]. Requesting order for test strips. Call to patient and they did not request this company nor do they want to use this company. Fax shredded. Mary Kate Nolasco Ma documented in this encounter [facility] 06-11-2022 History of Present illness Narrative Audio only was used for evaluation of this patient. Location of patient: [place] Patient was offered a virtual/telemedicine appointment in [...] Jerrod Ojeda PA-C documented in this encounter [facility] 06-10-2022 Miscellaneous Notes Last office visit: 02/28/22 F/u scheduled: 06/11/22 Lisa Han Ma documented in this encounter [facility] 06-07-2022 Miscellaneous Notes Will scheduled when [...] . Thank you. documented in this encounter [facility] 05-10-2022 Miscellaneous Notes Patient phones requesting refills as follows: Requested Prescriptions Pending Prescriptions Disp Refills traMADol (ULTRAM) 50 mg tablet 60 tablet 5 Sig: Take 1 tablet by mouth twice daily as needed for pain for up to 30 days. JENARO-02/28/22 Labs-03/18/22 NOV-05/14/22 med filled 10/17/21 Please review and advise. Albina Porter LPN documented in this encounter [facility] 03-20-2022 Miscellaneous Notes TC to pt, spoke /c pt [place], notified of results/provider response. [place] states d/t transportation issues they would prefer to stay in [place]. Referral faxed to Dr. Thomas's office. Alexys Negron LPN Please advise ultrasound demonstrates a large bladder stone 3.1 cm, this is likely causing obstruction and complications with urination. Recommend consult to urology, I prefer Dr. Yo Durham on if possible in [place]. If patient wants to stay in [place] he could see Dr. Thomas Telephone on 03/20/22 CONSULT TO UROLOGY Thanks, Oneil Ojeda PA-C documented in this encounter [facility] 03-18-2022 Miscellaneous Notes Telephone on 03/18/22 CBC + DIFF COMP METABOLIC PANEL Oneil Ojeda PA-C File orders documented in this encounter [facility] 03-18-2022 History of Present illness Narrative [...] 2022 2:51 PM documented in this encounter [facility] 03-16-2022 Miscellaneous Notes Please schedule: Telephone on 03/05/22 CONSULT TO VASCULAR SURGERY Venous incompetence (primary encounter diagnosis) Bilateral leg edema ThanksOneil PA-C documented in this encounter [facility] 03-06-2022 Miscellaneous Notes Last office visit: 02/28/22 Next appointment scheduled: 05/14/22 Last labs: 02/28/22 Patient phones requesting refills as follows: Requested Prescriptions Pending Prescriptions Disp Refills atenolol (TENORMIN) 25 mg tablet 90 tablet 1 Sig: Take 1 tablet by mouth once daily. Please review and advise. Marjorie Bar LPN documented in this encounter [facility] 03-06-2022 Miscellaneous Notes Called PT LVM [...] Oneil Ojeda PA-C documented in this encounter [facility] 02-28-2022 History of Present illness Narrative 81 year old male with c/o here for follow up Bilateral leg edema (primary encounter diagnosis) Sob (shortness of breath) Bilateral calf pain Coronary artery disease involving s[place]tz tribe coronary artery of [place] trib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 angina pectoris Hypertension, essential Hyperlipidemia, [...] of left ventricle during stress 06/10/[address] [facility] Dr. Emory Arias 02/02/15 [...] No significant change from 09/21/09 01/27/15 referral airplane refueler Kelvin Ellis [facility] 09/21/09 echocardiogram: LV [...] Jerrod Ojeda PA-C documented in this encounter [facility] 02-12-2022 History of Present illness Narrative [...] Jerrod Ojeda PA-C documented in this encounter [facility] 01-28-2022 Miscellaneous Notes Patient has been [...] [place] LPN documented in this encounter [facility] 12-17-2021 Miscellaneous Notes Last office visit 12/14/2021. documented in this encounter [facility] 12-14-2021 History of Present illness Narrative Alternative video platform was used for evaluation of this patient. Location of patient: [place] Patient was offered a virtual/telemedicine appointment in [...] evaluation of this patient. Location of patient: [place] FERNANDO Mendieta is a 81 year old [...] gets really tested. Reviewed vascular dementia vs [place]'s and characteristics. Discussed new monoclonal therapy briefly- [...] discussed Nirmatrelvir/Ritonavir (Paxlovid) Eligibility and Patient Discussion [facility] Formulary Restriction Criteria: Adult outpatients 18 [...] coronavirus infection (COVID-19). documented in this encounter [facility] 11-12-2021 History of Present illness Narrative [...] BP <130/80 3. 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 Fax to requested location. Flora Ortega Ma documented in this encounter [facility] 09-17-2021 Miscellaneous Notes Pending Prescriptions Disp Refills TRAMADOL 50 MG TABLET 60 tablet 2 Sig: Take 1 tablet by mouth twice daily as needed for pain for up to 30 days. MASON Class: C-IV MILLI: No JENARO 08/10/21 NOV 11/12/21 Last refilled 06/21/21 #60 2 refills documented in this encounter [facility] documented as of this encounter (statuses as of 09/18/2021) [facility] History of Past illness Narrative* Problem Noted Date Resolved Date JONATHON (obstructive sleep apnea) 06/15/2009 documented as of this encounter (statuses as of 09/28/2021) [facility] History of Past illness Narrative* Problem Noted Date Resolved Date JONATHON (obstructive sleep apnea) 06/15/2009 documented as of this encounter (statuses as of 10/17/2021) [facility] History of Past illness Narrative* Problem Noted Date Resolved Date JONATHON (obstructive sleep apnea) 06/15/2009 documented as of this encounter (statuses as of 11/12/2021) [facility] History of Past illness Narrative* Problem Noted Date Resolved Date JONATHON (obstructive sleep apnea) 06/15/2009 documented as of this encounter (statuses as of 12/12/2021) [address] History of Past illness Narrative* Problem Noted Date Resolved Date JONATHON (obstructive sleep apnea) 06/15/2009 documented as of this encounter (statuses as of 12/14/2021) [address] History of Past illness Narrative* Problem Noted Date Resolved Date JONATHON (obstructive sleep apnea) 06/15/2009 documented as of this encounter (statuses as of 12/17/2021) [address] History of Past illness Narrative* Problem Noted Date Resolved Date JONATHON (obstructive sleep apnea) 06/15/2009 documented as of this encounter (statuses as of 01/28/2022) [address] History of Past illness Narrative* Problem Noted Date Resolved Date JONATHON (obstructive sleep apnea) 06/15/2009 documented as of this encounter (statuses as of 02/12/2022) [address] History of Past illness Narrative* Problem Noted Date Resolved Date JONATHON (obstructive sleep apnea) 06/15/2009 documented as of this encounter (statuses as of 03/01/2022) [facility] History of Past illness Narrative* Problem Noted Date Resolved Date JONATHON (obstructive sleep apnea) 06/15/2009 documented as of this encounter (statuses as of 03/06/2022) [place] [id number] History of Past illness Narrative* Problem Noted Date Resolved Date JONATHON (obstructive sleep apnea) 06/15/2009 documented as of this encounter (statuses as of 03/08/2022) [address] History of Past illness Narrative* Problem Noted Date Resolved Date JONATHON (obstructive sleep apnea) 06/15/2009 documented as of this encounter (statuses as of 03/16/2022) [place] [id number] History of Past illness Narrative* Problem Noted Date Resolved Date JONATHON (obstructive sleep apnea) 06/15/2009 documented as of this encounter (statuses as of 03/18/2022) [address] History of Past illness Narrative* Problem Noted Date Resolved Date JONATHON (obstructive sleep apnea) 06/15/2009 documented as of this encounter (statuses as of 03/19/2022) [address] History of Past illness Narrative* Problem Noted Date Resolved Date JONATHON (obstructive sleep apnea) 06/15/2009 documented as of this encounter (statuses as of 03/20/2022) [facility] History of Past illness Narrative* Problem Noted Date Resolved Date JONATHON (obstructive sleep apnea) 06/15/2009 documented as of this encounter (statuses as of 05/10/2022) [facility] History of Past illness Narrative* Problem Noted Date Resolved Date JONATHON (obstructive sleep apnea) 06/15/2009 documented as of this encounter (statuses as of 06/08/2022) [address] History of Past illness Narrative* Problem Noted Date Resolved Date JONATHON (obstructive sleep apnea) 06/15/2009 documented as of this encounter (statuses as of 06/11/2022) [address] History of Past illness Narrative* Problem Noted Date Resolved Date JONATHON (obstructive sleep apnea) 06/15/2009 documented as of this encounter (statuses as of 06/11/2022) [facility] History of Past illness Narrative* Problem Noted Date Resolved Date JONATHON (obstructive sleep apnea) 06/15/2009 documented as of this encounter (statuses as of 06/12/2022) [address] History of Past illness Narrative* Problem Noted Date Resolved Date JONATHON (obstructive sleep apnea) 06/15/2009 documented as of this encounter (statuses as of 06/14/2022) [facility] History of Past illness Narrative* Problem Noted Date Resolved Date JONATHON (obstructive sleep apnea) 06/15/2009 documented as of this encounter (statuses as of 06/14/2022) [address] History of Past illness Narrative* Problem Noted Date Resolved Date JONATHON (obstructive sleep apnea) 06/15/2009 documented as of this encounter (statuses as of 07/23/2022) [place] [address]14[address]2010 History of Past illness Narrative* Problem Noted Date Resolved Date JONATHON (obstructive sleep apnea) 06/15/2009 documented as of this encounter (statuses as of 07/31/2022) [place] [address]14[address]2010 History of Past illness Narrative* Problem Noted Date Resolved Date JONATHON (obstructive sleep apnea) 06/15/2009 documented as of this encounter (statuses as of 09/10/2022) [address] History of Past illness Narrative* Problem Noted Date Resolved Date JONATHON (obstructive sleep apnea) 06/15/2009 documented as of this encounter (statuses as of 09/20/2022) [address] History of Past illness Narrative* Problem Noted Date Resolved Date JONATHON (obstructive sleep apnea) 06/15/2009 documented as of this encounter (statuses as of 10/08/2022) [facility] History of Past illness Narrative* Problem Noted Date Resolved Date JONATHON (obstructive sleep apnea) 06/15/2009 documented as of this encounter (statuses as of 11/05/2022) [address] History of Past illness Narrative* Problem Noted Date Resolved Date JONATHON (obstructive sleep apnea) 06/15/2009 documented as of this encounter (statuses as of 11/19/2022) [place] [address]14[address]2010 History of Past illness Narrative* Problem Noted Date Resolved Date JONATHON (obstructive sleep apnea) 06/15/2009 documented as of this encounter (statuses as of 11/26/2022) [address]2010 History of Past illness Narrative* Problem Noted Date Resolved Date JONATHON (obstructive sleep apnea) 06/15/2009 documented as of this encounter (statuses as of 11/26/2022) [address]2010 History of Past illness Narrative* Problem Noted Date Diagnosed Date Resolved Date JONATHON (obstructive sleep apnea) 06/15/2009 11/02/2018 documented as of this encounter (statuses as of 12/10/2022) [address]2010 History of Past illness Narrative* Problem Noted Date Diagnosed Date Resolved Date JONATHON (obstructive sleep apnea) 06/15/2009 11/02/2018 documented as of this encounter (statuses as of 12/12/2022) [address] History of Past illness Narrative* Problem Noted Date Diagnosed Date Resolved Date JONATHON (obstructive sleep apnea) 06/15/2009 11/02/2018 documented as of this encounter (statuses as of 12/20/2022) [address] History of Past illness Narrative* Problem Noted Date Diagnosed Date Resolved Date JONATHON (obstructive sleep apnea) 06/15/2009 11/02/2018 documented as of this encounter (statuses as of 12/27/2022) [facility] History of Past illness Narrative* Problem Noted Date Diagnosed Date Resolved Date JONATHON (obstructive sleep apnea) 06/15/2009 11/02/2018 documented as of this encounter (statuses as of 01/01/2023) [place] [address]14[address]2010 History of Past illness Narrative* Problem Noted Date Diagnosed Date Resolved Date JONATHON (obstructive sleep apnea) 06/15/2009 11/02/2018 documented as of this encounter (statuses as of 01/07/2023) [place] [address] History of Past illness Narrative* Problem Noted Date Diagnosed Date Resolved Date JONATHON (obstructive sleep apnea) 06/15/2009 11/02/2018 documented as of this encounter (statuses as of 01/15/2023) [place] [address] History of Past illness Narrative* Problem Noted Date Diagnosed Date Resolved Date JONATHON (obstructive sleep apnea) 06/15/2009 11/02/2018 documented as of this encounter (statuses as of 01/21/2023) [place] [address]2010 History of Past illness Narrative* Problem Noted Date Diagnosed Date Resolved Date JONATHON (obstructive sleep apnea) 06/15/2009 11/02/2018 documented as of this encounter (statuses as of 02/05/2023) [address] History of Past illness Narrative* Problem Noted Date Diagnosed Date Resolved Date JONATHON (obstructive sleep apnea) 06/15/2009 11/02/2018 documented as of this encounter (statuses as of 02/07/2023) [facility] Diagnosis Diabetic polyneuropathy associated with type 2 diabetes mellitus (HCC) Recurrent low back pain Lumbago [facility] Diagnosis Diabetic polyneuropathy associated with type 2 diabetes mellitus (HCC) Recurrent low back pain Lumbago [facility] Diagnosis Benign prostatic hyperplasia, unspecified whether lower urinary tract symptoms present- Primary Hypertension, essential Unspecified essential hypertension Coronary artery disease involving [place] coronary artery of 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 angina pectoris Hyperlipidemia, mixed 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, without long- term current use of insulin (HCC) Diabetic polyneuropathy associated with type 2 diabetes mellitus (HCC) Hiatal hernia Diaphragmatic hernia without mention of obstruction or gangrene 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 Ataxia Lack of coordination [facility] Diagnosis Upper respiratory tract infection due to COVID-19 virus- Primary Brain atrophy (HCC) Cerebral degeneration, unspecified Mild dementia (HCC) Dementia, unspecified, without behavioral disturbance [facility]* Diagnosis Benign prostatic hyperplasia without lower urinary tract symptoms documented [facility]* Diagnosis Bilateral leg edema- Primary Edema Bilateral calf pain Pain in limb [facility]* Diagnosis Bilateral leg edema- Primary Edema SOB (shortness of breath) Shortness of breath Bilateral calf pain Pain in limb Screening for colon cancer Special screening for malignant neoplasms, colon Controlled type 2 diabetes mellitus with diabetic neuropathy, without long-term current use of insulin ([facility]) documented [facility] this [facility]* Diagnosis Elevated serum creatinine- Primary Other nonspecific findings on examination of blood [facility] Diagnosis Hypertension, essential Unspecified essential hypertension Essential tremor Essential and other specified forms of tremor [facility] Diagnosis Venous incompetence- Primary Unspecified venous (peripheral) insufficiency Bilateral leg edema Edema [facility] Diagnosis Coronary artery disease involving sile[place] tribe coronary artery of s[place] trib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 angina pectoris- Primary Medication management Encounter for long-term (current) use of other medications Controlled type 2 diabetes mellitus with diabetic neuropathy, without long-term current use of insulin (HCC) Hypertension, essential Unspecified essential hypertension Hyperlipidemia, mixed Mixed hyperlipidemia documented [facility]* Diagnosis Elevated serum creatinine Other nonspecific findings on examination of blood documented [facility]* Diagnosis Benign prostatic hyperplasia with urinary obstruction- Primary Bladder stone Other calculus in bladder [facility] Diagnosis Diabetic polyneuropathy associated with type 2 diabetes mellitus (HCC) Recurrent low back pain Lumbago documented [facility]* Diagnosis Dementia with behavioral disturbance- Primary Dementia, unspecified, with behavioral disturbance [facility]* Diagnosis Controlled type 2 diabetes mellitus with diabetic polyneuropathy, without long- term current use of insulin ([facility]) documented [facility] this [facility]* Diagnosis Brain atrophy (HCC)- Primary Cerebral degeneration, unspecified Dementia with behavioral disturbance Dementia, unspecified, with behavioral disturbance Sleep concern Problems related to lack of adequate sleep Urinary frequency documented [facility] this [facility]* Diagnosis Moderate dementia with other behavioral disturbance, unspecified dementia type (HCC)- Primary History of stroke Transient ischemic attack (TIA), and cerebral infarction without residual deficits Low vitamin B12 level Other B-complex deficiencies documented [facility]* Diagnosis Hypertension, essential Unspecified essential hypertension Essential tremor Essential and other specified forms of tremor documented [facility] this [facility]* Diagnosis Spinal stenosis of cervical region- Primary Spinal stenosis in cervical region Weakness Other malaise and fatigue Parkinsonism, unspecified Parkinsonism type (HCC) Frequent falls Personal history of fall Moderate dementia with other behavioral disturbance, unspecified dementia type (HCC) documented [facility]* Diagnosis Moderate dementia with other behavioral disturbance, unspecified dementia type (HCC)- Primary Frequent falls Personal history of fall Parkinsonism, unspecified Parkinsonism type (HCC) documented [facility]* Diagnosis Spinal stenosis of cervical region- Primary Spinal stenosis in cervical region Weakness Other malaise and fatigue Parkinsonism, unspecified Parkinsonism type (HCC) Frequent falls Personal history of fall Moderate dementia with other behavioral disturbance, unspecified dementia type (HCC) documented [facility]* Diagnosis Diabetic polyneuropathy associated with type 2 diabetes mellitus (HCC) Recurrent low back pain Lumbago [facility] Diagnosis Controlled type 2 diabetes mellitus with diabetic polyneuropathy, without long- term current use of insulin (HCC) [facility]* Diagnosis Controlled type 2 diabetes mellitus with diabetic neuropathy, without long-term current use of insulin (HCC)- Primary Primary hypertension Unspecified essential hypertension Hyperlipidemia, mixed Mixed hyperlipidemia Microalbuminuria Proteinuria [facility] Diagnosis Brain atrophy (HCC)- Primary Cerebral degeneration, unspecified 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 s[place] coronary artery of [place] trib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 angina pectoris S/P CABG x [...] kidney disease (HCC) documented in this encounter [facility]* Diagnosis Diabetic polyneuropathy associated with type 2 diabetes mellitus (HCC) Recurrent low back pain Lumbago [facility] Diagnosis Moderate dementia with [...] of traumatic fracture documented in this encounter [facility] for referral (narrative)* Diagnostic Procedure Only (Urgent) - Closed Specialty Diagnoses / Procedures Referred By Contac t Referred To Contact [facility] Diagnoses Bilateral leg edema Bilateral calf pain Procedures US DVT LOWER BILAT DUP-SCAN XTR VEINS COMPLETE BILATERAL STUDY Jerrod Ojeda PA-C [address] [place] [address] [facility] Referral ID Status Reason Start Date Expiration Date V isits Requested Visits Authorized [id number] Closed Auto-Generate d Referral 02/12/2022 03/14/2023 1 1 * Outpatient Procedure (Urgent) - Pending Review Specialty Diagnoses / Procedures Referred By Contac t Referred To Contact [facility] Diagnoses Bilateral leg edema Bilateral calf pain Procedures US LEG VEIN DVT ESME VAS LAB DUP-SCAN XTR VEINS COMPLETE BILATERAL STUDY Jerrod Ojeda PA-C [address] [place] [address] [facility] [address] [address] Referral ID Status Reason Start Date Expiration Date Visits Requested Visits Authorized [id number] Pending Review Auto-Generat ed Referral 02/12/2022 02/12/2023 1 1 [facility] for referral (narrative)* Outpatient Procedure (Routine) - Authorized Specialty Diagnoses / Procedures Referred By Contac t Referred To Contact [facility] [facility] Diagnoses Bilateral leg edema Procedures US VENOUS INCOMPETENCY ESME VAS LAB DUP-SCAN XTR VEINS COMPLETE BILATERAL STUDY Jerrod Ojeda PA-C [address] [place] [address] [address] Referral ID Status Reason Start Date Expiration Date Visits Requested Visits Authorized [id number] Authorized Auto-Generat ed Referral 02/28/2022 02/28/2023 1 1 [facility] for referral (narrative)* Diagnostic Procedure Only (Routine) - Pending Review Specialty Diagnoses / Procedures Referred By Contac t Referred To Contact US IMAGING Diagnoses Elevated serum creatinine Procedures US KIDNEY/BLADDER US RETROPERITONEAL REAL TIME W/IMAGE COMPLETE Jerrod Ojeda PA-C [address] [place] [address] Us Imaging Referral ID Status Reason Start Date Expiration Date Visits Requested Visits Authorized [id number] Pending Review Auto-Generat ed Referral 03/06/2022 04/05/2023 1 1 [facility] for referral (narrative)* Diagnostic Procedure Only (Routine) - Closed Specialty Diagnoses / Procedures Referred By Contac t Referred To Contact US IMAGING Diagnoses Elevated serum creatinine Procedures US KIDNEY/BLADDER US RETROPERITONEAL REAL TIME W/IMAGE COMPLETE Jerrod Ojeda PA-C [address] [place] [address] Us Imaging Referral ID Status Reason Start Date Expiration Date V isits Requested Visits Authorized [id number] Closed Auto-Generate d Referral 03/06/2022 04/05/2023 1 1 [facility] for referral (narrative)* Diagnostic Procedure Only (Routine) - Pending Review Specialty Diagnoses / Procedures Referred By Contac t Referred To Contact US IMAGING Diagnoses Moderate dementia with other behavioral disturbance, unspecified dementia type (HCC) History of stroke Procedures [place] [address] [place] [phone] Us Imaging Referral ID Status Reason Start Date Expiration Date Visits Requested Visits Authorized [id number] Pending Review Auto-Generat ed Referral 07/31/2022 08/30/2023 1 1 [facility] Summary Purpose Family History No Family History Records FoundNo Family History Records FoundNo Family History Records FoundNo Family History Records Found Advance Directives No Advanced Directives Records FoundDocuments on File Type Date 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 Advance Directive(s) Documents on File Type Date 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 Advance Directive(s) Reason for Referral Specialty Diagnoses / Procedures Referred By Contac t Referred To Contact MR IMAGING Diagnoses Ataxia Procedures MRI BRAIN WO IVCON MRI BRAIN BRAIN STEM W/O CONTRAST MATERIAL Jerrod Ojeda PA-C [address] [place] [address] Mr Imaging Referral ID Status Reason Start Date Expiration Date Visits Requested Visits Authorized [id number] Pending Review Auto-Generat ed Referral 11/12/2021 12/12/2022 1 1 Specialty Diagnoses / Procedures Referred By Contac t Referred To Contact Vascular Surgery Diagnoses Venous incompetence Bilateral leg edema Procedures CONSULT TO VASCULAR SURGERY OFFICE/OUTPATIENT [facility] 60-74 MINUTES Jerrod Ojeda PA-C [address] [place] [address] Referral ID Status Reason Start Date Expiration Date Visits Requested Visits Authorized [id number] Pending Review PCP Requested Referral 2 03/16/2023 1 1 Specialty Diagnoses / Procedures Referred By Contac t Referred To Contact Urology Diagnoses Benign prostatic hyperplasia with urinary obstruction Bladder stone Procedures CONSULT TO UROLOGY OFFICE/OUTPATIENT [facility] 60-74 MINUTES Jerrod Ojeda PA-C [address] [place] [address] Referral ID Status Reason Start Date Expiration Date Visits Requested Visits Authorized [id number] Pending Review PCP Requested Referral 2 03/20/2023 1 1 Specialty Diagnoses / Procedures Referred By Contac t Referred To Contact Neurology Diagnoses Dementia with behavioral disturbance Procedures CONSULT TO NEUROLOGY OFFICE/OUTPATIENT [facility] 60-74 MINUTES Jerrod Ojeda PA-C [address] [place] [address] Referral ID Status Reason Start Date Expiration Date Visits Requested Visits Authorized [id number] Pending Review PCP Requested Referral 06/07/2022 06/07/2023 1 1 Specialty Diagnoses / Procedures Referred By Contac t Referred To Contact MR IMAGING Diagnoses Spinal stenosis of cervical region Procedures MRI CERVICAL SPINE WO IVC MRI SPINAL CANAL CERVICAL W/O CONTRAST Santa Barry PA-C [address] [place] [address] Mr Imaging Referral ID Status Reason Start Date Expiration Date Visits Requested Visits Authorized [id number] Pending Review Auto-Generat ed Referral 11/05/2022 12/05/2023 1 1 Specialty Diagnoses / Procedures Referred By Contac t Referred To Contact [facility] Diagnoses Weakness Frequent falls Procedures CONSULT TO PHYSICAL THERAPY PHYSICAL THERAPY EVALUATION HIGH COMPLEX 45 MINS Santa Gordon PA-C [address] [place] [address] [facility] [place] [address] [place] [address] Referral ID Status Reason Start Date Expiration Date Visits Requested Visits Authorized [id number] Pending Review Auto-Generat ed Referral 11/05/2022 11/05/2023 1 1 Specialty Diagnoses / Procedures Referred By Parul clark Referred To Contact Diagnoses Moderate dementia with other behavioral disturbance, unspecified dementia type (HCC) Frequent falls Parkinsonism, unspecified Parkinsonism type (HCC) Procedures CONSULT TO [facility] Santa Gordon PA-C [address] [place] [address] [address] [place] [address] Referral ID Status Reason Start Date Expiration Date Visits Requested Visits Authorized [id number] Canceled PCP Requested Referral 11/06/2022 02/04/2023 3 3 Specialty Diagnoses / Procedures Referred By Parul clark Referred To Contact Diagnoses Weakness Parkinsonism, unspecified Parkinsonism type (HCC) Frequent falls Moderate dementia with other behavioral disturbance, unspecified dementia type (HCC) Procedures CONSULT TO [facility] Santa Gordon PA-C [address] [place] [address] [address] Referral ID Status Reason Start Date Expiration Date V isits Requested Visits Authorized [id number] Denied PCP Requested Referral 11/21/2022 02/19/2023 3 0 Health Concerns Infection Onset Date Last Indicated Resolved Time COVID-19 Confirmed 12/12/2021 12/12/2021 Additional Source Comments (unrecognized sect ion and content) No Status Records FoundNo Status Records FoundNo Status Records FoundNo Status Records Found INFORMATION SOURCE (unrecogn ized section and content) DATE CREATED AUTHOR AUTHOR'S ORGANIZ ATION 01/01/2019 [facility] DATE CREATED AUTHOR AUTHOR'S ORGANIZ ATION 01/19/2021 [facility] ([place]) DATE CREATED AUTHOR AUTHOR'S FOUZIA MAURICIO 07/03/2023 [facility] Source Comments (unrecognize d section and content) In the event this informatio n is protected by the Federal Confidentiality of Alcohol and Drug Abuse Patient Records regulations: The Federal rules restrict any use of the information to criminally investigate or prosecute any alcohol or drug abuse patient.[facility] the event this information is protected by the Federal Confidentiality of Alcohol and Drug Abuse Patient Records regulations: The Federal rules restrict any use of the information to criminally investigate or prosecute any alcohol or drug abuse patient.[facility] the event this information is protected by the Federal Confidentiality of Alcohol and Drug Abuse Patient Records regulations: The Federal rules restrict any use of the information to criminally investigate or prosecute any alcohol or drug abuse patient.[facility] the event this information is protected by the Federal Confidentiality of Alcohol and Drug Abuse Patient Records regulations: The Federal rules restrict any use of the information to criminally investigate or prosecute any alcohol or drug abuse patient.[facility] the event this information is protected by the Federal Confidentiality of Alcohol and Drug Abuse Patient Records regulations: The Federal rules restrict any use of the information to criminally investigate or prosecute any alcohol or drug abuse patient.[facility] the event this information is protected by the Federal Confidentiality of Alcohol and Drug Abuse Patient Records regulations: The Federal rules restrict any use of the information to criminally investigate or prosecute any alcohol or drug abuse patient.[facility] the event this information is protected by the Federal Confidentiality of Alcohol and Drug Abuse Patient Records regulations: The Federal rules restrict any use of the information to criminally investigate or prosecute any alcohol or drug abuse patient.[facility] the event this information is protected by the Federal Confidentiality of Alcohol and Drug Abuse Patient Records regulations: The Federal rules restrict any use of the information to criminally investigate or prosecute any alcohol or drug abuse patient.[facility] the event this information is protected by the Federal Confidentiality of Alcohol and Drug Abuse Patient Records regulations: The Federal rules restrict any use of the information to criminally investigate or prosecute any alcohol or drug abuse patient.[facility] the event this information is protected by the Federal Confidentiality of Alcohol and Drug Abuse Patient Records regulations: The Federal rules restrict any use of the information to criminally investigate or prosecute any alcohol or drug abuse patient.[facility]In the event this information is protected by the Federal Confidentiality of Alcohol and Drug Abuse Patient Records regulations: The Federal rules restrict any use of the information to criminally investigate or prosecute any alcohol or drug abuse patient.[facility] the event this information is protected by the Federal Confidentiality of Alcohol and Drug Abuse Patient Records regulations: The Federal rules restrict any use of the information to criminally investigate or prosecute any alcohol or drug abuse patient.[facility] the event this information is protected by the Federal Confidentiality of Alcohol and Drug Abuse Patient Records regulations: The Federal rules restrict any use of the information to criminally investigate or prosecute any alcohol or drug abuse patient.[facility]In the event this information is protected by the Federal Confidentiality of Alcohol and Drug Abuse Patient Records regulations: The Federal rules restrict any use of the information to criminally investigate or prosecute any alcohol or drug abuse patient.[facility]In the event this information is protected by the Federal Confidentiality of Alcohol and Drug Abuse Patient Records regulations: The Federal rules restrict any use of the information to criminally investigate or prosecute any alcohol or drug abuse patient.[facility] HospitalIn the event this information is protected by the Federal Confidentiality of Alcohol and Drug Abuse Patient Records regulations: The Federal rules restrict any use of the information to criminally investigate or prosecute any alcohol or drug abuse patient.[facility]In the event this information is protected by the Federal Confidentiality of Alcohol and Drug Abuse Patient Records regulations: The Federal rules restrict any use of the information to criminally investigate or prosecute any alcohol or drug abuse patient.[facility] HospitalIn the event this information is protected by the Federal Confidentiality of Alcohol and Drug Abuse Patient Records regulations: The Federal rules restrict any use of the information to criminally investigate or prosecute any alcohol or drug abuse patient.[facility] HospitalIn the event this information is protected by the Federal Confidentiality of Alcohol and Drug Abuse Patient Records regulations: The Federal rules restrict any use of the information to criminally investigate or prosecute any alcohol or drug abuse patient.[facility] HospitalIn the event this information is protected by the Federal Confidentiality of Alcohol and Drug Abuse Patient Records regulations: The Federal rules restrict any use of the information to criminally investigate or prosecute any alcohol or drug abuse patient.[facility] HospitalIn the event this information is protected by the Federal Confidentiality of Alcohol and Drug Abuse Patient Records regulations: The Federal rules restrict any use of the information to criminally investigate or prosecute any alcohol or drug abuse patient.[facility] HospitalIn the event this information is protected by the Federal Confidentiality of Alcohol and Drug Abuse Patient Records regulations: The Federal rules restrict any use of the information to criminally investigate or prosecute any alcohol or drug abuse patient.[facility] HospitalIn the event this information is protected by the Federal Confidentiality of Alcohol and Drug Abuse Patient Records regulations: The Federal rules restrict any use of the information to criminally investigate or prosecute any alcohol or drug abuse patient.[facility]In the event this information is protected by the Federal Confidentiality of Alcohol and Drug Abuse Patient Records regulations: The Federal rules restrict any use of the information to criminally investigate or prosecute any alcohol or drug abuse patient.[facility]In the event this information is protected by the Federal Confidentiality of Alcohol and Drug Abuse Patient Records regulations: The Federal rules restrict any use of the information to criminally investigate or prosecute any alcohol or drug abuse patient.[facility]In the event this information is protected by the Federal Confidentiality of Alcohol and Drug Abuse Patient Records regulations: The Federal rules restrict any use of the information to criminally investigate or prosecute any alcohol or drug abuse patient.[facility]In the event this information is protected by the Federal Confidentiality of Alcohol and Drug Abuse Patient Records regulations: The Federal rules restrict any use of the information to criminally investigate or prosecute any alcohol or drug abuse patient.[facility]In the event this information is protected by the Federal Confidentiality of Alcohol and Drug Abuse Patient Records regulations: The Federal rules restrict any use of the information to criminally investigate or prosecute any alcohol or drug abuse patient.[facility]In the event this information is protected by the Federal Confidentiality of Alcohol and Drug Abuse Patient Records regulations: The Federal rules restrict any use of the information to criminally investigate or prosecute any alcohol or drug abuse patient.[facility]In the event this information is protected by the Federal Confidentiality of Alcohol and Drug Abuse Patient Records regulations: The Federal rules restrict any use of the information to criminally investigate or prosecute any alcohol or drug abuse patient.[facility] HospitalIn the event this information is protected by the Federal Confidentiality of Alcohol and Drug Abuse Patient Records regulations: The Federal rules restrict any use of the information to criminally investigate or prosecute any alcohol or drug abuse patient.[facility] HospitalIn the event this information is protected by the Federal Confidentiality of Alcohol and Drug Abuse Patient Records regulations: The Federal rules restrict any use of the information to criminally investigate or prosecute any alcohol or drug abuse patient.[facility]In the event this information is protected by the Federal Confidentiality of Alcohol and Drug Abuse Patient Records regulations: The Federal rules restrict any use of the information to criminally investigate or prosecute any alcohol or drug abuse patient.[facility] HospitalIn the event this information is protected by the Federal Confidentiality of Alcohol and Drug Abuse Patient Records regulations: The Federal rules restrict any use of the information to criminally investigate or prosecute any alcohol or drug abuse patient.[facility] HospitalIn the event this information is protected by the Federal Confidentiality of Alcohol and Drug Abuse Patient Records regulations: The Federal rules restrict any use of the information to criminally investigate or prosecute any alcohol or drug abuse patient.[facility]In the event this information is protected by the Federal Confidentiality of Alcohol and Drug Abuse Patient Records regulations: The Federal rules restrict any use of the information to criminally investigate or prosecute any alcohol or drug abuse patient.[facility]In the event this information is protected by the Federal Confidentiality of Alcohol and Drug Abuse Patient Records regulations: The Federal rules restrict any use of the information to criminally investigate or prosecute any alcohol or drug abuse patient.[facility]In the event this information is protected by the Federal Confidentiality of Alcohol and Drug Abuse Patient Records regulations: The Federal rules restrict any use of the information to criminally investigate or prosecute any alcohol or drug abuse patient.[facility]In the event this information is protected by the Federal Confidentiality of Alcohol and Drug Abuse Patient Records regulations: The Federal rules restrict any use of the information to criminally investigate or prosecute any alcohol or drug abuse patient.[facility]In the event this information is protected by the Federal Confidentiality of Alcohol and Drug Abuse Patient Records regulations: The Federal rules restrict any use of the information to criminally investigate or prosecute any alcohol or drug abuse patient.[facility]In the event this information is protected by the Federal Confidentiality of Alcohol and Drug Abuse Patient Records regulations: The Federal rules restrict any use of the information to criminally investigate or prosecute any alcohol or drug abuse patient.[facility] HospitalIn the event this information is protected by the Federal Confidentiality of Alcohol and Drug Abuse Patient Records regulations: The Federal rules restrict any use of the information to criminally investigate or prosecute any alcohol or drug abuse patient.[facility] Reason for Visit (unrecogniz ed section [...] REAL TIME W/IMAGE COMPLETE Jerrod Ojeda PA-C [address] [place] [address] Us Imaging Referral ID Status Reason Start Date Expiration Date V isits Requested Visits Authorized [id number] Closed Auto-Generate d Referral 03/06/2022 04/05/2023 1 [...] HIGH MDM 60-74 MINUTES Jerrod Ojeda PA-C [address] [place] [address] Referral ID Status Reason Start Date Expiration Date Visits Requested Visits Authorized [id number] Pending Review PCP Requested Referral 06/07/2022 06/07/2023 [...] Care Teams (unrecognized sec tion and content) Retail Clerk Relationship Specialty Start Date End Date Jerrod Ojeda PA-C [address] [place] [address] PCP - General Family Practice 07/01/16 Retail Clerk Relationship Specialty Start Date End Date Jerrod Ojeda PA-C [address] [place] [address] PCP - General Family Practice 07/01/16 Retail Clerk Relationship Specialty Start Date End Date Jerrod Ojeda PA-C [address] [place] [address] PCP - General Family Practice 07/01/16 Retail Clerk Relationship Specialty Start Date End Date Jerrod Ojeda PA-C [address] [place] [address] PCP - General Family Practice 07/01/16 Retail Clerk Relationship Specialty Start Date End Date Jerrod Ojeda PA-C [address] [place] [address] PCP - General Family Practice 07/01/16 Retail Clerk Relationship Specialty Start Date End Date Jerrod Ojeda PA-C [address] [place] [address] PCP - General Family Practice 07/01/16 Retail Clerk Relationship Specialty Start Date End Date Jerrod Ojeda PA-C [address] [place] [address] PCP - General Family Practice 07/01/16 Retail Clerk Relationship Specialty Start Date End Date Jerrod Ojeda PA-C [address] [place] [address] PCP - General Family Medicine 07/01/16 Retail Clerk Relationship Specialty Start Date End Date Jerrod Ojeda PA-C [address] [place] [address] PCP - General Family Medicine 07/01/16 Retail Clerk Relationship Specialty Start Date End Date Jerrod Ojeda PA-C [address] [place] [address] PCP - General Family Medicine 07/01/16 Retail Clerk Relationship Specialty Start Date End Date Jerrod Ojeda PA-C [address] [place] [address] PCP - General Family Medicine 07/01/16 Retail Clerk Relationship Specialty Start Date End Date Jerrod Ojeda PA-C [address] [place] [address] PCP - General Family Medicine 07/01/16 Retail Clerk Relationship Specialty Start Date End Date Jerrod Ojeda PA-C [address] [place] [address] PCP - General Family Medicine 07/01/16 Retail Clerk Relationship Specialty Start Date End Date Jerrod Ojeda PA-C [address] [place] [address] PCP - General Family Medicine 07/01/16 Retail Clerk Relationship Specialty Start Date End Date Jerrod Ojeda PA-C [address] [place] [address] PCP - General Family Medicine 07/01/16 Retail Clerk Relationship Specialty Start Date End Date Jerrod Ojeda PA-C [address] [place] [address] PCP - General Family Medicine 07/01/16 Retail Clerk Relationship Specialty Start Date End Date Jerrod Ojeda PA-C [address] [place] [place] [address] PCP - General Family Medicine 07/01/16 Retail Clerk Relationship Specialty Start Date End Date Jerrod Ojeda PA-C [address] [place] [address] PCP - General Family Medicine 07/01/16 Retail Clerk Relationship Specialty Start Date End Date Jerrod Ojeda PA-C [address] [place] [address] PCP - General Family Medicine 07/01/16 Retail Clerk Relationship Specialty Start Date End Date Jerrod Ojeda PA-C [address] [place] [address] PCP - General Family Medicine 07/01/16 Retail Clerk Relationship Specialty Start Date End Date Jerrod Ojeda PA-C [address] [place] [address] PCP - General Family Medicine 07/01/16 Retail Clerk Relationship Specialty Start Date End Date Jerrod Ojeda PA-C [address] [place] [address] PCP - General Family Medicine 07/01/16 Retail Clerk Relationship Specialty Start Date End Date Jerrod Ojeda PA-C [address] [place] [address] PCP - General Family Medicine 07/01/16 Retail Clerk Relationship Specialty Start Date End Date Jerrod Ojeda PA-C [address] [place] [address] PCP - General Family Medicine 07/01/16 Retail Clerk Relationship Specialty Start Date End Date Jerrod Ojeda PA-C [address] [place] [address] PCP - General Family Medicine 07/01/16 Retail Clerk Relationship Specialty Start Date End Date Jerrod Ojeda PA-C [address] [place] [address] PCP - General Family Medicine 07/01/16 Retail Clerk Relationship Specialty Start Date End Date Jerrod Ojeda PA-C [address] [place] [address] PCP - General Family Medicine 07/01/16 Retail Clerk Relationship Specialty Start Date End Date Jerrod Ojeda PA-C [address] [place] [address] PCP - General Family Medicine 07/01/16 Retail Clerk Relationship Specialty Start Date End Date Jerrod Ojeda PA-C [address] [place] [address] PCP - General Family Medicine 07/01/16 Retail Clerk Relationship Specialty Start Date End Date Jerrod Ojeda PA-C [address] [place] [address] PCP - General Family Medicine 07/01/16 Retail Clerk Relationship Specialty Start Date End Date Jerrod Ojeda PA-C [address] [place] [address] PCP - General Family Medicine 07/01/16 Retail Clerk Relationship Specialty Start Date End Date Jerrod Ojeda PA-C [address] [place] [address] PCP - General Family Medicine 07/01/16 FOR [...] BE BASED ON THE PRIMARY CLINICAL RECORDS. [facility]. provides no warranty or guarantee of the accuracy or completeness of information in this document.
--- NOTE | 2023-07-03 22:51 | PCM.HP.STD ---
HPI - General General Date of Admission: 07/03/23 Date of Service: 07/03/23 Chief Complaint: Nausea and vomiting HPI Narrative CHEYENNE MENDIETA, is a 83 M who presented to the emergency department at [facility] on 07/03/2023 with nausea and vomiting. He was brought by ambulance from home. He was seen on 06/30/2023 for some generalized weakness, worsening confusion and lethargy and was felt to possibly have a urinary tract infection and was sent home with ciprofloxacin. At that visit, a culture was sent showing presumptive E. coli however colony counts were 1000-10,000 CFU per mL below infection level. As noted he returns today with vomiting. I was unable to obtain a review of systems from him as he has severe dementia and was unable to participate in his history. His provided the history and she is a sole care provider at this time. They are currently looking into placement she is trying to educate herself on deciding what is best. She does admit that it is getting difficult to care for him at home. She is concerned because she has noted in the last few days he has had general decline. She does admit that he has good and bad days and felt that yesterday was a better day than the however today he seems much weaker, more unsteady and has been sleeping a lot more than typical. He has been unsteady but has not had any falls. Patient does ambulate with a walker at baseline. At baseline he is consistently oriented to self and intermittently oriented to place but not really ever oriented to time. Vital signs on presentation showed temperature of 97.3, pulse was 71, blood pressure was 169/81, respiratory was 21 and oxygen saturations were between 92 and 99% on room air. His CBC was unremarkable however differential does show a left shift with an 80.5% neutrophilia. He also has a monocytosis at 10.4%. His chemistry panel is overall unremarkable however his creatinine is higher than his baseline currently at 1.23 with baseline of 1.0-1.1. His serum glucose is 231 and his lactic acid is 3.0. He is on metformin at home and in the setting of dehydration I suspect this is etiology for his lactic acidosis. His liver functions are unremarkable. His urine shows microscopic hematuria which is not new for him, some ketones but is not suggestive of infection. Chest x-ray shows no acute cardiopulmonary process and CT of the abdomen pelvis was performed due to his nausea and vomiting and demonstrates a large right staghorn calculus with mild right hydronephrosis that is not new, nonobstructing bilateral renal nephrolithiasis, diffuse cystic changes in the pancreas and some fecal retention but was otherwise unremarkable. His COVID-19 was positive. Given the fact that he is more ill and more difficult to take care of right now due to that his was concerned about taking him home and admission was felt to be reasonable and warranted at this time. He was given Zofran in the emergency department and request for admission was made. [facility] Medical History Ambulates with cane Anxiety Arthritis Atherosclerosis of coronary artery of [place] heart without angina pectoris Balance problem BPH (benign prostatic hyperplasia) Cardiology follow-up encounter CPAP (continuous positive airway pressure) dependence Dementia Diabetes Dizziness Former smoker History of diverticulitis History of echocardiogram History of edema History of stress test Hx of fracture of hip Hypertension Injury of head and neck Insomnia Kidney stones Leg edema Loss of hearing Neuropathy Nonrheumatic tricuspid valve regurgitation Obstructive sleep apnea Prostate disease Restless legs Shortness of breath Sleep apnea Staghorn calculus Type 2 diabetes mellitus without complications Walker as ambulation aid Wears glasses Home Medications ascorbic acid (vitamin C) 1,000 mg tablet 1 g PO QDAY 09/09/17 [History Last Taken Unknown] cholecalciferol (vitamin D3) 50 mcg (2,000 unit) capsule 5,000 unit PO QDAY 09/09/17 [History Last Taken Unknown] gabapentin 300 mg capsule 600 mg PO BID 09/09/17 [History Last Taken 01/19/21 06:00] lisinopril 10 mg tablet 20 mg PO QDAY 09/09/17 [History Last Taken 01/19/21 06:00] atenolol 25 mg tablet 25 mg PO DAILY 01/17/21 [History Last Taken 01/19/21 06:00] ibuprofen 200 mg-diphenhydramine HCl 25 mg capsule (Ibuprofen PM) 2 cap PO QHS PRN Sleep 01/17/21 [History Last Taken Unknown] metformin 500 mg 24 hr tablet,extended release (gastric retention) 1,000 mg PO BID 01/17/21 [History Last Taken Unknown] zinc 50 mg tablet 50 mg PO DAILY 01/17/21 [History Last Taken Unknown] ciprofloxacin HCl 500 mg tablet (Cipro) 500 mg PO BID #10 tabs 05/10/22 [Rx Last Taken Unknown] ciprofloxacin HCl 500 mg tablet (Cipro) 500 mg PO BID 10 days #20 tabs 06/30/23 [Rx Last Taken Unknown] donepezil 5 mg tablet 5 mg PO DAILY 07/03/23 [History Last Taken Unknown] memantine 10 mg tablet 10 mg PO BID 07/03/23 [History Last Taken Unknown] metformin 500 mg tablet,extended release 24 hr 500 mg PO BID 07/03/23 [History Last Taken Unknown] mirabegron 25 mg tablet,extended release 24 hr (Myrbetriq) 25 mg PO Q24H 07/03/23 [History Last Taken Unknown] sertraline 25 mg tablet 25 mg PO Q24H 07/03/23 [History Last Taken Unknown] Allergy/AdvReac Type Severity Reaction Status Date / Time mirtazapine AdvReac Unknown Unknown Verified 07/03/23 20:20 glimepiride AdvReac NEEDS Verified 07/03/23 20:20 FOLLOW-UP Family History Mother Breast cancer Father CAD (coronary artery disease) Son Diabetes Surgical History H/O coronary artery bypass surgery History of appendectomy History of esophagogastroduodenoscopy (EGD) History of hernia repair History of quadruple bypass Social History (Updated 07/03/23 @ 23:[address] Lisa Valdivia DO) household members: spouse housing: house current occupational status: retired Smoking Status: Former smoker quit date: 06/02/83 alcohol intake: never substance use type: does not use ROS Review of Systems ROS Unobtainable: due to mental status Vital Signs Vital Signs Vital Signs: 07/03/23 20:13 07/03/23 20:27 07/03/23 21:19 Temperature 97.8 F 97.3 F L 97.5 F L Temperature Source Temporal Temporal Temporal Pulse Rate 71 71 72 Respiratory Rate 15 21 H 22 H Blood Pressure 169/81 H 169/81 H 162/69 H Blood Pressure Mean 110 110 100 Pulse Ox 98 92 96 Oxygen Delivery Method Room Air Room Air Room Air 07/03/23 22:00 07/03/23 22:13 07/03/23 22:26 Temperature 97.4 F L 97.9 F 98 F Temperature Source Temporal Temporal Pulse Rate 70 82 68 Respiratory Rate 20 H 22 H 18 Blood Pressure 162/69 H 161/78 H 161/78 H Blood Pressure Mean 100 105 105 Pulse Ox 96 96 98 Oxygen Delivery Method Room Air Room Air Weight Weight: 84.5 kg Body Mass Index (BMI) 26.7 Physical Exam Const alert, no apparent distress, average body habitus, healthy appearing and well nourished Constitutional Narrative: Elderly, white male, lying in bed, at bedside, patient is oriented to self only, appears comfortable and nontoxic currently General Appearance: cooperative HEENT normocephalic and head/scalp atraumatic HEENT Narrative: Mild hearing loss, dentition is fair for age, Mallampati 2, no thrush, mucous membranes are slightly dry Eyes PERRL, EOMs intact bilaterally and conjunctivae normal Eyes Narrative: No scleral icterus Neck no lymphadenopathy and supple Neck Narrative: Trachea midline, no thyroid enlargement Resp normal respiratory effort, no retractions, no use of accessory muscles and clear to auscultation bilaterally Auscultation: Negative for rales, rhonchi or wheezes Cardio regular rate, regular rhythm, S1 normal heart sound, S2 normal heart sound, no rub, no gallops and no clicks; Negative for no murmurs Cardio Narrative: 2 out of 6 systolic murmur loudest at left lower sternal border GI normal to inspection, nondistended, normoactive bowel sounds, soft to palpation and non-tender Extremity no clubbing, cyanosis or edema Extremity Narrative: Pedal pulses are 2+, cap refill is 2+ Neuro CN's II-XII intact bilaterally, moves all extremities and no focal motor deficits Neuro Narrative: No tremor or bradykinesia noted Sensorium / Orientation: awake, alert and oriented to person; Negative for oriented to place or oriented to time Speech: speech normal Psych affect normal Psych Narrative: jokes intermittently, eye contact is good, pleasantly confused Results Lab / Micro Data 07/03/23 20:40 07/03/23 20:40 Labs: Laboratory Results - last 24 hr 07/03/23 20:40: WBC 7.2, RBC 4.54 L, Hgb 13.2, Hct 39.9 L, MCV 87.9, MCH 29.1, MCHC 33.1, RDW Std Deviation 45.7 H, RDW Coeff of Scotty 14.4, Plt Count 267, MPV 8.8, Immature Gran % (Auto) 0.600, Neut % (Auto) 80.5 H, Lymph % (Auto) 7.8 L, [place] % (Auto) 10.4 H, Eos % (Auto) 0.3, Baso % (Auto) 0.4, Absolute Neuts (auto) 5.8, Absolute Lymphs (auto) 0.56 L, Nucleated RBC % 0, Sodium 136, Potassium 4.3, Chloride 104, Carbon Dioxide 26.0, Anion Gap 6, BUN 14, Creatinine 1.23, Estim Creat Clear Calc 46.16, Est GFR (MDRD) Af Amer 72, Est GFR (MDRD) Non-Af 60, BUN/Creatinine Ratio 11.4, Glucose 231 H, Lactic Acid 3.0 H*, Calcium 9.5, Total Bilirubin 0.70, AST 17, ALT 15 L, Alkaline Phosphatase 99, Total Protein 7.3, Albumin 3.5, Globulin 3.8, Albumin/Globulin Ratio 0.9 07/03/23 21:20: Urine Color Yellow, Urine Clarity Clear, Urine pH 6.0, Ur Specific [place] 1.020, Urine Protein 100 H, Urine Glucose (UA) Normal, Urine Ketones 5 H, Urine Occult Blood 150 H, Urine Nitrite Negative, Urine Bilirubin Negative, Urine Urobilinogen Normal, Ur Leukocyte Esterase Negative, Urine RBC 5-10 SEEN, Urine WBC 0 SEEN, Ur Squamous Epith Cells 0 SEEN, Urine Bacteria 0 SEEN, Urine Mucus 0 SEEN Micro: Microbiology 07/03/23 20:37 Mucosa - Nose SARS-CoV-2, Influenza & RSV (PCR) - Final SARS-CoV-2 (COVID 19) Imaging Radiology Impression Abdomen/Pelvis CT 07/03/23 20:32 IMPRESSION: 1. Large right staghorn calculus with mild right hydronephrosis. 2. Nonobstructing bilateral renal stones. 3. Diffuse cystic changes in the pancreas could reflect pseudocysts formation. 4. Fecal retention. 5. Otherwise no focal acute inflammatory process. Electronically Signed: Catracho Mukherjee MD at 22:20 EST Reading Location ID and State: [facility] / [place] Tel , Service support , Chest X-Ray 07/03/23 22:00 IMPRESSION: No radiographic evidence of acute cardiopulmonary disease. Electronically Signed: Catracho Mukherjee MD at 22:32 EST , Assessment & Plan Assessment/Plan (1) Nausea & vomiting: (2) Generalized weakness: (3) COVID: (4) Adult failure to thrive: (5) Dementia: (6) Lactic acidosis: (7) Microscopic hematuria: PLAN: Generalized weakness/debility -Likely related to acute COVID-19 infection -Consult PT/OT -Consult social work/comp field case manager for discharge planning purposes has been contemplating placement and is looking into things and she is aware that he may very well likely need placed at discharge Acute COVID-19 infection -Highly suspect this is the etiology for the above -Patient is not hypoxic so we will hold off on Decadron or remdesivir at this time -Monitor clinically -Supportive care Mild dehydration -Will give 1 L of IV fluids -Repeat lab in a.m. -Continue to monitor Lactic acidosis -Likely related to mild dehydration in the setting of metformin use -Cycle per protocol -IV fluids as noted above Microscopic hematuria -This appears to be chronic and likely related to his chronic nephrolithiasis and chronic staghorn calculus -Outpatient follow-up with family desires Nausea and vomiting -CT of the abdomen pelvis is not remarkable for anything that would cause this -Likely related to acute COVID-19 infection -Will place on oral diet and hydrate -As needed antiemetics available Dementia-multifactorial -Follows with Dr. Aldridge for neurology -Signs and symptoms of slowly been worsening especially over the last few months -Continue home donepezil -Continue home Namenda -As needed risperidone for any agitation or sundowning DM-2 -Hold home metformin -Carb controlled diet -SSI -Accu-Cheks as ordered Hypertension -Continue home atenolol -Continue home lisinopril -As needed hydralazine Bilateral inguinal hernia -No current issues -Monitor clinically BPH -Patient is not on any medication for this -Monitor for any signs of obstruction/retention JONATHON -Patient has not been able to tolerate his CPAP for some time -Watch for nocturnal oxygen needs History of nephrolithiasis/bladder stones -Follows with Dr. Thomas -Outpatient follow-up as needed -No acute consultation needed at this time Restless leg syndrome -Continue home medication Depression -Continue home Zoloft DVT prophylaxis -Subcu Lovenox daily CODE STATUS - Charges/Coding Visit Charges Inpatient E&M: 18727 Init Hosp L2
--- OUTSIDE RECORDS SUMMARY | 2023-07-03 23:21 | XMS RPT_ITS | CCD ---
Author Name Unknown Address [address] [place] [address] Organization [facility] Care Team Providers Care Supervisor Litharge Name Role Phone MIKHAIL DURHAM Attending Unavailable [...] glimepiride; Translations: [GLIMEPIRIDE] Drug Allergy [address] [facility] Repository (20 sources) Mirtazapine; Translations: [MIRTAZAPINE] Drug Allergy [address] [facility] Repository (20 sources) Seasonal allergy; Translations: [SEASONAL ALLERGIES] Propensity to adverse reactions (disorder) 7 Other: See Comments [facility] Repository Medications Current Medications Medication Drug [...] Coronary arteriosclerosis; Translations: [Atherosclerotic heart disease of [place] coronary artery without angina pectoris] Onset: 06-15-2009 [...] Start: 06-09-2023 End: 06-09-2023 ambulatory Jerrod OJEDA Facility:[facility] Start: 02-07-2023 End: 02-07-2023 [facility] Start: 02-07-2023 End: 02-07-2023 Patient encounter procedure [...] Lab Routine Microalbuminuria Expected: 03/28/2023, Expires: 05/28/2023 [facility] Work Phone: Immunizations Immunization Date Immunization Notes [...] Phone: Payers Date Payer Category Payer Medicare [id number] 2013 Medicare [employer] [place] [place] [id number] 2013-Present [phone] [address] [place] [address] [facility] [id number] 2013 Medicare [employer] [place] [id number] 2013-Present [phone] [address] [place] [address] [facility] [id number] 1940 Unknown [id number] Social History Date Type Detail Facility Start: [...] Type Note Facility 06-09-2023 Note HNO ID: [id number] Author: LAZARO ALDRIDGE JR, MD Service: ? [...] Value 02/05/2023 4 (more content not included)... [facility] 02-07-2023 Note HNO ID: [id number] Author: Lazaro Aldridge Jr., MD Service: ? [...] Similar objects: 2/2 Orientation: Friday, 2001, January, [facility] [place]: 09/05 Delayed recall: 06/06 [...] HPI - h (more content not included)... [facility] 02-07-2023 History of Present illness Narrative [...] follow up in 3 months at our [place] offices. Pt and his family agree with [...] which included preparing to see the patient, [id number] patient care, completing clinical documentation, obtaining and/or [...] [facility] 01-06-2023 Note HNO ID: [id number] Author: Jerrod Ojeda PA-C Service: ? 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 Coronary artery disease involving [place] coronary artery of [place] heart without angina pectoris S/p CABG x [...] of left ventricle during stress 06/10/17 referral [facility] Dr. Emory Arias 02/02/15 echocardiogram: [...] No significant change from 09/21/09 01/27/15 referral repair weaver Kelvin [facility] 09/21/09 echocardiogram: LV size NL, LVSF: [...] 6.3 08/10/2021 6.7 03/24/2020 Test sent to [facility]. 10/30/2019 Test sent to [facility]. ) CMP: Glucose 128 03/15/2022 BUN [...] recurrently Retrolisthesis Spo (more content not included)... [facility] 01-06-2023 Instructions Jerrod Ojeda PA-C - [...] Mood is good. 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 Nobel. Recommends continue medical treatment and optimized risk factors 08/26/[address] Noble: 625 VEBs, 393 SVEBs, longest 13 beat run max HR 143 with diary correlation at times. 07/23/17 nuclear stress: small fixed defect apical inferior consistent with attenuation; LVEF 55%, LV global function NL. Transient ischemic dilation of left ventricle during stress 06/10/17 referral [facility] Dr. Emory Arias 02/02/15 echocardiogram: moderate concentric LVH, LVSF: NL. EF = 60 5%, LVDF: stage 1 abnormal relaxation; RV size NL. RVSF: NL. RVSP underestimated due to a weak or incomplete tricuspid regurgitation signal and is, at least, 30 mmHg consistent with normal pulmonary artery pressures. Estimated right atrial pressure is 5 mmHg. No significant change from 09/21/09 01/27/15 referral repair weaver Kelvin Ellis [facility] [place] 09/21/09 echocardiogram: LV size NL, LVSF: 60% [...] 6.3 08/10/2021 6.7 03/24/2020 Test sent to [facility]. 10/30/2019 Test sent to [facility]. ) CMP: Glucose 128 03/15/2022 BUN [...] be affecting 3. Coronary artery disease involving [place] coronary artery of [place] heart without angina pectoris - ICD9: 414.01, [...] Ojeda PA-C Home Care certification received from [facility] requesting provider review and signature. Forwarded to [facility]'s desk for signature. Once signed, please fax to [facility] at [phone]. Gale Paniagua MA documented in this encounter [...] [facility] 12-10-2022 Note HNO ID: [id number] Author: RT Margo(Ej) Service: ? Author Type: [...] RT Margo(Ej) December 10, 2022 1:47 PM [facility] 12-10-2022 Miscellaneous Notes Left a message [...] Miscellaneous Notes Teressa, a speech therapist with [facility] is calling to update PCP [...] and she is agreeable with going to [facility]. Orders and pt information sent to fax number [phone]. Tiara Ortiz LPN Thank you for the referral of your patient to [facility]. At this time, we are at capacity and are unable to accept your patient. In order to help your patient receive quality home care, we have included reputable agencies that service this area: [facility], Phone number [phone] or [facility], phone number [phone]. Please contact this agency and they will [...] Hospital 11-13-2022 Miscellaneous Notes Sw notes that [facility] is reaching out to [...] Spouse and Sw also discussed that our [facility] still has PT if for whatever reason HH does not work. documented in this encounter [facility] 11-05-2022 Note HNO ID: [id number] Author: Santa Gordon PA-C Service: ? Author Type: Physician Stump Shooter Type: Progress Notes Filed: 11/05/2022 12:51 PM [...] follow up in 3 months at our [place] offices. Pt and his family agree with [...] pain or muscle (more content not included)... [facility] 11-05-2022 Instructions Santa Gordon PA-C - [...] follow up in 3 months at our [place] offices. Pt and his family agree with [...] which included preparing to see the patient, [id number] patient care, completing clinical documentation, obtaining and/or [...] and time change. Sent the patient a [employer] message and mailed the reminder. The patient is scheduled for a 3-month follow-up on 11/05 with HERB Owen. The patient is scheduled for a 6-month follow-up on 02/[address] Aldridge. documented in this encounter [facility] [...] Made aware of update. Voices understanding, will sheepskin pickler medication tomorrow. Sissy Huerta LPN Please advise [...] [facility] 07-31-2022 Note HNO ID: [id number] Author: Lazaro Aldridge Jr., MD Service: ? [...] recall: 2; 2 Number repeat: 06/03 (bkwrds: [id number]) Sentence repeat: 07/04 Serial 7s: 100-93-x 06/04 Orientation: X/X/2002, Wed, Yanes, Biden 08/05 Delayed recall: 07/07 Similar object: 1 Cube drawin/1 Clock drawing: (numbers outside [place], writes # for 10 p 11) 06/04 [...] (mg/dL) Date Value (more content not included)... [facility] 07-31-2022 History of Present illness Narrative [...] 06/03 Cube drawin Clock drawing: (numbers outside the [place], writes # for 10 p 11) 06/04 [...] follow up in 3 months at our [place] offices. Pt and his family agree with plan. Lazaro Aldridge MD I spent a total of 60+ minutes on the date of the service which included preparing to see the patient, [id number] patient care, completing clinical documentation, obtaining and/or [...] Negative Ketones, Urine Trace, Negative Negative Specific [place], Ur 1.005 - 1.030 1.025 Hemoglobin/Blood,Ur Negative, [...] Hospital 06-11-2022 Miscellaneous Notes Received fax from [employer] Requesting order for test strips. Call to patient and they did not request this company nor do they want to use this company. Fax shredded. Mary Kate Nolasco Ma documented in this encounter [facility] 06-11-2022 History of Present illness Narrative Audio only was used for evaluation of this patient. Location of patient: [place] Patient was offered a virtual/telemedicine appointment in [...] issues they would prefer to stay in [place]. Referral faxed to Dr. Thomas's office. Alexys Negron LPN Please advise ultrasound demonstrates a large bladder stone 3.1 cm, this is likely causing obstruction and complications with urination. Recommend consult to urology, I prefer Dr. Yo Durham on if possible in [place]. If patient wants to stay in [place] he could see Dr. Thomas Telephone on [...] LVM to call back and schedule. Lyssa BLODEN Patient's notified, wrote down info since patient [...] Authorizing Provider: Jerrod OJEDA PA-C Thanks, Oneil Oejda PA-C documented in this encounter [facility] 02-28-2022 History of Present illness Narrative 81 year old male with c/o here for follow up Bilateral leg edema (primary encounter diagnosis) Sob (shortness of breath) Bilateral calf pain Coronary artery disease involving [place] coronary artery of [place] heart without angina pectoris Hypertension, essential Hyperlipidemia, [...] of left ventricle during stress 06/10/17 referral [facility] Dr. Emory Arias 02/02/15 echocardiogram: moderate concentric LVH, LVSF: NL. EF = 60 5%, LVDF: stage 1 abnormal relaxation; RV size NL. RVSF: NL. RVSP underestimated due to a weak or incomplete tricuspid regurgitation signal and is, at least, 30 mmHg consistent with normal pulmonary artery pressures. Estimated right atrial pressure is 5 mmHg. No significant change from 09/21/09 01/27/15 referral repair weaver [facility] [place] 09/21/09 echocardiogram: LV [...] evaluation of this patient. Location of patient: [place] Patient was offered a virtual/telemedicine appointment in [...] evaluation of this patient. Location of patient: [place] FERNANDO Mendieta is a 81 year old [...] gets really tested. Reviewed vascular dementia vs Topsham's and characteristics. Discussed new monoclonal therapy briefly- [...] BP <130/80 3. Coronary artery disease involving [place] coronary artery of [place] heart without angina pectoris - ICD9: 414.01, [...] Miscellaneous Notes Letter faxed Letter sent through [employer] for review And printed Please fax Thanks, [...] of this encounter (statuses as of 12/12/2021) [address] History of Past illness Narrative* Problem Noted Date Resolved Date JONATHON (obstructive sleep apnea) 06/15/2009 documented as of this encounter (statuses as of 12/14/2021) [address] History of Past illness Narrative* Problem Noted Date Resolved Date JONATHON (obstructive sleep apnea) 06/15/2009 documented as of this encounter (statuses as of 12/17/2021) [address] History of Past illness Narrative* Problem Noted Date Resolved Date JONATHON (obstructive sleep apnea) 06/15/2009 documented as of this encounter (statuses as of 01/28/2022) [address] History of Past illness Narrative* Problem Noted Date Resolved Date JONATHON (obstructive sleep apnea) 06/15/2009 documented as of this encounter (statuses as of 02/12/2022) [address] History of Past illness Narrative* Problem Noted Date Resolved Date JONATHON (obstructive sleep apnea) 06/15/2009 documented as of this encounter (statuses as of 03/01/2022) [facility] History of Past illness Narrative* Problem Noted Date Resolved Date JONATHON (obstructive sleep apnea) 06/15/2009 documented as of this encounter (statuses as of 03/06/2022) [place] [id number] History of Past illness Narrative* Problem Noted Date Resolved Date JONATHON (obstructive sleep apnea) 06/15/2009 documented as of this encounter (statuses as of 03/08/2022) [address] History of Past illness Narrative* Problem Noted Date Resolved Date JONATHON (obstructive sleep apnea) 06/15/2009 documented as of this encounter (statuses as of 03/16/2022) [place] [id number] History of Past illness Narrative* Problem Noted Date Resolved Date JONATHON (obstructive sleep apnea) 06/15/2009 documented as of this encounter (statuses as of 03/18/2022) [address] History of Past illness Narrative* Problem Noted Date Resolved Date JONATHON (obstructive sleep apnea) 06/15/2009 documented as of this encounter (statuses as of 03/19/2022) [address] History of Past illness Narrative* Problem [...] of this encounter (statuses as of 06/08/2022) [address] History of Past illness Narrative* Problem Noted Date Resolved Date JONATHON (obstructive sleep apnea) 06/15/2009 documented as of this encounter (statuses as of 06/11/2022) [address] History of Past illness Narrative* Problem Noted Date Resolved Date JONATHON (obstructive sleep apnea) 06/15/2009 documented as of this encounter (statuses as of 06/11/2022) [facility] of Past illness Narrative* Problem Noted Date Resolved Date JONATHON (obstructive sleep apnea) 06/15/2009 documented as of this encounter (statuses as of 06/12/2022) [address] History of Past illness Narrative* Problem Noted Date Resolved Date JONATHON (obstructive sleep apnea) 06/15/2009 documented as of this encounter (statuses as of 06/14/2022) [facility] History of Past illness Narrative* Problem Noted Date Resolved Date JONATHON (obstructive sleep apnea) 06/15/2009 documented as of this encounter (statuses as of 06/14/2022) [address] History of Past illness Narrative* Problem Noted Date Resolved Date JONATHON (obstructive sleep apnea) 06/15/2009 documented as of this encounter (statuses as of 07/23/2022) [place] [id number] History of Past illness Narrative* Problem Noted Date Resolved Date JONATHON (obstructive sleep apnea) 06/15/2009 documented as of this encounter (statuses as of 07/31/2022) [place] [address] History of Past illness Narrative* Problem Noted Date Resolved Date JONATHON (obstructive sleep apnea) 06/15/2009 documented as of this encounter (statuses as of 09/10/2022) [address] History of Past illness Narrative* Problem Noted Date Resolved Date JONATHON (obstructive sleep apnea) 06/15/2009 documented as of this encounter (statuses as of 09/20/2022) [address] History of Past illness Narrative* Problem Noted Date Resolved Date JONATHON (obstructive sleep apnea) 06/15/2009 documented as of this encounter (statuses as of 10/08/2022) [facility] History of Past illness Narrative* Problem Noted Date Resolved Date JONATHON (obstructive sleep apnea) 06/15/2009 documented as of this encounter (statuses as of 11/05/2022) [address] History of Past illness Narrative* Problem Noted Date Resolved Date JONATHON (obstructive sleep apnea) 06/15/2009 documented as of this encounter (statuses as of 11/19/2022) [place] [address] History of Past illness Narrative* Problem Noted Date Resolved Date JONATHON (obstructive sleep apnea) 06/15/2009 documented as of this encounter (statuses as of 11/26/2022) [address] History of Past illness Narrative* Problem Noted Date Resolved Date JONATHON (obstructive sleep apnea) 06/15/2009 documented as of this encounter (statuses as of 11/26/2022) [address] History of Past illness Narrative* Problem Noted Date Diagnosed Date Resolved Date JONATHON (obstructive sleep apnea) 06/15/2009 11/02/2018 documented as of this encounter (statuses as of 12/10/2022) [address] History of Past illness Narrative* Problem Noted Date Diagnosed Date Resolved Date JONATHON (obstructive sleep apnea) 06/15/2009 11/02/2018 documented as of this encounter (statuses as of 12/12/2022) [address] History of Past illness Narrative* Problem Noted Date Diagnosed Date Resolved Date JONATHON (obstructive sleep apnea) 06/15/2009 11/02/2018 documented as of this encounter (statuses as of 12/20/2022) [address] History of Past illness Narrative* Problem Noted Date Diagnosed Date Resolved Date JONATHON (obstructive sleep apnea) 06/15/2009 11/02/2018 documented as of this encounter (statuses as of 12/27/2022) [facility] History of Past illness Narrative* Problem Noted Date Diagnosed Date Resolved Date JONATHON (obstructive sleep apnea) 06/15/2009 11/02/2018 documented as of this encounter (statuses as of 01/01/2023) [place] [id number] History of Past illness Narrative* Problem Noted Date Diagnosed Date Resolved Date JONATHON (obstructive sleep apnea) 06/15/2009 11/02/2018 documented as of this encounter (statuses as of 01/07/2023) [place] [address] History of Past illness Narrative* Problem Noted Date Diagnosed Date Resolved Date JONATHON (obstructive sleep apnea) 06/15/2009 11/02/2018 documented as of this encounter (statuses as of 01/15/2023) [place] [address] History of Past illness Narrative* Problem Noted Date Diagnosed Date Resolved Date JONATHON (obstructive sleep apnea) 06/15/2009 11/02/2018 documented as of this encounter (statuses as of 01/21/2023) [place] [address] History of Past illness Narrative* Problem Noted Date Diagnosed Date Resolved Date JONATHON (obstructive sleep apnea) 06/15/2009 11/02/2018 documented as of this encounter (statuses as of 02/05/2023) [address] History of Past illness Narrative* Problem Noted Date Diagnosed Date Resolved Date JONATHON (obstructive sleep apnea) 06/15/2009 11/02/2018 documented as of this encounter (statuses as of 02/07/2023) [facility] [place] [facility] Diagnosis Diabetic polyneuropathy associated with type 2 diabetes mellitus (HCC) Recurrent low back pain Lumbago [facility] [place] [facility] Diagnosis Diabetic polyneuropathy associated with type 2 diabetes mellitus (HCC) Recurrent low back pain Lumbago [facility] [place] [facility] Diagnosis Benign prostatic hyperplasia, unspecified whether lower urinary tract symptoms present- Primary Hypertension, essential Unspecified essential hypertension Coronary artery disease involving [place] coronary artery of [place] heart without angina pectoris Hyperlipidemia, mixed 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, without long- term current use of insulin (HCC) Diabetic polyneuropathy associated with type 2 diabetes mellitus (HCC) Hiatal hernia Diaphragmatic hernia without mention of obstruction or gangrene 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 Ataxia Lack of coordination [facility] [place] [facility] Diagnosis Upper respiratory tract infection due to COVID-19 virus- Primary Brain atrophy (HCC) Cerebral degeneration, unspecified Mild dementia (HCC) Dementia, unspecified, without behavioral disturbance [facility] [place] [facility] Diagnosis Benign prostatic hyperplasia without lower urinary tract symptoms [facility] [place] [facility] Diagnosis Bilateral leg edema- Primary Edema Bilateral calf pain Pain in limb [facility] [place] [facility] Diagnosis Bilateral leg edema- Primary Edema SOB (shortness of breath) Shortness of breath Bilateral calf pain Pain in limb Screening for colon cancer Special screening for malignant neoplasms, colon Controlled type 2 diabetes mellitus with diabetic neuropathy, without long-term current use of insulin ([facility]) [facility] [place] [facility] Diagnosis Elevated serum creatinine- Primary Other nonspecific findings on examination of blood [facility] [place] [facility] Diagnosis Hypertension, essential Unspecified essential hypertension Essential tremor Essential and other specified forms of tremor [facility] [place] [facility] Diagnosis Venous incompetence- Primary Unspecified venous (peripheral) insufficiency Bilateral leg edema Edema [facility] [place] [facility] Diagnosis Coronary artery disease involving [place] coronary artery of [place] heart without angina pectoris- Primary Medication management Encounter for long-term (current) use of other medications Controlled type 2 diabetes mellitus with diabetic neuropathy, without long-term current use of insulin (HCC) Hypertension, essential Unspecified essential hypertension Hyperlipidemia, mixed Mixed hyperlipidemia [facility] [place] [facility] Diagnosis Elevated serum creatinine Other nonspecific findings on examination of blood [facility] [place] [facility] Diagnosis Benign prostatic hyperplasia with urinary obstruction- Primary Bladder stone Other calculus in bladder [facility] [place] [facility] Diagnosis Diabetic polyneuropathy associated with type 2 diabetes mellitus (HCC) Recurrent low back pain Lumbago [facility] [place] [facility] Diagnosis Dementia with behavioral disturbance- Primary Dementia, unspecified, with behavioral disturbance [facility] [place] [facility] Diagnosis Controlled type 2 diabetes mellitus with diabetic polyneuropathy, without long- term current use of insulin ([facility]) [facility] [place] [facility] Diagnosis Brain atrophy (HCC)- Primary Cerebral degeneration, unspecified Dementia with behavioral disturbance Dementia, unspecified, with behavioral disturbance Sleep concern Problems related to lack of adequate sleep Urinary frequency [facility] encounter [facility] [place] [facility]* Diagnosis Moderate dementia with other behavioral disturbance, unspecified dementia type (HCC)- Primary History of stroke Transient ischemic attack (TIA), and cerebral infarction without residual deficits Low vitamin B12 level Other B-complex deficiencies documented in this encounter [facility] [place] [facility]* Diagnosis Hypertension, essential Unspecified essential hypertension Essential tremor Essential and other specified forms of tremor documented in this [facility] [place] [facility]* Diagnosis Spinal stenosis of cervical region- Primary Spinal stenosis in cervical region Weakness Other malaise and fatigue Parkinsonism, unspecified Parkinsonism type (HCC) Frequent falls Personal history of fall Moderate dementia with other behavioral disturbance, unspecified dementia type (HCC) documented [facility] [place] [facility]* Diagnosis Moderate dementia with other behavioral disturbance, unspecified dementia type (HCC)- Primary Frequent falls Personal history of fall Parkinsonism, unspecified Parkinsonism type (HCC) documented [facility] [place] [facility]* Diagnosis Spinal stenosis of cervical region- Primary Spinal stenosis in cervical region Weakness Other malaise and fatigue Parkinsonism, unspecified Parkinsonism type (HCC) Frequent falls Personal history of fall Moderate dementia with other behavioral disturbance, unspecified dementia type (HCC) documented [facility] [place] [facility]* Diagnosis Diabetic polyneuropathy associated with type 2 diabetes mellitus (HCC) Recurrent low back pain Lumbago [facility] [place] [facility] Diagnosis Controlled type 2 diabetes mellitus with diabetic polyneuropathy, without long- term current use of insulin (HCC) documented [facility] [place] [facility]* Diagnosis Controlled type 2 diabetes mellitus with diabetic neuropathy, without long-term current use of insulin (HCC)- Primary Primary hypertension Unspecified essential hypertension Hyperlipidemia, mixed Mixed hyperlipidemia Microalbuminuria Proteinuria [facility] Diagnosis Brain atrophy (HCC)- Primary Cerebral degeneration, unspecified 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 [place] coronary artery of [place] heart without angina pectoris S/P CABG x [...] (HCC) documented in this encounter [facility] note* Diagnosis Diabetic polyneuropathy associated with type 2 diabetes mellitus (HCC) Recurrent low back pain Lumbago [facility]* Diagnosis Moderate dementia with other behavioral disturbance, unspecified dementia type (HCC)- Primary History of stroke Transient ischemic attack (TIA), and cerebral infarction without residual deficits Low vitamin B12 level Other B-complex deficiencies Spinal stenosis of cervical region Spinal stenosis in cervical region Frequent falls Personal history of fall History of hip fracture Personal history of traumatic fracture documented in this encounter [facility] for referral (narrative)* Diagnostic Procedure Only (Urgent) - Closed Specialty Diagnoses / Procedures Referred By Contac t Referred To Contact US IMAGING Diagnoses Bilateral leg edema Bilateral calf pain Procedures US DVT LOWER BILAT DUP-SCAN XTR VEINS COMPLETE BILATERAL STUDY Jerrod Ojeda PA-C [address] [place] [address] Us Imaging Referral ID Status Reason Start Date Expiration Date V isits Requested Visits Authorized [id number] Closed Auto-Generate d Referral 02/12/2022 03/14/2023 1 1 * Outpatient Procedure (Urgent) - Pending Review Specialty Diagnoses / Procedures Referred By Contac t Referred To Contact [facility] Diagnoses Bilateral leg edema Bilateral calf pain Procedures US LEG VEIN DVT ESME VAS LAB DUP-SCAN XTR VEINS COMPLETE BILATERAL STUDY Jerrod Ojeda PA-C [address] [place] [address] [facility] [address] [address] Referral ID Status Reason Start Date Expiration Date Visits Requested Visits Authorized [id number] Pending Review Auto-Generat ed Referral 02/12/2022 02/12/2023 [address] [facility] for referral (narrative)* Outpatient Procedure (Routine) - Authorized Specialty Diagnoses / Procedures Referred By Contac t Referred To Contact [facility] Diagnoses Bilateral leg edema Procedures US VENOUS INCOMPETENCY ESME VAS LAB DUP-SCAN XTR VEINS COMPLETE BILATERAL STUDY Jerrod Ojeda PA-C [address] [place] [address] [address] Referral ID Status Reason Start Date Expiration Date Visits Requested Visits Authorized [id number] Authorized Auto-Generat ed Referral 02/28/2022 02/28/2023 [address] [facility] for referral (narrative)* Diagnostic Procedure Only (Routine) - Pending Review Specialty Diagnoses / Procedures Referred By Contac t Referred To Contact US IMAGING Diagnoses Elevated serum creatinine Procedures US KIDNEY/BLADDER US RETROPERITONEAL REAL TIME W/IMAGE COMPLETE Jerrod Ojeda PA-C [address] [place] [address] Us Imaging Referral ID Status Reason Start Date Expiration Date Visits Requested Visits Authorized [id number] Pending Review Auto-Generat ed Referral 03/06/2022 04/05/2023 [address] [facility] for referral (narrative)* Diagnostic Procedure Only (Routine) - Closed Specialty Diagnoses / Procedures Referred By Contac t Referred To Contact US IMAGING Diagnoses Elevated serum creatinine Procedures US KIDNEY/BLADDER US RETROPERITONEAL REAL TIME W/IMAGE COMPLETE Jerrod Ojeda PA-C [address] [place] [address] Us Imaging Referral ID Status Reason Start Date Expiration Date V isits Requested Visits Authorized [id number] Closed Auto-Generate d Referral 03/06/2022 04/05/2023 [address] [facility] for referral (narrative)* Diagnostic Procedure Only (Routine) - Pending Review Specialty Diagnoses / Procedures Referred By Contac t Referred To Contact US IMAGING Diagnoses Moderate dementia with other behavioral disturbance, unspecified dementia type (HCC) History of stroke Procedures [place] [address] [place] [phone] Us Imaging Referral ID Status Reason Start Date Expiration Date Visits Requested Visits Authorized [id number] Pending Review Auto-Generat ed Referral 07/31/2022 08/30/2023 1 1 [facility] Summary Purpose Family History No Family History Records FoundNo Family History Records FoundNo Family History Records FoundNo Family History Records Found Advance Directives No Advanced Directives Records FoundDocuments on File Type Date Recorded Patient Legal Recovery Specialist Expl anation Advance Directive(s) Documents on File Type Date Recorded Patient Legal Recovery Specialist Expl anation Advance Directive(s) Reason for Referral Specialty Diagnoses / Procedures Referred By Contac t Referred To Contact MR IMAGING Diagnoses Ataxia Procedures MRI BRAIN WO IVCON MRI BRAIN BRAIN STEM W/O CONTRAST MATERIAL Jerrod Ojeda PA-C [address] [place] [address] Mr Imaging Referral ID Status Reason Start Date Expiration Date Visits Requested Visits Authorized [id number] Pending Review Auto-Generat ed Referral 11/12/2021 12/12/2022 1 1 Specialty Diagnoses / Procedures Referred By Contac t Referred To Contact Vascular Surgery Diagnoses Venous incompetence Bilateral leg edema Procedures CONSULT TO VASCULAR SURGERY OFFICE/OUTPATIENT [facility] 60-74 MINUTES Jerrod Ojeda PA-C [address] [place] [address] Referral ID Status Reason Start Date Expiration Date Visits Requested Visits Authorized [id number] Pending Review PCP Requested Referral 2 03/16/2023 1 1 Specialty Diagnoses / Procedures Referred By Contac t Referred To Contact Urology Diagnoses Benign prostatic hyperplasia with urinary obstruction Bladder stone Procedures CONSULT TO UROLOGY OFFICE/OUTPATIENT [facility] 60-74 MINUTES Jerrod Ojeda PA-C [address] [place] [address] Referral ID Status Reason Start Date Expiration Date Visits Requested Visits Authorized [id number] Pending Review PCP Requested Referral 2 03/20/2023 1 1 Specialty Diagnoses / Procedures Referred By Contac t Referred To Contact Neurology Diagnoses Dementia with behavioral disturbance Procedures CONSULT TO NEUROLOGY OFFICE/OUTPATIENT [facility] 60-74 MINUTES Jerrod Ojeda PA-C [address] [place] [address] Referral ID Status Reason Start Date Expiration Date Visits Requested Visits Authorized [id number] Pending Review PCP Requested Referral 06/07/2022 06/07/2023 1 1 Specialty Diagnoses / Procedures Referred By Contac t Referred To Contact MR IMAGING Diagnoses Spinal stenosis of cervical region Procedures MRI CERVICAL SPINE WO IVC MRI SPINAL CANAL CERVICAL W/O CONTRAST Santa Barry PA-C [address] [place] [address] Mr Imaging Referral ID Status Reason Start Date Expiration Date Visits Requested Visits Authorized [id number] Pending Review Auto-Generat ed Referral 11/05/2022 12/05/2023 1 1 Specialty Diagnoses / Procedures Referred By Contac t Referred To Contact [facility] Diagnoses Weakness Frequent falls Procedures CONSULT TO PHYSICAL THERAPY PHYSICAL THERAPY EVALUATION HIGH COMPLEX 45 MINS Santa Gordon PA-C [address] [place] [address] [facility] [place] [address] [place] [address] Referral ID Status Reason Start Date Expiration Date Visits Requested Visits Authorized [id number] Pending Review Auto-Generat ed Referral 11/05/2022 11/05/2023 1 1 Specialty Diagnoses / Procedures Referred By Parul clark Referred To Contact Diagnoses Moderate dementia with other behavioral disturbance, unspecified dementia type (HCC) Frequent falls Parkinsonism, unspecified Parkinsonism type (HCC) Procedures CONSULT TO [facility] Santa Gordon PA-C [address] [place] [address] [address] [place] [id number] Referral ID Status Reason Start Date Expiration Date Visits Requested Visits Authorized [id number] Canceled PCP Requested Referral 11/06/2022 02/04/2023 3 3 Specialty Diagnoses / Procedures Referred By Parul clark Referred To Contact Diagnoses Weakness Parkinsonism, unspecified Parkinsonism type (HCC) Frequent falls Moderate dementia with other behavioral disturbance, unspecified dementia type (HCC) Procedures CONSULT TO [facility] Santa Gordon PA-C [address] [place] [address] [address] Referral ID Status Reason Start Date Expiration Date V isits Requested Visits Authorized [id number] Denied PCP Requested Referral 11/21/2022 02/19/2023 3 0 Health Concerns Infection Onset Date Last Indicated Resolved Time COVID-19 Confirmed 12/12/2021 12/12/2021 Additional Source Comments (unrecognized sect ion and content) No Status Records FoundNo Status Records FoundNo Status Records FoundNo Status Records Found INFORMATION SOURCE (unrecogn ized section and content) DATE CREATED AUTHOR AUTHOR'S ORGANIZ ATION 01/01/2019 [facility] DATE CREATED AUTHOR AUTHOR'S ORGANIZ ATION 01/19/2021 [facility] ([place]) DATE CREATED AUTHOR AUTHOR'S FOUZIA MAURICIO 07/03/2023 [facility] Source Comments (unrecognize d section and [...] REAL TIME W/IMAGE COMPLETE Jerrod Ojeda PA-C [address] [place] [address] Us Imaging Referral ID Status Reason Start Date Expiration Date V isits Requested Visits Authorized [id number] Closed Auto-Generate d Referral 03/06/2022 04/05/2023 1 [...] HIGH MDM 60-74 MINUTES Jerrod Ojeda PA-C [address] [place] [address] Referral ID Status Reason Start Date Expiration Date Visits Requested Visits Authorized [id number] Pending Review PCP Requested Referral 06/07/2022 06/07/2023 [...] Care Teams (unrecognized sec tion and content) Supervisor Litharge Relationship Specialty Start Date End Date Jerrod Ojeda PA-C [address] [place] [address] PCP - General Family Practice 07/01/16 Supervisor Litharge Relationship Specialty Start Date End Date Jerrod Ojeda PA-C [address] [place] [address] PCP - General Family Practice 07/01/16 Supervisor Litharge Relationship Specialty Start Date End Date Jerrod Ojeda PA-C [address] [place] [address] PCP - General Family Practice 07/01/16 Supervisor Litharge Relationship Specialty Start Date End Date Jerrod Ojeda PA-C [address] [place] [address] PCP - General Family Practice 07/01/16 Supervisor Litharge Relationship Specialty Start Date End Date Jerrod Ojeda PA-C [address] [place] [address] PCP - General Family Practice 07/01/16 Supervisor Litharge Relationship Specialty Start Date End Date Jerrod Ojeda PA-C [address] [place] [address] PCP - General Family Practice 07/01/16 Supervisor Litharge Relationship Specialty Start Date End Date Jerrod Ojeda PA-C [address] [place] [address] PCP - General Family Practice 07/01/16 Supervisor Litharge Relationship Specialty Start Date End Date Jerrod Ojeda PA-C [address] [place] [address] PCP - General Family Medicine 07/01/16 Supervisor Litharge Relationship Specialty Start Date End Date Jerrod Ojeda PA-C [address] [place] [address] PCP - General Family Medicine 07/01/16 Supervisor Litharge Relationship Specialty Start Date End Date Jerrod Ojeda PA-C [address] [place] [address] PCP - General Family Medicine 07/01/16 Supervisor Litharge Relationship Specialty Start Date End Date Jerrod Ojeda PA-C [address] [place] [address] PCP - General Family Medicine 07/01/16 Supervisor Litharge Relationship Specialty Start Date End Date Jerrod Ojeda PA-C [address] [place] [address] PCP - General Family Medicine 07/01/16 Supervisor Litharge Relationship Specialty Start Date End Date Jerrod Ojeda PA-C [address] [place] [address] PCP - General Family Medicine 07/01/16 Supervisor Litharge Relationship Specialty Start Date End Date Jerrod Ojeda PA-C [address] [place] [address] PCP - General Family Medicine 07/01/16 Supervisor Litharge Relationship Specialty Start Date End Date Jerrod Ojeda PA-C [address] [place] [address] PCP - General Family Medicine 07/01/16 Supervisor Litharge Relationship Specialty Start Date End Date Jerrod Ojeda PA-C [address] [place] [address] PCP - General Family Medicine 07/01/16 Supervisor Litharge Relationship Specialty Start Date End Date Jerrod Ojeda PA-C [address] [facility] [address] PCP - General Family Medicine 07/01/16 Supervisor Litharge Relationship Specialty Start Date End Date Jerrod Ojeda PA-C [address] [place] [address] PCP - General Family Medicine 07/01/16 Supervisor Litharge Relationship Specialty Start Date End Date Jerrod Ojeda PA-C [address] [place] [address] PCP - General Family Medicine 07/01/16 Supervisor Litharge Relationship Specialty Start Date End Date Jerrod Ojeda PA-C [address] [place] [address] PCP - General Family Medicine 07/01/16 Supervisor Litharge Relationship Specialty Start Date End Date Jerrod Ojeda PA-C [address] [place] [address] PCP - General Family Medicine 07/01/16 Supervisor Litharge Relationship Specialty Start Date End Date Jerrod Ojeda PA-C [address] [place] [address] PCP - General Family Medicine 07/01/16 Supervisor Litharge Relationship Specialty Start Date End Date Jerrod Ojeda PA-C [address] [place] [address] PCP - General Family Medicine 07/01/16 Supervisor Litharge Relationship Specialty Start Date End Date Jerrod Ojeda PA-C [address] [place] [address] PCP - General Family Medicine 07/01/16 Supervisor Litharge Relationship Specialty Start Date End Date Jerrod Ojeda PA-C [address] [place] [address] PCP - General Family Medicine 07/01/16 Supervisor Litharge Relationship Specialty Start Date End Date Jerrod Ojeda PA-C [address] [place] [address] PCP - General Family Medicine 07/01/16 Supervisor Litharge Relationship Specialty Start Date End Date Jerrod Ojeda PA-C [address] [place] [address] PCP - General Family Medicine 07/01/16 Supervisor Litharge Relationship Specialty Start Date End Date Jerrod Ojeda PA-C [address] [place] [address] PCP - General Family Medicine 07/01/16 Supervisor Litharge Relationship Specialty Start Date End Date Jerrod Ojeda PA-C [address] [place] [address] PCP - General Family Medicine 07/01/16 Supervisor Litharge Relationship Specialty Start Date End Date Jerrod Ojeda PA-C [address] [place] [address] PCP - General Family Medicine 07/01/16 Supervisor Litharge Relationship Specialty Start Date End Date Jerrod Ojeda PA-C [address] [place] [address] PCP - General Family Medicine 07/01/16 Supervisor Litharge Relationship Specialty Start Date End Date Jerrod Ojeda PA-C [address] [place] [address] PCP - General Family Medicine 07/01/16 FOR [...] BE BASED ON THE PRIMARY CLINICAL RECORDS. [facility]. provides no warranty or guarantee of the accuracy or completeness of information in this document.
--- NOTE | 2023-07-03 23:40 | ED.RN ---
Pt attempting to climb out of bed numerous times when family is not present in the room. Pt A&Ox1, per family baseline. Pt redirected back to bed numerous times x2 assist. Pt educated to let staff know when they would be leaving. Pt family in agreement and call light in reach.
--- NOTE | 2023-07-03 23:41 | ED.RN ---
Floor updated on pt status and possibly needing to be closer to nurses station.
--- OUTSIDE RECORDS SUMMARY | 2023-07-03 23:55 | XMS RPT_ITS | CCD ---
Author Name Unknown Address [address] [place] [address] Organization [facility] Care Team Providers Care Child Care Leader Name Role Phone MIKHAIL DURHAM Attending Unavailable [...] glimepiride; Translations: [GLIMEPIRIDE] Drug Allergy 1 Intolerance [facility] Repository (20 sources) Mirtazapine; Translations: [MIRTAZAPINE] Drug Allergy 5 Intolerance [facility] Repository (20 sources) Seasonal allergy; Translations: [SEASONAL ALLERGIES] Propensity to adverse reactions (disorder) 7 Other: See Comments [facility] Repository Medications Current Medications Medication Drug Class(es) [...] Coronary arteriosclerosis; Translations: [Atherosclerotic heart disease of [place] coronary artery without angina pectoris] Onset: 06-15-2009 [...] kg Lazaro Aldridge Jr., MD Work Phone: [facility] 02-07-2023 11:33-0400 Diastolic blood pressure 76 mm[Hg] Lazaro Aldridge Jr., MD Work Phone: [facility] 02-07-2023 11:33-0400 Heart rate 62 /min Lazaor Aldridge Jr., MD Work Phone: [facility] 02-07-2023 11:33-0400 Respiratory rate 16 /min Lazaro Aldridge Jr., MD Work Phone: [facility] 02-07-2023 11:33-0400 SaO2% (BldA) [Mass fraction] 97 % Lazaro Aldridge Jr., MD Work Phone: [facility] 02-07-2023 11:33-0400 Systolic blood pressure 132 mm[Hg] Lazaro Aldridge Jr., MD Work Phone: [facility] 01-06-2023 13:14-0400 Body weight 83.46 kg NA Ojeda PA-C Work Phone: [facility] 01-06-2023 13:14-0400 Diastolic blood pressure 80 mm[Hg] NA Ojeda PA-C Work Phone: [facility] 01-06-2023 13:14-0400 Heart rate 74 /min NA Ojeda PA-C Work Phone: [facility] 01-06-2023 13:14-0400 Respiratory rate 16 /min NA Ojeda PA-C Work Phone: [facility] 01-06-2023 13:14-0400 Systolic blood pressure 160 mm[Hg] NA Ojeda PA-C Work Phone: [facility] 07-31-2022 12:21-0500 Body weight 78.93 kg Lazaro Aldridge Jr., MD Work Phone: [facility] 07-31-2022 12:21-0500 Diastolic blood pressure 69 mm[Hg] Lazaro Aldridge Jr., MD Work Phone: [facility] 07-31-2022 12:21-0500 Heart rate 61 /min Lazaro Aldridge Jr., MD Work Phone: [facility] 07-31-2022 12:21-0500 SaO2% (BldA) [Mass fraction] 96 % Lazaro Aldridge Jr., MD Work Phone: [facility] 07-31-2022 12:21-0500 Systolic blood pressure 137 mm[Hg] Lazaro Aldridge Jr., MD Work Phone: [facility] 02-28-2022 15:07-0400 Body weight 85.37 kg NA Ojeda PA-C Work Phone: [facility] 02-28-2022 15:07-0400 Diastolic blood pressure 68 mm[Hg] NA Ojeda PA-C Work Phone: [facility] 02-28-2022 15:07-0400 Heart rate 68 /min NA Ojeda PA-C Work Phone: [facility] 02-28-2022 15:07-0400 Respiratory rate 20 /min NA Ojeda PA-C Work Phone: [facility] 02-28-2022 15:07-0400 SaO2% (BldA) [Mass fraction] 98 % NA Ojeda PA-C Work Phone: [facility] 02-28-2022 15:07-0400 Systolic blood pressure 120 mm[Hg] NA Ojeda PA-C Work Phone: [facility] 02-12-2022 11:51-0400 Body weight 86.18 kg NA Ojeda PA-C Work Phone: [facility] 02-12-2022 11:51-0400 Diastolic blood pressure 70 mm[Hg] NA Ojeda PA-C Work Phone: [facility] 02-12-2022 11:51-0400 Heart rate 52 /min NA Ojeda PA-C Work Phone: [facility] 02-12-2022 11:51-0400 Respiratory rate 20 /min NA Ojeda PA-C Work Phone: [facility] 02-12-2022 11:51-0400 SaO2% (BldA) [Mass fraction] 98 % NA Ojeda PA-C Work Phone: [facility] 02-12-2022 11:51-0400 Systolic blood pressure 142 mm[Hg] NA Ojeda PA-C Work Phone: [facility] 11-12-2021 13:38-0400 Body temperature 99.1 [degF] NA Ojeda PA-C Work Phone: [facility] 11-12-2021 13:38-0400 Body weight 84.37 kg NA Ojeda PA-C Work Phone: [facility] 11-12-2021 13:38-0400 Diastolic blood pressure 66 mm[Hg] NA Ojeda PA-C Work Phone: [facility] 11-12-2021 13:38-0400 Heart rate 68 /min NA Ojeda PA-C Work Phone: [facility] 11-12-2021 13:38-0400 Respiratory rate 18 /min NA Ojeda PA-C Work Phone: [facility] 11-12-2021 13:38-0400 SaO2% (BldA) [Mass fraction] 99 % NA Ojeda PA-C Work Phone: [facility] 11-12-2021 13:38-0400 Systolic blood pressure 112 mm[Hg] NA Ojeda PA-C Work Phone: [facility] Encounters Encounter Date Encounter Type Care Provider Facility Start: 06-09-2023 End: 06-09-2023 ambulatory Jerrod OJEDA Facility:[facility] Start: 02-07-2023 End: 02-07-2023 [facility] Start: 02-07-2023 End: 02-07-2023 Patient encounter procedure Lazaro Aldridge MD Work Phone: Neurology Procedures Date Procedure Procedure Detail Performing Clinician History of coronary artery bypass grafting S/P CABG x 2 M Collins Ojeda PA-C Work Phone: Plan of Treatment Date Care Activity Detail Author Start: 01-02-2031 Urine microalbumin profile DTAP,TDAP,TD (2 - Td or Tdap) [facility] Start: 02-06-2024 Hepatitis B surface antibody level LDL CHOLESTEROL [facility] Start: 01-07-2024 3 comp foot exam completed DIABETIC FOOT EXAM [facility] Start: 08-06-2023 Hemoglobin A1c/Hemoglobin.total in Blood HBA1C [facility] Start: 03-28-2023 End: 05-28-2023 Hemoglobin A1c in Blood HGB A1C Lab Routine Microalbuminuria Expected: 03/28/2023, Expires: 05/28/2023 [facility] Work Phone: Immunizations Immunization Date Immunization Notes Care Provider Jostin timmons 01-15-2022 zoster vaccine recombinant NA Ojeda PA-C Work Phone: [facility] 08-10-2021 influenza, high-dose , quadrivalent vaccine (FLUZONE HIGH DOSE QUADRIVALENT) NA Ojeda PA-C Work Phone: [facility] 01-02-2021 tetanus toxoid, redu talha diphtheria toxoid, and acellular pertussis vaccine, adsorbed NA Ojeda PA-C Work Phone: [facility] 08-01-2020 influenza, high-dose , quadrivalent vaccine (FLUZONE HIGH DOSE QUADRIVALENT) NA Ojeda PA-C Work Phone: [facility] 03-25-2019 influenza, high dose seasonal, preservative-free NA Ojeda PA-C Work Phone: [facility] 03-04-2018 influenza, high dose seasonal, preservative-free NA Ojeda PA-C Work Phone: [facility] 04-14-2017 influenza, high dose seasonal, preservative-free NA Ojeda PA-C Work Phone: [facility] Work Phone: 12-30-2016 pneumococcal conjuga te vaccine, 13 valent NA Ojeda PA-C Work Phone: [facility] Work Phone: 12-17-2016 zoster vaccine, live NA Taj on PA-C Work Phone: [facility] Work Phone: 07-01-2016 influenza, high dose seasonal, preservative-free NA Ojeda PA-C Work Phone: [facility] Work Phone: 03-15-2015 influenza, high dose seasonal, preservative-free NA Ojeda PA-C Work Phone: [facility] Work Phone: 04-08-2014 influenza, high dose seasonal, preservative-free NA Ojeda PA-C Work Phone: [facility] 06-25-2013 influenza virus vacc ine, whole virus NA Ojeda PA-C Work Phone: [facility] 04-02-2008 influenza virus vacc ine, unspecified formulation NA Ojeda PA-C Work Phone: [facility] Work Phone: 04-02-2007 influenza virus vacc ine, unspecified formulation NA Ojeda PA-C Work Phone: [facility] Work Phone: 04-02-2005 influenza virus vacc ine, unspecified formulation NA Ojeda PA-C Work Phone: [facility] Work Phone: 04-02-2005 pneumococcal polysaccharide vaccine, 23 valent NA Ojeda PA-C Work Phone: [facility] Work Phone: Payers Date Payer Category Payer Medicare [id number] 2013 Medicare [employer] [place] [place] [id number] 2013-Present [phone] [address] [place] [address] [facility] [id number] 2013 Medicare [employer] [place] [id number] 2013-Present [phone] [address] [place] [address] [facility] [id number] 1940 Unknown [id number] Social History Date Type Detail Facility Start: 05-19-2017 End: 02-12-2022 Tobacco smoking status NHIS Ex-smoker [facility] End: 06-02-1983 History of tobacco use Current smoker [facility] Start: 08-10-2021 End: 02-07-2023 Alcohol intake Current non-drinker of alcohol (finding) [facility] Start: 07-26-2020 End: 06-11-2022 History SDOH Alcohol Frequency 2 [facility] Start: 07-26-2020 End: 06-11-2022 History SDOH Alcohol Std Drinks 1 [facility] Start: 07-26-2020 History SDOH Social Connections Phone 5 [facility] Start: 07-26-2020 End: 06-11-2022 History SDOH Social Connections Get Together 3 [facility] Start: 07-26-2020 End: 06-11-2022 History SDOH Physical Activity DPW 0 [facility] Start: 07-26-2020 End: 06-11-2022 History SDOH Financial 4 [facility] Start: 07-25-2020 Education 12 [facility] Start: 1940 Sex Assigned At Male [facility] Start: 11-02-2021 End: 02-12-2022 Exposure to SARS-CoV-2 (event) Not sure [facility] Start: 12-04-2021 End: 12-14-2021 Exposure to SARS-CoV-2 (event) Yes [facility] End: 06-02-1983 History of tobacco use Cigarette Smoker [facility] Work Phone: Start: 05-19-2017 End: 02-12-2022 Tobacco use and exposure Smokeless tobacco non-user [facility] Work Phone: Start: 06-11-2022 End: 11-05-2022 History of Social function [facility] Start: 06-11-2022 End: 11-05-2022 Social connection and isolation panel [facility] Do you belong to any clubs or organizations such as muslim groups, unions, fraternal or athletic groups, or school groups? No [facility] Are you now , , , , never or living with a partner? [facility] How often to you hav e a drink containing alcohol? 2-3 time sa week [facility] How many standard dr inks containing alcohol do you have on a typical day? 1 or 2 [facility] How often do you hav e 6 or more drinks on 1 occasion? Never [facility] How hard is it for y ou to pay for the very basics like food, housing, medical care, and heating Not very hard [facility] Adult Depression Screening Assessment 4 [facility] Do you feel stress - tense, restless, nervous, or anxious, or unable to sleep at night because your mind is troubled all the time - these days [OSQ] Rather much [facility] (I/We) worried wheblaine er (my/our) food would run out before (I/we) got money to buy more. Never true [facility] Start: 02-29-2020 Gender identity Identifies as male gender (finding) [facility] Start: 02-29-2020 Sexual orientation Heterosexual (finding) [facility] Clinical Notes 06-15-2009 to 06-09-2023 Lazaro Aldridge Jr., MD - 02/07/2023 11:47 AM EDTTelephone Encounter - Tiara Ortiz LPN - 01/21/2023 10:33 AM EDTTelephone Encounter - Jerrod Oejda PA-C - 01/14/2023 3:05 PM EDT Note Date & Type Note Facility 06-09-2023 Note HNO ID: [id number] Author: LAZARO ALDRIDGE JR, MD Service: ? [...] 4 (more content not included)... [facility] 02-07-2023 Note HNO ID: [id number] Author: Lazaro Aldridge Jr., MD Service: ? [...] Similar objects: 2/2 Orientation: Friday, 2001, January, Merged With [facility] [place]: 09/05 Delayed recall: 06/06 REVIEW OF [...] h (more content not included)... [facility] 02-07-2023 History of Present illness Narrative [...] follow up in 3 months at our [place] offices. Pt and his family agree with [...] which included preparing to see the patient, [id number] patient care, completing clinical documentation, obtaining and/or reviewing separately obtained history, performing a medically appropriate examination, counseling and educating the patient/family/caregiver, ordering medications, tests, or procedures, independently interpreting results (not separately reported), and communicating results to the patient/family/caregiver. documented in this encounter [facility] 01-21-2023 Miscellaneous Notes JENARO 11/05/22 with MQ [...] Santa Gordon PA-C documented in this encounter [facility] 01-14-2023 Miscellaneous Notes The following approved medication [...] you. RINKU Alarcon documented in this encounter [facility] 01-06-2023 Note HNO ID: [id number] Author: Jerrod Ojeda PA-C Service: ? 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 Coronary artery disease involving [place] coronary artery of 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 angina pectoris S/p CABG x [...] No significant change from 09/21/09 01/27/15 referral video game technician Kelvin Ellis [facility] 09/21/09 echocardiogram: LV size NL, LVSF: 60% [...] 6.3 08/10/2021 6.7 03/24/2020 Test sent to [facility]. 10/30/2019 Test sent to [facility]. ) CMP: Glucose 128 03/15/2022 BUN 22 [...] Spo (more content not included)... [facility] 01-06-2023 Instructions Jerrod Ojeda PA-C - 01/06/2023 2:08 PM EDT Please bring in advanced directives. 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 Coronary artery disease involving [place] coronary artery of 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 angina pectoris S/p CABG x [...] No significant change from 09/21/09 01/27/15 referral video game technician Kelvin Ellis [facility] [place] 09/21/09 echocardiogram: LV size NL, LVSF: 60% [...] 6.3 08/10/2021 6.7 03/24/2020 Test sent to [facility]. 10/30/2019 Test sent to [facility]. ) CMP: Glucose 128 03/15/2022 BUN 22 [...] be affecting 3. Coronary artery disease involving [place] coronary artery of 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 angina pectoris - ICD9: 414.01, [...] Jerrod Ojeda PA-C documented in this encounter [facility] 12-26-2022 Miscellaneous Notes Needs OV for follow [...] Kate Nolasco Ma documented in this encounter [facility] 12-20-2022 Miscellaneous Notes Apurva Ojeda PA-C Home Care certification received from [facility] requesting provider review and signature. Forwarded to [facility]'s desk for signature. Once signed, please fax to [facility] at [phone]. Gale Paniagua MA documented in this encounter [facility] 12-19-2022 Miscellaneous Notes Patient has been identified by name and date of : Yes Patient phones for refill(s): Requested Prescriptions Pending Prescriptions Disp Refills lisinopril (ZESTRIL) 20 mg tablet 90 tablet 1 Sig: Take 1 tablet by mouth once daily. Date of last office visit in primary care: 06/11/2022 Please advise. Thank you. Paula Jauregui LPN documented in this encounter [facility] 12-10-2022 Note HNO ID: [id number] Author: RT Margo(Ej) Service: ? Author Type: [...] December 10, 2022 1:[address] [facility] 12-10-2022 Miscellaneous Notes Left a message [...] Alexys Negron LPN documented in this encounter [facility] 12-09-2022 Miscellaneous Notes Patient has been identified [...] Gale Paniagua MA documented in this encounter [facility] 12-05-2022 Miscellaneous Notes Teressa, a speech therapist with [facility] is calling to update PCP that during her visit with patient yesterday, pt's family reports that pt has had three recent falls. One on 11/29, one on 12/02 and one on 12/03. No injuries. Reports pt's legs are weak and give out. Pt will be receiving Physical Therapy. No call back needed. Thank you. documented in this encounter [facility] 11-26-2022 Miscellaneous Notes Spoke to patients and she is agreeable with going to [facility]. Orders and pt information sent to fax number [phone]. Tiara Ortiz LPN Thank you for the referral of your patient to [facility]. At this time, we are at capacity and are unable to accept your patient. In order to help your patient receive quality home care, we have included reputable agencies that service this area: [facility], Phone number [phone] or [facility], phone number [phone]. Please contact this agency and they will work with your patient to arrange timely services. Thank you, Alexsandra Busch LPN 11/22/2022 2:29 PM documented in this encounter [facility] 11-22-2022 Miscellaneous Notes Please assist with home [...] Britany Guillory RN documented in this encounter [facility] 11-13-2022 Miscellaneous Notes Sw notes that [facility] is reaching out [...] Spouse and Sw also discussed that our [facility] still has PT if for whatever reason HH does not work. documented in this encounter [facility] 11-05-2022 Note HNO ID: [id number] Author: Santa Gordon PA-C Service: ? Author Type: Physician Computer Systems Engineer Type: Progress Notes Filed: 11/05/2022 12:51 PM [...] follow up in 3 months at our [place] offices. Pt and his family agree with [...] muscle (more content not included)... [facility] 11-05-2022 Instructions Santa Gordon PA-C - 11/05/2022 12:18 PM EDT Increase water intake Social work consult for falls and physical therapy Physical therapy for strength MRI of the cervical spine Continue B12 supplementation, continue namenda 10mg bid Follow up in three months documented in this encounter [facility] 11-05-2022 History of Present illness Narrative ESTABLISHED [...] follow up in 3 months at our [place] offices. Pt and his family agree with [...] which included preparing to see the patient, [id number] patient care, completing clinical documentation, obtaining and/or reviewing separately obtained history, performing a medically appropriate examination, counseling and educating the patient/family/caregiver, and ordering medications, tests, or procedures. This document has been created with the use of voice recognition technology. It may contain inaccuracies: (e.g. misspellings, inaccurate syntax or word sense) that have escaped review. documented in this encounter [facility] 10-07-2022 Miscellaneous Notes Left the patient a voice message about the appointment date and time change. Sent the patient a [employer] message and mailed the reminder. The patient is scheduled for a 3-month follow-up on 11/05 with HERB Owen. The patient is scheduled for a 6-month follow-up on 02/[address] Aldridge. documented in this encounter [facility] 09-09-2022 Miscellaneous Notes Patient phones requesting refills as follows: Requested Prescriptions Pending Prescriptions Disp Refills atenolol (TENORMIN) 25 mg tablet 90 tablet 1 Sig: Take 1 tablet by mouth once daily. JENARO 06/11/22 NOV no upcoming appt Please review and advise. Alexys Negron LPN documented in this encounter [facility] 08-02-2022 Miscellaneous Notes Patient telephoend. answered. Made aware of update. Voices understanding, will pickle maker medication tomorrow. Sissy Huerta LPN Please advise Yoselin Aldridge recommended supplementing vit B12- this is a sublingual The following approved medication requests have been transmitted electronically. Requested Prescriptions Signed Prescriptions Disp Refills Cyanocobalamin 1,000 mcg subl 90 tablet 3 Sig: Dissolve 1 tablet under the tongue once daily. Authorizing Provider: Jerrod OJEDA PA-C documented in this encounter [facility] 07-31-2022 Note HNO ID: [id number] Author: Lazaro Aldridge Jr., MD Service: ? [...] recall: 2; 2 Number repeat: 06/03 (bkwrds: [id number]) Sentence repeat: 07/04 Serial 7s: 100-93-x 06/04 Orientation: X/X/2002, Wed, Yanes, Biden 08/05 Delayed recall: 07/07 Similar object: 1 Cube drawin/1 Clock drawing: (numbers outside [place], writes # for 10 p 11) 06/04 [...] Value (more content not included)... [facility] 07-31-2022 History of Present illness Narrative [...] 06/03 Cube drawin Clock drawing: (numbers outside [place], writes # for 10 p 11) 06/04 [...] follow up in 3 months at our [place] offices. Pt and his family agree with plan. Lazaro Aldridge MD I spent a total of 60+ minutes on the date of the service which included preparing to see the patient, [id number] patient care, completing clinical documentation, obtaining and/or reviewing separately obtained history, performing a medically appropriate examination, counseling and educating the patient/family/caregiver, ordering medications, tests, or procedures, independently interpreting results (not separately reported), and communicating results to the patient/family/caregiver. documented in this encounter [facility] 07-22-2022 Miscellaneous Notes Patient phones requesting refills as follows: Requested Prescriptions Pending Prescriptions Disp Refills gabapentin (NEURONTIN) 600 mg tablet 180 tablet 1 Sig: Take 1 tablet by mouth twice daily for 180 days. JENARO 06/11/22 (virtual) 02/28/22 (in office) NOV no upcoming appt Please review and advise. Alexys Negron LPN documented in this encounter [facility] 06-14-2022 Miscellaneous Notes Patient's calls back and [...] Britany Guillory RN documented in this encounter [facility] 06-13-2022 Miscellaneous Notes Component Latest Ref Rng & Units 06/11/2022 Color Yellow Yellow Clarity Clear Cloudy (A) Glucose, Urine Trace, Negative Negative Bilirubin, Urine Negative Negative Ketones, Urine Trace, Negative Negative Specific [place], Ur 1.005 - 1.030 1.025 Hemoglobin/Blood,Ur Negative, [...] (A) Culture pending documented in this encounter [facility] 06-11-2022 Miscellaneous Notes Received fax from [employer]. Requesting order for test strips. Call to patient and they did not request this company nor do they want to use this company. Fax shredded. Mary Kate Nolasco Ma documented in this encounter [facility] [facility] History of Present illness Narrative Audio [...] Jerrod Ojeda PA-C documented in this encounter [facility] 06-10-2022 Miscellaneous Notes Last office visit: 02/28/22 F/u scheduled: 06/11/22 Lisa Han Ma documented in this encounter [facility] 06-07-2022 Miscellaneous Notes Will scheduled when here [...] . Thank you. documented in this encounter [facility] 05-10-2022 Miscellaneous Notes Patient phones requesting refills as follows: Requested Prescriptions Pending Prescriptions Disp Refills traMADol (ULTRAM) 50 mg tablet 60 tablet 5 Sig: Take 1 tablet by mouth twice daily as needed for pain for up to 30 days. JENARO-02/28/22 Labs-03/18/22 NOV-05/14/22 med filled 10/17/21 Please review and advise. Albina Porter LPN documented in this encounter [facility] 03-20-2022 Miscellaneous Notes TC to pt, spoke /c pt [place], notified of results/provider response. Marg[place] states d/t transportation issues they would prefer to stay in [place]. Referral faxed to Dr. Thomas's office. Alexys Negron LPN Please advise ultrasound demonstrates a large bladder stone 3.1 cm, this is likely causing obstruction and complications with urination. Recommend consult to urology, I prefer Dr. Yo Durham on if possible in [place]. If patient wants to stay in [place] he could see Dr. Thomas Telephone on 03/20/22 CONSULT TO UROLOGY Thanks, Oneil Ojeda PA-C documented in this encounter [facility] 03-18-2022 Miscellaneous Notes Telephone on 03/18/22 CBC + DIFF COMP METABOLIC PANEL Oneil Ojeda PA-C File orders documented in this encounter [facility] 03-18-2022 History of Present illness Narrative Radiology [...] 2022 2:51 PM documented in this encounter [facility] 03-16-2022 Miscellaneous Notes Please schedule: Telephone on 03/05/22 CONSULT TO VASCULAR SURGERY Venous incompetence (primary encounter diagnosis) Bilateral leg edema ThanksOneil PA-C documented in this encounter [facility] 03-06-2022 Miscellaneous Notes Last office visit: 02/28/22 Next appointment scheduled: 05/14/22 Last labs: 02/28/22 Patient phones requesting refills as follows: Requested Prescriptions Pending Prescriptions Disp Refills atenolol (TENORMIN) 25 mg tablet 90 tablet 1 Sig: Take 1 tablet by mouth once daily. Please review and advise. Marjorie Bar LPN documented in this encounter [facility] 03-06-2022 Miscellaneous Notes Called PT LVM to [...] Oneil Ojeda PA-C documented in this encounter [facility] 02-28-2022 History of Present illness Narrative 81 year old male with c/o here for follow up Bilateral leg edema (primary encounter diagnosis) Sob (shortness of breath) Bilateral calf pain Coronary artery disease involving mic[place]ukee coronary artery of [place]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 angina pectoris Hypertension, essential Hyperlipidemia, [...] No significant change from 09/21/09 01/27/15 referral video game technician Kelvin Ellis [facility] 09/21/09 echocardiogram: LV [...] Jerrod Ojeda PA-C documented in this encounter [facility] 02-12-2022 History of Present illness Narrative 81 [...] Jerrod Ojeda PA-C documented in this encounter [facility] 01-28-2022 Miscellaneous Notes Patient has been identified [...] [place] LPN documented in this encounter [facility] 12-17-2021 Miscellaneous Notes Last office visit 12/14/2021. documented in this encounter [facility] 12-14-2021 History of Present illness Narrative Alternative [...] gets really tested. 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 Discussed new monoclonal therapy briefly- [...] discussed Nirmatrelvir/Ritonavir (Paxlovid) Eligibility and Patient Discussion [facility] Formulary Restriction Criteria: Adult outpatients 18 years [...] coronavirus infection (COVID-19). documented in this encounter [facility] 11-12-2021 History of Present illness Narrative 81 [...] BP <130/80 3. 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 Fax to requested location. Flora Ortega Ma documented in this encounter [facility] 09-17-2021 Miscellaneous Notes Pending Prescriptions Disp Refills TRAMADOL 50 MG TABLET 60 tablet 2 Sig: Take 1 tablet by mouth twice daily as needed for pain for up to 30 days. MASON Class: C-IV MILLI: No JENARO 08/10/21 NOV 11/12/21 Last refilled 06/21/21 #60 2 refills documented in this encounter [facility] documented as of this encounter (statuses as of 09/18/2021) [facility] History of Past illness Narrative* Problem Noted Date Resolved Date JONATHON (obstructive sleep apnea) 06/15/2009 documented as of this encounter (statuses as of 09/28/2021) [facility] History of Past illness Narrative* Problem Noted Date Resolved Date JONATHON (obstructive sleep apnea) 06/15/2009 documented as of this encounter (statuses as of 10/17/2021) [facility] History of Past illness Narrative* Problem Noted Date Resolved Date JONATHON (obstructive sleep apnea) 06/15/2009 documented as of this encounter (statuses as of 11/12/2021) [facility] History of Past illness Narrative* Problem Noted Date Resolved Date JONATHON (obstructive sleep apnea) 06/15/2009 documented as of this encounter (statuses as of 12/12/2021) [address] History of Past illness Narrative* Problem Noted Date Resolved Date JONATHON (obstructive sleep apnea) 06/15/2009 documented as of this encounter (statuses as of 12/14/2021) [address] History of Past illness Narrative* Problem Noted Date Resolved Date JONATHON (obstructive sleep apnea) 06/15/2009 documented as of this encounter (statuses as of 12/17/2021) [address] History of Past illness Narrative* Problem Noted Date Resolved Date JONATHON (obstructive sleep apnea) 06/15/2009 documented as of this encounter (statuses as of 01/28/2022) [address] History of Past illness Narrative* Problem Noted Date Resolved Date JONATHON (obstructive sleep apnea) 06/15/2009 documented as of this encounter (statuses as of 02/12/2022) [address] History of Past illness Narrative* Problem Noted Date Resolved Date JONATHON (obstructive sleep apnea) 06/15/2009 documented as of this encounter (statuses as of 03/01/2022) [facility] of Past illness Narrative* Problem Noted Date Resolved Date JONATHON (obstructive sleep apnea) 06/15/2009 documented as of this encounter (statuses as of 03/06/2022) [place] [address]-2010 History of Past illness Narrative* Problem Noted Date Resolved Date JONATHON (obstructive sleep apnea) 06/15/2009 documented as of this encounter (statuses as of 03/08/2022) [address] History of Past illness Narrative* Problem Noted Date Resolved Date JONATHON (obstructive sleep apnea) 06/15/2009 documented as of this encounter (statuses as of 03/16/2022) [place] [address] History of Past illness Narrative* Problem Noted Date Resolved Date JONATHON (obstructive sleep apnea) 06/15/2009 documented as of this encounter (statuses as of 03/18/2022) [address] History of Past illness Narrative* Problem Noted Date Resolved Date JONATHON (obstructive sleep apnea) 06/15/2009 documented as of this encounter (statuses as of 03/19/2022) [address] History of Past illness Narrative* Problem Noted Date Resolved Date JONATHON (obstructive sleep apnea) 06/15/2009 documented as of this encounter (statuses as of 03/20/2022) [facility] History of Past illness Narrative* Problem Noted Date Resolved Date JONATHON (obstructive sleep apnea) 06/15/2009 documented as of this encounter (statuses as of 05/10/2022) [facility] History of Past illness Narrative* Problem Noted Date Resolved Date JONATHON (obstructive sleep apnea) 06/15/2009 documented as of this encounter (statuses as of 06/08/2022) [address] History of Past illness Narrative* Problem Noted Date Resolved Date JONATHON (obstructive sleep apnea) 06/15/2009 documented as of this encounter (statuses as of 06/11/2022) [address] History of Past illness Narrative* Problem Noted Date Resolved Date JONATHON (obstructive sleep apnea) 06/15/2009 documented as of this encounter (statuses as of 06/11/2022) [facility] History of Past illness Narrative* Problem Noted Date Resolved Date JONATHON (obstructive sleep apnea) 06/15/2009 documented as of this encounter (statuses as of 06/12/2022) [address] History of Past illness Narrative* Problem Noted Date Resolved Date JONATHON (obstructive sleep apnea) 06/15/2009 documented as of this encounter (statuses as of 06/14/2022) [facility] History of Past illness Narrative* Problem Noted Date Resolved Date JONATHON (obstructive sleep apnea) 06/15/2009 documented as of this encounter (statuses as of 06/14/2022) [address] History of Past illness Narrative* Problem Noted Date Resolved Date JONATHON (obstructive sleep apnea) 06/15/2009 documented as of this encounter (statuses as of 07/23/2022) [place] [address]14[address]2010 History of Past illness Narrative* Problem Noted Date Resolved Date JONATHON (obstructive sleep apnea) 06/15/2009 documented as of this encounter (statuses as of 07/31/2022) [place] [address]2010 History of Past illness Narrative* Problem Noted Date Resolved Date JONATHON (obstructive sleep apnea) 06/15/2009 documented as of this encounter (statuses as of 09/10/2022) [address] History of Past illness Narrative* Problem Noted Date Resolved Date JONATHON (obstructive sleep apnea) 06/15/2009 documented as of this encounter (statuses as of 09/20/2022) [address] History of Past illness Narrative* Problem Noted Date Resolved Date JONATHON (obstructive sleep apnea) 06/15/2009 documented as of this encounter (statuses as of 10/08/2022) [facility] History of Past illness Narrative* Problem Noted Date Resolved Date JONATHON (obstructive sleep apnea) 06/15/2009 documented as of this encounter (statuses as of 11/05/2022) [address] History of Past illness Narrative* Problem Noted Date Resolved Date JONATHON (obstructive sleep apnea) 06/15/2009 documented as of this encounter (statuses as of 11/19/2022) [place] [address] History of Past illness Narrative* Problem Noted Date Resolved Date JONATHON (obstructive sleep apnea) 06/15/2009 documented as of this encounter (statuses as of 11/26/2022) [address] History of Past illness Narrative* Problem Noted Date Resolved Date JONATHON (obstructive sleep apnea) 06/15/2009 documented as of this encounter (statuses as of 11/26/2022) [address] History of Past illness Narrative* Problem Noted Date Diagnosed Date Resolved Date JONATHON (obstructive sleep apnea) 06/15/2009 11/02/2018 documented as of this encounter (statuses as of 12/10/2022) [address] History of Past illness Narrative* Problem Noted Date Diagnosed Date Resolved Date JONATHON (obstructive sleep apnea) 06/15/2009 11/02/2018 documented as of this encounter (statuses as of 12/12/2022) [address] History of Past illness Narrative* Problem Noted Date Diagnosed Date Resolved Date JONATHON (obstructive sleep apnea) 06/15/2009 11/02/2018 documented as of this encounter (statuses as of 12/20/2022) [address] History of Past illness Narrative* Problem Noted Date Diagnosed Date Resolved Date JONATHON (obstructive sleep apnea) 06/15/2009 11/02/2018 documented as of this encounter (statuses as of 12/27/2022) [facility] History of Past illness Narrative* Problem Noted Date Diagnosed Date Resolved Date JONATHON (obstructive sleep apnea) 06/15/2009 11/02/2018 documented as of this encounter (statuses as of 01/01/2023) [place] [address] History of Past illness Narrative* Problem Noted Date Diagnosed Date Resolved Date JONATHON (obstructive sleep apnea) 06/15/2009 11/02/2018 documented as of this encounter (statuses as of 01/07/2023) [place] [address] History of Past illness Narrative* Problem Noted Date Diagnosed Date Resolved Date JONATHON (obstructive sleep apnea) 06/15/2009 11/02/2018 documented as of this encounter (statuses as of 01/15/2023) [place] [address] History of Past illness Narrative* Problem Noted Date Diagnosed Date Resolved Date JONATHON (obstructive sleep apnea) 06/15/2009 11/02/2018 documented as of this encounter (statuses as of 01/21/2023) [place] [address] History of Past illness Narrative* Problem Noted Date Diagnosed Date Resolved Date JONATHON (obstructive sleep apnea) 06/15/2009 11/02/2018 documented as of this encounter (statuses as of 02/05/2023) [address] History of Past illness Narrative* Problem Noted Date Diagnosed Date Resolved Date JONATHON (obstructive sleep apnea) 06/15/2009 11/02/2018 documented as of this encounter (statuses as of 02/07/2023) [facility] [place] [facility] Diagnosis Diabetic polyneuropathy associated with type 2 diabetes mellitus (HCC) Recurrent low back pain Lumbago [facility] [place] [facility] Diagnosis Diabetic polyneuropathy associated with type 2 diabetes mellitus (HCC) Recurrent low back pain Lumbago [facility] [place] [facility] Diagnosis Benign prostatic hyperplasia, unspecified whether lower urinary tract symptoms present- Primary Hypertension, essential Unspecified essential hypertension Coronary artery disease involving [place] coronary artery of [place]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 angina pectoris Hyperlipidemia, mixed 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, without long- term current use of insulin (HCC) Diabetic polyneuropathy associated with type 2 diabetes mellitus (HCC) Hiatal hernia Diaphragmatic hernia without mention of obstruction or gangrene 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 Ataxia Lack of coordination [facility] [place] [facility]* Diagnosis Upper respiratory tract infection due to COVID-19 virus- Primary Brain atrophy (HCC) Cerebral degeneration, unspecified Mild dementia (HCC) Dementia, unspecified, without behavioral disturbance [facility] [place] [facility]* Diagnosis Benign prostatic hyperplasia without lower urinary tract symptoms documented [facility] [place] [facility]* Diagnosis Bilateral leg edema- Primary Edema Bilateral calf pain Pain in limb documented [facility] [place] [facility]* Diagnosis Bilateral leg edema- Primary Edema SOB (shortness of breath) Shortness of breath Bilateral calf pain Pain in limb Screening for colon cancer Special screening for malignant neoplasms, colon Controlled type 2 diabetes mellitus with diabetic neuropathy, without long-term current use of insulin ([facility]) documented in this encounter [facility] [place] [facility]* Diagnosis Elevated serum creatinine- Primary Other nonspecific findings on examination of blood [facility] [place] [facility] Diagnosis Hypertension, essential Unspecified essential hypertension Essential tremor Essential and other specified forms of tremor [facility] [place] [facility]* Diagnosis Venous incompetence- Primary Unspecified venous (peripheral) insufficiency Bilateral leg edema Edema [facility] [place] [facility] Diagnosis Coronary artery disease involving [place] coronary artery of 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 angina pectoris- Primary Medication management Encounter for long-term (current) use of other medications Controlled type 2 diabetes mellitus with diabetic neuropathy, without long-term current use of insulin (HCC) Hypertension, essential Unspecified essential hypertension Hyperlipidemia, mixed Mixed hyperlipidemia documented [facility] [place] [facility]* Diagnosis Elevated serum creatinine Other nonspecific findings on examination of blood documented in this [facility] [place] [facility]* Diagnosis Benign prostatic hyperplasia with urinary obstruction- Primary Bladder stone Other calculus in bladder [facility] [place] [facility]* Diagnosis Diabetic polyneuropathy associated with type 2 diabetes mellitus (HCC) Recurrent low back pain Lumbago documented in this [facility] [place] [facility]* Diagnosis Dementia with behavioral disturbance- Primary Dementia, unspecified, with behavioral disturbance documented [facility] [place] [facility]* Diagnosis Controlled type 2 diabetes mellitus with diabetic polyneuropathy, without long- term current use of insulin ([facility]) documented in this encounter [facility] [place] [facility]* Diagnosis Brain atrophy (HCC)- Primary Cerebral degeneration, unspecified Dementia with behavioral disturbance Dementia, unspecified, with behavioral disturbance Sleep concern Problems related to lack of adequate sleep Urinary frequency documented [facility] this encounter [facility] [place] [facility]* Diagnosis Moderate dementia with other behavioral disturbance, unspecified dementia type (HCC)- Primary History of stroke Transient ischemic attack (TIA), and cerebral infarction without residual deficits Low vitamin B12 level Other B-complex deficiencies documented in this encounter [facility] [place] [facility]* Diagnosis Hypertension, essential Unspecified essential hypertension Essential tremor Essential and other specified forms of tremor documented in this [facility] [place] [facility]* Diagnosis Spinal stenosis of cervical region- Primary Spinal stenosis in cervical region Weakness Other malaise and fatigue Parkinsonism, unspecified Parkinsonism type (HCC) Frequent falls Personal history of fall Moderate dementia with other behavioral disturbance, unspecified dementia type (HCC) documented [facility] [place] [facility]* Diagnosis Moderate dementia with other behavioral disturbance, unspecified dementia type (HCC)- Primary Frequent falls Personal history of fall Parkinsonism, unspecified Parkinsonism type (HCC) documented [facility] this [facility] [place] [facility]* Diagnosis Spinal stenosis of cervical region- Primary Spinal stenosis in cervical region Weakness Other malaise and fatigue Parkinsonism, unspecified Parkinsonism type (HCC) Frequent falls Personal history of fall Moderate dementia with other behavioral disturbance, unspecified dementia type (HCC) documented in this encounter [facility] [place] [facility]* Diagnosis Diabetic polyneuropathy associated with type 2 diabetes mellitus (HCC) Recurrent low back pain Lumbago [facility] [place] [facility]* Diagnosis Controlled type 2 diabetes mellitus with diabetic polyneuropathy, without long- term current use of insulin (HCC) documented in this encounter [facility] [place] [facility]* Diagnosis Controlled type 2 diabetes mellitus with diabetic neuropathy, without long-term current use of insulin (HCC)- Primary Primary hypertension Unspecified essential hypertension Hyperlipidemia, mixed Mixed hyperlipidemia Microalbuminuria Proteinuria [facility] Diagnosis Brain atrophy (HCC)- Primary Cerebral degeneration, unspecified 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 [place] coronary artery of [place]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 angina pectoris S/P CABG x [...] kidney disease (HCC) documented in this encounter [facility] note* Diagnosis Diabetic polyneuropathy associated with type 2 diabetes mellitus (HCC) Recurrent low back pain Lumbago [facility] Diagnosis Moderate dementia with other behavioral disturbance, unspecified dementia type (HCC)- Primary History of stroke Transient ischemic attack (TIA), and cerebral infarction without residual deficits Low vitamin B12 level Other B-complex deficiencies Spinal stenosis of cervical region Spinal stenosis in cervical region Frequent falls Personal history of fall History of hip fracture Personal history of traumatic fracture documented in this encounter [facility] for referral (narrative)* Diagnostic Procedure Only (Urgent) - Closed Specialty Diagnoses / Procedures Referred By Contac t Referred To Contact [facility] Diagnoses Bilateral leg edema Bilateral calf pain Procedures US DVT LOWER BILAT DUP-SCAN XTR VEINS COMPLETE BILATERAL STUDY Jerrod Ojeda PA-C [address] [place] [address] [facility] Referral ID Status Reason Start Date Expiration Date V isits Requested Visits Authorized [id number] Closed Auto-Generate d Referral 02/12/2022 03/14/2023 1 1 * Outpatient Procedure (Urgent) - Pending Review Specialty Diagnoses / Procedures Referred By Contac t Referred To Contact [facility] Diagnoses Bilateral leg edema Bilateral calf pain Procedures US LEG VEIN DVT ESME VAS LAB DUP-SCAN XTR VEINS COMPLETE BILATERAL STUDY Jerrod Ojeda PA-C [address] [place] [address] [facility] [address] [address] Referral ID Status Reason Start Date Expiration Date Visits Requested Visits Authorized [id number] Pending Review Auto-Generat ed Referral 02/12/2022 02/12/2023 1 1 [facility] for referral (narrative)* Outpatient Procedure (Routine) - Authorized Specialty Diagnoses / Procedures Referred By Contac t Referred To Contact [facility] Diagnoses Bilateral leg edema Procedures US VENOUS INCOMPETENCY ESME VAS LAB [employer]TR VEINS COMPLETE BILATERAL STUDY Jerrod jOeda PA-C [address] [place] [address] [address] Referral ID Status Reason Start Date Expiration Date Visits Requested Visits Authorized [id number] Authorized Auto-Generat ed Referral 02/28/2022 02/28/2023 1 1 [facility] for referral (narrative)* Diagnostic Procedure Only (Routine) - Pending Review Specialty Diagnoses / Procedures Referred By Contac t Referred To Contact US IMAGING Diagnoses Elevated serum creatinine Procedures US KIDNEY/BLADDER US RETROPERITONEAL REAL TIME W/IMAGE COMPLETE Jerrod Ojeda PA-C [address] [place] [address] Us Imaging Referral ID Status Reason Start Date Expiration Date Visits Requested Visits Authorized [id number] Pending Review Auto-Generat ed Referral 03/06/2022 04/05/2023 1 1 [facility] for referral (narrative)* Diagnostic Procedure Only (Routine) - Closed Specialty Diagnoses / Procedures Referred By Contac t Referred To Contact US IMAGING Diagnoses Elevated serum creatinine Procedures US KIDNEY/BLADDER US RETROPERITONEAL REAL TIME W/IMAGE COMPLETE Jerrod Ojeda PA-C [address] [place] [address] Us Imaging Referral ID Status Reason Start Date Expiration Date V isits Requested Visits Authorized [id number] Closed Auto-Generate d Referral 03/06/2022 04/05/2023 1 1 [facility] for referral (narrative)* Diagnostic Procedure Only (Routine) - Pending Review Specialty Diagnoses / Procedures Referred By Contac t Referred To Contact US IMAGING Diagnoses Moderate dementia with other behavioral disturbance, unspecified dementia type (HCC) History of stroke Procedures [place] [address] [place] [phone] Us Imaging Referral ID Status Reason Start Date Expiration Date Visits Requested Visits Authorized [id number] Pending Review Auto-Generat ed Referral 07/31/2022 08/30/[address] 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 Advance Directive(s) Reason for Referral Specialty Diagnoses / Procedures Referred By Contac t Referred To Contact MR IMAGING Diagnoses Ataxia Procedures MRI BRAIN WO IVCON MRI BRAIN BRAIN STEM W/O CONTRAST MATERIAL Jerrod Ojeda PA-C [address] [place] [address] Mr Imaging Referral ID Status Reason Start Date Expiration Date Visits Requested Visits Authorized [id number] Pending Review Auto-Generat ed Referral 11/12/2021 12/12/2022 1 1 Specialty Diagnoses / Procedures Referred By Contac t Referred To Contact Vascular Surgery Diagnoses Venous incompetence Bilateral leg edema Procedures CONSULT TO VASCULAR SURGERY OFFICE/OUTPATIENT [facility] 60-74 MINUTES Jerrod Ojeda PA-C [address] [place] [address] Referral ID Status Reason Start Date Expiration Date Visits Requested Visits Authorized [id number] Pending Review PCP Requested Referral 2 03/16/2023 1 1 Specialty Diagnoses / Procedures Referred By Contac t Referred To Contact Urology Diagnoses Benign prostatic hyperplasia with urinary obstruction Bladder stone Procedures CONSULT TO UROLOGY OFFICE/OUTPATIENT [facility] 60-74 MINUTES Jerrod Ojeda PA-C [address] [place] [address] Referral ID Status Reason Start Date Expiration Date Visits Requested Visits Authorized [id number] Pending Review PCP Requested Referral 2 03/20/2023 1 1 Specialty Diagnoses / Procedures Referred By Contac t Referred To Contact Neurology Diagnoses Dementia with behavioral disturbance Procedures CONSULT TO NEUROLOGY OFFICE/OUTPATIENT [facility] 60-74 MINUTES Jerrod Ojeda PA-C [address] [place] [address] Referral ID Status Reason Start Date Expiration Date Visits Requested Visits Authorized [id number] Pending Review PCP Requested Referral 06/07/2022 06/07/2023 1 1 Specialty Diagnoses / Procedures Referred By Contac t Referred To Contact MR IMAGING Diagnoses Spinal stenosis of cervical region Procedures MRI CERVICAL SPINE WO IVC MRI SPINAL CANAL CERVICAL W/O CONTRAST Santa Barry PA-C [address] [place] [address] Mr Imaging Referral ID Status Reason Start Date Expiration Date Visits Requested Visits Authorized [id number] Pending Review Auto-Generat ed Referral 11/05/2022 12/05/2023 1 1 Specialty Diagnoses / Procedures Referred By Contac t Referred To Contact [facility] Diagnoses Weakness Frequent falls Procedures CONSULT TO PHYSICAL THERAPY PHYSICAL THERAPY EVALUATION HIGH COMPLEX 45 MINS Santa Gordon PA-C [address] [place] [address] [facility] [address] [place] [address] Referral ID Status Reason Start Date Expiration Date Visits Requested Visits Authorized [id number] Pending Review Auto-Generat ed Referral 11/05/2022 11/05/2023 1 1 Specialty Diagnoses / Procedures Referred By Parul clark Referred To Contact Diagnoses Moderate dementia with other behavioral disturbance, unspecified dementia type (HCC) Frequent falls Parkinsonism, unspecified Parkinsonism type (HCC) Procedures CONSULT TO [facility] Santa Gordon PA-C [address] [place] [address] [address] [place] [id number] Referral ID Status Reason Start Date Expiration Date Visits Requested Visits Authorized [id number] Canceled PCP Requested Referral 11/06/2022 02/04/2023 3 3 Specialty Diagnoses / Procedures Referred By Parul clark Referred To Contact Diagnoses Weakness Parkinsonism, unspecified Parkinsonism type (HCC) Frequent falls Moderate dementia with other behavioral disturbance, unspecified dementia type (HCC) Procedures CONSULT TO [facility] Santa Gordon PA-C [address] [place] [address] [address] Referral ID Status Reason Start Date Expiration Date V isits Requested Visits Authorized [id number] Denied PCP Requested Referral 11/21/2022 02/19/2023 3 0 Health Concerns Infection Onset Date Last Indicated Resolved Time COVID-19 Confirmed 12/12/2021 12/12/2021 Additional Source Comments (unrecognized sect ion and content) No Status Records FoundNo Status Records FoundNo Status Records FoundNo Status Records Found INFORMATION SOURCE (unrecogn ized section and content) DATE CREATED AUTHOR AUTHOR'S ORGANIZ ATION 01/01/2019 [facility] DATE CREATED AUTHOR AUTHOR'S ORGANIZ ATION 01/19/2021 [facility] ([place]) DATE CREATED AUTHOR AUTHOR'S FOUZIA MAURICIO 07/03/[address] [facility] Source Comments (unrecognize d section and content) In the event this informatio n is protected by the Federal Confidentiality of Alcohol and Drug Abuse Patient Records regulations: The Federal rules restrict any use of the information to criminally investigate or prosecute any alcohol or drug abuse patient.[facility] the event this information is protected by the Federal Confidentiality of Alcohol and Drug Abuse Patient Records regulations: The Federal rules restrict any use of the information to criminally investigate or prosecute any alcohol or drug abuse patient.[facility] Center[facility] the event this information is protected by the Federal Confidentiality of Alcohol and Drug Abuse Patient Records regulations: The Federal rules restrict any use of the information to criminally investigate or prosecute any alcohol or drug abuse patient.[facility] Center[facility] the event this information is protected by the Federal Confidentiality of Alcohol and Drug Abuse Patient Records regulations: The Federal rules restrict any use of the information to criminally investigate or prosecute any alcohol or drug abuse patient.[facility] CenterIn the event this information is protected by the Federal Confidentiality of Alcohol and Drug Abuse Patient Records regulations: The Federal rules restrict any use of the information to criminally investigate or prosecute any alcohol or drug abuse patient.[facility] CenterIn the event this information is protected by the Federal Confidentiality of Alcohol and Drug Abuse Patient Records regulations: The Federal rules restrict any use of the information to criminally investigate or prosecute any alcohol or drug abuse patient.[facility] CenterIn the event this information is protected by the Federal Confidentiality of Alcohol and Drug Abuse Patient Records regulations: The Federal rules restrict any use of the information to criminally investigate or prosecute any alcohol or drug abuse patient.[facility] CenterIn the event this information is protected by the Federal Confidentiality of Alcohol and Drug Abuse Patient Records regulations: The Federal rules restrict any use of the information to criminally investigate or prosecute any alcohol or drug abuse patient.[facility] CenterIn the event this information is protected by the Federal Confidentiality of Alcohol and Drug Abuse Patient Records regulations: The Federal rules restrict any use of the information to criminally investigate or prosecute any alcohol or drug abuse patient.[facility] CenterIn the event this information is protected by the Federal Confidentiality of Alcohol and Drug Abuse Patient Records regulations: The Federal rules restrict any use of the information to criminally investigate or prosecute any alcohol or drug abuse patient.[facility] CenterIn the event this information is protected by the Federal Confidentiality of Alcohol and Drug Abuse Patient Records regulations: The Federal rules restrict any use of the information to criminally investigate or prosecute any alcohol or drug abuse patient.[facility] CenterIn the event this information is protected by the Federal Confidentiality of Alcohol and Drug Abuse Patient Records regulations: The Federal rules restrict any use of the information to criminally investigate or prosecute any alcohol or drug abuse patient.[facility] CenterIn the event this information is protected by the Federal Confidentiality of Alcohol and Drug Abuse Patient Records regulations: The Federal rules restrict any use of the information to criminally investigate or prosecute any alcohol or drug abuse patient.[facility] CenterIn the event this information is protected by the Federal Confidentiality of Alcohol and Drug Abuse Patient Records regulations: The Federal rules restrict any use of the information to criminally investigate or prosecute any alcohol or drug abuse patient.[facility] CenterIn the event this information is protected by the Federal Confidentiality of Alcohol and Drug Abuse Patient Records regulations: The Federal rules restrict any use of the information to criminally investigate or prosecute any alcohol or drug abuse patient.[facility] CenterIn the event this information is protected by the Federal Confidentiality of Alcohol and Drug Abuse Patient Records regulations: The Federal rules restrict any use of the information to criminally investigate or prosecute any alcohol or drug abuse patient.[facility] CenterIn the event this information is protected by the Federal Confidentiality of Alcohol and Drug Abuse Patient Records regulations: The Federal rules restrict any use of the information to criminally investigate or prosecute any alcohol or drug abuse patient.[facility] CenterIn the event this information is protected by the Federal Confidentiality of Alcohol and Drug Abuse Patient Records regulations: The Federal rules restrict any use of the information to criminally investigate or prosecute any alcohol or drug abuse patient.[facility] CenterIn the event this information is protected by the Federal Confidentiality of Alcohol and Drug Abuse Patient Records regulations: The Federal rules restrict any use of the information to criminally investigate or prosecute any alcohol or drug abuse patient.[facility] CenterIn the event this information is protected by the Federal Confidentiality of Alcohol and Drug Abuse Patient Records regulations: The Federal rules restrict any use of the information to criminally investigate or prosecute any alcohol or drug abuse patient.[facility] CenterIn the event this information is protected by the Federal Confidentiality of Alcohol and Drug Abuse Patient Records regulations: The Federal rules restrict any use of the information to criminally investigate or prosecute any alcohol or drug abuse patient.[facility] CenterIn the event this information is protected by the Federal Confidentiality of Alcohol and Drug Abuse Patient Records regulations: The Federal rules restrict any use of the information to criminally investigate or prosecute any alcohol or drug abuse patient.[facility] CenterIn the event this information is protected by the Federal Confidentiality of Alcohol and Drug Abuse Patient Records regulations: The Federal rules restrict any use of the information to criminally investigate or prosecute any alcohol or drug abuse patient.[facility] CenterIn the event this information is protected by the Federal Confidentiality of Alcohol and Drug Abuse Patient Records regulations: The Federal rules restrict any use of the information to criminally investigate or prosecute any alcohol or drug abuse patient.[facility] CenterIn the event this information is protected by the Federal Confidentiality of Alcohol and Drug Abuse Patient Records regulations: The Federal rules restrict any use of the information to criminally investigate or prosecute any alcohol or drug abuse patient.[facility] CenterIn the event this information is protected by the Federal Confidentiality of Alcohol and Drug Abuse Patient Records regulations: The Federal rules restrict any use of the information to criminally investigate or prosecute any alcohol or drug abuse patient.[facility] CenterIn the event this information is protected by the Federal Confidentiality of Alcohol and Drug Abuse Patient Records regulations: The Federal rules restrict any use of the information to criminally investigate or prosecute any alcohol or drug abuse patient.[facility] CenterIn the event this information is protected by the Federal Confidentiality of Alcohol and Drug Abuse Patient Records regulations: The Federal rules restrict any use of the information to criminally investigate or prosecute any alcohol or drug abuse patient.[facility] CenterIn the event this information is protected by the Federal Confidentiality of Alcohol and Drug Abuse Patient Records regulations: The Federal rules restrict any use of the information to criminally investigate or prosecute any alcohol or drug abuse patient.[facility] CenterIn the event this information is protected by the Federal Confidentiality of Alcohol and Drug Abuse Patient Records regulations: The Federal rules restrict any use of the information to criminally investigate or prosecute any alcohol or drug abuse patient.[facility] CenterIn the event this information is protected by the Federal Confidentiality of Alcohol and Drug Abuse Patient Records regulations: The Federal rules restrict any use of the information to criminally investigate or prosecute any alcohol or drug abuse patient.[facility] CenterIn the event this information is protected by the Federal Confidentiality of Alcohol and Drug Abuse Patient Records regulations: The Federal rules restrict any use of the information to criminally investigate or prosecute any alcohol or drug abuse patient.[facility] CenterIn the event this information is protected by the Federal Confidentiality of Alcohol and Drug Abuse Patient Records regulations: The Federal rules restrict any use of the information to criminally investigate or prosecute any alcohol or drug abuse patient.[facility] CenterIn the event this information is protected by the Federal Confidentiality of Alcohol and Drug Abuse Patient Records regulations: The Federal rules restrict any use of the information to criminally investigate or prosecute any alcohol or drug abuse patient.[facility] CenterIn the event this information is protected by the Federal Confidentiality of Alcohol and Drug Abuse Patient Records regulations: The Federal rules restrict any use of the information to criminally investigate or prosecute any alcohol or drug abuse patient.[facility] CenterIn the event this information is protected by the Federal Confidentiality of Alcohol and Drug Abuse Patient Records regulations: The Federal rules restrict any use of the information to criminally investigate or prosecute any alcohol or drug abuse patient.[facility] CenterIn the event this information is protected by the Federal Confidentiality of Alcohol and Drug Abuse Patient Records regulations: The Federal rules restrict any use of the information to criminally investigate or prosecute any alcohol or drug abuse patient.[facility] CenterIn the event this information is protected by the Federal Confidentiality of Alcohol and Drug Abuse Patient Records regulations: The Federal rules restrict any use of the information to criminally investigate or prosecute any alcohol or drug abuse patient.[facility] CenterIn the event this information is protected by the Federal Confidentiality of Alcohol and Drug Abuse Patient Records regulations: The Federal rules restrict any use of the information to criminally investigate or prosecute any alcohol or drug abuse patient.[facility] CenterIn the event this information is protected by the Federal Confidentiality of Alcohol and Drug Abuse Patient Records regulations: The Federal rules restrict any use of the information to criminally investigate or prosecute any alcohol or drug abuse patient.[facility] CenterIn the event this information is protected by the Federal Confidentiality of Alcohol and Drug Abuse Patient Records regulations: The Federal rules restrict any use of the information to criminally investigate or prosecute any alcohol or drug abuse patient.[facility] CenterIn the event this information is protected by the Federal Confidentiality of Alcohol and Drug Abuse Patient Records regulations: The Federal rules restrict any use of the information to criminally investigate or prosecute any alcohol or drug abuse patient.[facility] Reason for Visit (unrecogniz ed section and [...] REAL TIME W/IMAGE COMPLETE Jerrod Ojeda PA-C [address] [place] [address] Us Imaging Referral ID Status Reason Start Date Expiration Date V isits Requested Visits Authorized [id number] Closed Auto-Generate d Referral 03/06/2022 04/05/2023 1 [...] HIGH MDM 60-74 MINUTES Jerrod Ojeda PA-C [address] [place] [address] Referral ID Status Reason Start Date Expiration Date Visits Requested Visits Authorized [id number] Pending Review PCP Requested Referral 06/07/2022 06/07/2023 [...] Care Teams (unrecognized sec tion and content) Child Care Leader Relationship Specialty Start Date End Date Jerrod Ojeda PA-C [address] [place] [address] PCP - General Family Practice 07/01/16 Child Care Leader Relationship Specialty Start Date End Date Jerrod Ojeda PA-C [address] [place] [address] PCP - General Family Practice 07/01/16 Child Care Leader Relationship Specialty Start Date End Date Jerrod Ojeda PA-C [address] [place] [address] PCP - General Family Practice 07/01/16 Child Care Leader Relationship Specialty Start Date End Date Jerrod Ojeda PA-C [address] [place] [address] PCP - General Family Practice 07/01/16 Child Care Leader Relationship Specialty Start Date End Date Jerrod Ojeda PA-C [address] [place] [address] PCP - General Family Practice 07/01/16 Child Care Leader Relationship Specialty Start Date End Date Jerrod Ojeda PA-C [address] [place] [address] PCP - General Family Practice 07/01/16 Child Care Leader Relationship Specialty Start Date End Date Jerrod Ojeda PA-C [address] [place] [address] PCP - General Family Practice 07/01/16 Child Care Leader Relationship Specialty Start Date End Date Jerrod Ojeda PA-C [address] [place] [address] PCP - General Family Medicine 07/01/16 Child Care Leader Relationship Specialty Start Date End Date Jerrod Ojeda PA-C [address] [facility] [place] [address] PCP - General Family Medicine 07/01/16 Child Care Leader Relationship Specialty Start Date End Date Jerrod Ojeda PA-C [address] [facility] [place] [address] PCP - General Family Medicine 07/01/16 Child Care Leader Relationship Specialty Start Date End Date Jerrod Ojeda PA-C [address] [facility] [place] [place] [address] PCP - General Family Medicine 07/01/16 Child Care Leader Relationship Specialty Start Date End Date Jerrod Ojeda PA-C [address] [facility] [place] [address] PCP - General Family Medicine 07/01/16 Child Care Leader Relationship Specialty Start Date End Date Jerrod Ojeda PA-C [address] [facility] [place] [address] PCP - General Family Medicine 07/01/16 Child Care Leader Relationship Specialty Start Date End Date Jerrod Ojeda PA-C [address] [facility] [place] [place] [address] PCP - General Family Medicine 07/01/16 Child Care Leader Relationship Specialty Start Date End Date Jerrod Ojeda PA-C [address] [facility] [place] [address] PCP - General Family Medicine 07/01/16 Child Care Leader Relationship Specialty Start Date End Date Jerrod Ojeda PA-C [address] [facility] [place] [address] PCP - General Family Medicine 07/01/16 Child Care Leader Relationship Specialty Start Date End Date Jerrod Ojeda PA-C [address] [facility] [place] [address] PCP - General Family Medicine 07/01/16 Child Care Leader Relationship Specialty Start Date End Date Jerrod Ojeda PA-C [address] [place] [address] PCP - General Family Medicine 07/01/16 Child Care Leader Relationship Specialty Start Date End Date Jerrod Ojeda PA-C [address] [place] [address] PCP - General Family Medicine 07/01/16 Child Care Leader Relationship Specialty Start Date End Date Jerrod Ojeda PA-C [address] [place] [address] PCP - General Family Medicine 07/01/16 Child Care Leader Relationship Specialty Start Date End Date Jerrod Ojeda PA-C [address] [place] [address] PCP - General Family Medicine 07/01/16 Child Care Leader Relationship Specialty Start Date End Date Jerrod Ojeda PA-C [address] [place] [address] PCP - General Family Medicine 07/01/16 Child Care Leader Relationship Specialty Start Date End Date Jerrod Ojeda PA-C [address] [place] [address] PCP - General Family Medicine 07/01/16 Child Care Leader Relationship Specialty Start Date End Date Jerrod Ojeda PA-C [address] [place] [address] PCP - General Family Medicine 07/01/16 Child Care Leader Relationship Specialty Start Date End Date Jerrod Ojeda PA-C [address] [place] [address] PCP - General Family Medicine 07/01/16 Child Care Leader Relationship Specialty Start Date End Date Jerrod Ojeda PA-C [address] [place] [address] PCP - General Family Medicine 07/01/16 Child Care Leader Relationship Specialty Start Date End Date Jerrod Ojeda PA-C [address] [place] [address] PCP - General Family Medicine 07/01/16 Child Care Leader Relationship Specialty Start Date End Date Jerrod Ojeda PA-C [address] [place] [address] PCP - General Family Medicine 07/01/16 Child Care Leader Relationship Specialty Start Date End Date Jerrod Ojeda PA-C [address] [place] [address] PCP - General Family Medicine 07/01/16 Child Care Leader Relationship Specialty Start Date End Date Jerrod Ojeda PA-C [address] [place] [id number] PCP - General Family Medicine 07/01/16 Child Care Leader Relationship Specialty Start Date End Date Jerrod Ojeda PA-C [address] [place] [address] PCP - General Family Medicine 07/01/16 Child Care Leader Relationship Specialty Start Date End Date Jerrod Ojeda PA-C [address] [place] [address] PCP - General Family Medicine 07/01/16 FOR [...] BE BASED ON THE PRIMARY CLINICAL RECORDS. [facility] [employer] [facility]. provides no warranty or guarantee of the accuracy or completeness of information in this document.
--- OUTSIDE RECORDS SUMMARY | 2023-07-03 23:56 | XMS RPT_ITS | CCD ---
Author Name Unknown Address [address] [place] [address] Organization [facility] Care Team Providers Care Cook Syrup Maker Name Role Phone MIKHAIL DURHAM Attending Unavailable [facility] Primary Care Unavailable [facility] Referring Unavailable Jrerod Ojeda PA-C Primary Care Provider [phone] [...] glimepiride; Translations: [GLIMEPIRIDE] Drug Allergy 1 Intolerance [facility] Repository (20 sources) Mirtazapine; Translations: [MIRTAZAPINE] Drug Allergy 5 Intolerance [facility] Rep[facility] (20 sources) Seasonal allergy; Translations: [SEASONAL ALLERGIES] Propensity to adverse reactions (disorder) 7 Other: See Comments [facility] Medications Current Medications Medication [...] Coronary arteriosclerosis; Translations: [Atherosclerotic heart disease of [place] coronary artery without angina pectoris] Onset: 06-15-2009 [...] kg Lazaro Aldridge Jr., MD Work Phone: [facility] 02-07-2023 11:33-0400 Diastolic blood pressure 76 mm[Hg] Lazaro Aldridge Jr., MD Work Phone: [facility] 02-07-2023 11:33-0400 Heart rate 62 /min Lazaro Aldridge Jr., MD Work Phone: [facility] 02-07-2023 11:33-0400 Respiratory rate 16 /min Lazaro Aldridge Jr., MD Work Phone: [facility] 02-07-2023 11:33-0400 SaO2% (BldA) [Mass fraction] 97 % Lazaro Aldridge Jr., MD Work Phone: [facility] 02-07-2023 11:33-0400 Systolic blood pressure 132 mm[Hg] Lazaro Aldridge Jr., MD Work Phone: [facility] 01-06-2023 13:14-0400 Body weight 83.46 kg NA Ojeda PA-C Work Phone: [facility] 01-06-2023 13:14-0400 Diastolic blood pressure 80 mm[Hg] NA Ojeda PA-C Work Phone: [facility] 01-06-2023 13:14-0400 Heart rate 74 /min NA Ojeda PA-C Work Phone: [facility] 01-06-2023 13:14-0400 Respiratory rate 16 /min NA Ojeda PA-C Work Phone: [facility] 01-06-2023 13:14-0400 Systolic blood pressure 160 mm[Hg] NA Ojeda PA-C Work Phone: [facility] 07-31-2022 12:21-0500 Body weight 78.93 kg Lazaro Aldridge Jr., MD Work Phone: [facility] 07-31-2022 12:21-0500 Diastolic blood pressure 69 mm[Hg] Lazaro Aldridge Jr., MD Work Phone: [facility] 07-31-2022 12:21-0500 Heart rate 61 /min Lazaro Aldridge Jr., MD Work Phone: [facility] 07-31-2022 12:21-0500 SaO2% (BldA) [Mass fraction] 96 % Lazaro Aldridge Jr., MD Work Phone: [facility] 07-31-2022 12:21-0500 Systolic blood pressure 137 mm[Hg] Lazaro Aldridge Jr., MD Work Phone: [facility] 02-28-2022 15:07-0400 Body weight 85.37 kg NA Ojeda PA-C Work Phone: [facility] 02-28-2022 15:07-0400 Diastolic blood pressure 68 mm[Hg] NA Ojeda PA-C Work Phone: [facility] 02-28-2022 15:07-0400 Heart rate 68 /min NA Ojeda PA-C Work Phone: [facility] 02-28-2022 15:07-0400 Respiratory rate 20 /min NA Ojeda PA-C Work Phone: [facility] 02-28-2022 15:07-0400 SaO2% (BldA) [Mass fraction] 98 % NA Ojeda PA-C Work Phone: [facility] 02-28-2022 15:07-0400 Systolic blood pressure 120 mm[Hg] NA Ojeda PA-C Work Phone: [facility] 02-12-2022 11:51-0400 Body weight 86.18 kg NA Ojeda PA-C Work Phone: [facility] 02-12-2022 11:51-0400 Diastolic blood pressure 70 mm[Hg] NA Ojeda PA-C Work Phone: [facility] 02-12-2022 11:51-0400 Heart rate 52 /min NA Ojeda PA-C Work Phone: [facility] 02-12-2022 11:51-0400 Respiratory rate 20 /min NA Ojeda PA-C Work Phone: [facility] 02-12-2022 11:51-0400 SaO2% (BldA) [Mass fraction] 98 % NA Ojeda PA-C Work Phone: [facility] 02-12-2022 11:51-0400 Systolic blood pressure 142 mm[Hg] NA Ojeda PA-C Work Phone: [facility] 11-12-2021 13:38-0400 Body temperature 99.1 [degF] NA Ojeda PA-C Work Phone: [facility] 11-12-2021 13:38-0400 Body weight 84.37 kg NA Ojeda PA-C Work Phone: [facility] 11-12-2021 13:38-0400 Diastolic blood pressure 66 mm[Hg] NA Ojeda PA-C Work Phone: [facility] 11-12-2021 13:38-0400 Heart rate 68 /min NA Ojeda PA-C Work Phone: [facility] 11-12-2021 13:38-0400 Respiratory rate 18 /min NA Ojeda PA-C Work Phone: [facility] 11-12-2021 13:38-0400 SaO2% (BldA) [Mass fraction] 99 % NA Ojeda PA-C Work Phone: [facility] 11-12-2021 13:38-0400 Systolic blood pressure 112 mm[Hg] NA Ojeda PA-C Work Phone: [facility] Encounters Encounter Date Encounter Type Care Provider Facility Start: 06-09-2023 End: 06-09-2023 ambulatory Jerrod OJEDA Facility:[facility] Start: 02-07-2023 End: 02[facility]07[facility] Start: 02-07-2023 End: 02-07-2023 Patient encounter procedure Lazaro Aldridge MD Work Phone: Neurology Procedures Date Procedure Procedure Detail Performing Clinician History of coronary artery bypass grafting S/P CABG x 2 M Collins Ojeda PA-C Work Phone: Plan of Treatment Date Care Activity Detail Author Start: 01-02-2031 Urine microalbumin profile DTAP,TDAP,TD (2 - Td or Tdap) [facility] Start: 02-06-2024 Hepatitis B surface antibody level LDL CHOLESTEROL [facility] Start: 01-07-2024 3 comp foot exam completed DIABETIC FOOT EXAM [facility] Start: 08-06-2023 Hemoglobin A1c/Hemoglobin.total in Blood HBA1C [facility] Start: 03-28-2023 End: 05-28-2023 Hemoglobin A1c in Blood HGB A1C Lab Routine Microalbuminuria Expected: 03/28/2023, Expires: 05/28/2023 [facility] Work Phone: Immunizations Immunization Date Immunization Notes Care Provider Jostin timmons 01-15-2022 zoster vaccine recombinant NA Ojeda PA-C Work Phone: [facility] 08-10-2021 influenza, high-dose , quadrivalent vaccine (FLUZONE HIGH DOSE QUADRIVALENT) NA Ojeda PA-C Work Phone: [facility] 01-02-2021 tetanus toxoid, redu talha diphtheria toxoid, and acellular pertussis vaccine, adsorbed NA Ojeda PA-C Work Phone: [facility] 08-01-2020 influenza, high-dose , quadrivalent vaccine (FLUZONE HIGH DOSE QUADRIVALENT) NA Ojeda PA-C Work Phone: [facility] 03-25-2019 influenza, high dose seasonal, preservative-free NA Ojeda PA-C Work Phone: [facility] 03-04-2018 influenza, high dose seasonal, preservative-free NA Ojeda PA-C Work Phone: [facility] 04-14-2017 influenza, high dose seasonal, preservative-free NA Ojeda PA-C Work Phone: [facility] Work Phone: 12-30-2016 pneumococcal conjuga te vaccine, 13 valent NA Ojeda PA-C Work Phone: [facility] Work Phone: 12-17-2016 zoster vaccine, live NA Taj on PA-C Work Phone: [facility] Work Phone: 07-01-2016 influenza, high dose seasonal, preservative-free NA Ojeda PA-C Work Phone: [facility] Work Phone: 03-15-2015 influenza, high dose seasonal, preservative-free NA Ojeda PA-C Work Phone: [facility] Work Phone: 04-08-2014 influenza, high dose seasonal, preservative-free NA Ojeda PA-C Work Phone: [facility] 06-25-2013 influenza virus vacc ine, whole virus NA Ojeda PA-C Work Phone: [facility] 04-02-2008 influenza virus vacc ine, unspecified formulation NA Ojeda PA-C Work Phone: [facility] Work Phone: 04-02-2007 influenza virus vacc ine, unspecified formulation NA Ojeda PA-C Work Phone: [facility] Work Phone: 04-02-2005 influenza virus vacc ine, unspecified formulation NA Ojeda PA-C Work Phone: [facility] Work Phone: 04-02-2005 pneumococcal polysaccharide vaccine, 23 valent NA Ojeda PA-C Work Phone: [facility] Work Phone: Payers Date Payer Category Payer Medicare [id number] 2013 Medicare [employer] [place] [id number] 2013-Present [phone] [address] [place] [address] [facility] [id number] 2013 Medicare [employer] [place] [place] [id number] 2013-Present [phone] [address] [place] [address] [facility] [id number] 1940 Unknown [id number] Social History Date Type Detail Facility Start: 05-19-2017 End: 02-12-2022 Tobacco smoking status NHIS Ex-smoker [facility] End: 06-02-1983 History of tobacco use Current smoker [facility] Start: 08-10-2021 End: 02-07-2023 Alcohol intake Current non-drinker of alcohol (finding) [facility] Start: 07-26-2020 End: 06-11-2022 History SDOH Alcohol Frequency 2 [facility] Start: 07-26-2020 End: 06-11-2022 History SDOH Alcohol Std Drinks 1 [facility] Start: 07-26-2020 History SDOH Social Connections Phone 5 [facility] Start: 07-26-2020 End: 06-11-2022 History SDOH Social Connections Get Together 3 [facility] Start: 07-26-2020 End: 06-11-2022 History SDOH Physical Activity DPW 0 [facility] Start: 07-26-2020 End: 06-11-2022 History SDOH Financial 4 [facility] Start: 07-25-2020 Education 12 [facility] Start: 1940 Sex Assigned At Male [facility] Start: 11-02-2021 End: 02-12-2022 Exposure to SARS-CoV-2 (event) Not sure [facility] Start: 12-04-2021 End: 12-14-2021 Exposure to SARS-CoV-2 (event) Yes [facility] End: 06-02-1983 History of tobacco use Cigarette Smoker [facility] Work Phone: Start: 05-19-2017 End: 02-12-2022 Tobacco use and exposure Smokeless tobacco non-user [facility] Work Phone: Start: 06-11-2022 End: 11-05-2022 History of Social function [facility] Start: 06-11-2022 End: 11-05-2022 Social connection and isolation panel [facility] Do you belong to any clubs or organizations such as yazidi groups, unions, fraternal or athletic groups, or school groups? No [facility] Are you now , , , , never or living with a partner? [facility] How often to you hav e a drink containing alcohol? 2-3 time sa week [facility] How many standard dr inks containing alcohol do you have on a typical day? 1 or 2 [facility] How often do you hav e 6 or more drinks on 1 occasion? Never [facility] How hard is it for y ou to pay for the very basics like food, housing, medical care, and heating Not very hard [facility] Adult Depression Screening Assessment 4 [facility] Do you feel stress - tense, restless, nervous, or anxious, or unable to sleep at night because your mind is troubled all the time - these days [OSQ] Rather much [facility] (I/We) worried wheblaine er (my/our) food would run out before (I/we) got money to buy more. Never true [facility] Start: 02-29-2020 Gender identity Identifies as male gender (finding) [facility] Start: 02-29-2020 Sexual orientation Heterosexual (finding) [facility] Clinical Notes 06-15-2009 to 06-09-2023 Lazaro Aldridge Jr., MD - 02/07/2023 11:47 AM EDTTelephone Encounter - Tiara Ortiz LPN - 01/21/2023 10:33 AM EDTTelephone Encounter - Jerrod Ojeda PA-C - 01/14/2023 3:05 PM EDT Note Date & Type Note Facility 06-09-2023 Note HNO ID: [id number] Author: LAZARO ALDRIDGE JR, MD Service: ? [...] [facility] 02-07-2023 Note HNO ID: [id number] Author: Lazaro Aldridge Jr., MD Service: ? [...] Similar objects: 2/2 Orientation: Friday, 2001, January, [facility] [place]: 09/05 Delayed recall: 06/06 REVIEW [...] follow up in 3 months at our [place] offices. Pt and his family agree with [...] which included preparing to see the patient, [id number] patient care, completing clinical documentation, obtaining and/or reviewing separately obtained history, performing a medically appropriate examination, counseling and educating the patient/family/caregiver, ordering medications, tests, or procedures, independently interpreting results (not separately reported), and communicating results to the patient/family/caregiver. documented in this encounter [facility] 01-21-2023 Miscellaneous Notes JENARO 11/05/22 with MQ [...] Santa Gordon PA-C documented in this encounter [facility] 01-14-2023 Miscellaneous Notes The following approved medication [...] you. RINKU Alarcon documented in this encounter [facility] 01-06-2023 Note HNO ID: [id number] Author: Jerrod Ojeda PA-C Service: ? 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 Coronary artery disease involving [place] coronary artery of 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 angina pectoris S/p CABG x [...] of left ventricle during stress 06/10/17 referral [facility] Dr. Emory Arias 02/02/15 [...] No significant change from 09/21/09 01/27/15 referral medical device assembler Kelvin Ellis [facility] 09/21/09 echocardiogram: LV size NL, LVSF: [...] 6.3 08/10/2021 6.7 03/24/2020 Test sent to [facility]. 10/30/2019 Test sent to [facility]. ) CMP: Glucose 128 03/15/2022 BUN [...] in advanced directives. 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 Coronary artery disease involving [place] coronary artery of 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 angina pectoris S/p CABG x [...] of left ventricle during stress 06/10/17 referral [facility] Dr. Emory Arias 02/02/15 [...] No significant change from 09/21/09 01/27/15 referral medical device assembler Kelvin Ellis [facility] [place] 09/21/09 echocardiogram: LV size NL, LVSF: 60% [...] 6.3 08/10/2021 6.7 03/24/2020 Test sent to [facility]. 10/30/2019 Test sent to [facility]. ) CMP: Glucose 128 03/15/2022 BUN [...] be affecting 3. Coronary artery disease involving [place] coronary artery of 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 angina pectoris - ICD9: 414.01, [...] Jerrod Ojeda PA-C documented in this encounter [facility] 12-26-2022 Miscellaneous Notes Needs OV for follow [...] mouth twice daily with meals. Authorizing Provider: eJrrod OJEDA PA-C Patient has been identified by [...] Kate Nolasco Ma documented in this encounter [facility] 12-20-2022 Miscellaneous Notes Apurva Ojeda PA-C Home Care certification received from [facility] requesting provider review and signature. Forwarded to [facility]'s desk for signature. Once signed, please fax to [facility] at [phone]. Gale Paniagua MA documented in this encounter [facility] 12-19-2022 Miscellaneous Notes Patient has been identified by name and date of : Yes Patient phones for refill(s): Requested Prescriptions Pending Prescriptions Disp Refills lisinopril (ZESTRIL) 20 mg tablet 90 tablet 1 Sig: Take 1 tablet by mouth once daily. Date of last office visit in primary care: 06/11/2022 Please advise. Thank you. Paula Jauregui LPN documented in this encounter [facility] 12-10-2022 Note HNO ID: [id number] Author: RT Margo(Ej) Service: ? Author Type: [...] Alexys Negron LPN documented in this encounter [facility] 12-09-2022 Miscellaneous Notes Patient has been identified [...] Gale Paniagua MA documented in this encounter [facility] 12-05-2022 Miscellaneous Notes Teressa, a speech therapist with [facility] is calling to update PCP that during her visit with patient yesterday, pt's family reports that pt has had three recent falls. One on 11/29, one on 12/02 and one on 12/03. No injuries. Reports pt's legs are weak and give out. Pt will be receiving Physical Therapy. No call back needed. Thank you. documented in this encounter [facility] 11-26-2022 Miscellaneous Notes Spoke to patients and she is agreeable with going to [facility]. Orders and pt information sent to fax number [phone]. Tiara Ortiz LPN Thank you for the referral of your patient to [facility]. At this time, we are at capacity and are unable to accept your patient. In order to help your patient receive quality home care, we have included reputable agencies that service this area: [facility], Phone number [phone] or [facility], phone number [phone]. Please contact this agency and they will work with your patient to arrange timely services. Thank you, Alexsandra Busch LPN 11/22/2022 2:29 PM documented in this encounter [facility] 11-22-2022 Miscellaneous Notes Please assist with home [...] Britany Guillory RN documented in this encounter [facility] 11-13-2022 Miscellaneous Notes Sw notes that [facility] is reaching out [...] Spouse and Sw also discussed that our [facility] still has PT if for whatever reason HH does not work. documented in this encounter [facility] 11-05-2022 Note HNO ID: [id number] Author: Santa Gordon PA-C Service: ? Author Type: Physician Motor Checker Type: Progress Notes Filed: 11/05/2022 12:51 PM [...] follow up in 3 months at our [place] offices. Pt and his family agree with [...] in three months documented in this encounter [facility] 11-05-2022 History of Present illness Narrative ESTABLISHED [...] follow up in 3 months at our [place] offices. Pt and his family agree with [...] which included preparing to see the patient, [id number] patient care, completing clinical documentation, obtaining and/or reviewing separately obtained history, performing a medically appropriate examination, counseling and educating the patient/family/caregiver, and ordering medications, tests, or procedures. This document has been created with the use of voice recognition technology. It may contain inaccuracies: (e.g. misspellings, inaccurate syntax or word sense) that have escaped review. documented in this encounter [facility] 10-07-2022 Miscellaneous Notes Left the patient a voice message about the appointment date and time change. Sent the patient a Beckon[employer] message and mailed the reminder. The patient is scheduled for a 3-month follow-up on 11/05 with HERB Owen. The patient is scheduled for a 6-month follow-up on 02/[address] Aldridge. documented in this encounter [facility] 09-09-2022 Miscellaneous Notes Patient phones requesting refills as follows: Requested Prescriptions Pending Prescriptions Disp Refills atenolol (TENORMIN) 25 mg tablet 90 tablet 1 Sig: Take 1 tablet by mouth once daily. JENARO 06/11/22 NOV no upcoming appt Please review and advise. Alexys Negron LPN documented in this encounter [facility] 08-02-2022 Miscellaneous Notes Patient telephoend. answered. Made aware of update. Voices understanding, will merchandise pickup/receiving associate medication tomorrow. Sissy Huerta LPN Please advise Yoselin Aldridge recommended supplementing vit B12- this is a sublingual The following approved medication requests have been transmitted electronically. Requested Prescriptions Signed Prescriptions Disp Refills Cyanocobalamin 1,000 mcg subl 90 tablet 3 Sig: Dissolve 1 tablet under the tongue once daily. Authorizing Provider: Jerrod OJEDA PA-C documented in this encounter [facility] 07-31-2022 Note HNO ID: [id number] Author: Lazaro Aldridge Jr., MD Service: ? [...] recall: 2; 2 Number repeat: 06/03 (bkwrds: [id number]) Sentence repeat: 07/04 Serial 7s: 100-93-x 06/04 Orientation: X/X/2002, Wed, Yanes, Biden 08/05 Delayed recall: 07/07 Similar object: 1 Cube drawin/1 Clock drawing: (numbers outside prairie band, writes # for 10 p 11) [...] 06/03 Cube drawin Clock drawing: (numbers outside prairie band, writes # for 10 p 11) [...] follow up in 3 months at our [place] offices. Pt and his family agree with plan. Lazaro Aldridge MD I spent a total of 60+ minutes on the date of the service which included preparing to see the patient, [id number] patient care, completing clinical documentation, obtaining and/or reviewing separately obtained history, performing a medically appropriate examination, counseling and educating the patient/family/caregiver, ordering medications, tests, or procedures, independently interpreting results (not separately reported), and communicating results to the patient/family/caregiver. documented in this encounter [facility] 07-22-2022 Miscellaneous Notes Patient phones requesting refills as follows: Requested Prescriptions Pending Prescriptions Disp Refills gabapentin (NEURONTIN) 600 mg tablet 180 tablet 1 Sig: Take 1 tablet by mouth twice daily for 180 days. JENARO 06/11/22 (virtual) 02/28/22 (in office) NOV no upcoming appt Please review and advise. Alexys Negron LPN documented in this encounter [facility] 06-14-2022 Miscellaneous Notes Patient's calls back and [...] Britany Guillory RN documented in this encounter [facility] 06-13-2022 Miscellaneous Notes Component Latest Ref Rng & Units 06/11/2022 Color Yellow Yellow Clarity Clear Cloudy (A) Glucose, Urine Trace, Negative Negative Bilirubin, Urine Negative Negative Ketones, Urine Trace, Negative Negative Specific [place], Ur 1.005 - 1.030 1.025 Hemoglobin/Blood,Ur Negative, [...] (A) Culture pending documented in this encounter [facility] 06-11-2022 Miscellaneous Notes Received fax from [email or web address]. Requesting order for test strips. Call to patient and they did not request this company nor do they want to use this company. Fax shredded. Mary Kate Nolasco Ma documented in this encounter [facility] 06-11-2022 History of Present illness Narrative Audio only was used for evaluation of this patient. Location of patient: [place] Patient was offered a virtual/telemedicine appointment in [...] Jerrod Ojeda PA-C documented in this encounter [facility] 06-10-2022 Miscellaneous Notes Last office visit: 02/28/22 F/u scheduled: 06/11/22 Lisa Han Ma documented in this encounter [facility] 06-07-2022 Miscellaneous Notes Will scheduled when here [...] . Thank you. documented in this encounter [facility] 05-10-2022 Miscellaneous Notes Patient phones requesting refills as follows: Requested Prescriptions Pending Prescriptions Disp Refills traMADol (ULTRAM) 50 mg tablet 60 tablet 5 Sig: Take 1 tablet by mouth twice daily as needed for pain for up to 30 days. JENARO-02/28/22 Labs-03/18/22 NOV-05/14/22 med filled 10/17/21 Please review and advise. Albina Porter LPN documented in this encounter [facility] 03-20-2022 Miscellaneous Notes TC to pt, spoke /c pt Marg[place], notified of results/provider response. Margoth states d/t transportation issues they would prefer to stay in [place]. Referral faxed to Dr. Thomas's office. Alexys Negron LPN Please advise ultrasound demonstrates a large bladder stone 3.1 cm, this is likely causing obstruction and complications with urination. Recommend consult to urology, I prefer Dr. Yo Durham on if possible in [place]. If patient wants to stay in [place] he could see Dr. Thomas Telephone on 03/20/22 CONSULT TO UROLOGY Thanks, Oneil Ojeda PA-C documented in this encounter [facility] 03-18-2022 Miscellaneous Notes Telephone on 03/18/22 CBC + DIFF COMP METABOLIC PANEL Oneil Ojeda PA-C File orders documented in this encounter [facility] 03-18-2022 History of Present illness Narrative Radiology [...] 2022 2:51 PM documented in this encounter [facility] 03-16-2022 Miscellaneous Notes Please schedule: Telephone on 03/05/22 CONSULT TO VASCULAR SURGERY Venous incompetence (primary encounter diagnosis) Bilateral leg edema ThanksOneil PA-C documented in this encounter [facility] 03-06-2022 Miscellaneous Notes Last office visit: 02/28/22 Next appointment scheduled: 05/14/22 Last labs: 02/28/22 Patient phones requesting refills as follows: Requested Prescriptions Pending Prescriptions Disp Refills atenolol (TENORMIN) 25 mg tablet 90 tablet 1 Sig: Take 1 tablet by mouth once daily. Please review and advise. Marjorie Bar LPN documented in this encounter [facility] 03-06-2022 Miscellaneous Notes Called PT LVM to [...] Oneil Ojeda PA-C documented in this encounter [facility] 02-28-2022 History of Present illness Narrative 81 year old male with c/o here for follow up Bilateral leg edema (primary encounter diagnosis) Sob (shortness of breath) Bilateral calf pain Coronary artery disease involving [place] coronary artery of 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 angina pectoris Hypertension, essential Hyperlipidemia, [...] of left ventricle during stress 06/10/17 referral [facility] Dr. Emory Arias 02/02/15 [...] No significant change from 09/21/09 01/27/15 referral medical device assembler Kelvin Ellis [facility] 09/21/09 echocardiogram: LV [...] Jerrod Ojeda PA-C documented in this encounter [facility] 02-12-2022 History of Present illness Narrative 81 [...] Jerrod Ojeda PA-C documented in this encounter [facility] 01-28-2022 Miscellaneous Notes Patient has been identified [...] [place] LPN documented in this encounter [facility] 12-17-2021 Miscellaneous Notes Last office visit 12/14/2021. documented in this encounter [facility] 12-14-2021 History of Present illness Narrative Alternative video platform was used for evaluation of this patient. Location of patient: [place] Patient was offered a virtual/telemedicine appointment in [...] evaluation of this patient. Location of patient: [place] FERNANDO Mendieta is a 81 year old [...] gets really tested. Reviewed vascular dementia vs [place]'s and characteristics. Discussed new monoclonal therapy briefly- [...] discussed Nirmatrelvir/Ritonavir (Paxlovid) Eligibility and Patient Discussion [facility] Formulary Restriction Criteria: Adult outpatients 18 years [...] coronavirus infection (COVID-19). documented in this encounter [facility] 11-12-2021 History of Present illness Narrative 81 [...] BP <130/80 3. Coronary artery disease involving [place] coronary artery of 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 angina pectoris - ICD9: 414.01, [...] Jerrod Ojeda PA-C documented in this encounter [facility] 10-17-2021 Miscellaneous Notes Patient phones requesting refills [...] Albina Porter LPN documented in this encounter [facility] 09-28-2021 Miscellaneous Notes Letter faxed Letter sent through [employer] for review And printed Please fax Thanks, Oneil Ojeda PA-C See message and place referral for pt. Fax to requested location. Flora Ortega Ma documented in this encounter [facility] 09-17-2021 Miscellaneous Notes Pending Prescriptions Disp Refills TRAMADOL 50 MG TABLET 60 tablet 2 Sig: Take 1 tablet by mouth twice daily as needed for pain for up to 30 days. MASON Class: C-IV MILLI: No JENARO 08/10/21 NOV 11/12/21 Last refilled 06/21/21 #60 2 refills documented in this encounter [facility] documented as of this encounter (statuses as of 09/18/2021) [facility] History of Past illness Narrative* Problem Noted Date Resolved Date JONATHON (obstructive sleep apnea) 06/15/2009 documented as of this encounter (statuses as of 09/28/2021) [facility] History of Past illness Narrative* Problem Noted Date Resolved Date JONATHON (obstructive sleep apnea) 06/15/2009 documented as of this encounter (statuses as of 10/17/2021) [facility] History of Past illness Narrative* Problem Noted Date Resolved Date JONATHON (obstructive sleep apnea) 06/15/2009 documented as of this encounter (statuses as of 11/12/2021) [facility] History of Past illness Narrative* Problem Noted Date Resolved Date JONATHON (obstructive sleep apnea) 06/15/2009 documented as of this encounter (statuses as of 12/12/2021) [address]14-2010 History of Past illness Narrative* Problem Noted Date Resolved Date JONATHON (obstructive sleep apnea) 06/15/2009 documented as of this encounter (statuses as of 12/14/2021) [address]14[address]2010 History of Past illness Narrative* Problem Noted Date Resolved Date JONATHON (obstructive sleep apnea) 06/15/2009 documented as of this encounter (statuses as of 12/17/2021) [address]14[address]2010 History of Past illness Narrative* Problem Noted Date Resolved Date JONATHON (obstructive sleep apnea) 06/15/2009 documented as of this encounter (statuses as of 01/28/2022) [address]14[address]2010 History of Past illness Narrative* Problem Noted Date Resolved Date JONATHON (obstructive sleep apnea) 06/15/2009 documented as of this encounter (statuses as of 02/12/2022) [address]14[address]2010 History of Past illness Narrative* Problem Noted Date Resolved Date JONATHON (obstructive sleep apnea) 06/15/2009 documented as of this encounter (statuses as of 03/01/2022) [facility] History of Past illness Narrative* Problem Noted Date Resolved Date JONATHON (obstructive sleep apnea) 06/15/2009 documented as of this encounter (statuses as of 03/06/2022) [place] [address]-2010 History of Past illness Narrative* Problem Noted Date Resolved Date JONATHON (obstructive sleep apnea) 06/15/2009 documented as of this encounter (statuses as of 03/08/2022) [address]2010 History of Past illness Narrative* Problem Noted Date Resolved Date JONATHON (obstructive sleep apnea) 06/15/2009 documented as of this encounter (statuses as of 03/16/2022) [place] [address] History of Past illness Narrative* Problem Noted Date Resolved Date JONATHON (obstructive sleep apnea) 06/15/2009 documented as of this encounter (statuses as of 03/18/2022) [address]2010 History of Past illness Narrative* Problem Noted Date Resolved Date JONATHON (obstructive sleep apnea) 06/15/2009 documented as of this encounter (statuses as of 03/19/2022) [address]2010 History of Past illness Narrative* Problem Noted Date Resolved Date JONATHON (obstructive sleep apnea) 06/15/2009 documented as of this encounter (statuses as of 03/20/2022) [facility] History of Past illness Narrative* Problem Noted Date Resolved Date JONATHON (obstructive sleep apnea) 06/15/2009 documented as of this encounter (statuses as of 05/10/2022) [facility] History of Past illness Narrative* Problem Noted Date Resolved Date JONATHON (obstructive sleep apnea) 06/15/2009 documented as of this encounter (statuses as of 06/08/2022) [address] History of Past illness Narrative* Problem Noted Date Resolved Date JOANTHON (obstructive sleep apnea) 06/15/2009 documented as of this encounter (statuses as of 06/11/2022) [address]2010 History of Past illness Narrative* Problem Noted Date Resolved Date JONATHON (obstructive sleep apnea) 06/15/2009 documented as of this encounter (statuses as of 06/11/2022) [facility] History of Past illness Narrative* Problem Noted Date Resolved Date JONATHON (obstructive sleep apnea) 06/15/2009 documented as of this encounter (statuses as of 06/12/2022) [address] History of Past illness Narrative* Problem Noted Date Resolved Date JONATHON (obstructive sleep apnea) 06/15/2009 documented as of this encounter (statuses as of 06/14/2022) [facility] History of Past illness Narrative* Problem Noted Date Resolved Date JONATHON (obstructive sleep apnea) 06/15/2009 documented as of this encounter (statuses as of 06/14/2022) [address]14[address] History of Past illness Narrative* Problem Noted Date Resolved Date JONATHON (obstructive sleep apnea) 06/15/2009 documented as of this encounter (statuses as of 07/23/2022) [place] [address]2010 History of Past illness Narrative* Problem Noted Date Resolved Date JONATHON (obstructive sleep apnea) 06/15/2009 documented as of this encounter (statuses as of 07/31/2022) [place] [address] History of Past illness Narrative* Problem Noted Date Resolved Date JONATHON (obstructive sleep apnea) 06/15/2009 documented as of this encounter (statuses as of 09/10/2022) [address]14[address]2010 History of Past illness Narrative* Problem Noted Date Resolved Date JONATHON (obstructive sleep apnea) 06/15/2009 documented as of this encounter (statuses as of 09/20/2022) [address]14[address]2010 History of Past illness Narrative* Problem Noted Date Resolved Date JONATHON (obstructive sleep apnea) 06/15/2009 documented as of this encounter (statuses as of 10/08/2022) [facility] History of Past illness Narrative* Problem Noted Date Resolved Date JONATHON (obstructive sleep apnea) 06/15/2009 documented as of this encounter (statuses as of 11/05/2022) [address]14[address]2010 History of Past illness Narrative* Problem Noted Date Resolved Date JONATHON (obstructive sleep apnea) 06/15/2009 documented as of this encounter (statuses as of 11/19/2022) [place] [address]2010 History of Past illness Narrative* Problem Noted Date Resolved Date JONATHON (obstructive sleep apnea) 06/15/2009 documented as of this encounter (statuses as of 11/26/2022) [address]14[address]2010 History of Past illness Narrative* Problem Noted Date Resolved Date JONATHON (obstructive sleep apnea) 06/15/2009 documented as of this encounter (statuses as of 11/26/2022) [address]14[address]2010 History of Past illness Narrative* Problem Noted Date Diagnosed Date Resolved Date JONATHON (obstructive sleep apnea) 06/15/2009 11/02/2018 documented as of this encounter (statuses as of 12/10/2022) [address]14[address]2010 History of Past illness Narrative* Problem Noted Date Diagnosed Date Resolved Date JONATHON (obstructive sleep apnea) 06/15/2009 11/02/2018 documented as of this encounter (statuses as of 12/12/2022) [address]14[address]2010 History of Past illness Narrative* Problem Noted Date Diagnosed Date Resolved Date JONATHON (obstructive sleep apnea) 06/15/2009 11/02/2018 documented as of this encounter (statuses as of 12/20/2022) [address]14[address]2010 History of Past illness Narrative* Problem Noted Date Diagnosed Date Resolved Date JONATHON (obstructive sleep apnea) 06/15/2009 11/02/2018 documented as of this encounter (statuses as of 12/27/2022) [facility] History of Past illness Narrative* Problem Noted Date Diagnosed Date Resolved Date JONATHON (obstructive sleep apnea) 06/15/2009 11/02/2018 documented as of this encounter (statuses as of 01/01/2023) [place] [address]2010 History of Past illness Narrative* Problem Noted Date Diagnosed Date Resolved Date JONATHON (obstructive sleep apnea) 06/15/2009 11/02/2018 documented as of this encounter (statuses as of 01/07/2023) [place] [address] History of Past illness Narrative* Problem Noted Date Diagnosed Date Resolved Date JONATHON (obstructive sleep apnea) 06/15/2009 11/02/2018 documented as of this encounter (statuses as of 01/15/2023) [place] [address]2010 History of Past illness Narrative* Problem Noted Date Diagnosed Date Resolved Date JONATHON (obstructive sleep apnea) 06/15/2009 11/02/2018 documented as of this encounter (statuses as of 01/21/2023) [place] [address] History of Past illness Narrative* Problem Noted Date Diagnosed Date Resolved Date JONATHON (obstructive sleep apnea) 06/15/2009 11/02/2018 documented as of this encounter (statuses as of 02/05/2023) [address] History of Past illness Narrative* Problem Noted Date Diagnosed Date Resolved Date JONATHON (obstructive sleep apnea) 06/15/2009 11/02/2018 documented as of this encounter (statuses as of 02/07/2023) [facility] Diagnosis Diabetic polyneuropathy associated with type 2 diabetes mellitus (HCC) Recurrent low back pain Lumbago [facility] Diagnosis Diabetic polyneuropathy associated with type 2 diabetes mellitus (HCC) Recurrent low back pain Lumbago [facility] Diagnosis Benign prostatic hyperplasia, unspecified whether lower urinary tract symptoms present- Primary Hypertension, essential Unspecified essential hypertension Coronary artery disease involving [place] coronary artery of 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 angina pectoris Hyperlipidemia, mixed 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, without long- term current use of insulin (HCC) Diabetic polyneuropathy associated with type 2 diabetes mellitus (HCC) Hiatal hernia Diaphragmatic hernia without mention of obstruction or gangrene 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 Ataxia Lack of coordination [facility] Diagnosis Upper respiratory tract infection due to COVID-19 virus- Primary Brain atrophy (HCC) Cerebral degeneration, unspecified Mild dementia (HCC) Dementia, unspecified, without behavioral disturbance [facility]* Diagnosis Benign prostatic hyperplasia without lower urinary tract symptoms [facility]* Diagnosis Bilateral leg edema- Primary Edema Bilateral calf pain Pain in limb [facility]* Diagnosis Bilateral leg edema- Primary Edema SOB (shortness of breath) Shortness of breath Bilateral calf pain Pain in limb Screening for colon cancer Special screening for malignant neoplasms, colon Controlled type 2 diabetes mellitus with diabetic neuropathy, without long-term current use of insulin ([facility]) [facility]* Diagnosis Elevated serum creatinine- Primary Other nonspecific findings on examination of blood [facility] Diagnosis Hypertension, essential Unspecified essential hypertension Essential tremor Essential and other specified forms of tremor [facility] Diagnosis Venous incompetence- Primary Unspecified venous (peripheral) insufficiency Bilateral leg edema Edema [facility] Diagnosis Coronary artery disease involving [place] coronary artery of 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 angina pectoris- Primary Medication management Encounter for long-term (current) use of other medications Controlled type 2 diabetes mellitus with diabetic neuropathy, without long-term current use of insulin (HCC) Hypertension, essential Unspecified essential hypertension Hyperlipidemia, mixed Mixed hyperlipidemia [facility]* Diagnosis Elevated serum creatinine Other nonspecific findings on examination of blood documented [facility]* Diagnosis Benign prostatic hyperplasia with urinary obstruction- Primary Bladder stone Other calculus in bladder [facility] Diagnosis Diabetic polyneuropathy associated with type 2 diabetes mellitus (HCC) Recurrent low back pain Lumbago [facility]* Diagnosis Dementia with behavioral disturbance- Primary Dementia, unspecified, with behavioral disturbance [facility] Diagnosis Controlled type 2 diabetes mellitus with diabetic polyneuropathy, without long- term current use of insulin ([facility]) documented [facility]* Diagnosis Brain atrophy (HCC)- Primary Cerebral degeneration, unspecified Dementia with behavioral disturbance Dementia, unspecified, with behavioral disturbance Sleep concern Problems related to lack of adequate sleep Urinary frequency [facility]* Diagnosis Moderate dementia with other behavioral disturbance, unspecified dementia type (HCC)- Primary History of stroke Transient ischemic attack (TIA), and cerebral infarction without residual deficits Low vitamin B12 level Other B-complex deficiencies [facility]* Diagnosis Hypertension, essential Unspecified essential hypertension Essential tremor Essential and other specified forms of tremor documented [facility]* Diagnosis Spinal stenosis of cervical region- Primary Spinal stenosis in cervical region Weakness Other malaise and fatigue Parkinsonism, unspecified Parkinsonism type (HCC) Frequent falls Personal history of fall Moderate dementia with other behavioral disturbance, unspecified dementia type (HCC) [facility]* Diagnosis Moderate dementia with other behavioral disturbance, unspecified dementia type (HCC)- Primary Frequent falls Personal history of fall Parkinsonism, unspecified Parkinsonism type (HCC) [facility]* Diagnosis Spinal stenosis of cervical region- Primary Spinal stenosis in cervical region Weakness Other malaise and fatigue Parkinsonism, unspecified Parkinsonism type (HCC) Frequent falls Personal history of fall Moderate dementia with other behavioral disturbance, unspecified dementia type (HCC) documented [facility]* Diagnosis Diabetic polyneuropathy associated with type 2 diabetes mellitus (HCC) Recurrent low back pain Lumbago [facility] Diagnosis Controlled type 2 diabetes mellitus with diabetic polyneuropathy, without long- term current use of insulin (HCC) [facility]* Diagnosis Controlled type 2 diabetes mellitus with diabetic neuropathy, without long-term current use of insulin (HCC)- Primary Primary hypertension Unspecified essential hypertension Hyperlipidemia, mixed Mixed hyperlipidemia Microalbuminuria Proteinuria [facility] Diagnosis Brain atrophy (HCC)- Primary Cerebral degeneration, unspecified 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 [...] (HCC) documented in this encounter [facility] note* Diagnosis Diabetic polyneuropathy associated with type 2 diabetes mellitus (HCC) Recurrent low back pain Lumbago [facility]* Diagnosis Moderate dementia with other behavioral disturbance, unspecified dementia type (HCC)- Primary History of stroke Transient ischemic attack (TIA), and cerebral infarction without residual deficits Low vitamin B12 level Other B-complex deficiencies Spinal stenosis of cervical region Spinal stenosis in cervical region Frequent falls Personal history of fall History of hip fracture Personal history of traumatic fracture documented in this encounter [facility] for referral (narrative)* Diagnostic Procedure Only (Urgent) - Closed Specialty Diagnoses / Procedures Referred By Contac t Referred To Contact [facility] Diagnoses Bilateral leg edema Bilateral calf pain Procedures US DVT LOWER BILAT DUP-SCAN XTR VEINS COMPLETE BILATERAL STUDY Jerrod Ojeda PA-C [address] [place] [address] [facility] Referral ID Status Reason Start Date Expiration Date V isits Requested Visits Authorized [id number] Closed Auto-Generate d Referral 02/12/2022 03/14/2023 1 1 * Outpatient Procedure (Urgent) - Pending Review Specialty Diagnoses / Procedures Referred By Contac t Referred To Contact [facility] [place] Diagnoses Bilateral leg edema Bilateral calf pain Procedures US LEG VEIN DVT ESME VAS LAB DUP-SCAN XTR VEINS COMPLETE BILATERAL STUDY Jerrod Ojeda PA-C [address] [place] [address] Formerly Named [facility] [address] [address] Referral ID Status Reason Start Date Expiration Date Visits Requested Visits Authorized [id number] Pending Review Auto-Generat ed Referral 02/12/2022 02/12/2023 1 1 [facility] for referral (narrative)* Outpatient Procedure (Routine) - Authorized Specialty Diagnoses / Procedures Referred By Contac t Referred To Contact [facility] [place] Diagnoses Bilateral leg edema Procedures US VENOUS INCOMPETENCY ESME VAS LAB DUP-SCAN XTR VEINS COMPLETE BILATERAL STUDY Jerrod Ojeda PA-C [address] [place] [address] [address] Referral ID Status Reason Start Date Expiration Date Visits Requested Visits Authorized [id number] Authorized Auto-Generat ed Referral 02/28/2022 02/28/2023 1 1 [facility] for referral (narrative)* Diagnostic Procedure Only (Routine) - Pending Review Specialty Diagnoses / Procedures Referred By Contac t Referred To Contact US IMAGING Diagnoses Elevated serum creatinine Procedures US KIDNEY/BLADDER US RETROPERITONEAL REAL TIME W/IMAGE COMPLETE Jerrod Ojeda PA-C [address] [place] [address] Us Imaging Referral ID Status Reason Start Date Expiration Date Visits Requested Visits Authorized [id number] Pending Review Auto-Generat ed Referral 03/06/2022 04/05/2023 1 1 [facility] for referral (narrative)* Diagnostic Procedure Only (Routine) - Closed Specialty Diagnoses / Procedures Referred By Contac t Referred To Contact US IMAGING Diagnoses Elevated serum creatinine Procedures US KIDNEY/BLADDER US RETROPERITONEAL REAL TIME W/IMAGE COMPLETE Jerrod Ojeda PA-C [address] [place] [address] Us Imaging Referral ID Status Reason Start Date Expiration Date V isits Requested Visits Authorized [id number] Closed Auto-Generate d Referral 03/06/2022 04/05/2023 1 1 [facility] for referral (narrative)* Diagnostic Procedure Only (Routine) - Pending Review Specialty Diagnoses / Procedures Referred By Contac t Referred To Contact US IMAGING Diagnoses Moderate dementia with other behavioral disturbance, unspecified dementia type (HCC) History of stroke Procedures [place] [address] [place] [phone] Us Imaging Referral ID Status Reason Start Date Expiration Date Visits Requested Visits Authorized [id number] Pending Review Auto-Generat ed Referral 07/31/2022 08/30/2023 1 1 [facility] Summary Purpose Family History No Family History Records FoundNo Family History Records FoundNo Family History Records FoundNo Family History Records Found Advance Directives No Advanced Directives Records FoundDocuments on File Type Date Recorded 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 Advance Directive(s) Documents on File Type Date Recorded 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 Advance Directive(s) Reason for Referral Specialty Diagnoses / Procedures Referred By Contac t Referred To Contact MR IMAGING Diagnoses Ataxia Procedures MRI BRAIN WO IVCON MRI BRAIN BRAIN STEM W/O CONTRAST MATERIAL Jerrod Ojeda PA-C [address] [place] [address] Mr Imaging Referral ID Status Reason Start Date Expiration Date Visits Requested Visits Authorized [id number] Pending Review Auto-Generat ed Referral 11/12/2021 12/12/2022 1 1 Specialty Diagnoses / Procedures Referred By Contac t Referred To Contact Vascular Surgery Diagnoses Venous incompetence Bilateral leg edema Procedures CONSULT TO VASCULAR SURGERY OFFICE/OUTPATIENT [facility] 60-74 MINUTES Jerrod Ojeda PA-C [address] [place] [address] Referral ID Status Reason Start Date Expiration Date Visits Requested Visits Authorized [id number] Pending Review PCP Requested Referral 2 03/16/2023 1 1 Specialty Diagnoses / Procedures Referred By Contac t Referred To Contact Urology Diagnoses Benign prostatic hyperplasia with urinary obstruction Bladder stone Procedures CONSULT TO UROLOGY OFFICE/OUTPATIENT [facility] 60-74 MINUTES Jerrod Ojeda PA-C [address] [place] [address] Referral ID Status Reason Start Date Expiration Date Visits Requested Visits Authorized [id number] Pending Review PCP Requested Referral 2 03/20/2023 1 1 Specialty Diagnoses / Procedures Referred By Contac t Referred To Contact Neurology Diagnoses Dementia with behavioral disturbance Procedures CONSULT TO NEUROLOGY OFFICE/OUTPATIENT [facility] 60-74 MINUTES Jerrod Ojeda PA-C [address] [place] [address] Referral ID Status Reason Start Date Expiration Date Visits Requested Visits Authorized [id number] Pending Review PCP Requested Referral 06/07/2022 06/07/2023 1 1 Specialty Diagnoses / Procedures Referred By Contac t Referred To Contact MR IMAGING Diagnoses Spinal stenosis of cervical region Procedures MRI CERVICAL SPINE WO IVC MRI SPINAL CANAL CERVICAL W/O CONTRAST Santa Barry PA-C [address] [place] [address] Mr Imaging Referral ID Status Reason Start Date Expiration Date Visits Requested Visits Authorized [id number] Pending Review Auto-Generat ed Referral 11/05/2022 12/05/2023 1 1 Specialty Diagnoses / Procedures Referred By Contac t Referred To Contact [facility] Diagnoses Weakness Frequent falls Procedures CONSULT TO PHYSICAL THERAPY PHYSICAL THERAPY EVALUATION HIGH COMPLEX 45 MINS Santa Gordon PA-C [address] [place] [address] [facility] [place] [address] [place] [address] Referral ID Status Reason Start Date Expiration Date Visits Requested Visits Authorized [id number] Pending Review Auto-Generat ed Referral 11/05/2022 11/05/2023 1 1 Specialty Diagnoses / Procedures Referred By Parul clark Referred To Contact Diagnoses Moderate dementia with other behavioral disturbance, unspecified dementia type (HCC) Frequent falls Parkinsonism, unspecified Parkinsonism type (HCC) Procedures CONSULT TO [facility] Santa Gordon PA-C [address] [place] [address] [address] [place] [id number] Referral ID Status Reason Start Date Expiration Date Visits Requested Visits Authorized [id number] Canceled PCP Requested Referral 11/06/2022 02/04/2023 3 3 Specialty Diagnoses / Procedures Referred By Parul clark Referred To Contact Diagnoses Weakness Parkinsonism, unspecified Parkinsonism type (HCC) Frequent falls Moderate dementia with other behavioral disturbance, unspecified dementia type (HCC) Procedures CONSULT TO [facility] Santa Gordon PA-C [address] [place] [address] [address] Referral ID Status Reason Start Date Expiration Date V isits Requested Visits Authorized [id number] Denied PCP Requested Referral 11/21/2022 02/19/2023 3 0 Health Concerns Infection Onset Date Last Indicated Resolved Time COVID-19 Confirmed 12/12/2021 12/12/2021 Additional Source Comments (unrecognized sect ion and content) No Status Records FoundNo Status Records FoundNo Status Records FoundNo Status Records Found INFORMATION SOURCE (unrecogn ized section and content) DATE CREATED AUTHOR AUTHOR'S ORGANIZ ATION 01/01/2019 [facility] DATE CREATED AUTHOR AUTHOR'S ORGANIZ ATION 01/19/2021 [facility] ([place]) DATE CREATED AUTHOR AUTHOR'S FOUZIA MAURICIO 07/03/2023 [facility] Source Comments (unrecognize d section and content) In the event this informatio n is protected by the Federal Confidentiality of Alcohol and Drug Abuse Patient Records regulations: The Federal rules restrict any use of the information to criminally investigate or prosecute any alcohol or drug abuse patient.[facility] the event this information is protected by the Federal Confidentiality of Alcohol and Drug Abuse Patient Records regulations: The Federal rules restrict any use of the information to criminally investigate or prosecute any alcohol or drug abuse patient.[facility] CampusIn the event this information is protected by the Federal Confidentiality of Alcohol and Drug Abuse Patient Records regulations: The Federal rules restrict any use of the information to criminally investigate or prosecute any alcohol or drug abuse patient.[facility] CampusIn the event this information is protected by the Federal Confidentiality of Alcohol and Drug Abuse Patient Records regulations: The Federal rules restrict any use of the information to criminally investigate or prosecute any alcohol or drug abuse patient.[facility] CampusIn the event this information is protected by the Federal Confidentiality of Alcohol and Drug Abuse Patient Records regulations: The Federal rules restrict any use of the information to criminally investigate or prosecute any alcohol or drug abuse patient.[facility] CampusIn the event this information is protected by the Federal Confidentiality of Alcohol and Drug Abuse Patient Records regulations: The Federal rules restrict any use of the information to criminally investigate or prosecute any alcohol or drug abuse patient.[facility] CampusIn the event this information is protected by the Federal Confidentiality of Alcohol and Drug Abuse Patient Records regulations: The Federal rules restrict any use of the information to criminally investigate or prosecute any alcohol or drug abuse patient.[facility] CampusIn the event this information is protected by the Federal Confidentiality of Alcohol and Drug Abuse Patient Records regulations: The Federal rules restrict any use of the information to criminally investigate or prosecute any alcohol or drug abuse patient.[facility] CampusIn the event this information is protected by the Federal Confidentiality of Alcohol and Drug Abuse Patient Records regulations: The Federal rules restrict any use of the information to criminally investigate or prosecute any alcohol or drug abuse patient.[facility] CampusIn the event this information is protected by the Federal Confidentiality of Alcohol and Drug Abuse Patient Records regulations: The Federal rules restrict any use of the information to criminally investigate or prosecute any alcohol or drug abuse patient.[facility] CampusIn the event this information is protected by the Federal Confidentiality of Alcohol and Drug Abuse Patient Records regulations: The Federal rules restrict any use of the information to criminally investigate or prosecute any alcohol or drug abuse patient.[facility] CampusIn the event this information is protected by the Federal Confidentiality of Alcohol and Drug Abuse Patient Records regulations: The Federal rules restrict any use of the information to criminally investigate or prosecute any alcohol or drug abuse patient.[facility] CampusIn the event this information is protected by the Federal Confidentiality of Alcohol and Drug Abuse Patient Records regulations: The Federal rules restrict any use of the information to criminally investigate or prosecute any alcohol or drug abuse patient.[facility] CampusIn the event this information is protected by the Federal Confidentiality of Alcohol and Drug Abuse Patient Records regulations: The Federal rules restrict any use of the information to criminally investigate or prosecute any alcohol or drug abuse patient.[facility] CampusIn the event this information is protected by the Federal Confidentiality of Alcohol and Drug Abuse Patient Records regulations: The Federal rules restrict any use of the information to criminally investigate or prosecute any alcohol or drug abuse patient.[facility] CampusIn the event this information is protected by the Federal Confidentiality of Alcohol and Drug Abuse Patient Records regulations: The Federal rules restrict any use of the information to criminally investigate or prosecute any alcohol or drug abuse patient.[facility] CampusIn the event this information is protected by the Federal Confidentiality of Alcohol and Drug Abuse Patient Records regulations: The Federal rules restrict any use of the information to criminally investigate or prosecute any alcohol or drug abuse patient.[facility] CampusIn the event this information is protected by the Federal Confidentiality of Alcohol and Drug Abuse Patient Records regulations: The Federal rules restrict any use of the information to criminally investigate or prosecute any alcohol or drug abuse patient.[facility] CampusIn the event this information is protected by the Federal Confidentiality of Alcohol and Drug Abuse Patient Records regulations: The Federal rules restrict any use of the information to criminally investigate or prosecute any alcohol or drug abuse patient.[facility] CampusIn the event this information is protected by the Federal Confidentiality of Alcohol and Drug Abuse Patient Records regulations: The Federal rules restrict any use of the information to criminally investigate or prosecute any alcohol or drug abuse patient.[facility] CampusIn the event this information is protected by the Federal Confidentiality of Alcohol and Drug Abuse Patient Records regulations: The Federal rules restrict any use of the information to criminally investigate or prosecute any alcohol or drug abuse patient.[facility] CampusIn the event this information is protected by the Federal Confidentiality of Alcohol and Drug Abuse Patient Records regulations: The Federal rules restrict any use of the information to criminally investigate or prosecute any alcohol or drug abuse patient.[facility] CampusIn the event this information is protected by the Federal Confidentiality of Alcohol and Drug Abuse Patient Records regulations: The Federal rules restrict any use of the information to criminally investigate or prosecute any alcohol or drug abuse patient.[facility] CampusIn the event this information is protected by the Federal Confidentiality of Alcohol and Drug Abuse Patient Records regulations: The Federal rules restrict any use of the information to criminally investigate or prosecute any alcohol or drug abuse patient.[facility] CampusIn the event this information is protected by the Federal Confidentiality of Alcohol and Drug Abuse Patient Records regulations: The Federal rules restrict any use of the information to criminally investigate or prosecute any alcohol or drug abuse patient.[facility] CampusIn the event this information is protected by the Federal Confidentiality of Alcohol and Drug Abuse Patient Records regulations: The Federal rules restrict any use of the information to criminally investigate or prosecute any alcohol or drug abuse patient.[facility] CampusIn the event this information is protected by the Federal Confidentiality of Alcohol and Drug Abuse Patient Records regulations: The Federal rules restrict any use of the information to criminally investigate or prosecute any alcohol or drug abuse patient.[facility] CampusIn the event this information is protected by the Federal Confidentiality of Alcohol and Drug Abuse Patient Records regulations: The Federal rules restrict any use of the information to criminally investigate or prosecute any alcohol or drug abuse patient.[facility] CampusIn the event this information is protected by the Federal Confidentiality of Alcohol and Drug Abuse Patient Records regulations: The Federal rules restrict any use of the information to criminally investigate or prosecute any alcohol or drug abuse patient.[facility] CampusIn the event this information is protected by the Federal Confidentiality of Alcohol and Drug Abuse Patient Records regulations: The Federal rules restrict any use of the information to criminally investigate or prosecute any alcohol or drug abuse patient.[facility] CampusIn the event this information is protected by the Federal Confidentiality of Alcohol and Drug Abuse Patient Records regulations: The Federal rules restrict any use of the information to criminally investigate or prosecute any alcohol or drug abuse patient.[facility] CampusIn the event this information is protected by the Federal Confidentiality of Alcohol and Drug Abuse Patient Records regulations: The Federal rules restrict any use of the information to criminally investigate or prosecute any alcohol or drug abuse patient.[facility] CampusIn the event this information is protected by the Federal Confidentiality of Alcohol and Drug Abuse Patient Records regulations: The Federal rules restrict any use of the information to criminally investigate or prosecute any alcohol or drug abuse patient.[facility] CampusIn the event this information is protected by the Federal Confidentiality of Alcohol and Drug Abuse Patient Records regulations: The Federal rules restrict any use of the information to criminally investigate or prosecute any alcohol or drug abuse patient.[facility] CampusIn the event this information is protected by the Federal Confidentiality of Alcohol and Drug Abuse Patient Records regulations: The Federal rules restrict any use of the information to criminally investigate or prosecute any alcohol or drug abuse patient.[facility] CampusIn the event this information is protected by the Federal Confidentiality of Alcohol and Drug Abuse Patient Records regulations: The Federal rules restrict any use of the information to criminally investigate or prosecute any alcohol or drug abuse patient.[facility] CampusIn the event this information is protected by the Federal Confidentiality of Alcohol and Drug Abuse Patient Records regulations: The Federal rules restrict any use of the information to criminally investigate or prosecute any alcohol or drug abuse patient.[facility] CampusIn the event this information is protected by the Federal Confidentiality of Alcohol and Drug Abuse Patient Records regulations: The Federal rules restrict any use of the information to criminally investigate or prosecute any alcohol or drug abuse patient.[facility] CampusIn the event this information is protected by the Federal Confidentiality of Alcohol and Drug Abuse Patient Records regulations: The Federal rules restrict any use of the information to criminally investigate or prosecute any alcohol or drug abuse patient.[facility] CampusIn the event this information is protected by the Federal Confidentiality of Alcohol and Drug Abuse Patient Records regulations: The Federal rules restrict any use of the information to criminally investigate or prosecute any alcohol or drug abuse patient.[facility] CampusIn the event this information is protected by the Federal Confidentiality of Alcohol and Drug Abuse Patient Records regulations: The Federal rules restrict any use of the information to criminally investigate or prosecute any alcohol or drug abuse patient.[facility] CampusIn the event this information is protected by the Federal Confidentiality of Alcohol and Drug Abuse Patient Records regulations: The Federal rules restrict any use of the information to criminally investigate or prosecute any alcohol or drug abuse patient.[facility] Reason for Visit (unrecogniz ed section and [...] REAL TIME W/IMAGE COMPLETE Jerrod Ojeda PA-C [address] [place] [address] Us Imaging Referral ID Status Reason Start Date Expiration Date V isits Requested Visits Authorized [id number] Closed Auto-Generate d Referral 03/06/2022 04/05/2023 1 [...] HIGH MDM 60-74 MINUTES Jerrod Ojeda PA-C [address] [place] [address] Referral ID Status Reason Start Date Expiration Date Visits Requested Visits Authorized [id number] Pending Review PCP Requested Referral 06/07/2022 06/07/2023 [...] Care Teams (unrecognized sec tion and content) Cook Syrup Maker Relationship Specialty Start Date End Date Jerrod Ojeda PA-C [address] [place] [address] PCP - General Family Practice 07/01/16 Cook Syrup Maker Relationship Specialty Start Date End Date Jerrod Ojeda PA-C [address] [place] [address] PCP - General Family Practice 07/01/16 Cook Syrup Maker Relationship Specialty Start Date End Date Jerrod Ojeda PA-C [address] [place] [address] PCP - General Family Practice 07/01/16 Cook Syrup Maker Relationship Specialty Start Date End Date Jerrod Ojeda PA-C [address] [place] [address] PCP - General Family Practice 07/01/16 Cook Syrup Maker Relationship Specialty Start Date End Date Jerrod Ojeda PA-C [address] [place] [address] PCP - General Family Practice 07/01/16 Cook Syrup Maker Relationship Specialty Start Date End Date Jerrod Ojeda PA-C [address] [place] [address] PCP - General Family Practice 07/01/16 Cook Syrup Maker Relationship Specialty Start Date End Date Jerrod Ojeda PA-C [address] [place] [address] PCP - General Family Practice 07/01/16 Cook Syrup Maker Relationship Specialty Start Date End Date Jerrod Ojeda PA-C [address] [place] [address] PCP - General Family Medicine 07/01/16 Cook Syrup Maker Relationship Specialty Start Date End Date Jerrod Ojeda PA-C [address] [facility] [address] PCP - General Family Medicine 07/01/16 Cook Syrup Maker Relationship Specialty Start Date End Date Jerrod Ojeda PA-C [address] [facility] [place] [address] PCP - General Family Medicine 07/01/16 Cook Syrup Maker Relationship Specialty Start Date End Date Jerrod Ojeda PA-C [address] [facility] [place] [address] PCP - General Family Medicine 07/01/16 Cook Syrup Maker Relationship Specialty Start Date End Date Jerrod Ojeda PA-C [address] [facility] [place] [address] PCP - General Family Medicine 07/01/16 Cook Syrup Maker Relationship Specialty Start Date End Date Jerrod Ojeda PA-C [address] [facility] [place] [address] PCP - General Family Medicine 07/01/16 Cook Syrup Maker Relationship Specialty Start Date End Date Jerrod Ojeda PA-C [address] [facility] [place] [address] PCP - General Family Medicine 07/01/16 Cook Syrup Maker Relationship Specialty Start Date End Date Jerrod Ojeda PA-C [address] [facility] [place] [address] PCP - General Family Medicine 07/01/16 Cook Syrup Maker Relationship Specialty Start Date End Date Jerrod Ojeda PA-C [address] [facility] [place] [address] PCP - General Family Medicine 07/01/16 Cook Syrup Maker Relationship Specialty Start Date End Date Jerrod Ojeda PA-C [address] [facility] [place] [address] PCP - General Family Medicine 07/01/16 Cook Syrup Maker Relationship Specialty Start Date End Date Jerrod Ojeda PA-C [address] [place] [address] PCP - General Family Medicine 07/01/16 Cook Syrup Maker Relationship Specialty Start Date End Date Jerrod Ojeda PA-C [address] [place] [address] PCP - General Family Medicine 07/01/16 Cook Syrup Maker Relationship Specialty Start Date End Date Jerrod Ojeda PA-C [address] [place] [address] PCP - General Family Medicine 07/01/16 Cook Syrup Maker Relationship Specialty Start Date End Date Jerrod Ojeda PA-C [address] [place] [address] PCP - General Family Medicine 07/01/16 Cook Syrup Maker Relationship Specialty Start Date End Date Jerrod Ojeda PA-C [address] [place] [address] PCP - General Family Medicine 07/01/16 Cook Syrup Maker Relationship Specialty Start Date End Date Jerrod Ojeda PA-C [address] [place] [address] PCP - General Family Medicine 07/01/16 Cook Syrup Maker Relationship Specialty Start Date End Date Jerrod Ojeda PA-C [address] [place] [address] PCP - General Family Medicine 07/01/16 Cook Syrup Maker Relationship Specialty Start Date End Date Jerrod Ojeda PA-C [address] [place] [address] PCP - General Family Medicine 07/01/16 Cook Syrup Maker Relationship Specialty Start Date End Date Jerrod Ojeda PA-C [address] [place] [address] PCP - General Family Medicine 07/01/16 Cook Syrup Maker Relationship Specialty Start Date End Date Jerrod Ojeda PA-C [address] [place] [address] PCP - General Family Medicine 07/01/16 Cook Syrup Maker Relationship Specialty Start Date End Date Jerrod Ojeda PA-C [address] [place] [address] PCP - General Family Medicine 07/01/16 Cook Syrup Maker Relationship Specialty Start Date End Date Jerrod Ojeda PA-C [address] [place] [address] PCP - General Family Medicine 07/01/16 Cook Syrup Maker Relationship Specialty Start Date End Date Jerrod Ojeda PA-C [address] [place] [address] PCP - General Family Medicine 07/01/16 Cook Syrup Maker Relationship Specialty Start Date End Date Jerrod Ojeda PA-C [address] [place] [address] PCP - General Family Medicine 07/01/16 Cook Syrup Maker Relationship Specialty Start Date End Date Jerrod Ojeda PA-C [address] [place] [address] PCP - General Family Medicine 07/01/16 FOR [...] BE BASED ON THE PRIMARY CLINICAL RECORDS. [facility] [employer] [facility]. provides no warranty or guarantee of the accuracy or completeness of information in this document.
[2023-07-04] VITALS (10 sets, daily range): BP systolic 114–158; BP diastolic 52–89; PULSE 55–65; RESP 18–20; TEMP 36.6–37.2; O2SAT 93–99; BMI 31.6; BMI 31.4
--- OUTSIDE RECORDS SUMMARY | 2023-07-04 00:05 | XMS RPT_ITS | CCD ---
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 Tender Name Role Phone MIKHAIL DURHAM Attending Unavailable [...] glimepiride; Translations: [GLIMEPIRIDE] Drug Allergy 1 Intolerance [facility] (20 sources) Mirtazapine; Translations: [MIRTAZAPINE] Drug Allergy 5 Intolerance [facility] (20 sources) Seasonal allergy; Translations: [SEASONAL ALLERGIES] Propensity to adverse reactions (disorder) 7 Other: See Comments [facility] Medications Current Medications Medication Drug [...] Coronary arteriosclerosis; Translations: [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] Onset: 06-15-2009 [...] kg Lazaro Aldridge Jr., MD Work Phone: [facility] 02-07-2023 11:33-0400 Diastolic blood pressure 76 mm[Hg] Lazaro Aldridge Jr., MD Work Phone: [facility] 02-07-2023 11:33-0400 Heart rate 62 /min Lazaro Aldridge Jr., MD Work Phone: [facility] 02-07-2023 11:33-0400 Respiratory rate 16 /min Lazaro Aldridge Jr., MD Work Phone: [facility] 02-07-2023 11:33-0400 SaO2% (BldA) [Mass fraction] 97 % Lazaro Aldridge Jr., MD Work Phone: [facility] 02-07-2023 11:33-0400 Systolic blood pressure 132 mm[Hg] Lazaro Aldridge Jr., MD Work Phone: [facility] 01-06-2023 13:14-0400 Body weight 83.46 kg NA Ojeda PA-C Work Phone: [facility] 01-06-2023 13:14-0400 Diastolic blood pressure 80 mm[Hg] NA Ojeda PA-C Work Phone: [facility] 01-06-2023 13:14-0400 Heart rate 74 /min NA Ojeda PA-C Work Phone: [facility] 01-06-2023 13:14-0400 Respiratory rate 16 /min NA Ojeda PA-C Work Phone: [facility] 01-06-2023 13:14-0400 Systolic blood pressure 160 mm[Hg] NA Ojeda PA-C Work Phone: [facility] 07-31-2022 12:21-0500 Body weight 78.93 kg Lazaro Aldridge Jr., MD Work Phone: [facility] 07-31-2022 12:21-0500 Diastolic blood pressure 69 mm[Hg] Lazaro Aldridge Jr., MD Work Phone: [facility] 07-31-2022 12:21-0500 Heart rate 61 /min Lazaro Aldridge Jr., MD Work Phone: [facility] 07-31-2022 12:21-0500 SaO2% (BldA) [Mass fraction] 96 % Lazaro Aldridge Jr., MD Work Phone: [facility] 07-31-2022 12:21-0500 Systolic blood pressure 137 mm[Hg] Lazaro Aldridge Jr., MD Work Phone: [facility] 02-28-2022 15:07-0400 Body weight 85.37 kg NA Ojeda PA-C Work Phone: [facility] 02-28-2022 15:07-0400 Diastolic blood pressure 68 mm[Hg] NA Ojeda PA-C Work Phone: [facility] 02-28-2022 15:07-0400 Heart rate 68 /min NA Ojeda PA-C Work Phone: [facility] 02-28-2022 15:07-0400 Respiratory rate 20 /min NA Ojeda PA-C Work Phone: [facility] 02-28-2022 15:07-0400 SaO2% (BldA) [Mass fraction] 98 % NA Ojeda PA-C Work Phone: [facility] 02-28-2022 15:07-0400 Systolic blood pressure 120 mm[Hg] NA Ojeda PA-C Work Phone: [facility] 02-12-2022 11:51-0400 Body weight 86.18 kg NA Ojeda PA-C Work Phone: [facility] 02-12-2022 11:51-0400 Diastolic blood pressure 70 mm[Hg] NA Ojeda PA-C Work Phone: [facility] 02-12-2022 11:51-0400 Heart rate 52 /min NA Ojeda PA-C Work Phone: [facility] 02-12-2022 11:51-0400 Respiratory rate 20 /min NA Ojeda PA-C Work Phone: [facility] 02-12-2022 11:51-0400 SaO2% (BldA) [Mass fraction] 98 % NA Ojeda PA-C Work Phone: [facility] 02-12-2022 11:51-0400 Systolic blood pressure 142 mm[Hg] NA Ojeda PA-C Work Phone: [facility] 11-12-2021 13:38-0400 Body temperature 99.1 [degF] NA Ojeda PA-C Work Phone: [facility] 11-12-2021 13:38-0400 Body weight 84.37 kg NA Ojeda PA-C Work Phone: [facility] 11-12-2021 13:38-0400 Diastolic blood pressure 66 mm[Hg] NA Ojeda PA-C Work Phone: [facility] 11-12-2021 13:38-0400 Heart rate 68 /min NA Ojeda PA-C Work Phone: [facility] 11-12-2021 13:38-0400 Respiratory rate 18 /min NA Ojeda PA-C Work Phone: [facility] 11-12-2021 13:38-0400 SaO2% (BldA) [Mass fraction] 99 % NA Ojeda PA-C Work Phone: [facility] 11-12-2021 13:38-0400 Systolic blood pressure 112 mm[Hg] NA Ojeda PA-C Work Phone: [facility] Encounters Encounter Date Encounter Type Care Provider Facility Start: 06-09-2023 End: 06-09-2023 ambulatory Jerrod OJEDA Facility:[facility] Start: 02-07-2023 End: [facility] Start: 02-07-2023 End: 02-07-2023 Patient encounter procedure Lazaro Aldridge MD Work Phone: Neurology Procedures Date Procedure Procedure Detail Performing Clinician History of coronary artery bypass grafting S/P CABG x 2 M Collins Ojeda PA-C Work Phone: Plan of Treatment Date Care Activity Detail Author Start: 01-02-2031 Urine microalbumin profile DTAP,TDAP,TD (2 - Td or Tdap) [facility] Start: 02-06-2024 Hepatitis B surface antibody level LDL CHOLESTEROL [facility] Start: 01-07-2024 3 comp foot exam completed DIABETIC FOOT EXAM [facility] Start: 08-06-2023 Hemoglobin A1c/Hemoglobin.total in Blood HBA1C [facility] Start: 03-28-2023 End: 05-28-2023 Hemoglobin A1c in Blood HGB A1C Lab Routine Microalbuminuria Expected: 03/28/2023, Expires: 05/28/2023 [facility] Work Phone: Immunizations Immunization Date Immunization Notes Care Provider Jostin timmons 01-15-2022 zoster vaccine recombinant NA Ojeda PA-C Work Phone: [facility] 08-10-2021 influenza, high-dose , quadrivalent vaccine (FLUZONE HIGH DOSE QUADRIVALENT) NA Ojeda PA-C Work Phone: [facility] 01-02-2021 tetanus toxoid, redu talha diphtheria toxoid, and acellular pertussis vaccine, adsorbed NA Ojeda PA-C Work Phone: [facility] 08-01-2020 influenza, high-dose , quadrivalent vaccine (FLUZONE HIGH DOSE QUADRIVALENT) NA Ojeda PA-C Work Phone: [facility] 03-25-2019 influenza, high dose seasonal, preservative-free NA Ojeda PA-C Work Phone: [facility] 03-04-2018 influenza, high dose seasonal, preservative-free NA Ojeda PA-C Work Phone: [facility] 04-14-2017 influenza, high dose seasonal, preservative-free NA Ojeda PA-C Work Phone: [facility] Work Phone: 12-30-2016 pneumococcal conjuga te vaccine, 13 valent NA Ojeda PA-C Work Phone: [facility] Work Phone: 12-17-2016 zoster vaccine, live NA Taj on PA-C Work Phone: [facility] Work Phone: 07-01-2016 influenza, high dose seasonal, preservative-free NA Ojeda PA-C Work Phone: [facility] Work Phone: 03-15-2015 influenza, high dose seasonal, preservative-free NA Ojeda PA-C Work Phone: [facility] Work Phone: 04-08-2014 influenza, high dose seasonal, preservative-free NA Ojeda PA-C Work Phone: [facility] 06-25-2013 influenza virus vacc ine, whole virus NA Ojeda PA-C Work Phone: [facility] 04-02-2008 influenza virus vacc ine, unspecified formulation NA Ojeda PA-C Work Phone: [facility] Work Phone: 04-02-2007 influenza virus vacc ine, unspecified formulation NA Ojeda PA-C Work Phone: [facility] Work Phone: 04-02-2005 influenza virus vacc ine, unspecified formulation NA Ojeda PA-C Work Phone: [facility] Work Phone: 04-02-2005 pneumococcal polysaccharide vaccine, 23 valent NA Ojeda PA-C Work Phone: [facility] Work Phone: Payers Date Payer Category Payer Medicare [id number] 2013 Medicare [employer] [place] [place] [id number] 2013-Present [phone] [address] [place] [address] [facility] [id number] 2013 Medicare [employer] [place] [id number] 2013-Present [phone] [address] [place] [address] [facility] [id number] 1940 Unknown [id number] Social History Date Type Detail Facility Start: 05-19-2017 End: 02-12-2022 Tobacco smoking status NHIS Ex-smoker [facility] End: 06-02-1983 History of tobacco use Current smoker [facility] Start: 08-10-2021 End: 02-07-2023 Alcohol intake Current non-drinker of alcohol (finding) [facility] Start: 07-26-2020 End: 06-11-2022 History SDOH Alcohol Frequency 2 [facility] Start: 07-26-2020 End: 06-11-2022 History SDOH Alcohol Std Drinks 1 [facility] Start: 07-26-2020 History SDOH Social Connections Phone 5 [facility] Start: 07-26-2020 End: 06-11-2022 History SDOH Social Connections Get Together 3 [facility] Start: 07-26-2020 End: 06-11-2022 History SDOH Physical Activity DPW 0 [facility] Start: 07-26-2020 End: 06-11-2022 History SDOH Financial 4 [facility] Start: 07-25-2020 Education 12 [facility] Start: 1940 Sex Assigned At Male [facility] Start: 11-02-2021 End: 02-12-2022 Exposure to SARS-CoV-2 (event) Not sure [facility] Start: 12-04-2021 End: 12-14-2021 Exposure to SARS-CoV-2 (event) Yes [facility] End: 06-02-1983 History of tobacco use Cigarette Smoker [facility] Work Phone: Start: 05-19-2017 End: 02-12-2022 Tobacco use and exposure Smokeless tobacco non-user [facility] Work Phone: Start: 06-11-2022 End: 11-05-2022 History of Social function [facility] Start: 06-11-2022 End: 11-05-2022 Social connection and isolation panel [facility] Do you belong to any clubs or organizations such as adventist groups, unions, fraternal or athletic groups, or school groups? No [facility] Are you now , , , , never or living with a partner? [facility] How often to you hav e a drink containing alcohol? 2-3 time sa week [facility] How many standard dr inks containing alcohol do you have on a typical day? 1 or 2 [facility] How often do you hav e 6 or more drinks on 1 occasion? Never [facility] How hard is it for y ou to pay for the very basics like food, housing, medical care, and heating Not very hard [facility] Adult Depression Screening Assessment 4 [facility] Do you feel stress - tense, restless, nervous, or anxious, or unable to sleep at night because your mind is troubled all the time - these days [OSQ] Rather much [facility] (I/We) worried wheblaine er (my/our) food would run out before (I/we) got money to buy more. Never true [facility] Start: 02-29-2020 Gender identity Identifies as male gender (finding) [facility] Start: 02-29-2020 Sexual orientation Heterosexual (finding) [facility] Clinical Notes 06-15-2009 to 06-09-2023 Lazaro Aldridge Jr., MD - 02/07/2023 11:47 AM EDTTelephone Encounter - Tiara Ortiz LPN - 01/21/2023 10:33 AM EDTTelephone Encounter - Jerrod Ojeda PA-C - 01/14/2023 3:05 PM EDT Note Date & Type Note Facility 06-09-2023 Note HNO ID: [id number] Author: LAZARO ALDRIDGE JR, MD Service: ? [...] Value 02/05/2023 4 (more content not included)... [facility] 02-07-2023 Note HNO ID: [id number] Author: Lazaro Aldridge Jr., MD Service: ? [...] Similar objects: 2/2 Orientation: Friday, 2001, January, [facility] [place]: 09/05 Delayed recall: 06/06 REVIEW OF [...] HPI - h (more content not included)... [facility] 02-07-2023 History of Present illness Narrative ESTABLISHED [...] follow up in 3 months at our [place] offices. Pt and his family agree with [...] 1/3 Similar objects: 2/2 Orientation: 2001, January, [place], [place]: 09/05 Delayed recall: 06/06 REVIEW OF [...] which included preparing to see the patient, [id number] patient care, completing clinical documentation, obtaining and/or reviewing separately obtained history, performing a medically appropriate examination, counseling and educating the patient/family/caregiver, ordering medications, tests, or procedures, independently interpreting results (not separately reported), and communicating results to the patient/family/caregiver. documented in this encounter [facility] 01-21-2023 Miscellaneous Notes JENARO 11/05/22 with [...] Santa Gordon PA-C documented in this encounter [facility] 01-14-2023 Miscellaneous Notes The following approved [...] you. RINKU Alarcon documented in this encounter [facility] 01-06-2023 Note HNO ID: [id number] Author: Jerrod Ojeda PA-C Service: ? 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 Emory Arias [...] No significant change from 09/21/09 01/27/15 referral workers compensation analyst Kelvin Ellis [facility] 09/21/09 echocardiogram: LV size NL, LVSF: [...] 6.3 08/10/2021 6.7 03/24/2020 Test sent to [facility]. 10/30/2019 Test sent to [facility]. ) CMP: Glucose 128 03/15/2022 BUN [...] recurrently Retrolisthesis Spo (more content not included)... [facility] 01-06-2023 Instructions Jerrod Ojeda PA-C - 01/06/2023 2:08 PM EDT Please bring in advanced directives. 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 Emory Arias [...] No significant change from 09/21/09 01/27/15 referral workers compensation analyst Kelvin Ellis [facility] [place] 09/21/09 echocardiogram: LV size NL, LVSF: 60% [...] 6.3 08/10/2021 6.7 03/24/2020 Test sent to [facility]. 10/30/2019 Test sent to [facility]. ) CMP: Glucose 128 03/15/2022 BUN [...] be affecting 3. 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 Forwarded to [facility]'s desk for signature. Once signed, please fax to [facility] at [phone]. Gale Paniagua MA documented in this encounter [facility] 12-19-2022 Miscellaneous Notes Patient has been identified by name and date of : Yes Patient phones for refill(s): Requested Prescriptions Pending Prescriptions Disp Refills lisinopril (ZESTRIL) 20 mg tablet 90 tablet 1 Sig: Take 1 tablet by mouth once daily. Date of last office visit in primary care: 06/11/2022 Please advise. Thank you. Paula Jauregui LPN documented in this encounter [facility] 12-10-2022 Note HNO ID: [id number] Author: RT Margo(Ej) Service: ? Author Type: [...] RT Margo(Ej) December 10, 2022 1:47 PM [facility] 12-10-2022 Miscellaneous Notes Left a message for [...] Alexys Negron LPN documented in this encounter [facility] 12-09-2022 Miscellaneous Notes Patient has been [...] Gale Paniagua MA documented in this encounter [facility] 12-05-2022 Miscellaneous Notes Teressa, a speech therapist with [facility] is calling to update PCP that during her visit with patient yesterday, pt's family reports that pt has had three recent falls. One on 11/29, one on 12/02 and one on 12/03. No injuries. Reports pt's legs are weak and give out. Pt will be receiving Physical Therapy. No call back needed. Thank you. documented in this encounter [facility] 11-26-2022 Miscellaneous Notes Spoke to patients and she is agreeable with going to [facility]. Orders and pt information sent to fax number [phone]. Tiara Ortiz LPN Thank you for the referral of your patient to [facility]. At this time, we are at capacity and are unable to accept your patient. In order to help your patient receive quality home care, we have included reputable agencies that service this area: [facility], Phone number [phone] or [facility], phone number [phone]. Please contact this agency and they will work with your patient to arrange timely services. Thank you, Alexsandra Busch LPN 11/22/2022 2:29 PM documented in this encounter [facility] 11-22-2022 Miscellaneous Notes Please assist with [...] Britany Guillory RN documented in this encounter [facility] 11-13-2022 Miscellaneous Notes Sw notes that [facility] is reaching out to [...] and Sw also discussed that our [facility] still has PT if for whatever reason HH does not work. documented in this encounter [facility] 11-05-2022 Note HNO ID: [id number] Author: Santa Gordon PA-C Service: ? Author Type: Physician Category Planner Type: Progress Notes Filed: 11/05/2022 12:51 PM [...] follow up in 3 months at our [place] offices. Pt and his family agree with [...] pain or muscle (more content not included)... [facility] 11-05-2022 Instructions Santa Gordon PA-C - 11/05/2022 12:18 PM EDT Increase water intake Social work consult for falls and physical therapy Physical therapy for strength MRI of the cervical spine Continue B12 supplementation, continue namenda 10mg bid Follow up in three months documented in this encounter [facility] 11-05-2022 History of Present illness Narrative [...] follow up in 3 months at our [place] offices. Pt and his family agree with [...] which included preparing to see the patient, [id number] patient care, completing clinical documentation, obtaining and/or reviewing separately obtained history, performing a medically appropriate examination, counseling and educating the patient/family/caregiver, and ordering medications, tests, or procedures. This document has been created with the use of voice recognition technology. It may contain inaccuracies: (e.g. misspellings, inaccurate syntax or word sense) that have escaped review. documented in this encounter [facility] 10-07-2022 Miscellaneous Notes Left the patient a voice message about the appointment date and time change. Sent the patient a [employer] message and mailed the reminder. The patient is scheduled for a 3-month follow-up on 11/05 with HERB Owen. The patient is scheduled for a 6-month follow-up on 02/[address] Aldridge. documented in this encounter [facility] 09-09-2022 Miscellaneous Notes Patient phones requesting refills as follows: Requested Prescriptions Pending Prescriptions Disp Refills atenolol (TENORMIN) 25 mg tablet 90 tablet 1 Sig: Take 1 tablet by mouth once daily. JENARO 06/11/22 NOV no upcoming appt Please review and advise. Alexys Negron LPN documented in this encounter [facility] 08-02-2022 Miscellaneous Notes Patient telephoend. answered. Made aware of update. 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 Sissy Huerta LPN Please advise Yoselin Aldridge recommended supplementing vit B12- this is a sublingual The following approved medication requests have been transmitted electronically. Requested Prescriptions Signed Prescriptions Disp Refills Cyanocobalamin 1,000 mcg subl 90 tablet 3 Sig: Dissolve 1 tablet under the tongue once daily. Authorizing Provider: Jerrod OJEDA PA-C documented in this encounter [facility] 07-31-2022 Note HNO ID: [id number] Author: Lazaro Aldridge Jr., MD Service: ? [...] recall: 2; 2 Number repeat: 06/03 (bkwrds: [id number]) Sentence repeat: 07/04 Serial 7s: 100-93-x 06/04 Orientation: X/X/2002, Wed, [place], [place] 08/05 Delayed recall: 07/07 Similar object: 1 Cube drawin/1 Clock drawing: (numbers outside blackfeet, writes # for 10 p 11) 06/04 [...] (mg/dL) Date Value (more content not included)... [facility] 07-31-2022 History of Present illness Narrative NEW [...] 06/03 Cube drawin Clock drawing: (numbers outside blackfeet, writes # for 10 p 11) 06/04 [...] follow up in 3 months at our [place] offices. Pt and his family agree with plan. Lazaro Aldridge MD I spent a total of 60+ minutes on the date of the service which included preparing to see the patient, [id number] patient care, completing clinical documentation, obtaining and/or reviewing separately obtained history, performing a medically appropriate examination, counseling and educating the patient/family/caregiver, ordering medications, tests, or procedures, independently interpreting results (not separately reported), and communicating results to the patient/family/caregiver. documented in this encounter [facility] 07-22-2022 Miscellaneous Notes Patient phones requesting refills as follows: Requested Prescriptions Pending Prescriptions Disp Refills gabapentin (NEURONTIN) 600 mg tablet 180 tablet 1 Sig: Take 1 tablet by mouth twice daily for 180 days. JENARO 06/11/22 (virtual) 02/28/22 (in office) NOV no upcoming appt Please review and advise. Alexys Negron LPN documented in this encounter [facility] 06-14-2022 Miscellaneous Notes Patient's calls back [...] Britany Guillory RN documented in this encounter [facility] 06-13-2022 Miscellaneous Notes Component Latest Ref Rng & Units 06/11/2022 Color Yellow Yellow Clarity Clear Cloudy (A) Glucose, Urine Trace, Negative Negative Bilirubin, Urine Negative Negative Ketones, Urine Trace, Negative Negative Specific [place], Ur 1.005 - 1.030 1.025 Hemoglobin/Blood,Ur Negative, [...] (A) Culture pending documented in this encounter [facility] 06-11-2022 Miscellaneous Notes Received fax from [employer]. Requesting order for test strips. Call to patient and they did not request this company nor do they want to use this company. Fax shredded. Mary Kate Nolasco Ma documented in this encounter [facility] 06-11-2022 History of Present illness Narrative Audio only was used for evaluation of this patient. Location of patient: [place] Patient was offered a virtual/telemedicine appointment in [...] Jerrod Ojeda PA-C documented in this encounter [facility] 06-10-2022 Miscellaneous Notes Last office visit: 02/28/22 F/u scheduled: 06/11/22 Lisa Han Ma documented in this encounter [facility] 06-07-2022 Miscellaneous Notes Will scheduled when [...] . Thank you. documented in this encounter [facility] 05-10-2022 Miscellaneous Notes Patient phones requesting refills as follows: Requested Prescriptions Pending Prescriptions Disp Refills traMADol (ULTRAM) 50 mg tablet 60 tablet 5 Sig: Take 1 tablet by mouth twice daily as needed for pain for up to 30 days. JENARO-02/28/22 Labs-03/18/22 NOV-05/14/22 med filled 10/17/21 Please review and advise. Albina Porter LPN documented in this encounter [facility] 03-20-2022 Miscellaneous Notes TC to pt, spoke /c pt [place], notified of results/provider response. [place] states d/t transportation issues they would prefer to stay in [place]. Referral faxed to Dr. Thomas's office. Alexys Negron LPN Please advise ultrasound demonstrates a large bladder stone 3.1 cm, this is likely causing obstruction and complications with urination. Recommend consult to urology, I prefer Dr. Yo Durham on if possible in [place]. If patient wants to stay in [place] he could see Dr. Thomas Telephone on 03/20/22 CONSULT TO UROLOGY Thanks, Oneil Ojeda PA-C documented in this encounter [facility] 03-18-2022 Miscellaneous Notes Telephone on 03/18/22 CBC + DIFF COMP METABOLIC PANEL Oneil Ojeda PA-C File orders documented in this encounter [facility] 03-18-2022 History of Present illness Narrative [...] 2022 2:51 PM documented in this encounter [facility] 03-16-2022 Miscellaneous Notes Please schedule: Telephone on 03/05/22 CONSULT TO VASCULAR SURGERY Venous incompetence (primary encounter diagnosis) Bilateral leg edema ThanksOneil PA-C documented in this encounter [facility] 03-06-2022 Miscellaneous Notes Last office visit: 02/28/22 Next appointment scheduled: 05/14/22 Last labs: 02/28/22 Patient phones requesting refills as follows: Requested Prescriptions Pending Prescriptions Disp Refills atenolol (TENORMIN) 25 mg tablet 90 tablet 1 Sig: Take 1 tablet by mouth once daily. Please review and advise. 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 Emory Arias [...] No significant change from 09/21/09 01/27/15 referral workers compensation analyst Kelvin Ellis [facility] 09/21/09 echocardiogram: LV [...] Jerrod Ojeda PA-C documented in this encounter [facility] 02-12-2022 History of Present illness Narrative [...] Jerrod Ojeda PA-C documented in this encounter [facility] 01-28-2022 Miscellaneous Notes Patient has been [...] [place] LPN documented in this encounter [facility] 12-17-2021 Miscellaneous Notes Last office visit 12/14/2021. documented in this encounter [facility] 12-14-2021 History of Present illness Narrative Alternative video platform was used for evaluation of this patient. Location of patient: [place] Patient was offered a virtual/telemedicine appointment in [...] of this patient. Location of patient: [place] FERNANDO Mendieta is a 81 year old [...] gets really tested. Reviewed vascular dementia vs [place]'s and characteristics. Discussed new monoclonal therapy briefly- [...] discussed Nirmatrelvir/Ritonavir (Paxlovid) Eligibility and Patient Discussion [facility] Formulary Restriction Criteria: Adult outpatients 18 [...] coronavirus infection (COVID-19). documented in this encounter [facility] 11-12-2021 History of Present illness Narrative [...] BP <130/80 3. 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 Fax to requested location. Flora Ortega Ma documented in this encounter [facility] 09-17-2021 Miscellaneous Notes Pending Prescriptions Disp Refills TRAMADOL 50 MG TABLET 60 tablet 2 Sig: Take 1 tablet by mouth twice daily as needed for pain for up to 30 days. MASON Class: C-IV MILLI: No JENARO 08/10/21 NOV 11/12/21 Last refilled 06/21/21 #60 2 refills documented in this encounter [facility] documented as of this encounter (statuses as of 09/18/2021) [facility] History of Past illness Narrative* Problem Noted Date Resolved Date JONATHON (obstructive sleep apnea) 06/15/2009 documented as of this encounter (statuses as of 09/28/2021) [facility] History of Past illness Narrative* Problem Noted Date Resolved Date JONATHON (obstructive sleep apnea) 06/15/2009 documented as of this encounter (statuses as of 10/17/2021) [facility] History of Past illness Narrative* Problem Noted Date Resolved Date JONATHON (obstructive sleep apnea) 06/15/2009 documented as of this encounter (statuses as of 11/12/2021) [facility] History of Past illness Narrative* Problem Noted Date Resolved Date JONATHON (obstructive sleep apnea) 06/15/2009 documented as of this encounter (statuses as of 12/12/2021) [address]14[address]2010 History of Past illness Narrative* Problem Noted Date Resolved Date JONATHON (obstructive sleep apnea) 06/15/2009 documented as of this encounter (statuses as of 12/14/2021) [address] History of Past illness Narrative* Problem Noted Date Resolved Date JONATHON (obstructive sleep apnea) 06/15/2009 documented as of this encounter (statuses as of 12/17/2021) [address] History of Past illness Narrative* Problem Noted Date Resolved Date JONATHON (obstructive sleep apnea) 06/15/2009 documented as of this encounter (statuses as of 01/28/2022) [address]14[address]2010 History of Past illness Narrative* Problem Noted Date Resolved Date JONATHON (obstructive sleep apnea) 06/15/2009 documented as of this encounter (statuses as of 02/12/2022) [address] History of Past illness Narrative* Problem Noted Date Resolved Date JONATHON (obstructive sleep apnea) 06/15/2009 documented as of this encounter (statuses as of 03/01/2022) [facility] History of Past illness Narrative* Problem Noted Date Resolved Date JONATHON (obstructive sleep apnea) 06/15/2009 documented as of this encounter (statuses as of 03/06/2022) [place] [address]14-2010 History of Past illness Narrative* Problem Noted Date Resolved Date JONATHON (obstructive sleep apnea) 06/15/2009 documented as of this encounter (statuses as of 03/08/2022) [address] History of Past illness Narrative* Problem Noted Date Resolved Date JONATHON (obstructive sleep apnea) 06/15/2009 documented as of this encounter (statuses as of 03/16/2022) [place] [address]14-2010 History of Past illness Narrative* Problem Noted Date Resolved Date JONATHON (obstructive sleep apnea) 06/15/2009 documented as of this encounter (statuses as of 03/18/2022) [address] History of Past illness Narrative* Problem Noted Date Resolved Date JONATHON (obstructive sleep apnea) 06/15/2009 documented as of this encounter (statuses as of 03/19/2022) [address] History of Past illness Narrative* Problem Noted Date Resolved Date JONATHON (obstructive sleep apnea) 06/15/2009 documented as of this encounter (statuses as of 03/20/2022) [facility] History of Past illness Narrative* Problem Noted Date Resolved Date JONATHON (obstructive sleep apnea) 06/15/2009 documented as of this encounter (statuses as of 05/10/2022) [facility] History of Past illness Narrative* Problem Noted Date Resolved Date JONATHON (obstructive sleep apnea) 06/15/2009 documented as of this encounter (statuses as of 06/08/2022) [address] History of Past illness Narrative* Problem Noted Date Resolved Date JONATHON (obstructive sleep apnea) 06/15/2009 documented as of this encounter (statuses as of 06/11/2022) [address] History of Past illness Narrative* Problem Noted Date Resolved Date JONATHON (obstructive sleep apnea) 06/15/2009 documented as of this encounter (statuses as of 06/11/2022) [facility] History of Past illness Narrative* Problem Noted Date Resolved Date JONATHON (obstructive sleep apnea) 06/15/2009 documented as of this encounter (statuses as of 06/12/2022) [address] History of Past illness Narrative* Problem Noted Date Resolved Date JONATHON (obstructive sleep apnea) 06/15/2009 documented as of this encounter (statuses as of 06/14/2022) [facility] History of Past illness Narrative* Problem Noted Date Resolved Date JONATHON (obstructive sleep apnea) 06/15/2009 documented as of this encounter (statuses as of 06/14/2022) [address] History of Past illness Narrative* Problem Noted Date Resolved Date JONATHON (obstructive sleep apnea) 06/15/2009 documented as of this encounter (statuses as of 07/23/2022) [place] [address]14-2010 History of Past illness Narrative* Problem Noted Date Resolved Date JONATHON (obstructive sleep apnea) 06/15/2009 documented as of this encounter (statuses as of 07/31/2022) [place] [address]14[address]2010 History of Past illness Narrative* Problem Noted Date Resolved Date JONATHON (obstructive sleep apnea) 06/15/2009 documented as of this encounter (statuses as of 09/10/2022) [address]2010 History of Past illness Narrative* Problem Noted Date Resolved Date JONATHON (obstructive sleep apnea) 06/15/2009 documented as of this encounter (statuses as of 09/20/2022) [address]14[address]2010 History of Past illness Narrative* Problem Noted Date Resolved Date JONATHON (obstructive sleep apnea) 06/15/2009 documented as of this encounter (statuses as of 10/08/2022) [facility] History of Past illness Narrative* Problem Noted Date Resolved Date JONATHON (obstructive sleep apnea) 06/15/2009 documented as of this encounter (statuses as of 11/05/2022) [address]14[address]2010 History of Past illness Narrative* Problem Noted Date Resolved Date JONATHON (obstructive sleep apnea) 06/15/2009 documented as of this encounter (statuses as of 11/19/2022) [place] [address]14-2010 History of Past illness Narrative* Problem Noted Date Resolved Date JONATHON (obstructive sleep apnea) 06/15/2009 documented as of this encounter (statuses as of 11/26/2022) [address]2010 History of Past illness Narrative* Problem Noted Date Resolved Date JONATHON (obstructive sleep apnea) 06/15/2009 documented as of this encounter (statuses as of 11/26/2022) [address]14[address]2010 History of Past illness Narrative* Problem Noted Date Diagnosed Date Resolved Date JONATHON (obstructive sleep apnea) 06/15/2009 11/02/2018 documented as of this encounter (statuses as of 12/10/2022) [address]14[address]2010 History of Past illness Narrative* Problem Noted Date Diagnosed Date Resolved Date JONATHON (obstructive sleep apnea) 06/15/2009 11/02/2018 documented as of this encounter (statuses as of 12/12/2022) [address]14[address]2010 History of Past illness Narrative* Problem Noted Date Diagnosed Date Resolved Date JONATHON (obstructive sleep apnea) 06/15/2009 11/02/2018 documented as of this encounter (statuses as of 12/20/2022) [address]14[address]2010 History of Past illness Narrative* Problem Noted Date Diagnosed Date Resolved Date JONATHON (obstructive sleep apnea) 06/15/2009 11/02/2018 documented as of this encounter (statuses as of 12/27/2022) [facility] History of Past illness Narrative* Problem Noted Date Diagnosed Date Resolved Date JONATHON (obstructive sleep apnea) 06/15/2009 11/02/2018 documented as of this encounter (statuses as of 01/01/2023) [place] [address]14-2010 History of Past illness Narrative* Problem Noted Date Diagnosed Date Resolved Date JONATHNO (obstructive sleep apnea) 06/15/2009 11/02/2018 documented as of this encounter (statuses as of 01/07/2023) [place] [address] History of Past illness Narrative* Problem Noted Date Diagnosed Date Resolved Date JONATHON (obstructive sleep apnea) 06/15/2009 11/02/2018 documented as of this encounter (statuses as of 01/15/2023) [place] [address]2010 History of Past illness Narrative* Problem Noted Date Diagnosed Date Resolved Date JONATHON (obstructive sleep apnea) 06/15/2009 11/02/2018 documented as of this encounter (statuses as of 01/21/2023) [place] [address]14-2010 History of Past illness Narrative* Problem Noted Date Diagnosed Date Resolved Date JONATHON (obstructive sleep apnea) 06/15/2009 11/02/2018 documented as of this encounter (statuses as of 02/05/2023) [address] History of Past illness Narrative* Problem Noted Date Diagnosed Date Resolved Date JONATHON (obstructive sleep apnea) 06/15/2009 11/02/2018 documented as of this encounter (statuses as of 02/07/2023) [facility] Diagnosis Diabetic polyneuropathy associated with type 2 diabetes mellitus (HCC) Recurrent low back pain Lumbago [facility] Diagnosis Diabetic polyneuropathy associated with type 2 diabetes mellitus (HCC) Recurrent low back pain Lumbago [facility] Diagnosis Benign prostatic hyperplasia, unspecified whether lower urinary tract symptoms present- Primary Hypertension, essential Unspecified essential hypertension 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 Hyperlipidemia, mixed 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, without long- term current use of insulin (HCC) Diabetic polyneuropathy associated with type 2 diabetes mellitus (HCC) Hiatal hernia Diaphragmatic hernia without mention of obstruction or gangrene 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 Ataxia Lack of coordination [facility] Diagnosis Upper respiratory tract infection due to COVID-19 virus- Primary Brain atrophy (HCC) Cerebral degeneration, unspecified Mild dementia (HCC) Dementia, unspecified, without behavioral disturbance [facility] Diagnosis Benign prostatic hyperplasia without lower urinary tract symptoms [facility] Diagnosis Bilateral leg edema- Primary Edema Bilateral calf pain Pain in limb [facility] Diagnosis Bilateral leg edema- Primary Edema SOB (shortness of breath) Shortness of breath Bilateral calf pain Pain in limb Screening for colon cancer Special screening for malignant neoplasms, colon Controlled type 2 diabetes mellitus with diabetic neuropathy, without long-term current use of insulin ([facility]) [facility] Diagnosis Elevated serum creatinine- Primary Other nonspecific findings on examination of blood [facility] Diagnosis Hypertension, essential Unspecified essential hypertension Essential tremor Essential and other specified forms of tremor [facility] Diagnosis Venous incompetence- Primary Unspecified venous (peripheral) insufficiency Bilateral leg edema Edema [facility] Diagnosis 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- Primary Medication management Encounter for long-term (current) use of other medications Controlled type 2 diabetes mellitus with diabetic neuropathy, without long-term current use of insulin (HCC) Hypertension, essential Unspecified essential hypertension Hyperlipidemia, mixed Mixed hyperlipidemia [facility] Diagnosis Elevated serum creatinine Other nonspecific findings on examination of blood [facility] Diagnosis Benign prostatic hyperplasia with urinary obstruction- Primary Bladder stone Other calculus in bladder [facility] Diagnosis Diabetic polyneuropathy associated with type 2 diabetes mellitus (HCC) Recurrent low back pain Lumbago [facility] Diagnosis Dementia with behavioral disturbance- Primary Dementia, unspecified, with behavioral disturbance [facility] Diagnosis Controlled type 2 diabetes mellitus with diabetic polyneuropathy, without long- term current use of insulin ([facility]) [facility]* Diagnosis Brain atrophy (HCC)- Primary Cerebral degeneration, unspecified Dementia with behavioral disturbance Dementia, unspecified, with behavioral disturbance Sleep concern Problems related to lack of adequate sleep Urinary frequency [facility]* Diagnosis Moderate dementia with other behavioral disturbance, unspecified dementia type (HCC)- Primary History of stroke Transient ischemic attack (TIA), and cerebral infarction without residual deficits Low vitamin B12 level Other B-complex deficiencies [facility]* Diagnosis Hypertension, essential Unspecified essential hypertension Essential tremor Essential and other specified forms of tremor documented [facility] Diagnosis Spinal stenosis of cervical region- Primary Spinal stenosis in cervical region Weakness Other malaise and fatigue Parkinsonism, unspecified Parkinsonism type (HCC) Frequent falls Personal history of fall Moderate dementia with other behavioral disturbance, unspecified dementia type (HCC) [facility] Diagnosis Moderate dementia with other behavioral disturbance, unspecified dementia type (HCC)- Primary Frequent falls Personal history of fall Parkinsonism, unspecified Parkinsonism type (HCC) [facility] Diagnosis Spinal stenosis of cervical region- Primary Spinal stenosis in cervical region Weakness Other malaise and fatigue Parkinsonism, unspecified Parkinsonism type (HCC) Frequent falls Personal history of fall Moderate dementia with other behavioral disturbance, unspecified dementia type (HCC) [facility]* Diagnosis Diabetic polyneuropathy associated with type 2 diabetes mellitus (HCC) Recurrent low back pain Lumbago [facility] Diagnosis Controlled type 2 diabetes mellitus with diabetic polyneuropathy, without long- term current use of insulin (HCC) [facility]* Diagnosis Controlled type 2 diabetes mellitus with diabetic neuropathy, without long-term current use of insulin (HCC)- Primary Primary hypertension Unspecified essential hypertension Hyperlipidemia, mixed Mixed hyperlipidemia Microalbuminuria Proteinuria [facility] Diagnosis Brain atrophy (HCC)- Primary Cerebral degeneration, unspecified 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 [...] (HCC) documented in this encounter [facility] note* Diagnosis Diabetic polyneuropathy associated with type 2 diabetes mellitus (HCC) Recurrent low back pain Lumbago [facility] Diagnosis Moderate dementia with other behavioral disturbance, unspecified dementia type (HCC)- Primary History of stroke Transient ischemic attack (TIA), and cerebral infarction without residual deficits Low vitamin B12 level Other B-complex deficiencies Spinal stenosis of cervical region Spinal stenosis in cervical region Frequent falls Personal history of fall History of hip fracture Personal history of traumatic fracture documented in this encounter [facility] for referral (narrative)* Diagnostic Procedure Only (Urgent) - Closed Specialty Diagnoses / Procedures Referred By Contac t Referred To Contact [facility] IM[facility] Diagnoses Bilateral leg edema Bilateral calf pain Procedures US DVT LOWER BILAT DUP-SCAN XTR VEINS COMPLETE BILATERAL STUDY Jerrod Ojeda PA-C [address] [place] [address] Us Imaging Referral ID Status Reason Start Date Expiration Date V isits Requested Visits Authorized [id number] Closed Auto-Generate d Referral 02/12/2022 03/14/2023 1 1 * Outpatient Procedure (Urgent) - Pending Review Specialty Diagnoses / Procedures Referred By Contac t Referred To Contact [facility] [place] Diagnoses Bilateral leg edema Bilateral calf pain Procedures US LEG VEIN DVT ESME VAS LAB DUP-SCAN XTR VEINS COMPLETE BILATERAL STUDY Jerrod Ojeda PA-C [address] [place] [address] [facility][Note 3] Vascular [address] [address] Referral ID Status Reason Start Date Expiration Date Visits Requested Visits Authorized [id number] Pending Review Auto-Generat ed Referral 02/12/2022 02/12/2023 1 1 [facility] for referral (narrative)* Outpatient Procedure (Routine) - Authorized Specialty Diagnoses / Procedures Referred By Contac t Referred To Contact [facility] [place] Diagnoses Bilateral leg edema Procedures US VENOUS INCOMPETENCY ESME VAS LAB DUP-SCAN XTR VEINS COMPLETE BILATERAL STUDY Jerrod Ojeda PA-C [address] [place] [address] [address] Referral ID Status Reason Start Date Expiration Date Visits Requested Visits Authorized [id number] Authorized Auto-Generat ed Referral 02/28/2022 02/28/2023 1 1 [facility] for referral (narrative)* Diagnostic Procedure Only (Routine) - Pending Review Specialty Diagnoses / Procedures Referred By Contac t Referred To Contact US IMAGING Diagnoses Elevated serum creatinine Procedures US KIDNEY/BLADDER US RETROPERITONEAL REAL TIME W/IMAGE COMPLETE Jerrod Ojeda PA-C [address] [place] [address] Us Imaging Referral ID Status Reason Start Date Expiration Date Visits Requested Visits Authorized [id number] Pending Review Auto-Generat ed Referral 03/06/2022 04/05/2023 1 1 [facility] for referral (narrative)* Diagnostic Procedure Only (Routine) - Closed Specialty Diagnoses / Procedures Referred By Contac t Referred To Contact US IMAGING Diagnoses Elevated serum creatinine Procedures US KIDNEY/BLADDER US RETROPERITONEAL REAL TIME W/IMAGE COMPLETE Jerrod Ojeda PA-C [address] [place] [address] Us Imaging Referral ID Status Reason Start Date Expiration Date V isits Requested Visits Authorized [id number] Closed Auto-Generate d Referral 03/06/2022 04/05/2023 1 1 [facility] for referral (narrative)* Diagnostic Procedure Only (Routine) - Pending Review Specialty Diagnoses / Procedures Referred By Contac t Referred To Contact US IMAGING Diagnoses Moderate dementia with other behavioral disturbance, unspecified dementia type (HCC) History of stroke Procedures [place] [address] [place] [id number] Us Imaging Referral ID Status Reason Start Date Expiration Date Visits Requested Visits Authorized [id number] Pending Review Auto-Generat ed Referral 07/31/2022 08/30/2023 1 1 [facility] Summary Purpose Family History No Family History Records FoundNo Family History Records FoundNo Family History Records FoundNo Family History Records Found Advance Directives No Advanced Directives Records FoundDocuments on File Type Date Recorded Patient Environmental Remediation Specialist Expl 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 Advance Directive(s) Documents on File Type Date Recorded Patient Environmental Remediation Specialist Expl anation Advance Directive(s) Reason for Referral Specialty Diagnoses / Procedures Referred By Contac t Referred To Contact MR IMAGING Diagnoses Ataxia Procedures MRI BRAIN WO IVCON MRI BRAIN BRAIN STEM W/O CONTRAST MATERIAL Jerrod Ojeda PA-C [address] [place] [address] Mr Imaging Referral ID Status Reason Start Date Expiration Date Visits Requested Visits Authorized [id number] Pending Review Auto-Generat ed Referral 11/12/2021 12/12/2022 1 1 Specialty Diagnoses / Procedures Referred By Contac t Referred To Contact Vascular Surgery Diagnoses Venous incompetence Bilateral leg edema Procedures CONSULT TO VASCULAR SURGERY OFFICE/OUTPATIENT [facility] 60-74 MINUTES Jerrod Ojeda PA-C [address] [place] [address] Referral ID Status Reason Start Date Expiration Date Visits Requested Visits Authorized [id number] Pending Review PCP Requested Referral 2 03/16/2023 1 1 Specialty Diagnoses / Procedures Referred By Contac t Referred To Contact Urology Diagnoses Benign prostatic hyperplasia with urinary obstruction Bladder stone Procedures CONSULT TO UROLOGY OFFICE/OUTPATIENT [facility] 60-74 MINUTES Jerrod Ojeda PA-C [address] [place] [address] Referral ID Status Reason Start Date Expiration Date Visits Requested Visits Authorized [id number] Pending Review PCP Requested Referral 2 03/20/2023 1 1 Specialty Diagnoses / Procedures Referred By Contac t Referred To Contact Neurology Diagnoses Dementia with behavioral disturbance Procedures CONSULT TO NEUROLOGY OFFICE/OUTPATIENT [facility] 60-74 MINUTES Jerrod Ojeda PA-C [address] [place] [address] Referral ID Status Reason Start Date Expiration Date Visits Requested Visits Authorized [id number] Pending Review PCP Requested Referral 06/07/2022 06/07/2023 1 1 Specialty Diagnoses / Procedures Referred By Contac t Referred To Contact MR IMAGING Diagnoses Spinal stenosis of cervical region Procedures MRI CERVICAL SPINE WO IVC MRI SPINAL CANAL CERVICAL W/O CONTRAST Santa Barry PA-C [address] [place] [address] Mr Imaging Referral ID Status Reason Start Date Expiration Date Visits Requested Visits Authorized [id number] Pending Review Auto-Generat ed Referral 11/05/2022 12/05/2023 1 1 Specialty Diagnoses / Procedures Referred By Contac t Referred To Contact [facility] Diagnoses Weakness Frequent falls Procedures CONSULT TO PHYSICAL THERAPY PHYSICAL THERAPY EVALUATION HIGH COMPLEX 45 MINS Santa Gordon PA-C [address] [place] [address] [facility] [address] [place] [address] Referral ID Status Reason Start Date Expiration Date Visits Requested Visits Authorized [id number] Pending Review Auto-Generat ed Referral 11/05/2022 11/05/2023 1 1 Specialty Diagnoses / Procedures Referred By Parul clark Referred To Contact Diagnoses Moderate dementia with other behavioral disturbance, unspecified dementia type (HCC) Frequent falls Parkinsonism, unspecified Parkinsonism type (HCC) Procedures CONSULT TO [facility] Santa Gordon PA-C [address] [place] [address] [address] [place] [id number] Referral ID Status Reason Start Date Expiration Date Visits Requested Visits Authorized [id number] Canceled PCP Requested Referral 11/06/2022 02/04/2023 3 3 Specialty Diagnoses / Procedures Referred By Parul clark Referred To Contact Diagnoses Weakness Parkinsonism, unspecified Parkinsonism type (HCC) Frequent falls Moderate dementia with other behavioral disturbance, unspecified dementia type (HCC) Procedures CONSULT TO [facility] Santa Gordon PA-C [address] [place] [address] [address] Referral ID Status Reason Start Date Expiration Date V isits Requested Visits Authorized [id number] Denied PCP Requested Referral 11/21/2022 02/19/2023 3 0 Health Concerns Infection Onset Date Last Indicated Resolved Time COVID-19 Confirmed 12/12/2021 12/12/2021 Additional Source Comments (unrecognized sect ion and content) No Status Records FoundNo Status Records FoundNo Status Records FoundNo Status Records Found INFORMATION SOURCE (unrecogn ized section and content) DATE CREATED AUTHOR AUTHOR'S ORGANIZ ATION 01/01/2019 [facility] DATE CREATED AUTHOR AUTHOR'S ORGANIZ ATION 01/19/2021 [facility] ([place]) DATE CREATED AUTHOR AUTHOR'S FOUZIA MAURICIO 07/03/2023 [facility] Source Comments (unrecognize d section and content) In the event this informatio n is protected by the Federal Confidentiality of Alcohol and Drug Abuse Patient Records regulations: The Federal rules restrict any use of the information to criminally investigate or prosecute any alcohol or drug abuse patient.[facility] the event this information is protected by the Federal Confidentiality of Alcohol and Drug Abuse Patient Records regulations: The Federal rules restrict any use of the information to criminally investigate or prosecute any alcohol or drug abuse patient.[facility] HospitalIn the event this information is protected by the Federal Confidentiality of Alcohol and Drug Abuse Patient Records regulations: The Federal rules restrict any use of the information to criminally investigate or prosecute any alcohol or drug abuse patient.[facility] HospitalIn the event this information is protected by the Federal Confidentiality of Alcohol and Drug Abuse Patient Records regulations: The Federal rules restrict any use of the information to criminally investigate or prosecute any alcohol or drug abuse patient.[facility] HospitalIn the event this information is protected by the Federal Confidentiality of Alcohol and Drug Abuse Patient Records regulations: The Federal rules restrict any use of the information to criminally investigate or prosecute any alcohol or drug abuse patient.[facility] HospitalIn the event this information is protected by the Federal Confidentiality of Alcohol and Drug Abuse Patient Records regulations: The Federal rules restrict any use of the information to criminally investigate or prosecute any alcohol or drug abuse patient.[facility] HospitalIn the event this information is protected by the Federal Confidentiality of Alcohol and Drug Abuse Patient Records regulations: The Federal rules restrict any use of the information to criminally investigate or prosecute any alcohol or drug abuse patient.[facility] HospitalIn the event this information is protected by the Federal Confidentiality of Alcohol and Drug Abuse Patient Records regulations: The Federal rules restrict any use of the information to criminally investigate or prosecute any alcohol or drug abuse patient.[facility] HospitalIn the event this information is protected by the Federal Confidentiality of Alcohol and Drug Abuse Patient Records regulations: The Federal rules restrict any use of the information to criminally investigate or prosecute any alcohol or drug abuse patient.[facility] HospitalIn the event this information is protected by the Federal Confidentiality of Alcohol and Drug Abuse Patient Records regulations: The Federal rules restrict any use of the information to criminally investigate or prosecute any alcohol or drug abuse patient.[facility] HospitalIn the event this information is protected by the Federal Confidentiality of Alcohol and Drug Abuse Patient Records regulations: The Federal rules restrict any use of the information to criminally investigate or prosecute any alcohol or drug abuse patient.[facility] HospitalIn the event this information is protected by the Federal Confidentiality of Alcohol and Drug Abuse Patient Records regulations: The Federal rules restrict any use of the information to criminally investigate or prosecute any alcohol or drug abuse patient.[facility] HospitalIn the event this information is protected by the Federal Confidentiality of Alcohol and Drug Abuse Patient Records regulations: The Federal rules restrict any use of the information to criminally investigate or prosecute any alcohol or drug abuse patient.[facility] HospitalIn the event this information is protected by the Federal Confidentiality of Alcohol and Drug Abuse Patient Records regulations: The Federal rules restrict any use of the information to criminally investigate or prosecute any alcohol or drug abuse patient.[facility] HospitalIn the event this information is protected by the Federal Confidentiality of Alcohol and Drug Abuse Patient Records regulations: The Federal rules restrict any use of the information to criminally investigate or prosecute any alcohol or drug abuse patient.[facility] HospitalIn the event this information is protected by the Federal Confidentiality of Alcohol and Drug Abuse Patient Records regulations: The Federal rules restrict any use of the information to criminally investigate or prosecute any alcohol or drug abuse patient.[facility] HospitalIn the event this information is protected by the Federal Confidentiality of Alcohol and Drug Abuse Patient Records regulations: The Federal rules restrict any use of the information to criminally investigate or prosecute any alcohol or drug abuse patient.[facility] HospitalIn the event this information is protected by the Federal Confidentiality of Alcohol and Drug Abuse Patient Records regulations: The Federal rules restrict any use of the information to criminally investigate or prosecute any alcohol or drug abuse patient.[facility] HospitalIn the event this information is protected by the Federal Confidentiality of Alcohol and Drug Abuse Patient Records regulations: The Federal rules restrict any use of the information to criminally investigate or prosecute any alcohol or drug abuse patient.[facility] HospitalIn the event this information is protected by the Federal Confidentiality of Alcohol and Drug Abuse Patient Records regulations: The Federal rules restrict any use of the information to criminally investigate or prosecute any alcohol or drug abuse patient.[facility] HospitalIn the event this information is protected by the Federal Confidentiality of Alcohol and Drug Abuse Patient Records regulations: The Federal rules restrict any use of the information to criminally investigate or prosecute any alcohol or drug abuse patient.[facility] HospitalIn the event this information is protected by the Federal Confidentiality of Alcohol and Drug Abuse Patient Records regulations: The Federal rules restrict any use of the information to criminally investigate or prosecute any alcohol or drug abuse patient.[facility] HospitalIn the event this information is protected by the Federal Confidentiality of Alcohol and Drug Abuse Patient Records regulations: The Federal rules restrict any use of the information to criminally investigate or prosecute any alcohol or drug abuse patient.[facility] HospitalIn the event this information is protected by the Federal Confidentiality of Alcohol and Drug Abuse Patient Records regulations: The Federal rules restrict any use of the information to criminally investigate or prosecute any alcohol or drug abuse patient.[facility] HospitalIn the event this information is protected by the Federal Confidentiality of Alcohol and Drug Abuse Patient Records regulations: The Federal rules restrict any use of the information to criminally investigate or prosecute any alcohol or drug abuse patient.[facility] HospitalIn the event this information is protected by the Federal Confidentiality of Alcohol and Drug Abuse Patient Records regulations: The Federal rules restrict any use of the information to criminally investigate or prosecute any alcohol or drug abuse patient.[facility] HospitalIn the event this information is protected by the Federal Confidentiality of Alcohol and Drug Abuse Patient Records regulations: The Federal rules restrict any use of the information to criminally investigate or prosecute any alcohol or drug abuse patient.[facility] HospitalIn the event this information is protected by the Federal Confidentiality of Alcohol and Drug Abuse Patient Records regulations: The Federal rules restrict any use of the information to criminally investigate or prosecute any alcohol or drug abuse patient.[facility] HospitalIn the event this information is protected by the Federal Confidentiality of Alcohol and Drug Abuse Patient Records regulations: The Federal rules restrict any use of the information to criminally investigate or prosecute any alcohol or drug abuse patient.[facility] HospitalIn the event this information is protected by the Federal Confidentiality of Alcohol and Drug Abuse Patient Records regulations: The Federal rules restrict any use of the information to criminally investigate or prosecute any alcohol or drug abuse patient.[facility] HospitalIn the event this information is protected by the Federal Confidentiality of Alcohol and Drug Abuse Patient Records regulations: The Federal rules restrict any use of the information to criminally investigate or prosecute any alcohol or drug abuse patient.[facility] HospitalIn the event this information is protected by the Federal Confidentiality of Alcohol and Drug Abuse Patient Records regulations: The Federal rules restrict any use of the information to criminally investigate or prosecute any alcohol or drug abuse patient.[facility] HospitalIn the event this information is protected by the Federal Confidentiality of Alcohol and Drug Abuse Patient Records regulations: The Federal rules restrict any use of the information to criminally investigate or prosecute any alcohol or drug abuse patient.[facility] HospitalIn the event this information is protected by the Federal Confidentiality of Alcohol and Drug Abuse Patient Records regulations: The Federal rules restrict any use of the information to criminally investigate or prosecute any alcohol or drug abuse patient.[facility] HospitalIn the event this information is protected by the Federal Confidentiality of Alcohol and Drug Abuse Patient Records regulations: The Federal rules restrict any use of the information to criminally investigate or prosecute any alcohol or drug abuse patient.[facility] HospitalIn the event this information is protected by the Federal Confidentiality of Alcohol and Drug Abuse Patient Records regulations: The Federal rules restrict any use of the information to criminally investigate or prosecute any alcohol or drug abuse patient.[facility] HospitalIn the event this information is protected by the Federal Confidentiality of Alcohol and Drug Abuse Patient Records regulations: The Federal rules restrict any use of the information to criminally investigate or prosecute any alcohol or drug abuse patient.[facility] HospitalIn the event this information is protected by the Federal Confidentiality of Alcohol and Drug Abuse Patient Records regulations: The Federal rules restrict any use of the information to criminally investigate or prosecute any alcohol or drug abuse patient.[facility] HospitalIn the event this information is protected by the Federal Confidentiality of Alcohol and Drug Abuse Patient Records regulations: The Federal rules restrict any use of the information to criminally investigate or prosecute any alcohol or drug abuse patient.[facility] HospitalIn the event this information is protected by the Federal Confidentiality of Alcohol and Drug Abuse Patient Records regulations: The Federal rules restrict any use of the information to criminally investigate or prosecute any alcohol or drug abuse patient.[facility] HospitalIn the event this information is protected by the Federal Confidentiality of Alcohol and Drug Abuse Patient Records regulations: The Federal rules restrict any use of the information to criminally investigate or prosecute any alcohol or drug abuse patient.[facility] HospitalIn the event this information is protected by the Federal Confidentiality of Alcohol and Drug Abuse Patient Records regulations: The Federal rules restrict any use of the information to criminally investigate or prosecute any alcohol or drug abuse patient.[facility] Reason for Visit (unrecogniz ed section [...] REAL TIME W/IMAGE COMPLETE Jerrod Ojeda PA-C [address] [place] [address] Us Imaging Referral ID Status Reason Start Date Expiration Date V isits Requested Visits Authorized [id number] Closed Auto-Generate d Referral 03/06/2022 04/05/2023 1 [...] HIGH MDM 60-74 MINUTES Jerrod Ojeda PA-C [address] [place] [address] Referral ID Status Reason Start Date Expiration Date Visits Requested Visits Authorized [id number] Pending Review PCP Requested Referral 06/07/2022 06/07/2023 [...] Care Teams (unrecognized sec tion and content) Paper Cup Machine Tender Relationship Specialty Start Date End Date Jerrod Ojeda PA-C [address] [facility] [address] PCP - General Family Practice 07/01/16 Paper Cup Machine Tender Relationship Specialty Start Date End Date Jerrod Ojeda PA-C [address] [facility] [place] [address] PCP - General Family Practice 07/01/16 Paper Cup Machine Tender Relationship Specialty Start Date End Date Jerrod Ojeda PA-C [address] [facility] [address] PCP - General Family Practice 07/01/16 Paper Cup Machine Tender Relationship Specialty Start Date End Date Jerrod Ojeda PA-C [address] [facility] [place] [address] PCP - General Family Practice 07/01/16 Paper Cup Machine Tender Relationship Specialty Start Date End Date Jerrod Ojeda PA-C [address] [facility] [place] [address] PCP - General Family Practice 07/01/16 Paper Cup Machine Tender Relationship Specialty Start Date End Date Jerrod Ojeda PA-C [address] [facility] [place] [address] PCP - General Family Practice 07/01/16 Paper Cup Machine Tender Relationship Specialty Start Date End Date Jerrod Ojeda PA-C [address] [facility] [place] [address] PCP - General Family Practice 07/01/16 Paper Cup Machine Tender Relationship Specialty Start Date End Date Jerrod Ojeda PA-C [address] [place] [place] [address] PCP - General Family Medicine 07/01/16 Paper Cup Machine Tender Relationship Specialty Start Date End Date Jerrod Ojeda PA-C [address] [place] [address] PCP - General Family Medicine 07/01/16 Paper Cup Machine Tender Relationship Specialty Start Date End Date Jerrod Ojeda PA-C [address] [place] [address] PCP - General Family Medicine 07/01/16 Paper Cup Machine Tender Relationship Specialty Start Date End Date Jerrod Ojeda PA-C [address] [place] [address] PCP - General Family Medicine 07/01/16 Paper Cup Machine Tender Relationship Specialty Start Date End Date Jerrod Ojeda PA-C [address] [place] [address] PCP - General Family Medicine 07/01/16 Paper Cup Machine Tender Relationship Specialty Start Date End Date Jerrod Ojeda PA-C [address] [place] [address] PCP - General Family Medicine 07/01/16 Paper Cup Machine Tender Relationship Specialty Start Date End Date Jerrod Ojeda PA-C [address] [place] [address] PCP - General Family Medicine 07/01/16 Paper Cup Machine Tender Relationship Specialty Start Date End Date Jerrod Ojeda PA-C [address] [place] [address] PCP - General Family Medicine 07/01/16 Paper Cup Machine Tender Relationship Specialty Start Date End Date Jerrod Ojeda PA-C [address] [place] [address] PCP - General Family Medicine 07/01/16 Paper Cup Machine Tender Relationship Specialty Start Date End Date Jerrod Ojeda PA-C [address] [place] [address] PCP - General Family Medicine 07/01/16 Paper Cup Machine Tender Relationship Specialty Start Date End Date Jerrod Ojeda PA-C [address] [place] [address] PCP - General Family Medicine 07/01/16 Paper Cup Machine Tender Relationship Specialty Start Date End Date Jerrod Ojeda PA-C [address] [place] [address] PCP - General Family Medicine 07/01/16 Paper Cup Machine Tender Relationship Specialty Start Date End Date Jerrod Ojeda PA-C [address] [place] [address] PCP - General Family Medicine 07/01/16 Paper Cup Machine Tender Relationship Specialty Start Date End Date Jerrod Ojeda PA-C [address] [place] [address] PCP - General Family Medicine 07/01/16 Paper Cup Machine Tender Relationship Specialty Start Date End Date Jerrod Ojeda PA-C [address] [place] [address] PCP - General Family Medicine 07/01/16 Paper Cup Machine Tender Relationship Specialty Start Date End Date Jerrod Ojeda PA-C [address] [place] [address] PCP - General Family Medicine 07/01/16 Paper Cup Machine Tender Relationship Specialty Start Date End Date eJrrod Ojeda PA-C [address] [place] [address] PCP - General Family Medicine 07/01/16 Paper Cup Machine Tender Relationship Specialty Start Date End Date Jerrod Ojeda PA-C [address] [place] [address] PCP - General Family Medicine 07/01/16 Paper Cup Machine Tender Relationship Specialty Start Date End Date Jerrod Ojeda PA-C [address] [facility] [place] [address] PCP - General Family Medicine 07/01/16 Paper Cup Machine Tender Relationship Specialty Start Date End Date Jerrod Ojeda PA-C [address] [place] [address] PCP - General Family Medicine 07/01/16 Paper Cup Machine Tender Relationship Specialty Start Date End Date Jerrod Ojeda PA-C [address] [place] [address] PCP - General Family Medicine 07/01/16 Paper Cup Machine Tender Relationship Specialty Start Date End Date Jerrod Ojeda PA-C [address] [place] [address] PCP - General Family Medicine 07/01/16 Paper Cup Machine Tender Relationship Specialty Start Date End Date Jerrod Ojeda PA-C [address] [place] [address] PCP - General Family Medicine 07/01/16 Paper Cup Machine Tender Relationship Specialty Start Date End Date Jerrod Ojeda PA-C [address] [place] [address] PCP - General Family Medicine 07/01/16 Paper Cup Machine Tender Relationship Specialty Start Date End Date Jerrod Ojeda PA-C [address] [place] [address] PCP - General Family Medicine 07/01/16 FOR [...] BE BASED ON THE PRIMARY CLINICAL RECORDS. [facility] [employer] [facility]. provides no warranty or guarantee of the accuracy or completeness of information in this document.
[2023-07-04] MEDS: 0.9% Saline Lock 10 ML Syringe IV ×2 (00:37→23:53)
[2023-07-04] MEDS: Lactated Ringers 1,000 ML 100 ML IV (00:47)
[2023-07-04] MEDS: MELATONIN 3 MG TABLET PO (00:48)
[2023-07-04 00:49] LABS: Reflex Lactate? Y
[2023-07-04] MEDS: Ondansetron 4 MG/2 ML Vial IV (00:50)
[2023-07-04 02:26] LABS: Lactic Acid 1.8 mmol/L (0.4-1.9)
[2023-07-04] MEDS: Insulin Lispro 100 UNIT/ML INSULN.PEN SC ×3 (06:13→16:32)
[2023-07-04 06:37] LABS: Bedside Glucose 153 mg/dL (74-106)
[2023-07-04 06:54] LABS: Absolute Lymphocyte Count 1.19 X10^3/uL (0.83-4.51); Absolute Neutrophil Count 4.6 X10^3/uL (2.0-7.7); Basophil# 0.02 X10^3/uL; Basophil% 0.3 % (0-1); Hematocrit 36.3 % (40-54); Hemoglobin 11.9 g/dL (13.0-16.5); Lymphocyte # 1.19 X10^3/ul (0.83-4.51); Lymphocyte % 17.5 % (19-41); Mean Corp Hgb Conc 32.8 g/dL (32-36); Mean Corpuscular Hgb 28.6 pg (27.0-32.0); Mean Corpuscular Volume 87.3 fL (80-94); Mean Platelet Vol. 8.9 fl (6.2-12.0); Monocyte# 0.98 X10^3/uL; Monocyte% 14.4 % (0-10); NRBC Flagged by Analyzer 0 % (0-5); Neutrophil % 67.7 % (47-70); Platelet Count 273 K/mm3 (150-450); RBC Distribution Width CV 14.6 % (11.6-14.6); Red Blood Count 4.16 M/mm3 (4.6-6.2); White Blood Count 6.8 K/mm3 (4.4-11.0)
[2023-07-04 07:23] LABS: ALB/GLOB Ratio 0.9 RATIO (0.9-2.4); AST(SGOT) 17 U/L (15-37); Alanine Aminotransfer ALT/SGPT 14 U/L (16-61); Alkaline Phosphatase 86 U/L (45-117); Anion Gap 2 (5-15); BUN 13 mg/dL (7-18); BUN/Creat Ratio 10.8 RATIO (10-20); Chloride 107 mmol/L (98-107); EST Glomerular Filtration Rate 61 mL/min (>60); Est Glom Filt Rate - Afr Amer 74 mL/min (>60); Estimated Creatinine Clearance 54.26 ml/min; Globulin 3.5 g/dL (2.2-4.2); Glucose 172 mg/dL (74-106); Magnesium 2.1 mg/dL (1.6-2.6); Phosphorus 2.8 mg/dL (2.5-4.9); Potassium 4.4 mmol/L (3.5-5.1); Protein, Total 6.5 g/dL (6.4-8.2); Sodium Level 136 mmol/L (136-145)
[2023-07-04] MEDS: Ascorbic Acid 500 MG Tablet 1000 MG PO (09:15)
[2023-07-04] MEDS: Vibegron 75 MG TABLET PO (09:16)
[2023-07-04] MEDS: Donepezil HCl 5 MG Tablet PO (09:16)
[2023-07-04] MEDS: Memantine Hydrochloride 10 MG Tablet PO ×2 (09:16→23:53)
[2023-07-04] MEDS: Cholecalciferol (Vit D3) 125 MCG CAPSULE (5,000 UNITS) PO (09:16)
[2023-07-04] MEDS: Sertraline 50 MG Tablet 25 MG PO (09:16)
[2023-07-04] MEDS: Zinc Sulfate 50 mg zinc (220 mg) ORAL capsule PO (09:16)
[2023-07-04] MEDS: Enoxaparin 40 MG/0.4 ML Syringe SC (09:16)
[2023-07-04] MEDS: Gabapentin 600 MG Tablet PO ×2 (09:17→23:53)
[2023-07-04] MEDS: Senna/Docusate Sodium 1 Tablet 2 TABLET PO (09:17)
[2023-07-04] MEDS: Atenolol 25 MG Tablet PO (09:19)
[2023-07-04] MEDS: Lisinopril 20 MG Tablet PO (09:19)
--- NOTE | 2023-07-04 09:32 | CASEMGMT ---
Addendum entered by Maria Teresa Murry 07/04/23 13:59: Pt trf'd to this [facility] by nurse. Pt wants to know the plan for pt. She is aware that therapy has not yet worked with pt but the nurse states that the pt required 2 people and his walker to pivot. She states this is not pt usual status. She states he can walk with walker at home by himself. She would be interested in therapy in a facility. She is aware that should the pt improve over the weekend then this can be cancelled and HH can be set up. She would like a list texted to her phone. Updated SW. TC to therapy and they will see pt shortly. Addendum entered by Maria Teresa Murry 07/04/23 11:57: RN SELENA Assessment: TC to pt for initial transition planning/care coordination assessment. RN SELENA introduced self and role at [facility], pt voices understanding and consents to assessment. Care providers, pharmacy, and demographics verified/updated. Admitting Dx: weakness and debility with covid 19 infection PCP:Oneil ESTEVEZ Specialists:Luis Carlos, neuro; Martha uro Preferred Pharmacy: [facility] Retail Insurance: [facility] Prescription Benefit: yes LNOK: Margoth Kim, ; Herbert Kim, son Living Arrangements: Pt lives with in a two story home with a ramp to enter. Pt son lives in the home but it is completely separate. states pt is able to bathe and dress himself indep but it is a long process and it is a chore. Pt reports she has her own disabilities and is unable to physically care for pt but she does do meals, some laundry as well as their dtr and orders groceries online and dtr picks up. Transportation: Pt drives but does not transport pt to medical appts as she has limited mobility. Pt dtr or son takes pt to appts. DME:BGM but pt doesn't use, BP cuff, walker, cane, shower chair HHC/SNF: [facility] in the past and pt states they were given an outpt therapy order but it was supposed to have been changed to [facility]. Denies SNF stays. Pt states she has been looking into AL for dementia patients. She states she is going to apply for NAT. She states she does not feel that the pt will be willing to go to a facility for skilled therapy. She would like pt to return back home with [facility] but states physically she cannot care for pt. Therapy evals pending at this time. aware that RN CM or SW will be in touch with her. Pt states no further concerns/needs. CM to follow. Advised pt to ask CM if any further question/concerns/needs arise, voices understanding. Pt Goal: Home with C Plan: TBD pending therapy sofie Original Note: TC to pt 's home phone and cell phone to complete RN CM assessment as it is noted pt to have dementia. Left message with return call information.
[2023-07-04] MEDS: Acetaminophen 325 MG Tablet 650 MG PO ×2 (09:47→16:33)
[2023-07-04 12:05] LABS: Bedside Glucose 163 mg/dL (74-106)
--- NOTE | 2023-07-04 13:44 | NURSING ---
female phoned in, states she is pt spouse Margoth. Margoth updated and call transferred to CM team Maria Teresa exchange architectcase planner
--- NOTE | 2023-07-04 14:32 | CASEMGMT ---
Addendum entered by Susie Conte 07/04/23 16:05: Social Work Phone call placed to pt's and discharge planning was discussed. Pt's daughter was with and spoke jointly with SW regarding SNF placement. Pt has been considering the assisted living waiver program. SW explained the assisted living waiver program as well as memory care and senior care care. SW discussed medicaid coverage for nursing homes. After much discussion, pt's and dgt feel pt will need senior care will be best for pt at this time. and dgt to review list and will reply with choices. SW to follow up for referrals. NAOMI Pate Original Note: Social Work Referral received from RNCM that pt's is considering SNF placement and requested a list be electronically sent to her for review. A list of SNF providers including quality and resource use data and consistent with the patient?s preferred geographic region, medical needs, and insurance network were provided via the [facility] Guide Link. Pt to review and make selection of preferences. NAOMI Pate
--- NOTE | 2023-07-04 15:27 | PN.HOSP_ITS ---
Reason for Visit Reason for Visit: Diagnoses Acidosis, unspecified (07/03/23) Unspecified dementia, unspecified severity, without behavioral disturbance, psychotic disturbance, mood disturbance, and anxiety (07/03/23) Nausea with vomiting, unspecified (07/03/23) Other microscopic hematuria (07/03/23) Weakness (07/03/23) Adult failure to thrive (07/03/23) COVID-19 (07/03/23) Subjective Subjective Patient was seen and examined today, he was admitted for debility and nausea and vomiting. Patient has not had any nausea and vomiting today, social services director talked with the patient's and it appears that the is no longer able to care for the patient due to his medical needs including dementia. Objective Data Objective Data Vital Signs: Vital Signs Temp Pulse Resp BP Pulse Ox O2 Del Method 98.9 F 57 L 18 114/52 L 95 Room Air 07/04/23 14:34 07/04/23 14:34 07/04/23 14:34 07/04/23 14:34 07/04/23 14:34 07/04/23 14:34 Oxygen Delivery Method Room Air Weight: 99.8 kg Body Mass Index (BMI) 31.4 Intake & Output: Intake and Output for Last 24 Hours 07/02/23 07/03/23 07/04/23 23:59 23:59 23:59 Intake Total 600 / 600 1480 / 1480 Output Total 200 / 200 Balance 600 / 600 1280 / 1280 Lab / Micro Data 07/04/23 06:35 07/04/23 06:35 Labs: Laboratory Results - last 24 hr 07/03/23 20:40: WBC 7.2, RBC 4.54 L, Hgb 13.2, Hct 39.9 L, MCV 87.9, MCH 29.1, MCHC 33.1, RDW Std Deviation 45.7 H, RDW Coeff of Scotty 14.4, Plt Count 267, MPV 8.8, Immature Gran % (Auto) 0.600, Neut % (Auto) 80.5 H, Lymph % (Auto) 7.8 L, Victoria % (Auto) 10.4 H, Eos % (Auto) 0.3, Baso % (Auto) 0.4, Absolute Neuts (auto) 5.8, Absolute Lymphs (auto) 0.56 L, Nucleated RBC % 0, Sodium 136, Potassium 4.3, Chloride 104, Carbon Dioxide 26.0, Anion Gap 6, BUN 14, Creatinine 1.23, Estim Creat Clear Calc 46.16, Est GFR (MDRD) Af Amer 72, Est GFR (MDRD) Non-Af 60, BUN/Creatinine Ratio 11.4, Glucose 231 H, Lactic Acid 3.0 H*, Calcium 9.5, Total Bilirubin 0.70, AST 17, ALT 15 L, Alkaline Phosphatase 99, Total Protein 7.3, Albumin 3.5, Globulin 3.8, Albumin/Globulin Ratio 0.9 07/03/23 21:20: Urine Color Yellow, Urine Clarity Clear, Urine pH 6.0, Ur Specific [place] 1.020, Urine Protein 100 H, Urine Glucose (UA) Normal, Urine Ketones 5 H, Urine Occult Blood 150 H, Urine Nitrite Negative, Urine Bilirubin Negative, Urine Urobilinogen Normal, Ur Leukocyte Esterase Negative, Urine RBC 5-10 SEEN, Urine WBC 0 SEEN, Ur Squamous Epith Cells 0 SEEN, Urine Bacteria 0 SEEN, Urine Mucus 0 SEEN 07/04/23 01:27: Lactic Acid 1.8 07/04/23 06:10: POC Glucose 153 H 07/04/23 06:35: WBC 6.8, RBC 4.16 L, Hgb 11.9 L, Hct 36.3 L, MCV 87.3, MCH 28.6, MCHC 32.8, RDW Std Deviation 46.0 H, RDW Coeff of Scotty 14.6, Plt Count 273, MPV 8.9, Immature Gran % (Auto) 0.100, Neut % (Auto) 67.7, Lymph % (Auto) 17.5 L, Victoria % (Auto) 14.4 H, Eos % (Auto) 0.0, Baso % (Auto) 0.3, Absolute Neuts (auto) 4.6, Absolute Lymphs (auto) 1.19, Nucleated RBC % 0, Sodium 136, Potassium 4.4, Chloride 107, Carbon Dioxide 27.0, Anion Gap 2 L, BUN 13, Creatinine 1.20, Estim Creat Clear Calc 54.26, Est GFR (MDRD) Af Amer 74, Est GFR (MDRD) Non-Af 61, BUN/Creatinine Ratio 10.8, Glucose 172 H, Calcium 9.0, Phosphorus 2.8, Magnesium 2.1, Total Bilirubin 0.50, AST 17, ALT 14 L, Alkaline Phosphatase 86, Total Protein 6.5, Albumin 3.0 L, Globulin 3.5, Albumin/Globulin Ratio 0.9 07/04/23 11:39: POC Glucose 163 H Micro: Microbiology 07/03/23 20:37 Mucosa - Nose SARS-CoV-2, Influenza & RSV (PCR) - Final SARS-CoV-2 (COVID 19) Radiography Diagnostic Testing: Radiology Impression Abdomen/Pelvis CT 07/03/23 20:32 IMPRESSION: 1. Large right staghorn calculus with mild right hydronephrosis. 2. Nonobstructing bilateral renal stones. 3. Diffuse cystic changes in the pancreas could reflect pseudocysts formation. 4. Fecal retention. 5. Otherwise no focal acute inflammatory process. Electronically Signed: Catracho Mukherjee MD at 22:20 EST , Chest X-Ray 07/03/23 22:00 IMPRESSION: No radiographic evidence of acute cardiopulmonary disease. Electronically Signed: Catracho Mukherjee MD at 22:32 EST , Physical Exam Const alert and no apparent distress General Appearance: cooperative and well developed Orientation / Consciousness: awake and confused HEENT normocephalic, head/scalp atraumatic and moist oral mucous membranes Eyes PERRL, EOMs intact bilaterally and conjunctivae normal Neck supple, no JVD, thyroid normal and no carotid bruits General: trachea midline Resp normal respiratory effort, no retractions, no use of accessory muscles and clear to auscultation bilaterally Auscultation: Negative for rales, rhonchi or wheezes Cardio regular rate, regular rhythm, S1 normal heart sound, S2 normal heart sound, no murmurs, no rub and no gallops GI normal to inspection, nondistended, normoactive bowel sounds, soft to palpation, non-tender and non-distended Extremity no clubbing, cyanosis or edema Skin no rashes or lesions noted General Skin Exam: no breakdown Neuro CN's II-XII intact bilaterally Sensorium / Orientation: awake and alert Speech: speech normal Psych Psych Narrative: Patient is confused, he does not appear agitated Assessment & Plan Assessment/Plan (1) COVID: PLAN: Plan 1. COVID-19 infection with resultant nausea and vomiting, patient has had no nausea and vomiting today, patient has not a candidate for Decadron or re mdesivir due to the fact he is not hypoxic. #2 type 2 diabetes-blood sugars will be monitored, sliding scale insulin will be given as needed #3 generalized debility-patient will be seen by PT and OT, wants the patient to go to a halfway facility for short-term rehab services. #4 dementia-complicates care, medical course, recovery, and prognosis, patient remains on Aricept and Namenda, I will increase his Aricept to 10 mg nightly #5 essential hypertension-patient will remain on his current medications, blood pressure will be monitored and medicines will be adjusted as needed. #6 constipation-patient will be given milk of magnesia and Dulcolax orally Total clinical time spent by myself addressing the patient's medical issues, reviewing all of his data, and collaborating with patient's care team: 25- minutes Charges/Coding Visit Charges Inpatient E&M: 79062 [facility] Hosp L1
[2023-07-04] MEDS: Magnesium Hydroxide 30 ML UDC PO (16:33)
[2023-07-04 17:10] LABS: Bedside Glucose 151 mg/dL (74-106)
--- NOTE | 2023-07-04 18:39 | NURSING ---
spouse Margoth phoned in and updated on pt status. Margoth states i think if i talk to him, he may get upset and want to leave. Informed Margoth that she can call in any time and speak with nursing staff, however if she feels talking with pt will upset him, it may be best to speak to him over the phone during the daytime hours. Margoth voices understanding and states she is appreciative of care and staff.
[2023-07-05] VITALS (9 sets, daily range): BP systolic 154–175; BP diastolic 69–87; PULSE 59–86; RESP 16–22; TEMP 36.2–37.2; O2SAT 92–96; BMI 31.4
[2023-07-05 00:40] LABS: Bedside Glucose 179 mg/dL (74-106)
[2023-07-05] MEDS: Insulin Lispro 100 UNIT/ML INSULN.PEN SC ×2 (07:01→12:15)
[2023-07-05 07:48] LABS: Bedside Glucose 158 mg/dL (74-106)
[2023-07-05] MEDS: Atenolol 25 MG Tablet PO (10:04)
[2023-07-05] MEDS: Sertraline 50 MG Tablet 25 MG PO (10:04)
[2023-07-05] MEDS: Vibegron 75 MG TABLET PO (10:05)
[2023-07-05] MEDS: Ascorbic Acid 500 MG Tablet 1000 MG PO (10:05)
[2023-07-05] MEDS: Lisinopril 20 MG Tablet PO (10:05)
[2023-07-05] MEDS: Zinc Sulfate 50 mg zinc (220 mg) ORAL capsule PO (10:05)
[2023-07-05] MEDS: Donepezil HCl 5 MG Tablet PO (10:05)
[2023-07-05] MEDS: Memantine Hydrochloride 10 MG Tablet PO ×2 (10:05→23:22)
[2023-07-05] MEDS: Cholecalciferol (Vit D3) 125 MCG CAPSULE (5,000 UNITS) PO (10:10)
[2023-07-05] MEDS: Gabapentin 600 MG Tablet PO ×2 (10:10→23:23)
[2023-07-05] MEDS: Enoxaparin 40 MG/0.4 ML Syringe SC (10:13)
[2023-07-05] MEDS: Acetaminophen 325 MG Tablet 650 MG PO (12:19)
--- NOTE | 2023-07-05 12:46 | PN.HOSP_ITS ---
Reason for Visit Reason for Visit: Diagnoses Acidosis, unspecified (07/03/23) Unspecified dementia, unspecified severity, without behavioral disturbance, psychotic disturbance, mood disturbance, and anxiety (07/03/23) Nausea with vomiting, unspecified (07/03/23) Other microscopic hematuria (07/03/23) Weakness (07/03/23) Adult failure to thrive (07/03/23) COVID-19 (07/03/23) Subjective Subjective Patient was seen and examined today, he remains confused, he is not combative, he appears in no distress. Objective Data Objective Data Vital Signs: Vital Signs Temp Pulse Resp BP Pulse Ox O2 Del Method 98.9 F 86 18 175/87 H 94 Room Air 07/05/23 10:15 07/05/23 10:15 07/05/23 10:15 07/05/23 10:15 07/05/23 10:15 07/05/23 10:15 Oxygen Delivery Method Room Air Weight: 99.8 kg Body Mass Index (BMI) 31.4 Intake & Output: Intake and Output for Last 24 Hours 07/03/23 07/04/23 07/05/23 23:59 23:59 23:59 Intake Total 600 / 600 1720 / 1720 Output Total 200 / 200 Balance 600 / 600 1520 / 1520 Lab / Micro Data 07/04/23 06:35 07/04/23 06:35 Labs: Laboratory Results - last 24 hr 07/04/23 16:31: POC Glucose 151 H 07/04/23 23:52: POC Glucose 179 H 07/05/23 06:55: POC Glucose 158 H Micro: Microbiology 07/03/23 21:20 Urine, Clean Catch Urine Culture - Preliminary Culture exhibits no growth. 07/03/23 20:37 Mucosa - Nose SARS-CoV-2, Influenza & RSV (PCR) - Final SARS-CoV-2 (COVID 19) Physical Exam Narrative alert and no apparent distress General Appearance: cooperative and well developed Orientation / Consciousness: awake and confused HEENT normocephalic, head/scalp atraumatic and moist oral mucous membranes Eyes PERRL, EOMs intact bilaterally and conjunctivae normal Neck supple, no JVD, thyroid normal and no carotid bruits General: trachea midline Resp normal respiratory effort, no retractions, no use of accessory muscles and clear to auscultation bilaterally Auscultation: Negative for rales, rhonchi or wheezes Cardio regular rate, regular rhythm, S1 normal heart sound, S2 normal heart sound, no murmurs, no rub and no gallops GI normal to inspection, nondistended, normoactive bowel sounds, soft to palpation, non-tender and non-distended Extremity no clubbing, cyanosis or edema Skin no rashes or lesions noted General Skin Exam: no breakdown Neuro CN's II-XII intact bilaterally Sensorium / Orientation: awake and alert Speech: speech normal Psych Psych Narrative: Patient is confused, he does not appear agitated Assessment & Plan Assessment/Plan (1) Nausea & vomiting: (2) COVID: PLAN: Plan 1. COVID-19 infection with resultant nausea and vomiting, patient has had no nausea and vomiting today #2 type 2 diabetes-blood sugars will be monitored, sliding scale insulin will be given as needed #3 generalized debility-patient will be seen by PT and OT, wants the patient to go to a prison facility for short-term rehab services. #4 dementia-complicates care, medical course, recovery, and prognosis, patient remains on Aricept and Namenda, I will increase his Aricept to 10 mg nightly #5 essential hypertension-patient will remain on his current medications, blood pressure will be monitored and medicines will be adjusted as needed. #6 constipation-patient will be given milk of magnesia Total clinical time spent by myself addressing the patient's medical issues, reviewing all of his data, and collaborating with patient's care team: 25- minutes Charges/Coding Visit Charges Inpatient E&M: 31429 [facility] Hosp L1
[2023-07-05 13:10] LABS: Bedside Glucose 182 mg/dL (74-106)
[2023-07-05] MEDS: Magnesium Hydroxide 30 ML UDC PO (16:17)
[2023-07-05 16:48] LABS: Bedside Glucose 129 mg/dL (74-106)
[2023-07-05] MEDS: 0.9% Saline Lock 10 ML Syringe IV (23:28)
[2023-07-06] VITALS (9 sets, daily range): BP systolic 159–177; BP diastolic 80–89; PULSE 69–94; RESP 18–22; TEMP 36.9–37.3; O2SAT 92–96; BMI 31.0
[2023-07-06] MEDS: Lisinopril 20 MG Tablet PO (06:50)
[2023-07-06 06:57] LABS: Bedside Glucose 141 mg/dL (74-106)
[2023-07-06 06:57] LABS: Bedside Glucose 133 mg/dL (74-106)
--- NOTE | 2023-07-06 09:30 | PCM.PN.HOSP ---
Reason for Visit Reason for Visit: Diagnoses Acidosis, unspecified (07/03/23) Unspecified dementia, unspecified severity, without behavioral disturbance, psychotic disturbance, mood disturbance, and anxiety (07/03/23) Nausea with vomiting, unspecified (07/03/23) Other microscopic hematuria (07/03/23) Weakness (07/03/23) Adult failure to thrive (07/03/23) COVID-19 (07/03/23) Subjective Subjective Patient was seen and examined today, he is alert today, again he is confused but he carries on short conversations with this examiner. Objective Data Objective Data Vital Signs: Vital Signs Temp Pulse Resp BP Pulse Ox O2 Del Method 98.4 F 76 22 H 174/80 H 96 Room Air 07/06/23 06:33 07/06/23 06:33 07/06/23 06:33 07/06/23 06:33 07/06/23 07:37 07/06/23 07:37 Oxygen Delivery Method Room Air Weight: 98.4 kg Body Mass Index (BMI) 31.0 Intake & Output: Intake and Output for Last 24 Hours 07/04/23 07/05/23 07/06/23 23:59 23:59 23:59 Intake Total 1720 / 1720 950 / 950 Output Total 200 / 200 Balance 1520 / 1520 950 / 950 Lab / Micro Data 07/04/23 06:35 07/04/23 06:35 Labs: Laboratory Results - last 24 hr 07/05/23 12:01: POC Glucose 182 H 07/05/23 16:01: POC Glucose 129 H 07/05/23 23:21: POC Glucose 133 H 07/06/23 06:30: POC Glucose 141 H Micro: Microbiology 07/03/23 21:20 Urine, Clean Catch Urine Culture - Final Culture exhibits no growth. 07/03/23 20:37 Mucosa - Nose SARS-CoV-2, Influenza & RSV (PCR) - Final SARS-CoV-2 (COVID 19) Physical Exam Narrative alert and no apparent distress General Appearance: cooperative and well developed Orientation / Consciousness: awake and confused HEENT normocephalic, head/scalp atraumatic and moist oral mucous membranes Eyes PERRL, EOMs intact bilaterally and conjunctivae normal Neck supple, no JVD, thyroid normal and no carotid bruits General: trachea midline Resp normal respiratory effort, no retractions, no use of accessory muscles and clear to auscultation bilaterally Auscultation: Negative for rales, rhonchi or wheezes Cardio regular rate, regular rhythm, S1 normal heart sound, S2 normal heart sound, no murmurs, no rub and no gallops GI normal to inspection, nondistended, normoactive bowel sounds, soft to palpation, non-tender and non-distended Extremity no clubbing, cyanosis or edema Skin no rashes or lesions noted General Skin Exam: no breakdown Neuro CN's II-XII intact bilaterally Sensorium / Orientation: awake and alert Speech: speech normal Psych Psych Narrative: Patient is confused, he does not appear agitated Assessment & Plan Assessment/Plan (1) Nausea & vomiting: (2) COVID: PLAN: Plan 1. COVID-19 infection with resultant nausea and vomiting, patient has had no nausea and vomiting today, he will be encouraged to eat, his intake is been poor overall since admission. I did talk extensively with the yesterday by phone, I told her that if she wanted to come into the hospital and visit the patient she could, we are attempting to get him placed for at least short-term placement in a care home facility. #2 type 2 diabetes-blood sugars will be monitored, sliding scale insulin will be given as needed #3 generalized debility-patient will be seen by PT and OT, wants the patient to go to a care home facility for short-term rehab services. #4 dementia-complicates care, medical course, recovery, and prognosis, patient remains on Aricept and Namenda, I will increase his Aricept to 10 mg nightly #5 essential hypertension-patient will remain on his current medications, blood pressure will be monitored and medicines will be adjusted as needed. #6 constipation-patient will be given milk of magnesia Total clinical time spent by myself addressing the patient's medical issues, reviewing all of his data, and collaborating with patient's care team: 25-minutes Charges/Coding Visit Charges Inpatient E&M: 28900 Subs Hosp L1
[2023-07-06] MEDS: Ascorbic Acid 500 MG Tablet 1000 MG PO (10:51)
[2023-07-06] MEDS: Enoxaparin 40 MG/0.4 ML Syringe SC (10:51)
[2023-07-06] MEDS: Cholecalciferol (Vit D3) 125 MCG CAPSULE (5,000 UNITS) PO (10:52)
[2023-07-06] MEDS: Gabapentin 600 MG Tablet PO ×2 (10:52→20:29)
[2023-07-06] MEDS: Sertraline 50 MG Tablet PO (10:53)
[2023-07-06] MEDS: Atenolol 25 MG Tablet PO (10:53)
[2023-07-06] MEDS: Zinc Sulfate 50 mg zinc (220 mg) ORAL capsule PO (10:53)
[2023-07-06] MEDS: Memantine Hydrochloride 10 MG Tablet PO ×2 (10:54→20:30)
[2023-07-06] MEDS: Vibegron 75 MG TABLET PO (10:54)
[2023-07-06] MEDS: Insulin Lispro 100 UNIT/ML INSULN.PEN SC (11:00)
[2023-07-06 11:25] LABS: Bedside Glucose 189 mg/dL (74-106)
[2023-07-06 17:36] LABS: Bedside Glucose 162 mg/dL (74-106)
[2023-07-06] MEDS: Donepezil HCl 10 MG Tablet PO (20:30)
[2023-07-06 21:42] LABS: Bedside Glucose 185 mg/dL (74-106)
[2023-07-06] MEDS: Menthol/Lanolin/Calamine/Znox 113 GM Tube 1 APPLIC TOPICAL (22:02)
[2023-07-06] MEDS: hydrALAZINE 20 MG/ML Vial 10 MG IV (22:02)
[2023-07-06] MEDS: 0.9% Saline Lock 10 ML Syringe IV (22:03)
[2023-07-07] VITALS (7 sets, daily range): BP systolic 145–161; BP diastolic 72–97; PULSE 71–82; RESP 15–24; TEMP 36.5–37.3; O2SAT 92–98; BMI 30.7; BMI 30.9
[2023-07-07] MEDS: Insulin Lispro 100 UNIT/ML INSULN.PEN SC ×3 (06:28→15:54)
[2023-07-07 07:29] LABS: Bedside Glucose 150 mg/dL (74-106)
[2023-07-07] MEDS: Enoxaparin 40 MG/0.4 ML Syringe SC (08:34)
[2023-07-07] MEDS: Atenolol 25 MG Tablet PO (08:37)
[2023-07-07] MEDS: Vibegron 75 MG TABLET PO (08:37)
[2023-07-07] MEDS: Menthol/Lanolin/Calamine/Znox 113 GM Tube 1 APPLIC TOPICAL ×2 (08:37→20:02)
[2023-07-07] MEDS: Memantine Hydrochloride 10 MG Tablet PO ×2 (08:37→20:01)
[2023-07-07] MEDS: Zinc Sulfate 50 mg zinc (220 mg) ORAL capsule PO (08:37)
[2023-07-07] MEDS: Sertraline 50 MG Tablet PO (08:37)
[2023-07-07] MEDS: Gabapentin 600 MG Tablet PO ×2 (08:38→22:18)
[2023-07-07] MEDS: Ascorbic Acid 500 MG Tablet 1000 MG PO (08:38)
[2023-07-07] MEDS: Lisinopril 20 MG Tablet PO (08:38)
[2023-07-07] MEDS: Cholecalciferol (Vit D3) 125 MCG CAPSULE (5,000 UNITS) PO (08:38)
[2023-07-07 08:54] LABS: Hematocrit 46.2 % (40-54); Hemoglobin 15.5 g/dL (13.0-16.5); Mean Corp Hgb Conc 33.5 g/dL (32-36); Mean Corpuscular Hgb 28.4 pg (27.0-32.0); Mean Corpuscular Volume 84.8 fL (80-94); Platelet Count 276 K/mm3 (150-450); RBC Distribution Width CV 14.6 % (11.6-14.6); RBC Distribution Width SD 44.4 fl (35.1-43.9); Red Blood Count 5.45 M/mm3 (4.6-6.2); White Blood Count 4.9 K/mm3 (4.4-11.0)
[2023-07-07 09:22] LABS: Anion Gap 7 (5-15); BUN 27 mg/dL (7-18); BUN/Creat Ratio 24.1 RATIO (10-20); Chloride 104 mmol/L (98-107); Creatinine, Serum 1.12 mg/dL (0.70-1.30); EST Glomerular Filtration Rate 66 mL/min (>60); Est Glom Filt Rate - Afr Amer 80 mL/min (>60); Estimated Creatinine Clearance 57.58 ml/min; Glucose 155 mg/dL (74-106); Potassium 4.3 mmol/L (3.5-5.1); Sodium Level 134 mmol/L (136-145)
[2023-07-07 11:18] LABS: Bedside Glucose 223 mg/dL (74-106)
--- NOTE | 2023-07-07 11:34 | CASEMGMT ---
Social Work - Discharge Planning Spoke with patient's Margoth via phone today. Margoth reports was able to make preferences for SNF, in this order: [facility], [facility], and [facility]. reports to be at home now with COVID. Emotional support offered. Updated Blade, discharge orthodontist assistant, who will initiate SNF referrals. PLAN: SNF level of care, pending acceptance and precert. Social work following. -FLACO Glover
--- NOTE | 2023-07-07 11:55 | CASEMGMT ---
Addendum entered by Sangeetha Pedraza 07/07/23 14:28: [facility] has accepted patient and will submit for precert today. Sangeetha Pedraza, Discharge Planning Asst. Original Note: Discharge Planning Referral sent via [facility] to [facility]. Sangeetha Pedraza, Discharge Planning Asst.
--- NOTE | 2023-07-07 15:20 | PCM.PN.HOSP ---
Reason for Visit Reason for Visit: Diagnoses Acidosis, unspecified (07/03/23) Unspecified dementia, unspecified severity, without behavioral disturbance, psychotic disturbance, mood disturbance, and anxiety (07/03/23) Nausea with vomiting, unspecified (07/03/23) Other microscopic hematuria (07/03/23) Weakness (07/03/23) Adult failure to thrive (07/03/23) COVID-19 (07/03/23) Subjective Subjective No acute events overnight. Patient seen at bedside this morning. Patient was sleeping on my arrival to the room. Appeared fatigued during our encounter but otherwise in no acute distress. Patient has short responses to my questions, answering most questions appropriately. He denies any acute pain or discomfort. States he does not have much of an appetite this morning. No other acute concerns at this time. Objective Data Objective Data Vital Signs: Vital Signs Temp Pulse Resp BP Pulse Ox O2 Del Method 99.2 F H 74 20 H 156/72 H 92 Room Air 07/07/23 10:55 07/07/23 10:55 07/07/23 10:55 07/07/23 10:55 07/07/23 10:55 07/07/23 13:56 Oxygen Delivery Method Room Air Weight: 97.8 kg Body Mass Index (BMI) 30.9 Intake & Output: Intake and Output for Last 24 Hours 07/05/23 07/06/23 07/07/23 23:59 23:59 23:59 Intake Total 950 / 950 400 / 400 225 / 225 Output Total 200 / 200 Balance 950 / 950 400 / 400 25 / 25 Lab / Micro Data 07/07/23 08:24 07/07/23 08:24 Labs: Laboratory Results - last 24 hr 07/06/23 17:12: POC Glucose 162 H 07/06/23 20:28: POC Glucose 185 H 07/07/23 06:26: POC Glucose 150 H 07/07/23 08:24: WBC 4.9, RBC 5.45, Hgb 15.5, Hct 46.2, MCV 84.8, MCH 28.4, MCHC 33.5, RDW Std Deviation 44.4 H, RDW Coeff of Scotty 14.6, Plt Count 276, MPV 9.0, Sodium 134 L, Potassium 4.3, Chloride 104, Carbon Dioxide 23.0, Anion Gap 7, BUN 27 H, Creatinine 1.12, Estim Creat Clear Calc 57.58, Est GFR (MDRD) Af Amer 80, Est GFR (MDRD) Non-Af 66, BUN/Creatinine Ratio 24.1 H, Glucose 155 H, Calcium 9.0 07/07/23 10:51: POC Glucose 223 H Micro: Microbiology 07/03/23 21:20 Urine, Clean Catch Urine Culture - Final Culture exhibits no growth. 07/03/23 20:37 Mucosa - Nose SARS-CoV-2, Influenza & RSV (PCR) - Final SARS-CoV-2 (COVID 19) Physical Exam Const alert and average body habitus Constitutional Narrative: Elderly male, chronically ill-appearing, laying comfortably in bed, mildly confused but providing short responses to questions, no acute distress. General Appearance: cooperative and comfortable HEENT normocephalic, head/scalp atraumatic, hearing grossly normal bilaterally and nasal mucous membranes and turbinates normal Eyes PERRL, EOMs intact bilaterally and conjunctivae normal Neck full ROM, no lymphadenopathy and supple Lymph Lymphatic: no lymphadenopathy noted Chest inspection of chest normal Resp normal respiratory effort, normal air movement, no use of accessory muscles and clear to auscultation bilaterally Cardio regular rate, regular rhythm, no murmurs and peripheral pulses 2+ throughout GI normal to inspection, nondistended, normoactive bowel sounds, soft to palpation, non-tender and non-distended Back/Spine normal ROM Extremity normal to inspection, full ROM and no pedal edema Skin no rashes or lesions noted Neuro no focal motor deficits and no sensory deficits noted Assessment & Plan Assessment/Plan (1) Generalized weakness: (2) COVID: (3) Adult failure to thrive: PLAN: Plan Patient is an 83-year-old male who presented to [facility] ED on 07/03/2023 with worsening weakness and confusion. 1. Generalized debility, adult failure to thrive, history of dementia Presented with worsening weakness, poor p.o. intake and some nausea and vomiting. Suspected mild worsening from baseline due to COVID-19 infection but otherwise has fairly poor functional status. ? PT/OT/case management following. Planning for SNF on discharge. Medically ready for discharge on 07/07, awaiting placement. Continue home memantine and donepezil. 2. COVID-19 infection ? COVID-positive on admit. Chest x-ray with no acute changes. Stable on room air since admit. No indication for steroids or other COVID related therapies. Supportive management as needed. 3. Constipation ? Fecal retention noted on CT abdomen pelvis on admit. Continue bowel regimen. Chronic medical conditions: ? Type 2 diabetes mellitus with neuropathy: Sliding-scale insulin while inpatient, adjust as needed. Continue home gabapentin. ? Hypertension: Continue home atenolol and lisinopril. ? Depression: Continue home sertraline. ? 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 DVT prophylaxis: Lovenox CODE STATUS: DNR CCA, DNI Expected disposition: SNF, medically ready for discharge, awaiting pre-CERT Total clinical time spent by myself addressing the patient's medical issues, reviewing all the data, and collaborating with patient's care team: 25 minutes. Charges/Coding Visit Charges Inpatient E&M: 88308 [facility] L1
[2023-07-07 16:14] LABS: Bedside Glucose 202 mg/dL (74-106)
[2023-07-07] MEDS: Donepezil HCl 10 MG Tablet PO (20:01)
[2023-07-07 22:47] LABS: Bedside Glucose 180 mg/dL (74-106)
[2023-07-08] VITALS (9 sets, daily range): BP systolic 143–173; BP diastolic 61–99; PULSE 68–89; RESP 15–18; TEMP 36.4–37; O2SAT 92–95; BMI 30.4
[2023-07-08] MEDS: Insulin Lispro 100 UNIT/ML INSULN.PEN SC ×2 (06:43→15:58)
[2023-07-08] MEDS: 0.9% Saline Lock 10 ML Syringe IV (06:46)
[2023-07-08 07:19] LABS: Bedside Glucose 162 mg/dL (74-106)
--- NOTE | 2023-07-08 08:45 | CASEMGMT ---
Discharge Planning Requested updates sent via [facility] to Mart[facility]. Sangeetha Pedraza, Discharge Planning Asst.
[2023-07-08] MEDS: Sertraline 50 MG Tablet PO (08:46)
[2023-07-08] MEDS: Lisinopril 20 MG Tablet PO (08:46)
[2023-07-08] MEDS: Acetaminophen 325 MG Tablet 650 MG PO (08:46)
[2023-07-08] MEDS: Zinc Sulfate 50 mg zinc (220 mg) ORAL capsule PO (08:46)
[2023-07-08] MEDS: Ascorbic Acid 500 MG Tablet 1000 MG PO (08:46)
[2023-07-08] MEDS: Vibegron 75 MG TABLET PO (08:46)
[2023-07-08] MEDS: Gabapentin 600 MG Tablet PO ×2 (08:47→21:52)
[2023-07-08] MEDS: Memantine Hydrochloride 10 MG Tablet PO ×2 (08:47→21:52)
[2023-07-08] MEDS: Cholecalciferol (Vit D3) 125 MCG CAPSULE (5,000 UNITS) PO (08:47)
[2023-07-08] MEDS: Menthol/Lanolin/Calamine/Znox 113 GM Tube 1 APPLIC TOPICAL ×2 (08:47→21:57)
[2023-07-08] MEDS: Atenolol 25 MG Tablet PO (08:47)
[2023-07-08] MEDS: Enoxaparin 40 MG/0.4 ML Syringe SC (08:47)
[2023-07-08] MEDS: Senna/Docusate Sodium 1 Tablet PO ×2 (10:59→21:52)
[2023-07-08 11:22] LABS: Bedside Glucose 143 mg/dL (74-106)
--- NOTE | 2023-07-08 15:17 | PN.HOSP_ITS ---
Reason for Visit Reason for Visit: Diagnoses Acidosis, unspecified (07/03/23) Unspecified dementia, unspecified severity, without behavioral disturbance, psychotic disturbance, mood disturbance, and anxiety (07/03/23) Nausea with vomiting, unspecified (07/03/23) Other microscopic hematuria (07/03/23) Weakness (07/03/23) Adult failure to thrive (07/03/23) COVID-19 (07/03/23) Subjective Subjective No acute events overnight. Patient seen at bedside this morning. Was sleeping on my arrival to the room again today. Was very tired during our encounter, answered questions with short responses. Denied any acute pain or discomfort this morning. No other acute concerns this time. Objective Data Objective Data Vital Signs: Vital Signs Temp Pulse Resp BP Pulse Ox O2 Del Method 98 F 68 16 146/61 H 94 Room Air 07/08/23 11:02 07/08/23 11:02 07/08/23 11:02 07/08/23 11:02 07/08/23 11:02 07/08/23 14:03 Oxygen Delivery Method Room Air Weight: 96.5 kg Body Mass Index (BMI) 30.4 Intake & Output: Intake and Output for Last 24 Hours 07/06/23 07/07/23 07/08/23 23:59 23:59 23:59 Intake Total 400 / 400 1075 / 1075 770 / 770 Output Total 600 / 600 850 / 850 Balance 400 / 400 475 / 475 -80 / -80 Lab / Micro Data 07/07/23 08:24 07/07/23 08:24 Labs: Laboratory Results - last 24 hr 07/07/23 15:51: POC Glucose 202 H 07/07/23 22:23: POC Glucose 180 H 07/08/23 06:41: POC Glucose 162 H 07/08/23 10:57: POC Glucose 143 H Micro: Microbiology 07/03/23 21:20 Urine, Clean Catch Urine Culture - Final Culture exhibits no growth. 07/03/23 20:37 Mucosa - Nose SARS-CoV-2, Influenza & RSV (PCR) - Final SARS-CoV-2 (COVID 19) Physical Exam Const alert and average body habitus Constitutional Narrative: Elderly male, chronically ill-appearing, laying comfortably in bed, mildly confused but providing short responses to questions, no acute distress. General Appearance: cooperative and comfortable HEENT normocephalic, head/scalp atraumatic, hearing grossly normal bilaterally and nasal mucous membranes and turbinates normal Eyes PERRL, EOMs intact bilaterally and conjunctivae normal Neck full ROM, no lymphadenopathy and supple Lymph Lymphatic: no lymphadenopathy noted Chest inspection of chest normal Resp normal respiratory effort, normal air movement, no use of accessory muscles and clear to auscultation bilaterally Cardio regular rate, regular rhythm, no murmurs and peripheral pulses 2+ throughout GI normal to inspection, nondistended, normoactive bowel sounds, soft to palpation, non-tender and non-distended Back/Spine normal ROM Extremity normal to inspection, full ROM and no pedal edema Skin no rashes or lesions noted Neuro no focal motor deficits and no sensory deficits noted Assessment & Plan Assessment/Plan (1) Generalized weakness: (2) COVID: (3) Adult failure to thrive: PLAN: Plan Patient is an 83-year-old male who presented to [facility] ED on 07/03/2023 with worsening weakness and confusion. 1. Generalized debility, adult failure to thrive, history of dementia Presented with worsening weakness, poor p.o. intake and some nausea and vomiting. Suspected mild worsening from baseline due to COVID-19 infection but otherwise has fairly poor functional status. ? PT/OT/case management following. Planning for SNF on discharge. Medically ready for discharge on 07/07, awaiting placement. Continue home memantine and donepezil. 2. COVID-19 infection ? COVID-positive on admit. Chest x-ray with no acute changes. Stable on room air since admit. No indication for steroids or other COVID related therapies. Supportive management as needed. 3. Constipation ? Fecal retention noted on CT abdomen pelvis on admit. Continue bowel regimen. Chronic medical conditions: ? Type 2 diabetes mellitus with neuropathy: Sliding-scale insulin while inpatient, adjust as needed. Continue home gabapentin. ? Hypertension: Continue home atenolol and lisinopril. ? Depression: Continue home sertraline. ? 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 DVT prophylaxis: Lovenox CODE STATUS: DNR CCA, DNI Expected disposition: SNF, medically ready for discharge, awaiting pre-CERT Total clinical time spent by myself addressing the patient's medical issues, reviewing all the data, and collaborating with patient's care team: 25 minutes. Charges/Coding Visit Charges Inpatient E&M: 54741 Subs Hosp L1
[2023-07-08 16:33] LABS: Bedside Glucose 163 mg/dL (74-106)
[2023-07-08] MEDS: Donepezil HCl 10 MG Tablet PO (21:52)
[2023-07-08 23:10] LABS: Bedside Glucose 194 mg/dL (74-106)
[2023-07-09 01:46] VITALS: BP 151/79; PULSE 89; RESP 18; TEMP 36.9; O2SAT 92
[2023-07-09 04:00] VITALS: RESP 16; O2SAT 92
[2023-07-09 06:00] VITALS: BP 154/89; PULSE 89; RESP 18; TEMP 36.6; O2SAT 92; BMI 30.4
[2023-07-09] MEDS: Insulin Lispro 100 UNIT/ML INSULN.PEN SC ×2 (06:30→12:00)
[2023-07-09] MEDS: Enoxaparin 40 MG/0.4 ML Syringe SC (11:04)
[2023-07-09] MEDS: Senna/Docusate Sodium 1 Tablet PO (11:05)
[2023-07-09] MEDS: Sertraline 50 MG Tablet PO (11:05)
[2023-07-09] MEDS: Cholecalciferol (Vit D3) 125 MCG CAPSULE (5,000 UNITS) PO (11:05)
[2023-07-09] MEDS: Ascorbic Acid 500 MG Tablet 1000 MG PO (11:05)
[2023-07-09] MEDS: Zinc Sulfate 50 mg zinc (220 mg) ORAL capsule PO (11:05)
[2023-07-09] MEDS: Memantine Hydrochloride 10 MG Tablet PO (11:05)
[2023-07-09] MEDS: Lisinopril 20 MG Tablet PO (11:05)
[2023-07-09] MEDS: Vibegron 75 MG TABLET PO (11:05)
[2023-07-09] MEDS: Gabapentin 600 MG Tablet PO (11:05)
[2023-07-09] MEDS: Atenolol 25 MG Tablet PO (11:06)
[2023-07-09] MEDS: Menthol/Lanolin/Calamine/Znox 113 GM Tube 1 APPLIC TOPICAL (11:06)
[2023-07-09 12:20] LABS: Bedside Glucose 218 mg/dL (74-106)
--- NOTE | 2023-07-09 12:34 | DCINST_ITS ---
Discharge Instructions Diet Discharge Diet: No restrictions Activity Discharge Activity: No Restrictions Weight Bearing Status: Full weight bearing Follow Up Care Test Results: Test results from this visit will be discussed in further detail at your follow- up appointment, if applicable. Discharge Plan Admission Admit Date/Time: 07/03/23 23:12 Primary Reason for Your Visit: worsening confusion and weakness Attending Provider: Yash Posada Primary Care Provider: Jerrod Ojeda Consulting Providers: Lisa Valdivia; Kaleb Tran Discharge Orders/Prescriptions Prescriptions: New sennosides-docusate sodium [Stool Softener-Stimulant Laxat] 8.6-50 mg Tablet 1 tab PO BID 30 Days Qty: 0 0RF risperidone 0.5 mg Tablet 0.5 mg PO QHS PRN (Reason: Agitation) 30 Days Qty: 0 0RF Continued lisinopril 10 mg tablet 20 mg PO QDAY gabapentin 300 mg capsule 600 mg PO BID cholecalciferol (vitamin D3) 2,000 unit capsule 5,000 unit PO QDAY ascorbic acid (vitamin C) 1,000 mg tablet 1 g PO QDAY atenolol 25 mg tablet 25 mg PO DAILY Patient Comments: TAKE 1 TABLET BY MOUTH ONCE DAILY zinc 50 mg Tablet 50 mg PO DAILY metformin 500 mg Tablet,Er Liat.Retention 24 Hr 1,000 mg PO BID donepezil 5 mg tablet 5 mg PO DAILY Patient Comments: TAKE 1 TABLET BY MOUTH ONCE DAILY memantine 10 mg tablet 10 mg PO BID Patient Comments: TAKE 1 TABLET BY MOUTH TWICE DAILY metformin 500 mg tablet extended release 24 hr 500 mg PO BID Patient Comments: TAKE 2 TABLETS BY MOUTH TWICE DAILY WITH MEALS Myrbetriq 25 mg tablet extended release 24 hr 25 mg PO Q24H Patient Comments: take 1 tablet by mouth once daily sertraline 25 mg tablet 25 mg PO Q24H Patient Comments: take 1 tablet by mouth once daily Discontinued Ibuprofen PM 200-25 mg Capsule 2 cap PO QHS PRN (Reason: Sleep) ciprofloxacin HCl [Cipro] 500 mg tablet 500 mg PO BID Qty: 10 0RF ciprofloxacin HCl [Cipro] 500 mg tablet 500 mg PO BID 10 Days Qty: 20 0RF Referrals / Follow Up: Jerrod Ojeda PA [Primary Care Provider] - Disposition Disposition (needs filled in before D/C Order can be placed): Retirement Facility
--- NOTE | 2023-07-09 12:43 | PCM.TXEXTCAR ---
Diet Diet Order/Speech Therapy: 07/05/23 13:50 Diet: Carbohydrate Controlled Food consistency:: Regular Liquid Consistency:: Regular/Thin Type of Dietary Supplement:: Glucerna Shake Is pt able to select menu?: No Diet Comments: GS 120 soft food Routine Orders/Code Status Code Status: DNRCC-A (DO NOT INTUBATE) Therapies Weight Bearing: Full weight bearing Physical Therapy: Eval and Treat Occupational Therapy: Eval and Treat Problem/Diagnosis (1) Generalized weakness: Status: Acute Code(s): R53.1 - Weakness (2) COVID: Status: Acute Code(s): U07.1 - COVID-19 (3) Adult failure to thrive: Status: Inactive Code(s): R62.7 - Adult failure to thrive Plan Patient is an 83-year-old male who presented to [facility] ED on 07/03/2023 with worsening weakness and confusion. Hospital course as noted below. Patient discharged to care home facility in stable condition on 07/09. 1. Generalized debility, adult failure to thrive, history of dementia Presented with worsening weakness, poor p.o. intake and some nausea and vomiting. Suspected mild worsening from baseline due to COVID-19 infection but otherwise has fairly poor functional status. ? PT/OT/case management followed. Stable for discharge to SNF on 07/09. Continue home memantine and donepezil. 2. COVID-19 infection ? COVID-positive on admit on 07/03. Chest x-ray with no acute changes. Stable on room air since admit. No indication for steroids or other COVID related therapies. Supportive management as needed. 3. Constipation ? Fecal retention noted on CT abdomen pelvis on admit. Continue bowel regimen. Chronic medical conditions: ? Type 2 diabetes mellitus with neuropathy: Sliding-scale insulin while inpatient. Okay to restart home metformin on discharge. Continue home gabapentin. ? Hypertension: Continue home atenolol and lisinopril. ? Depression: Continue home sertraline. ? 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 Total clinical time spent by myself addressing the patient's discharge needs: 25 minutes. Allergies/Procedures Done in Hospital Allergies mirtazapine Adverse Reaction (Unknown, Verified 07/03/23 20:20) Unknown glimepiride Adverse Reaction (Verified 07/03/23 20:20) NEEDS FOLLOW-UP Type of Care/Length of Stay Estimated LOS: Convalescent Care Less Than 30 days Type of Care Needed: Skilled Rehab Potential: Fair Prognosis: Fair Additional Orders/Day of Discharge H&P will serve as current which was dated: 07/03/23 Day of Discharge: 07/09/23 Dietary and Speech Recommendations Dietitian Recommendations/Changes: Continue 2000 mannie CHO Control diet - change ONS to sandeep soliz d/t diabetes Recheck wt as pt spouse thinks adm wt is too high . Discharge Plan Admission Admit Date/Time: 07/03/23 23:12 Primary Reason for Your Visit: worsening confusion and weakness Attending Provider: Yash Posada Primary Care Provider: Jerrod Ojeda Consulting Providers: Lisa Valdivia; Kaleb Tran Discharge Orders/Prescriptions Prescriptions: New sennosides-docusate sodium [Stool Softener-Stimulant Laxat] 8.6-50 mg Tablet 1 tab PO BID 30 Days Qty: 0 0RF risperidone 0.5 mg Tablet 0.5 mg PO QHS PRN (Reason: Agitation) 30 Days Qty: 0 0RF Continued lisinopril 10 mg tablet 20 mg PO QDAY gabapentin 300 mg capsule 600 mg PO BID cholecalciferol (vitamin D3) 2,000 unit capsule 5,000 unit PO QDAY ascorbic acid (vitamin C) 1,000 mg tablet 1 g PO QDAY atenolol 25 mg tablet 25 mg PO DAILY Patient Comments: TAKE 1 TABLET BY MOUTH ONCE DAILY zinc 50 mg Tablet 50 mg PO DAILY metformin 500 mg Tablet,Er Liat.Retention 24 Hr 1,000 mg PO BID donepezil 5 mg tablet 5 mg PO DAILY Patient Comments: TAKE 1 TABLET BY MOUTH ONCE DAILY memantine 10 mg tablet 10 mg PO BID Patient Comments: TAKE 1 TABLET BY MOUTH TWICE DAILY metformin 500 mg tablet extended release 24 hr 500 mg PO BID Patient Comments: TAKE 2 TABLETS BY MOUTH TWICE DAILY WITH MEALS Myrbetriq 25 mg tablet extended release 24 hr 25 mg PO Q24H Patient Comments: take 1 tablet by mouth once daily sertraline 25 mg tablet 25 mg PO Q24H Patient Comments: take 1 tablet by mouth once daily Discontinued Ibuprofen PM 200-25 mg Capsule 2 cap PO QHS PRN (Reason: Sleep) ciprofloxacin HCl [Cipro] 500 mg tablet 500 mg PO BID Qty: 10 0RF ciprofloxacin HCl [Cipro] 500 mg tablet 500 mg PO BID 10 Days Qty: 20 0RF Referrals / Follow Up: Jerrod Ojeda PA [Primary Care Provider] - Disposition Disposition (needs filled in before D/C Order can be placed): Intermediate Facility Charges/Coding Visit Charges Inpatient E&M: 79897 Disch Hosp
--- NOTE | 2023-07-09 12:47 | PCM.DC.SUM ---
Providers Date of Admission: 07/03/23 Date of Discharge: 07/09/23 Primary Care Physician: HERB Cintron Reason For Visit: WEAKNESS & DEBILITY WITH COVID 19 INFECTION Diagnosis Discharge Diagnosis (1) Generalized weakness: Status: Acute Code(s): R53.1 - Weakness (2) COVID: Status: Acute Code(s): U07.1 - COVID-19 (3) Adult failure to thrive: Status: Inactive Code(s): R62.7 - Adult failure to thrive Medications at Discharge Home Medications ascorbic acid (vitamin C) 1,000 mg tablet 1 g PO QDAY 09/09/17 cholecalciferol (vitamin D3) 50 mcg (2,000 unit) capsule 5,000 unit PO QDAY 09/09/17 gabapentin 300 mg capsule 600 mg PO BID 09/09/17 lisinopril 10 mg tablet 20 mg PO QDAY 09/09/17 atenolol 25 mg tablet 25 mg PO DAILY 01/17/21 metformin 500 mg 24 hr tablet,extended release (gastric retention) 1,000 mg PO BID 01/17/21 zinc 50 mg tablet 50 mg PO DAILY 01/17/21 donepezil 5 mg tablet 5 mg PO DAILY 07/03/23 memantine 10 mg tablet 10 mg PO BID 07/03/23 metformin 500 mg tablet,extended release 24 hr 500 mg PO BID 07/03/23 mirabegron 25 mg tablet,extended release 24 hr (Myrbetriq) 25 mg PO Q24H 07/03/23 sertraline 25 mg tablet 25 mg PO Q24H 07/03/23 risperidone 0.5 mg tablet 0.5 mg PO QHS PRN Agitation 30 days #0 tabs 07/09/23 sennosides 8.6 mg-docusate sodium 50 mg tablet (Stool Softener-Stimulant Laxative) 1 tab PO BID 30 days #0 tabs 07/09/23 Hospital Course Operations None Procedures EKG and - (Chest x-ray, CT abdomen pelvis with IV contrast) Summary of Care Provided Minutes Spent on Discharge: 25 Hospital Course: Patient is an 83-year-old male who presented to [facility] ED on 07/03/2023 with worsening weakness and confusion. Hospital course as noted below. Patient discharged to shelter facility in stable condition on 07/09. 1. Generalized debility, adult failure to thrive, history of dementia Presented with worsening weakness, poor p.o. intake and some nausea and vomiting. Suspected mild worsening from baseline due to COVID-19 infection but otherwise has fairly poor functional status. ? PT/OT/case management followed. Stable for discharge to SNF on 07/09. Continue home memantine and donepezil. 2. COVID-19 infection ? COVID-positive on admit on 07/03. Chest x-ray with no acute changes. Stable on room air since admit. No indication for steroids or other COVID related therapies. Supportive management as needed. 3. Constipation ? Fecal retention noted on CT abdomen pelvis on admit. Continue bowel regimen. Chronic medical conditions: ? Type 2 diabetes mellitus with neuropathy: Sliding-scale insulin while inpatient. Okay to restart home metformin on discharge. Continue home gabapentin. ? Hypertension: Continue home atenolol and lisinopril. ? Depression: Continue home sertraline. ? 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 Total clinical time spent by myself addressing the patient's discharge needs: 25 minutes. Physical Exam Const alert and average body habitus Constitutional Narrative: Elderly male, chronically ill-appearing, laying comfortably in bed, mildly confused but providing short responses to questions, no acute distress. General Appearance: cooperative and comfortable HEENT normocephalic, head/scalp atraumatic, hearing grossly normal bilaterally and nasal mucous membranes and turbinates normal Eyes PERRL, EOMs intact bilaterally and conjunctivae normal Neck full ROM, no lymphadenopathy and supple Lymph Lymphatic: no lymphadenopathy noted Chest inspection of chest normal Resp normal respiratory effort, normal air movement, no use of accessory muscles and clear to auscultation bilaterally Cardio regular rate, regular rhythm, no murmurs and peripheral pulses 2+ throughout GI normal to inspection, nondistended, normoactive bowel sounds, soft to palpation, non-tender and non-distended Back/Spine normal ROM Extremity normal to inspection, full ROM and no pedal edema Skin no rashes or lesions noted Neuro no focal motor deficits and no sensory deficits noted Weight / BMI Weight Weight: 96.5 kg Body Mass Index (BMI) 30.4 ABG / Lab / Microbiology Data 07/07/23 08:24 07/07/23 08:24 Laboratory: Laboratory Results - last 24 hr 07/08/23 15:56: POC Glucose 163 H 07/08/23 22:48: POC Glucose 194 H 07/09/23 11:59: POC Glucose 218 H Microbiology: Microbiology 07/03/23 21:20 Urine, Clean Catch Urine Culture - Final Culture exhibits no growth. 07/03/23 20:37 Mucosa - Nose SARS-CoV-2, Influenza & RSV (PCR) - Final SARS-CoV-2 (COVID 19) D/C Instructions Discharge Diet: No restrictions Weight Bearing Status: Full weight bearing Meaningful Use Info Meaningful Use Diagnoses (Choose all that apply): None applicable Discharge Plan Admission Admit Date/Time: 07/03/23 23:12 Primary Reason for Your Visit: worsening confusion and weakness Attending Provider: Yash Posada Primary Care Provider: Jerrod Ojeda Consulting Providers: Lisa Valdivia; Kaleb Tran Discharge Orders/Prescriptions Prescriptions: New sennosides-docusate sodium [Stool Softener-Stimulant Laxat] 8.6-50 mg Tablet 1 tab PO BID 30 Days Qty: 0 0RF risperidone 0.5 mg Tablet 0.5 mg PO QHS PRN (Reason: Agitation) 30 Days Qty: 0 0RF Continued lisinopril 10 mg tablet 20 mg PO QDAY gabapentin 300 mg capsule 600 mg PO BID cholecalciferol (vitamin D3) 2,000 unit capsule 5,000 unit PO QDAY ascorbic acid (vitamin C) 1,000 mg tablet 1 g PO QDAY atenolol 25 mg tablet 25 mg PO DAILY Patient Comments: TAKE 1 TABLET BY MOUTH ONCE DAILY zinc 50 mg Tablet 50 mg PO DAILY metformin 500 mg Tablet,Er Liat.Retention 24 Hr 1,000 mg PO BID donepezil 5 mg tablet 5 mg PO DAILY Patient Comments: TAKE 1 TABLET BY MOUTH ONCE DAILY memantine 10 mg tablet 10 mg PO BID Patient Comments: TAKE 1 TABLET BY MOUTH TWICE DAILY metformin 500 mg tablet extended release 24 hr 500 mg PO BID Patient Comments: TAKE 2 TABLETS BY MOUTH TWICE DAILY WITH MEALS Myrbetriq 25 mg tablet extended release 24 hr 25 mg PO Q24H Patient Comments: take 1 tablet by mouth once daily sertraline 25 mg tablet 25 mg PO Q24H Patient Comments: take 1 tablet by mouth once daily Discontinued Ibuprofen PM 200-25 mg Capsule 2 cap PO QHS PRN (Reason: Sleep) ciprofloxacin HCl [Cipro] 500 mg tablet 500 mg PO BID Qty: 10 0RF ciprofloxacin HCl [Cipro] 500 mg tablet 500 mg PO BID 10 Days Qty: 20 0RF Referrals / Follow Up: Jerrod Ojeda PA [Primary Care Provider] - Disposition Disposition (needs filled in before D/C Order can be placed): [facility] Facility Charges/Coding Visit Charges Inpatient E&M: 34265 Disch Hosp
--- NOTE | 2023-07-09 13:23 | CASEMGMT ---
Social Work Precert has been obtained for pt to go to [facility] today. Physician updated and pt is ready for discharge today. 7000 exemption form completed in HENS. Phone call to pt's Margoth and let her know that [facility] has accepted and precert has been obtained and dc will be today. Pt's agreeable and SW answered all questions. DC tmd teacher assistant updated and to complete dc. Disposition: [facility], skilled level of care under convalescent stay NAOMI Rojo
--- NOTE | 2023-07-09 13:38 | CASEMGMT ---
Discharge Planning Discharge orders, signed med list, and transport time sent via [facility] to [facility]. Physicians will transport patient by cot with pickup time between 2:30-3p. Nursing, SW, and patients updated. Sangeetha Pedraza, Discharge Planning Asst.
[2023-07-09 15:06] VITALS: BP 138/88; PULSE 91; RESP 18; TEMP 36.6; O2SAT 94
--- NOTE | 2023-07-09 15:15 | NURSING ---
report called to [facility] with no questions voiced.
[2023-07-09 19:14] LABS: Bedside Glucose 163 mg/dL (74-106)
== END 2023-07-09 15:20 | disposition skilled nursing facility (03) | DRG 178 ==
LOC: ED 22:32 → MS3 23:18
PROVIDERS: Internal Medicine; Admitting Provider Internal Medicine; Emergency Provider Emergency Medicine; PCP Physician Assistant; Visit Provider Hospitalist
DX: U07.1 COVID-19 (principal); E87.20 Acidosis, unspecified; N13.2 Hydronephrosis with renal and ureteral calculous obstruction; E11.40 Type 2 diabetes mellitus with diabetic neuropathy, unspecified; E11.65 Type 2 diabetes mellitus with hyperglycemia; F03.C0 Unspecified dementia, severe, without behavioral disturbance, psychotic disturbance, mood disturbance, and anxiety; I10 Essential (primary) hypertension; F32.A Depression, unspecified; G25.81 Restless legs syndrome; I25.10 Atherosclerotic heart disease of native coronary artery without angina pectoris; K40.20 Bilateral inguinal hernia, without obstruction or gangrene, not specified as recurrent; R11.2 Nausea with vomiting, unspecified; E86.0 Dehydration; G47.33 Obstructive sleep apnea (adult) (pediatric); K59.00 Constipation, unspecified; R62.7 Adult failure to thrive; N40.0 Benign prostatic hyperplasia without lower urinary tract symptoms; R31.29 Other microscopic hematuria; R53.81 Other malaise; R53.1 Weakness; Z66 Do not resuscitate; Z79.84 Long term (current) use of oral hypoglycemic drugs; Z79.899 Other long term (current) drug therapy; Z87.891 Personal history of nicotine dependence; Z95.1 Presence of aortocoronary bypass graft
CPT/HCPCS: 36415; 70450; 71045; 74177; 80048; 80053; 81001; 82962; 83605; 83735; 84100; 85025; 85027; 85610; 85730; 87086; 87088; 87631; 93005; 94668; 97162; 97166; 97530; 97535; 97802; 99252; 99285; J7120; P9612; Q9967; A4216; G0463; J2405